=== PATIENT | male | born 1945 | race Caucasian/White ===

== ENCOUNTER → 2016-10-06 | Outpatient (CLI) | payer MEDICARE ==
[~2016-10-06] MED LIST: ALFU10TA6 PO; ALPR0.25 PO; ALPR0.5T7 PO; BACL10TA PO; BETH25TA PO; BUPR300T43 PO; BUPR300T51 PO; C250T PO; CRS350T PO; CYCL10TA9 PO; DILT120C63 PO; DULO30CA PO; DULO60CA6 PO; ETOD400T PO; FOLI0.8T PO; FURO40TA4 PO; HYDR-3820 PO; IBUP200C75 PO; IBUP200C92 PO; LACT20SO2 PO; LEVO500T2 PO; LOSA1TAB23 PO; LVF500T PO; MAGN500C15 PO; MULT-301 PO; MV,C1TAB21 PO; OMEG-12 PO; OMEP20CA12 PO; ONDA-42 SL; OXYC-272 PO; POTA20TA8 PO; PRAS25CA7 PO; TAMS0.4C2 PO; TAMS0.4C98 PO; ZINC30TA2 PO; ZOLP10TA5 PO; [UNRECOGNIZED DRUG - CODE] PO
--- NOTE | 2016-10-06 15:56 | Diagnostic Imaging Report ---
CLINICAL INDICATION: Patient has chronic neck pain. No known injury. EXAM: MRI of the cervical spine performed without IV contrast. Sequences include sagittal T2, sagittal T1, sagittal STIR, and axial T2. COMPARISON: CT cervical myelogram dated 10/06/2013. FINDINGS: There is stable straightening of the cervical spine posture. There is no acute cervical spine fracture or dislocation. Limited visualization of the posterior fossa is unremarkable. There is sphenoid sinus disease seen with consolidation. The cervical spinal cord has normal cord signal changes and caliber. Besides degenerative signal changes, there is no significant abnormal vertebral body signal. There are hypertrophic disc spurs seen throughout the cervical spine and facet arthropathy. Overall, there is no significant interval change in the dfgihptq-fu-ypkhkz multilevel cervical spine degenerative disease. C1-C2: There is a small miguel-odontoid pannus and degenerative spurs at the atlanto-odontoid interval anteriorly. There is mild ligamentum flavum buckling. There is mild central canal narrowing. C2-C3: There is minimal posterior disc bulge and mild bilateral facet arthropathy. There is mild central canal narrowing and mild right neuroforamen narrowing. C3-C4: Again seen diffuse disc bulge with cxgu-ll-hkljlohb loss of intervertebral disc height. There are disc spurs seen anteriorly, posteriorly, and extending into the foraminal regions bilaterally. There is mild bilateral facet arthropathy. There is severe right neuroforamen narrowing. There is no significant left neuroforamen narrowing. There is mild central canal narrowing. C4-C5: There is a diffuse disc bulge with moderate loss of intervertebral disc height and hypertrophic disc spurs posteriorly and into the foraminal regions bilaterally. There is moderate central canal narrowing and reapfnpa-ig-dwbdub bilateral neuroforamen narrowing. C5-C6: There is a diffuse disc bulge with xeob-rr-wgdnvrpq loss of intervertebral disc height. There is minimal ligamentum flavum buckling and mild bilateral facet arthropathy. There is severe central canal narrowing and severe bilateral neuroforamen narrowing. C6-C7: There is a diffuse disc bulge with gsigmsxb-mk-jnlang loss of intervertebral disc height, endplate irregularity, hypertrophic posterior disc spurs, and bilateral uncinate spurs. There is moderate central canal narrowing. There is dndaimzq-wm-hkxyda bilateral neuroforamen narrowing. C7-T1: There is mild bilateral facet arthropathy. Otherwise, this level is unremarkable. IMPRESSION: 1. There is xtcocjhw-vk-evrwwh multilevel cervical spine degenerative disc disease which has significantly changed in the interim. Dictated by: Dictated on workstation # [id number]
== END ==
LOC: RAD 10:08
PROVIDERS: ATTEND Orthopaedic Surgery Orthopaedic Surgery of the Spine
DX: M50.31 Other cervical disc degeneration, high cervical region (principal)
CPT/HCPCS: 72141

== ENCOUNTER 2017-04-18 17:49 | Emergency (ER) | payer MEDICARE ==
[~2017-04-18] VITALS: Ht 170.2 cm; Wt 90.7 kg
--- OUTSIDE RECORDS SUMMARY | 2017-04-18 17:59 | XMS REPORT | Continuity of Care Document ---
Author Author [facility] Organization [facility] Address Unknown Phone Unavailable Allergies Active Description Code Type Severity Reaction Onset Reported/Identified Relationship to Patient Clinical Status Yes morphine [id number] Drug Allergy Unknown N/A 06/06/2013 Yes adhesive [id number] Drug Allergy Unknown RASH 05/23/2014 Yes morphine [id number] Drug Allergy Unknown PATIENT TAKES L 10/01/2015 Medications There is no data. Problems Date Dx Coded Attending Type Code Diagnosis Diagnosed By 05/30/2013 DARIAN OVIEDO MD Ot 724.02 SPINAL STENOSIS, LUMBAR REG, W/OUT NEURO 05/30/2013 DARIAN OVIEDO MD Ot 724.4 LUMBOSACRAL NEURITIS NOS 05/30/2013 DARIAN OVIEDO MD Ot 737.30 IDIOPATHIC SCOLIOSIS 05/30/2013 DARIAN OVIEDO MD Ot 738.4 ACQ SPONDYLOLISTHESIS 05/30/2013 DARIAN OVIEDO MD Ot V03.82 PROPHYLACTIC VACC AGAINST STREPTOCOCCUS 05/30/2013 DARIAN OVIEDO MD Ot V04.81 ND FOR PROPHYLACTIC VACCIN AND INOCULATI 06/04/2013 ALANIS RAWLS, SUKHWINDER Dillon Ot 786.05 SHORTNESS OF BREATH 06/15/2013 JACINTO CEDENO MD Ot 288.60 LEUKOCYTOSIS, UNSPECIFIED 06/15/2013 JACINTO CEDENO MD Ot 292.0 DRUG WITHDRAWAL 06/15/2013 JACINTO CEDENO MD Ot 305.90 DRUG ABUSE NEC-UNSPEC 06/15/2013 JACINTO CEDENO MD Ot 401.9 HYPERTENSION NOS 06/15/2013 JACINTO CEDENO MD Ot 414.00 CORON ATHEROSCLER NOS TYPE VESSEL, NATIV 06/15/2013 JACINTO CEDENO MD Ot 597.80 URETHRITIS NOS 06/15/2013 JACINTO CEDENO MD Ot 601.9 PROSTATITIS NOS 06/15/2013 JACINTO CEDENO MD Ot 715.90 OSTEOARTHROS NOS-UNSPEC 06/15/2013 JACINTO CEDENO MD Ot 724.02 SPINAL STENOSIS, LUMBAR REG, W/OUT NEURO 06/15/2013 WILIAN RAWLS, JACINTO Pereira Ot 737.30 IDIOPATHIC SCOLIOSIS 06/15/2013 WILIAN RAWLS, JACINTO S Ot 756.12 SPONDYLOLISTHESIS 06/15/2013 WILIAN RAWLS, JACINTO S Ot 780.62 POSTPROCEDURAL FEVER 06/15/2013 WILIAN RAWLS, JACINTO Pereira Ot 788.20 RETENTION OF URINE NOS 06/15/2013 WILIAN RAWLS, JACINTO Pereira Ot V13.01 PERSONAL HISTORY OF URINARY CALCULI 06/15/2013 WILIAN RAWLS, JACINTO Pereira Ot V45.81 AORTOCORONARY BYPASS 06/15/2013 WILIAN RAWLS, JACINTO Pereira Ot V45.89 POSTSURGICAL STATES NEC 10/06/2013 PREET RAWLS, DARIAN Dillon Ot 721.1 CERV SPONDYL W MYELOPATH 10/06/2013 PREET RAWLS, DARIAN Dillon Ot 721.42 SPOND COMPR LUMB SP CORD 05/24/2014 WILIAN RAWLS, JACINTO S Ot 288.60 05/24/2014 WILIAN RAWLS, JACINTO S Ot 401.9 05/24/2014 WILIAN RAWLS, JACINTO S Ot 414.01 05/24/2014 WILIAN RAWLS, JACINTO S Ot 458.9 05/24/2014 WILIAN RAWLS, JACINTO S Ot 527.7 05/24/2014 WILIAN RAWLS, JACINTO S Ot 530.81 05/24/2014 WILIAN RAWLS, JACINTO S Ot 599.0 05/24/2014 WILIAN RAWLS, JACINTO S Ot 716.90 05/24/2014 WILIAN RAWLS, JACINTO S Ot 722.6 05/24/2014 WILIAN RAWLS, JACINTO S Ot 724.5 05/24/2014 WILIAN RAWLS, JACINTO S Ot 780.8 05/24/2014 WILIAN RAWLS, JACINTO S Ot 784.92 05/24/2014 WILIAN RAWLS, JACINTO S Ot 786.2 05/24/2014 WILINA RAWLS, JACINTO S Ot 787.01 05/24/2014 WILIAN RAWLS, JACINTO S Ot 787.91 05/24/2014 WILIAN RAWLS, JACINTO S Ot 789.07 05/24/2014 WILIAN RAWLS, JACINTO S Ot 792.1 05/24/2014 WILIAN RAWLS, JACINTO S Ot V45.81 05/24/2014 WILIAN RAWLS, JACINTO S Ot V58.64 05/24/2014 WILIAN RAWLS, JACINTO S Ot 288.60 05/24/2014 WILIAN RAWLS, JACINTO S Ot 401.9 05/24/2014 WILIAN RAWLS, JACINTO S Ot 414.01 05/24/2014 WILIAN RAWLS, JACINTO S Ot 458.9 05/24/2014 WILIAN RAWLS, JACINTO S Ot 527.7 05/24/2014 WILIAN RAWLS, JACINTO S Ot 530.81 05/24/2014 WILIAN RAWLS, JACINTO S Ot 599.0 05/24/2014 WILIAN RAWLS, JACINTO S Ot 716.90 05/24/2014 WILIAN RAWLS, JACINTO S Ot 722.6 05/24/2014 WILIAN RAWLS, JACINTO S Ot 724.5 05/24/2014 WILIAN RAWLS, JACINTO S Ot 780.8 05/24/2014 WILIAN RAWLS, JACINTO S Ot 784.92 05/24/2014 WILIAN RAWLS, JACINTO S Ot 786.2 05/24/2014 WILIAN RAWLS, JACINTO S Ot 787.01 05/24/2014 WILIAN RAWLS, JACINTO S Ot 787.91 05/24/2014 WILIAN RAWLS, JACINTO S Ot 789.07 05/24/2014 WILIAN RAWLS, JACINTO S Ot 792.1 05/24/2014 WILIAN RAWLS, JACINTO S Ot V45.81 05/24/2014 WILIAN RAWLS, JACINTO S Ot V58.64 05/25/2014 WILIAN RAWLS, JACINTO S Ot 288.60 05/25/2014 WILIAN RAWLS, JACINTO S Ot 401.9 05/25/2014 WILIAN RAWLS, JACINTO S Ot 414.01 05/25/2014 WILIAN RAWLS, JACINTO S Ot 458.9 05/25/2014 WILIAN RAWLS, JACINTO S Ot 527.7 05/25/2014 WILIAN RAWLS, JACINTO S Ot 530.81 05/25/2014 WILIAN RAWLS, JACINTO S Ot 599.0 05/25/2014 WILIAN RAWLS, JACINTO S Ot 716.90 05/25/2014 WILIAN RAWLS, JACINTO S Ot 722.6 05/25/2014 WILIAN RAWLS, JACINTO S Ot 724.5 05/25/2014 WILIAN RAWLS, JACINTO Pereira Ot 780.8 05/25/2014 WILIAN RAWLS, JACINTO Pereira Ot 784.92 05/25/2014 WILIAN RAWLS, JACINTO Pereira Ot 786.2 05/25/2014 WILIAN RAWLS, JACINTO Pereira Ot 787.01 05/25/2014 WILIAN RAWLS, JACINTO Pereira Ot 787.91 05/25/2014 WILIAN RAWLS, JACINTO Pereira Ot 789.07 05/25/2014 WILIAN RAWLS, JACINTO S Ot 792.1 05/25/2014 WILIAN RAWLS, JACINTO Pereira Ot V45.81 05/25/2014 WILIAN RAWLS, JACINTO Pereira Ot V58.64 05/25/2014 WILIAN RAWLS, JACINTO Pereira Ot 276.51 DEHYDRATION 05/25/2014 WILIAN RAWLS, JACINTO Pereira Ot 288.60 LEUKOCYTOSIS, UNSPECIFIED 05/25/2014 WILIAN RAWLS, JACINTO Pereira Ot 401.9 HYPERTENSION NOS 05/25/2014 WILIAN RAWLS, JACINTO Pereira Ot 414.01 CORONARY ATHEROSCLEROSIS OF [place] CORON 05/25/2014 WILIAN RAWLS, JACINTO Pereira Ot 458.9 HYPOTENSION NOS 05/25/2014 WILIAN RAWLS, JACINTO Pereira Ot 527.7 SALIVARY SECRETION DIS 05/25/2014 WILIAN RAWLS, JACINTO Pereira Ot 530.81 ESOPHAGEAL REFLUX 05/25/2014 WILIAN RAWLS, JACINTO Pereira Ot 558.9 NONINF GASTROENTERIT NEC 05/25/2014 WILIAN RAWLS, JACINTO Pereira Ot 584.9 ACUTE RENAL FAILURE, UNSPECIFIED 05/25/2014 WILIAN RAWLS, JACINTO Pereira Ot 599.0 05/25/2014 WILIAN RAWLS, JACINTO Pereira Ot 600.00 HYPERTROPHY (BENIGN) OF PROSTATE W/O URI 05/25/2014 WILIAN RAWLS, JACINTO Pereira Ot 715.90 OSTEOARTHROS NOS-UNSPEC 05/25/2014 WILIAN RAWLS, JACINTO Pereira Ot 722.6 DISC DEGENERATION NOS 05/25/2014 WILIAN RAWLS, JACINTO Pereira Ot 724.5 05/25/2014 WILIAN RAWLS, JACINTO Pereira Ot 780.8 GENERALIZED HYPERHIDROSIS 05/25/2014 WILIAN RAWLS, JACINTO Pereira Ot 784.92 JAW PAIN 05/25/2014 WILIAN RAWLS, JACINTO Pereira Ot 786.2 COUGH 05/25/2014 JACINTO CEDENO MD Ot V45.81 AORTOCORONARY BYPASS 05/25/2014 JACINTO CEDENO MD Ot V45.89 POSTSURGICAL STATES NEC 05/25/2014 JACINTO CEDENO MD Ot V58.64 LONG-TERM(CURRENT)USE OF NON-STEROIDAL A 07/02/2014 Ot 724.02 07/02/2014 DARIAN OVIEDO MD Ot 724.02 07/02/2014 DARIAN OVIEDO MD Ot V72.63 07/02/2014 DARIAN OVIEDO MD Ot V72.81 07/02/2014 DARIAN OVIEDO MD Ot V72.83 07/02/2014 DARIAN OVIEDO MD Ot V74.8 07/02/2014 DARIAN OVIEDO MD Ot 724.02 07/02/2014 DARIAN OVIEDO MD Ot V72.84 07/02/2014 DARIAN OVIEDO MD Ot 288.60 07/02/2014 DARIAN OVIEDO MD Ot 721.1 07/02/2014 DARIAN OVIEDO MD Ot V64.3 07/02/2014 CHUY RAWLS, ALISHA A Ot 786.50 07/02/2014 EM WARD Ot 288.63 07/02/2014 MICHELLE ELIZALDE MD Ot 338.4 CHRONIC PAIN SYNDROME 07/02/2014 MICHELLE ELIZALDE MD Ot 722.83 POSTLAMINECT SYND-LUMBAR 07/02/2014 MICHELLE ELIZALDE MD Ot 724.6 DISORDERS OF SACRUM 07/02/2014 MICHELLE ELIZALDE MD Ot V58.69 OTH MED,LT,CURRENT USE 07/27/2014 EM WARD Ot 288.63 09/09/2014 EM WARD N Ot 288.63 MONOCYTOSIS (SYMPTOMATIC) 10/10/2014 ME WARD N Ot 288.63 10/11/2014 EM WARD N Ot 288.63 10/12/2014 EM WARD Ot 288.63 10/19/2014 MICHELLE ELIZALDE MD Ot 715.95 OSTEOARTHROS NOS-PELVIS 10/19/2014 MICHELLE ELIZALDE MD Ot 722.83 POSTLAMINECT SYND-LUMBAR 10/19/2014 MICHELLE ELIZALDE MD Ot 724.6 DISORDERS OF SACRUM 10/19/2014 MICHELLE ELIZALDE MD Ot 729.1 MYALGIA AND MYOSITIS NOS 10/19/2014 MICHELLE ELIZALDE MD Ot V58.69 OTH MED,LT,CURRENT USE 10/25/2014 MICHELLE ELIZALDE MD Ot 719.45 10/31/2014 JENNIFER SHEETS MD Ot 600.00 10/31/2014 JENNIFER SHEETS MD Ot V58.69 10/31/2014 JENNIFER SHEETS MD Ot V58.83 12/10/2014 MICHELLE ELIZALDE MD Ot 338.4 12/10/2014 MICHELLE ELIZALDE MD Ot 715.95 12/10/2014 MICHELLE ELIZALDE MD Ot 722.83 12/10/2014 MICHELLE ELIZALDE MD Ot 724.6 12/10/2014 MICHELLE ELIZALDE MD Ot V58.69 01/09/2015 ED, BOBAN N Ot 285.9 ANEMIA NOS 01/09/2015 ED, BOBAN N Ot 288.63 MONOCYTOSIS (SYMPTOMATIC) 01/09/2015 ED BOBAN N Ot V58.69 OTH MED,LT,CURRENT USE 01/15/2015 ED, BOBAN N Ot 288.63 02/25/2015 ED, BOBAN N Ot D64.9 02/25/2015 ED, BOBAN N Ot D72.821 02/25/2015 ED, BOBAN N Ot Z79.899 03/01/2015 MICHELLE ELIZALDE MD Ot G89.4 CHRONIC PAIN SYNDROME 03/01/2015 MICHELLE ELIZALDE MD Ot M47.816 SPONDYLOSIS W/O MYELOPATHY OR RADICULOPA 03/01/2015 MICHELLE ELIZALDE MD Ot M53.3 SACROCOCCYGEAL DISORDERS, NOT ELSEWHERE 03/01/2015 MICHELLE ELIZALDE MD Ot M96.1 POSTLAMINECTOMY SYNDROME, NOT ELSEWHERE 03/04/2015 MICHELLE ELIZALDE MD Ot G89.4 CHRONIC PAIN SYNDROME 03/04/2015 MICHELLE ELIZALDE MD Ot M47.816 SPONDYLOSIS W/O MYELOPATHY OR RADICULOPA 03/04/2015 MICHELLE ELIZALDE MD Ot M53.3 SACROCOCCYGEAL DISORDERS, NOT ELSEWHERE 03/04/2015 MICHELLE ELIZALDE MD Ot M96.1 POSTLAMINECTOMY SYNDROME, NOT ELSEWHERE 03/29/2015 MICHELLE ELIZALDE MD Ot G89.4 CHRONIC PAIN SYNDROME 03/29/2015 MICHELLE ELIZALDE MD Ot M47.816 SPONDYLOSIS W/O MYELOPATHY OR RADICULOPA 03/29/2015 MICHELLE ELIZALDE MD Ot M53.3 SACROCOCCYGEAL DISORDERS, NOT ELSEWHERE 03/29/2015 MICHELLE ELIZALDE MD, Ot M96.1 POSTLAMINECTOMY SYNDROME, NOT ELSEWHERE 03/29/2015 MICHELLE ELIZALDE MD Ot Z79.899 OTHER JAIL (CURRENT) DRUG THERAPY 04/10/2015 ED BOBAN N Ot 285.9 ANEMIA NOS 04/10/2015 ED BOBAN N Ot 288.63 MONOCYTOSIS (SYMPTOMATIC) 04/10/2015 ED BOBAN N Ot D64.9 ANEMIA, UNSPECIFIED 04/10/2015 ED BOBAN N Ot D72.821 MONOCYTOSIS (SYMPTOMATIC) 04/10/2015 EM WARD N Ot V58.69 OTH MED,LT,CURRENT USE 04/10/2015 ED, BOBAN N Ot 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 04/19/2015 ED BOBAN N Ot D64.9 04/19/2015 ED BOBAN N Ot D72.821 04/19/2015 ED, BOBAN N Ot Z79.899 06/14/2015 MICHELLE ELIZALDE MD Ot G89.4 CHRONIC PAIN SYNDROME 06/14/2015 MICHELLE ELIZALDE MD Ot M96.1 POSTLAMINECTOMY SYNDROME, NOT ELSEWHERE 06/21/2015 MICHELLE ELIZALDE MD Ot G89.4 06/21/2015 MICHELLE ELIZALDE MD Ot M96.1 06/21/2015 MICHELLE ELIZALDE MD Ot Z01.812 06/21/2015 MICHELLE ELIZALDE MD Ot Z11.2 07/31/2015 MICHELLE ELIZALDE MD Ot M54.5 LOW BACK PAIN 09/10/2015 TUAN MAYA MD Ot M96.1 POSTLAMINECTOMY SYNDROME, NOT ELSEWHERE 09/10/2015 TUAN MAYA MD Ot Z01.812 ENCOUNTER FOR PREPROCEDURAL LABORATORY E 09/10/2015 TUAN MAYA MD Ot Z11.2 ENCOUNTER FOR SCREENING FOR OTHER BACTER 09/11/2015 TUAN MAYA MD Ot M96.1 POSTLAMINECTOMY SYNDROME, NOT ELSEWHERE 09/11/2015 TUAN MAYA MD Ot Z01.812 ENCOUNTER FOR PREPROCEDURAL LABORATORY E 09/11/2015 TUAN MAYA MD Ot Z11.2 ENCOUNTER FOR SCREENING FOR OTHER BACTER 09/19/2015 TUAN MAYA MD Ot D72.829 ELEVATED WHITE BLOOD CELL COUNT, UNSPECI 09/25/2015 Ot 724.02 SPINAL STENOSIS, LUMBAR REG, W/OUT NEURO 09/25/2015 DARIAN OVIEDO MD Ot 724.02 SPINAL STENOSIS, LUMBAR REG, W/OUT NEURO 09/25/2015 DARIAN OVIEDO MD Ot V72.63 PRE-PROCEDURAL LABORATORY EXAMINATION 09/25/2015 DARIAN OVIEDO MD Ot V72.81 [id number] CARDIOVASCULAR 09/25/2015 DARIAN OVIEDO MD Ot V72.83 EXAM PRE-OPERATIVE NEC 09/25/2015 DARIAN OVIEDO MD Ot V74.8 SCREEN-BACTERIAL DIS NEC 09/25/2015 DARIAN OVIEDO MD Ot 724.02 SPINAL STENOSIS, LUMBAR REG, W/OUT NEURO 09/25/2015 DARIAN OVIEDO MD Ot V72.84 EXAM PRE-OPERATIVE NOS 09/25/2015 DARIAN OVIEDO MD Ot 288.60 LEUKOCYTOSIS, UNSPECIFIED 09/25/2015 DARIAN OVIEDO MD Ot 721.1 CERV SPONDYL W MYELOPATH 09/25/2015 DARIAN OVIEDO MD Ot V64.3 NO PROC FOR REASONS NEC 09/25/2015 CHUY RAWLS, ALISHA A Ot 786.50 CHEST PAIN NOS 09/25/2015 MICHELLE ELIZALDE MD Ot 719.45 JOINT PAIN-PELVIS 09/25/2015 JENNIFER SHEETS MD Ot 600.00 HYPERTROPHY (BENIGN) OF PROSTATE W/O URI 09/25/2015 JENNIFER SHEETS MD Ot V58.69 OT MED,LT,CURRENT USE 09/25/2015 JENNIFER SHEETS MD Ot V58.83 ENCOUNTER FOR THERAPEUTIC DRUG MONITORIN 09/25/2015 MICHELLE ELIZALDE MD Ot 338.4 CHRONIC PAIN SYNDROME 09/25/2015 MICHELLE ELIZALDE MD Ot 715.95 OSTEOARTHROS NOS-PELVIS 09/25/2015 MICHELLE ELIZALDE MD Ot 722.83 POSTLAMINECT SYND-LUMBAR 09/25/2015 MICHELLE ELIZALDE MD Ot 724.6 DISORDERS OF SACRUM 09/25/2015 MICHELLE ELIZALDE MD, Ot V58.69 OTH MED,LT,CURRENT USE 09/25/2015 EM WARD Ot D64.9 ANEMIA, UNSPECIFIED 09/25/2015 EM WARD Ot D72.821 MONOCYTOSIS (SYMPTOMATIC) 09/25/2015 EM WARD Ot 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 09/25/2015 MICHELLE ELIZALDE MD Ot G89.4 CHRONIC PAIN SYNDROME 09/25/2015 MICHELLE ELIZALDE MD, Ot M96.1 POSTLAMINECTOMY SYNDROME, NOT ELSEWHERE 09/25/2015 MICHELLE ELIZALDE MD Ot Z01.812 ENCOUNTER FOR PREPROCEDURAL LABORATORY E 09/25/2015 MICHELLE ELIZALDE MD Ot Z11.2 ENCOUNTER FOR SCREENING FOR OTHER BACTER 09/25/2015 TUAN MAYA MD Ot D72.829 ELEVATED WHITE BLOOD CELL COUNT, UNSPECI 09/26/2015 TUAN MAYA MD, Ot M96.0 PSEUDARTHROSIS AFTER FUSION OR ARTHRODES 09/27/2015 TUAN MAYA MD, Ot D64.9 ANEMIA, UNSPECIFIED 09/27/2015 TUAN MAYA MD Ot E87.2 ACIDOSIS 09/27/2015 TUAN MAYA MD Ot F41.9 ANXIETY DISORDER, UNSPECIFIED 09/27/2015 TUAN MAYA MD Ot G47.33 OBSTRUCTIVE SLEEP APNEA (ADULT) (PEDIATR 09/27/2015 TUAN MAYA MD Ot I12.9 HYPERTENSIVE CHRONIC KIDNEY DISEASE W ST 09/27/2015 TUAN MAYA MD Ot I25.10 ATHSCL HEART DISEASE OF [place] CORONARY 09/27/2015 TUAN MAYA MD Ot J96.01 ACUTE RESPIRATORY FAILURE WITH HYPOXIA 09/27/2015 TUAN MAYA MD, Ot K21.9 GASTRO-ESOPHAGEAL REFLUX DISEASE WITHOUT 09/27/2015 TUAN MAYA MD Ot K72.00 ACUTE AND SUBACUTE HEPATIC FAILURE WITHO 09/27/2015 TUAN MAYA MD Ot M43.17 SPONDYLOLISTHESIS, LUMBOSACRAL REGION 09/27/2015 TUAN MAYA MD Ot M46.1 SACROILIITIS, NOT ELSEWHERE CLASSIFIED 09/27/2015 TUAN MAYA MD Ot M54.16 RADICULOPATHY, LUMBAR REGION 09/27/2015 TUAN MAYA MD Ot M96.0 PSEUDARTHROSIS AFTER FUSION OR ARTHRODES 09/27/2015 TUAN MAYA MD Ot N18.9 CHRONIC KIDNEY DISEASE, UNSPECIFIED 09/27/2015 TUAN MAYA MD Ot R41.0 DISORIENTATION, UNSPECIFIED 09/27/2015 TUAN MAYA MD, Ot R73.9 HYPERGLYCEMIA, UNSPECIFIED 09/27/2015 TUAN MAYA MD Ot T81.19XA OTHER POSTPROCEDURAL SHOCK, INITIAL ENCO 09/27/2015 TUAN MAYA MD Ot T84.216A BREAKDOWN (MECHANICAL) OF INT FIX OF JEET 09/27/2015 TUAN MAYA MD Ot T86.831 BONE GRAFT FAILURE 09/27/2015 TUAN MAYA MD Ot Z95.1 PRESENCE OF AORTOCORONARY BYPASS GRAFT 09/27/2015 TUAN MAYA MD Ot Z95.5 PRESENCE OF CORONARY ANGIOPLASTY IMPLANT 09/27/2015 TUAN MAYA MD Ot D64.9 ANEMIA, UNSPECIFIED 09/27/2015 TUAN MAYA MD Ot E87.2 ACIDOSIS 09/27/2015 TUAN MAYA MD Ot F41.9 ANXIETY DISORDER, UNSPECIFIED 09/27/2015 TUAN MAYA MD Ot G47.33 OBSTRUCTIVE SLEEP APNEA (ADULT) (PEDIATR 09/27/2015 TUAN MAYA MD Ot I12.9 HYPERTENSIVE CHRONIC KIDNEY DISEASE W ST 09/27/2015 TUAN MAYA MD Ot I25.10 ATHSCL HEART DISEASE OF [place] CORONARY 09/27/2015 TUAN MAYA MD Ot J96.01 ACUTE RESPIRATORY FAILURE WITH HYPOXIA 09/27/2015 TUAN MAYA MD Ot K21.9 GASTRO-ESOPHAGEAL REFLUX DISEASE WITHOUT 09/27/2015 TUAN MAYA MD Ot K72.00 ACUTE AND SUBACUTE HEPATIC FAILURE WITHO 09/27/2015 TUAN MAYA MD Ot M43.17 SPONDYLOLISTHESIS, LUMBOSACRAL REGION 09/27/2015 TUAN MAYA MD, Ot M46.1 SACROILIITIS, NOT ELSEWHERE CLASSIFIED 09/27/2015 TUAN MAYA MD Ot M54.16 RADICULOPATHY, LUMBAR REGION 09/27/2015 TUAN MAYA MD Ot M96.0 PSEUDARTHROSIS AFTER FUSION OR ARTHRODES 09/27/2015 TUAN MAYA MD Ot N18.9 CHRONIC KIDNEY DISEASE, UNSPECIFIED 09/27/2015 TUAN MAYA MD Ot R41.0 DISORIENTATION, UNSPECIFIED 09/27/2015 TUAN MAYA MD Ot R73.9 HYPERGLYCEMIA, UNSPECIFIED 09/27/2015 TUAN MAYA MD, Ot T81.19XA OTHER POSTPROCEDURAL SHOCK, INITIAL ENCO 09/27/2015 TUAN MAYA MD Ot T84.216A BREAKDOWN (MECHANICAL) OF INT FIX OF [place] 09/27/2015 TUAN MAYA MD Ot T86.831 BONE GRAFT FAILURE 09/27/2015 TUAN MAYA MD Ot Z95.1 PRESENCE OF AORTOCORONARY BYPASS GRAFT 09/27/2015 TUAN MAYA MD Ot Z95.5 PRESENCE OF CORONARY ANGIOPLASTY IMPLANT 09/27/2015 TUAN MAYA MD Ot D64.9 ANEMIA, UNSPECIFIED 09/27/2015 TUAN MAYA MD Ot E87.2 ACIDOSIS 09/27/2015 TUAN MAYA MD Ot F41.9 ANXIETY DISORDER, UNSPECIFIED 09/27/2015 TUAN MAYA MD Ot G47.33 OBSTRUCTIVE SLEEP APNEA (ADULT) (PEDIATR 09/27/2015 TUAN MAYA MD Ot I12.9 HYPERTENSIVE CHRONIC KIDNEY DISEASE W ST 09/27/2015 TUAN MAYA MD Ot I25.10 ATHSCL HEART DISEASE OF [place] CORONARY 09/27/2015 TUNA MAYA MD Ot J96.01 ACUTE RESPIRATORY FAILURE WITH HYPOXIA 09/27/2015 TUAN MAYA MD Ot K21.9 GASTRO-ESOPHAGEAL REFLUX DISEASE WITHOUT 09/27/2015 TUAN MAYA MD Ot K72.00 ACUTE AND SUBACUTE HEPATIC FAILURE WITHO 09/27/2015 TUAN MAYA MD Ot M43.17 SPONDYLOLISTHESIS, LUMBOSACRAL REGION 09/27/2015 TUAN MAYA MD Ot M46.1 SACROILIITIS, NOT ELSEWHERE CLASSIFIED 09/27/2015 TUAN MAYA MD Ot M54.16 RADICULOPATHY, LUMBAR REGION 09/27/2015 TAUN MAYA MD Ot M96.0 PSEUDARTHROSIS AFTER FUSION OR ARTHRODES 09/27/2015 TUAN MAYA MD, Ot N18.9 CHRONIC KIDNEY DISEASE, UNSPECIFIED 09/27/2015 TUAN MAYA MD Ot R41.0 DISORIENTATION, UNSPECIFIED 09/27/2015 TUAN MAYA MD Ot R73.9 HYPERGLYCEMIA, UNSPECIFIED 09/27/2015 TUAN MAYA MD Ot T81.19XA OTHER POSTPROCEDURAL SHOCK, INITIAL ENCO 09/27/2015 TUAN MAYA MD, Ot T84.216A BREAKDOWN (MECHANICAL) OF INT FIX OF [place] 09/27/2015 TUAN MAYA MD Ot T86.831 BONE GRAFT FAILURE 09/27/2015 TUAN MAYA MD Ot Z95.1 PRESENCE OF AORTOCORONARY BYPASS GRAFT 09/27/2015 TUAN MAYA MD Ot Z95.5 PRESENCE OF CORONARY ANGIOPLASTY IMPLANT 09/27/2015 TUAN MAYA MD Ot D64.9 ANEMIA, UNSPECIFIED 09/27/2015 TUAN MAYA MD Ot E87.2 ACIDOSIS 09/27/2015 TUAN MAYA MD Ot F41.9 ANXIETY DISORDER, UNSPECIFIED 09/27/2015 TUAN MAYA MD Ot G47.33 OBSTRUCTIVE SLEEP APNEA (ADULT) (PEDIATR 09/27/2015 TUAN MAYA MD Ot I12.9 HYPERTENSIVE CHRONIC KIDNEY DISEASE W ST 09/27/2015 TUAN MAYA MD, Ot I25.10 ATHSCL HEART DISEASE OF [place] CORONARY 09/27/2015 TUAN MAYA MD Ot J96.01 ACUTE RESPIRATORY FAILURE WITH HYPOXIA 09/27/2015 TUAN MAYA MD Ot K21.9 GASTRO-ESOPHAGEAL REFLUX DISEASE WITHOUT 09/27/2015 TUAN MAYA MD Ot K72.00 ACUTE AND SUBACUTE HEPATIC FAILURE WITHO 09/27/2015 TUAN MAYA MD Ot M43.17 SPONDYLOLISTHESIS, LUMBOSACRAL REGION 09/27/2015 TUAN MAYA MD, Ot M46.1 SACROILIITIS, NOT ELSEWHERE CLASSIFIED 09/27/2015 TUAN MAYA MD Ot M54.16 RADICULOPATHY, LUMBAR REGION 09/27/2015 TUAN MAYA MD, Ot M96.0 PSEUDARTHROSIS AFTER FUSION OR ARTHRODES 09/27/2015 TUAN MAYA MD Ot N18.9 CHRONIC KIDNEY DISEASE, UNSPECIFIED 09/27/2015 TUAN MAYA MD Ot R41.0 DISORIENTATION, UNSPECIFIED 09/27/2015 TUAN MAYA MD Ot R73.9 HYPERGLYCEMIA, UNSPECIFIED 09/27/2015 TUAN MAYA MD Ot T81.19XA OTHER POSTPROCEDURAL SHOCK, INITIAL ENCO 09/27/2015 TUAN MAYA MD Ot T84.216A BREAKDOWN (MECHANICAL) OF INT FIX OF [place] 09/27/2015 TUAN MAYA MD Ot T86.831 BONE GRAFT FAILURE 09/27/2015 TUAN MAYA MD Ot Z95.1 PRESENCE OF AORTOCORONARY BYPASS GRAFT 09/27/2015 TUAN MAYA MD Ot Z95.5 PRESENCE OF CORONARY ANGIOPLASTY IMPLANT 09/27/2015 TUAN MAYA MD Ot D64.9 ANEMIA, UNSPECIFIED 09/27/2015 TUAN MAYA MD Ot E87.2 ACIDOSIS 09/27/2015 TUAN MAYA MD Ot F41.9 ANXIETY DISORDER, UNSPECIFIED 09/27/2015 TUAN MAYA MD Ot G47.33 OBSTRUCTIVE SLEEP APNEA (ADULT) (PEDIATR 09/27/2015 TUAN MAYA MD Ot I12.9 HYPERTENSIVE CHRONIC KIDNEY DISEASE W ST 09/27/2015 TUAN MAYA MD Ot I25.10 ATHSCL HEART DISEASE OF [place] CORONARY 09/27/2015 TUAN MAYA MD Ot J96.01 ACUTE RESPIRATORY FAILURE WITH HYPOXIA 09/27/2015 TUAN MAYA MD Ot K21.9 GASTRO-ESOPHAGEAL REFLUX DISEASE WITHOUT 09/27/2015 TUAN MAYA MD Ot K59.00 CONSTIPATION, UNSPECIFIED 09/27/2015 TUAN MAYA MD Ot K72.00 ACUTE AND SUBACUTE HEPATIC FAILURE WITHO 09/27/2015 TUAN MAYA MD Ot M43.17 SPONDYLOLISTHESIS, LUMBOSACRAL REGION 09/27/2015 TUAN MAYA MD Ot M46.1 SACROILIITIS, NOT ELSEWHERE CLASSIFIED 09/27/2015 TUAN MAYA MD Ot M54.16 RADICULOPATHY, LUMBAR REGION 09/27/2015 TUAN MAYA MD Ot M96.0 PSEUDARTHROSIS AFTER FUSION OR ARTHRODES 09/27/2015 TUAN MAYA MD Ot N18.9 CHRONIC KIDNEY DISEASE, UNSPECIFIED 09/27/2015 TUAN MAYA MD Ot N40.1 ENLARGED PROSTATE WITH LOWER URINARY TRA 09/27/2015 TUAN MAYA MD Ot N48.89 OTHER SPECIFIED DISORDERS OF PENIS 09/27/2015 TUAN MAYA MD Ot R33.8 OTHER RETENTION OF URINE 09/27/2015 TUAN MAYA MD Ot R41.0 DISORIENTATION, UNSPECIFIED 09/27/2015 TUAN MAYA MD Ot R60.0 LOCALIZED EDEMA 09/27/2015 TUAN MAYA MD Ot R73.9 HYPERGLYCEMIA, UNSPECIFIED 09/27/2015 TUAN MAYA MD Ot T81.19XA OTHER POSTPROCEDURAL SHOCK, INITIAL ENCO 09/27/2015 TUAN MAYA MD Ot T84.216A BREAKDOWN (MECHANICAL) OF INT FIX OF [place] 09/27/2015 TUAN MAYA MD Ot T86.831 BONE GRAFT FAILURE 09/27/2015 TUAN MAYA MD Ot Z95.1 PRESENCE OF AORTOCORONARY BYPASS GRAFT 09/27/2015 TUAN MAYA MD Ot Z95.5 PRESENCE OF CORONARY ANGIOPLASTY IMPLANT 09/30/2015 AMEENA LINDO DO Ot E87.70 FLUID OVERLOAD, UNSPECIFIED 09/30/2015 AMEENA LINDO DO Ot I12.9 HYPERTENSIVE CHRONIC KIDNEY DISEASE W ST 09/30/2015 AMEEAN LINDO DO Ot I25.10 ATHSCL HEART DISEASE OF [place] CORONARY 09/30/2015 AMEENA LINDO DO Ot K59.00 CONSTIPATION, UNSPECIFIED 09/30/2015 AMEENA LINDO DO Ot N18.9 CHRONIC KIDNEY DISEASE, UNSPECIFIED 09/30/2015 AMEENA LINDO DO Ot N40.1 ENLARGED PROSTATE WITH LOWER URINARY TRA 09/30/2015 AMEENA LINDO DO Ot N48.89 OTHER SPECIFIED DISORDERS OF PENIS 09/30/2015 GUICHO DO, AMEENA Ot R33.8 OTHER RETENTION OF URINE 09/30/2015 GUICHO DO, AMEENA Ot R73.9 HYPERGLYCEMIA, UNSPECIFIED 09/30/2015 GUICHO DO, AMEENA Ot Z48.89 ENCOUNTER FOR OTHER SPECIFIED SURGICAL A 09/30/2015 GUICHO HANSON AMEENA Ot Z95.1 PRESENCE OF AORTOCORONARY BYPASS GRAFT 09/30/2015 ABEL LINDO DOI Ot Z98.1 ARTHRODESIS STATUS 10/01/2015 EM WARD Ot D64.9 ANEMIA, UNSPECIFIED 10/01/2015 EDEM TORRE Ot D72.821 MONOCYTOSIS (SYMPTOMATIC) 10/01/2015 EM WARD Ot 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 10/02/2015 JENNIFER SHEETS MD Ot I10 ESSENTIAL (PRIMARY) HYPERTENSION 10/02/2015 JENNIFER SHEETS MD, Ot N40.1 ENLARGED PROSTATE WITH LOWER URINARY TRA 10/02/2015 JENNIFER SHEETS MD Ot R33.8 OTHER RETENTION OF URINE 10/02/2015 JENNIFER SHEETS MD Ot Z79.899 OTHER JAIL (CURRENT) DRUG THERAPY 10/02/2015 TUAN MAYA MD Ot D72.829 ELEVATED WHITE BLOOD CELL COUNT, UNSPECI 10/03/2015 JENNIFER SHEETS MD Ot I10 ESSENTIAL (PRIMARY) HYPERTENSION 10/03/2015 JENNIFER SHEETS MD Ot N40.1 ENLARGED PROSTATE WITH LOWER URINARY TRA 10/03/2015 JENNIFER SHEETS MD Ot R33.8 OTHER RETENTION OF URINE 10/03/2015 JENNIFER SHEETS MD, Ot Z79.899 OTHER JAIL (CURRENT) DRUG THERAPY 10/04/2015 JENNIFER SHEETS MD Ot I10 ESSENTIAL (PRIMARY) HYPERTENSION 10/04/2015 JENNIFER SHEETS MD, Ot N40.1 ENLARGED PROSTATE WITH LOWER URINARY TRA 10/04/2015 JENNIFER SHEETS MD Ot R33.8 OTHER RETENTION OF URINE 10/04/2015 JENNIFER SHEETS MD Ot 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 06/19/2016 Ot 724.02 SPINAL STENOSIS, LUMBAR REG, W/OUT NEURO 06/19/2016 DARIAN OVIEDO MD Ot 724.02 SPINAL STENOSIS, LUMBAR REG, W/OUT NEURO 06/19/2016 DARIAN OVIEDO MD Ot V72.63 PRE-PROCEDURAL LABORATORY EXAMINATION 06/19/2016 DARIAN OVIEDO MD Ot V72.81 [id number] CARDIOVASCULAR 06/19/2016 DARIAN OVIEDO MD Ot V72.83 EXAM PRE-OPERATIVE NEC 06/19/2016 DARIAN OVIEDO MD Ot V74.8 SCREEN-BACTERIAL DIS NEC 06/19/2016 DARIAN OVIEDO MD Ot 724.02 SPINAL STENOSIS, LUMBAR REG, W/OUT NEURO 06/19/2016 DARIAN OVIEDO MD, Ot V72.84 EXAM PRE-OPERATIVE NOS 06/19/2016 DARIAN OVIEDO MD Ot 288.60 LEUKOCYTOSIS, UNSPECIFIED 06/19/2016 DARIAN OVIEDO MD Ot 721.1 CERV SPONDYL W MYELOPATH 06/19/2016 DARIAN OVIEDO MD Ot V64.3 NO PROC FOR REASONS NEC 06/19/2016 CHUY RAWLS, ALISHA Ramirez Ot 786.50 CHEST PAIN NOS 06/19/2016 MICHELLE ELIZALDE MD Ot 719.45 JOINT PAIN-PELVIS 06/19/2016 JENNIFER SHEETS MD Ot 600.00 HYPERTROPHY (BENIGN) OF PROSTATE W/O URI 06/19/2016 JENNIFER SHEETS MD Ot V58.69 OTH MED,LT,CURRENT USE 06/19/2016 JENNIFER SHEETS MD Ot V58.83 ENCOUNTER FOR THERAPEUTIC DRUG MONITORIN 06/19/2016 MICHELLE ELIZALDE MD Ot 338.4 CHRONIC PAIN SYNDROME 06/19/2016 MICHELLE ELIZALDE MD Ot 715.95 OSTEOARTHROS NOS-PELVIS 06/19/2016 MICHELLE ELIZALDE MD Ot 722.83 POSTLAMINECT SYND-LUMBAR 06/19/2016 MICHELLE ELIZALDE MD Ot 724.6 DISORDERS OF SACRUM 06/19/2016 MICHELLE ELIZALDE MD, Ot V58.69 OTH MED,LT,CURRENT USE 06/19/2016 EM WARD Ot D64.9 ANEMIA, UNSPECIFIED 06/19/2016 EM WARD Ot D72.821 MONOCYTOSIS (SYMPTOMATIC) 06/19/2016 EM WARD Ot 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 06/19/2016 MICHELLE ELIZALDE MD Ot G89.4 CHRONIC PAIN SYNDROME 06/19/2016 MICHELLE ELIZALDE MD Ot M96.1 POSTLAMINECTOMY SYNDROME, NOT ELSEWHERE 06/19/2016 MICHELLE ELIZALDE MD Ot Z01.812 ENCOUNTER FOR PREPROCEDURAL LABORATORY E 06/19/2016 MICHELLE ELIZALDE MD Ot Z11.2 ENCOUNTER FOR SCREENING FOR OTHER BACTER 06/19/2016 TUAN MAYA MD Ot D72.829 ELEVATED WHITE BLOOD CELL COUNT, UNSPECI 07/02/2016 Ot 724.02 SPINAL STENOSIS, LUMBAR REG, W/OUT NEURO 07/02/2016 DARIAN OVIEDO MD Ot 724.02 SPINAL STENOSIS, LUMBAR REG, W/OUT NEURO 07/02/2016 DARIAN OVIEDO MD Ot V72.63 PRE-PROCEDURAL LABORATORY EXAMINATION 07/02/2016 DARIAN OVIEDO MD Ot V72.81 [id number] CARDIOVASCULAR 07/02/2016 DARIAN OVIEDO MD Ot V72.83 EXAM PRE-OPERATIVE NEC 07/02/2016 DARIAN OVIEDO MD Ot V74.8 SCREEN-BACTERIAL DIS NEC 07/02/2016 DARIAN OVIEDO MD Ot 724.02 SPINAL STENOSIS, LUMBAR REG, W/OUT NEURO 07/02/2016 DARIAN OVIEDO MD Ot V72.84 EXAM PRE-OPERATIVE NOS 07/02/2016 DARIAN OVIEDO MD Ot 288.60 LEUKOCYTOSIS, UNSPECIFIED 07/02/2016 DARIAN OVIEDO MD Ot 721.1 CERV SPONDYL W MYELOPATH 07/02/2016 DARIAN OVIEDO MD Ot V64.3 NO PROC FOR REASONS NEC 07/02/2016 CHUY RAWLS, ALISHA Ramirez Ot 786.50 CHEST PAIN NOS 07/02/2016 MICHELLE ELIZALDE MD Ot 719.45 JOINT PAIN-PELVIS 07/02/2016 JENNIFER SHEETS MD Ot 600.00 HYPERTROPHY (BENIGN) OF PROSTATE W/O URI 07/02/2016 JENNIFER SHEETS MD Ot V58.69 OTH MED,LT,CURRENT USE 07/02/2016 JENNFIER SHEETS MD Ot V58.83 ENCOUNTER FOR THERAPEUTIC DRUG MONITORIN 07/02/2016 MICHELLE ELIZALDE MD Ot 338.4 CHRONIC PAIN SYNDROME 07/02/2016 MICHELLE ELIZALDE MD Ot 715.95 OSTEOARTHROS NOS-PELVIS 07/02/2016 MICHELLE ELIZALDE MD Ot 722.83 POSTLAMINECT SYND-LUMBAR 07/02/2016 MICHELLE ELIZALDE MD Ot 724.6 DISORDERS OF SACRUM 07/02/2016 MICHELLE ELIZALDE MD Ot V58.69 OTH MED,LT,CURRENT USE 07/02/2016 EM WARD Ot D64.9 ANEMIA, UNSPECIFIED 07/02/2016 EM WARD Ot D72.821 MONOCYTOSIS (SYMPTOMATIC) 07/02/2016 EM WARD Ot Z79.899 OTHER JAIL (CURRENT) DRUG THERAPY 07/02/2016 MICHELLE ELIZALDE MD Ot G89.4 CHRONIC PAIN SYNDROME 07/02/2016 MICHELLE ELIZALDE MD Ot M96.1 POSTLAMINECTOMY SYNDROME, NOT ELSEWHERE 07/02/2016 MICHELLE ELIZALDE MD Ot Z01.812 ENCOUNTER FOR PREPROCEDURAL LABORATORY E 07/02/2016 MICHELLE ELIZALDE MD, Ot Z11.2 ENCOUNTER FOR SCREENING FOR OTHER BACTER 07/02/2016 TUAN MAYA MD Ot D72.829 ELEVATED WHITE BLOOD CELL COUNT, UNSPECI 09/24/2016 Ot 724.02 SPINAL STENOSIS, LUMBAR REG, W/OUT NEURO 09/24/2016 DARIAN OVIEDO MD Ot 724.02 SPINAL STENOSIS, LUMBAR REG, W/OUT NEURO 09/24/2016 DARIAN OVIEDO MD Ot V72.63 PRE-PROCEDURAL LABORATORY EXAMINATION 09/24/2016 DARIAN OVIEDO MD Ot V72.81 [id number] CARDIOVASCULAR 09/24/2016 DARIAN OVIEDO MD Ot V72.83 EXAM PRE-OPERATIVE NEC 09/24/2016 DARIAN OVIEDO MD Ot V74.8 SCREEN-BACTERIAL DIS NEC 09/24/2016 DARIAN OVIEDO MD Ot 724.02 SPINAL STENOSIS, LUMBAR REG, W/OUT NEURO 09/24/2016 DARIAN OVIEDO MD Ot V72.84 EXAM PRE-OPERATIVE NOS 09/24/2016 DARIAN OVIEDO MD Ot 288.60 LEUKOCYTOSIS, UNSPECIFIED 09/24/2016 DARIAN OVIEDO MD Ot 721.1 CERV SPONDYL W MYELOPATH 09/24/2016 DARIAN OVIEDO MD Ot V64.3 NO PROC FOR REASONS NEC 09/24/2016 CHUY MD, ALISHA A Ot 786.50 CHEST PAIN NOS 09/24/2016 MICHELLE ELIZALDE MD Ot 719.45 JOINT PAIN-PELVIS 09/24/2016 JENNIFER SHEETS MD Ot 600.00 HYPERTROPHY (BENIGN) OF PROSTATE W/O URI 09/24/2016 JENNIFER SHEETS MD Ot V58.69 OTH MED,LT,CURRENT USE 09/24/2016 JENNIFER SHEETS MD Ot V58.83 ENCOUNTER FOR THERAPEUTIC DRUG MONITORIN 09/24/2016 MICHELLE ELIZALDE MD Ot 338.4 CHRONIC PAIN SYNDROME 09/24/2016 MICHELLE ELIZALDE MD Ot 715.95 OSTEOARTHROS NOS-PELVIS 09/24/2016 MICHELLE ELIZALDE MD Ot 722.83 POSTLAMINECT SYND-LUMBAR 09/24/2016 MICHELLE ELIZALDE MD Ot 724.6 DISORDERS OF SACRUM 09/24/2016 MICHELLE ELIZALDE MD, Ot V58.69 OTH MED,LT,CURRENT USE 09/24/2016 EM WARD Ot D64.9 ANEMIA, UNSPECIFIED 09/24/2016 EM WARD Ot D72.821 MONOCYTOSIS (SYMPTOMATIC) 09/24/2016 EM WARD Ot Z79.899 OTHER JAIL (CURRENT) DRUG THERAPY 09/24/2016 MICHELLE ELIZALDE MD Ot G89.4 CHRONIC PAIN SYNDROME 09/24/2016 MICHELLE ELIZALDE MD Ot M96.1 POSTLAMINECTOMY SYNDROME, NOT ELSEWHERE 09/24/2016 MICHELLE ELIZALDE MD Ot Z01.812 ENCOUNTER FOR PREPROCEDURAL LABORATORY E 09/24/2016 MICHELLE ELIZALDE MD Ot Z11.2 ENCOUNTER FOR SCREENING FOR OTHER BACTER 09/24/2016 TUAN MAYA MD Ot D72.829 ELEVATED WHITE BLOOD CELL COUNT, UNSPECI 10/05/2016 Ot 724.02 SPINAL STENOSIS, LUMBAR REG, W/OUT NEURO 10/05/2016 DARIAN OVIEDO MD Ot 724.02 SPINAL STENOSIS, LUMBAR REG, W/OUT NEURO 10/05/2016 DARIAN OVIEDO MD Ot V72.63 PRE-PROCEDURAL LABORATORY EXAMINATION 10/05/2016 DARIAN OVIEDO MD Ot V72.81 [id number] CARDIOVASCULAR 10/05/2016 DARIAN OVIEDO MD Ot V72.83 EXAM PRE-OPERATIVE NEC 10/05/2016 DARIAN OVIEDO MD Ot V74.8 SCREEN-BACTERIAL DIS NEC 10/05/2016 DARIAN OVIEDO MD Ot 724.02 SPINAL STENOSIS, LUMBAR REG, W/OUT NEURO 10/05/2016 DARIAN OVIEDO MD Ot V72.84 EXAM PRE-OPERATIVE NOS 10/05/2016 DARIAN OVIEDO MD Ot 288.60 LEUKOCYTOSIS, UNSPECIFIED 10/05/2016 DARIAN OVIEDO MD Ot 721.1 CERV SPONDYL W MYELOPATH 10/05/2016 DARIAN OVIEDO MD Ot V64.3 NO PROC FOR REASONS NEC 10/05/2016 CHUY RAWLS, ALISHA Ramirez Ot 786.50 CHEST PAIN NOS 10/05/2016 MICHELLE ELIZALDE MD Ot 719.45 JOINT PAIN-PELVIS 10/05/2016 JENNIFER SHEETS MD Ot 600.00 HYPERTROPHY (BENIGN) OF PROSTATE W/O URI 10/05/2016 JENNIFER SHEETS MD Ot V58.69 OTH MED,LT,CURRENT USE 10/05/2016 JENNIFER SHEETS MD Ot V58.83 ENCOUNTER FOR THERAPEUTIC DRUG MONITORIN 10/05/2016 MICHELLE ELIZALDE MD Ot 338.4 CHRONIC PAIN SYNDROME 10/05/2016 MICHELLE ELIZALDE MD Ot 715.95 OSTEOARTHROS NOS-PELVIS 10/05/2016 MICHELLE ELIZALDE MD Ot 722.83 POSTLAMINECT SYND-LUMBAR 10/05/2016 MICHELLE ELIZALDE MD Ot 724.6 DISORDERS OF SACRUM 10/05/2016 MICHELLE ELIZALDE MD Ot V58.69 OTH MED,LT,CURRENT USE 10/05/2016 EM WARD Ot D64.9 ANEMIA, UNSPECIFIED 10/05/2016 EM WARD Ot D72.821 MONOCYTOSIS (SYMPTOMATIC) 10/05/2016 EM WARD Ot Z79.899 OTHER JAIL (CURRENT) DRUG THERAPY 10/05/2016 MICHELLE ELIZALDE MD Ot G89.4 CHRONIC PAIN SYNDROME 10/05/2016 MICHELLE ELIZALDE MD Ot M96.1 POSTLAMINECTOMY SYNDROME, NOT ELSEWHERE 10/05/2016 MICHELLE ELIZALDE MD Ot Z01.812 ENCOUNTER FOR PREPROCEDURAL LABORATORY E 10/05/2016 MICHELLE ELIZALDE MD Ot Z11.2 ENCOUNTER FOR SCREENING FOR OTHER BACTER 10/05/2016 FRANCESCO RAWLS, TUAN Wilson Ot D72.829 ELEVATED WHITE BLOOD CELL COUNT, UNSPECI 10/07/2016 TUAN MAYA MD Ot M50.31 OTHER CERVICAL DISC DEGENERATION, HIGH 10/16/2016 TUAN MAYA MD Ot M50.31 OTHER CERVICAL DISC DEGENERATION, HIGH Procedures Code Description Performed By Performed On 80.51 EXCISION INTERVERT DISC 05/29/2013 81.08 LUMBAR LUMBOSACRAL FUSION OF ANTERIOR 05/29/2013 81.62 FUSION/REFUS OF 2-3 VERTEBRAE 05/29/2013 84.51 INSERTION OF INTERBODY SPINAL FUSION DEV 05/29/2013 77.79 EXCISE BONE FOR GFT NEC 06/07/2013 81.08 LUMBAR LUMBOSACRAL FUSION OF ANTERIOR 06/07/2013 81.62 FUSION/REFUS OF 2-3 VERTEBRAE 06/07/2013 84.51 INSERTION OF INTERBODY SPINAL FUSION DEV 06/07/2013 [id number] 09/23/2015 [id number] EXCISION OF RIGHT PELVIC BONE, OPEN APPR 09/23/2015 [id number] EXCISION OF LEFT PELVIC BONE, OPEN APPRO 09/23/2015 [id number] 09/23/2015 [id number] INSERTION OF INT FIX INTO R PELVIC BONE, 09/23/2015 [id number] INSERTION OF INT FIX INTO L PELVIC BONE, 09/23/2015 [id number] EXCISION OF LUMBOSACRAL DISC, OPEN APPRO 09/23/2015 [id number] FUSION LUM JT W AUTOL SUB , POST APPR P C 09/23/2015 [id number] 09/23/2015 [id number] FUSION LUMSAC JT W AUTOL SUB, POST APPR 09/23/2015 [id number] FUSION LUMSAC JT W INTBD FUS DEV, ANT AP 09/23/2015 [id number] REMOVAL OF INT FIX FROM LUM JT, OPEN LAURA 09/23/2015 [id number] REMOVAL OF INT FIX FROM LUMSAC JT, OPEN 09/23/2015 [id number] REMOVAL OF INTBD FUS DEV FROM LUMSAC JT, 09/23/2015 Results There is no data. Encounters ACCT No. Visit Date/Time Discharge Status Pt. Type Provider Facility Loc./Unit Complaint [id number] 10/06/2016 10:08:00 10/06/2016 23:59:59 CLS Outpatient TUAN MAYA MD Via [facility] RAD NECK PAIN M54.2 [id number] 10/01/2015 06:00:00 10/02/2015 15:10:00 DIS Outpatient JENNIFER SHEETS MD Via [facility] URINE RETENTION,BPH [id number] 09/27/2015 15:06:00 09/30/2015 13:00:00 DIS Inpatient AMEENA LINDO DO Via [facility] 4TH SWB NON UNION [id number] 09/23/2015 05:59:00 09/27/2015 15:06:00 DIS Inpatient TUAN MAYA MD Via [address] NON UNION [id number] 09/18/2015 13:09:00 09/18/2015 23:59:59 CLS Outpatient TUAN MAYA MD Via [facility] LAB ELEVATED WBC [id number] 09/10/2015 10:23:00 09/10/2015 15:40:00 DIS Outpatient TUAN MAYA MD [facility] PREOP NON UNION [id number] 07/09/2015 12:55:00 07/31/2015 11:18:00 DIS Outpatient MICHELLE ELIZALDE MD Via [facility] REHAB LUMBAGO [id number] 06/14/2015 09:17:00 06/14/2015 13:41:00 DIS Outpatient MICHELLE ELIZALDE MD Via [facility] CHRONIC PAIN SYNDROME; POST LAMINECTOMY SYNDROME [id number] 06/06/2015 11:58:00 06/06/2015 23:59:59 CLS Outpatient MICHELLE ELIZALDE MD [facility] PREOP CHRONIC PAIN SYNDROME; POST LAMINECTOMY SYNDROME [id number] 04/11/2015 00:22:00 04/11/2015 23:59:59 CLS Preadmit EM WARD Via [facility] ONC [id number] 01/10/2015 14:25:00 04/10/2015 00:01:00 DIS Outpatient EM WARD Via [facility] ONC [id number] 03/29/2015 15:00:00 03/29/2015 16:27:00 DIS Outpatient MICHELLE ELIZALDE MD Via [facility] CARD SPONDYLOSIS [id number] 03/04/2015 12:35:00 03/04/2015 13:32:00 DIS Outpatient MICHELLE ELIZALDE MD Via [facility] 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 [id number] 03/01/2015 07:58:00 03/01/2015 08:40:00 DIS Outpatient MICHELLE ELIZALDE MD [facility] 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 [id number] 01/03/2015 10:42:00 01/09/2015 00:01:00 DIS Outpatient EM WARD Via [facility] ONC [id number] 11/16/2014 09:13:00 11/16/2014 23:59:59 CLS Outpatient MICHELLE ELIZALDE MD Via [facility] CARD SI JOINT DYSFUNTION [id number] 10/19/2014 07:23:00 10/19/2014 08:31:00 DIS Outpatient MICHELLE ELIZALDE MD [facility] CARD SIJD,HIP OSTEOARTHRITIS [id number] 10/11/2014 13:08:00 10/11/2014 23:59:59 CLS Outpatient JENNIFER SHEETS MD [facility] 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 [id number] 10/11/2014 10:56:00 10/11/2014 23:59:59 CLS Outpatient MICHELLE ELIZALDE MD [facility] RAD BI HIP PAIN [id number] 06/11/2014 13:31:00 09/09/2014 00:01:00 DIS Outpatient EM WARD [facility] ONC [id number] 07/02/2014 13:08:00 07/02/2014 14:32:00 DIS Outpatient MICHELLE ELIZALDE MD [facility] CARD SIJD [id number] 05/23/2014 21:20:00 05/25/2014 13:15:00 DIS Inpatient JACINTO CEDENO MD [facility] 4TH GENERALIZED ABD PAIN;N/V; DIARRHEA;LEUKOSYTOSIS [id number] 10/06/2013 14:05:00 10/06/2013 23:59:59 CLS Outpatient ALISHA VERA MD [facility] RAD CP [id number] 10/06/2013 09:25:00 10/06/2013 16:30:00 DIS Outpatient DARIAN OVIEDO MD [facility] RAD LUMBAR RADICULOPATHY, CERVICAL STENOSIS [id number] 08/23/2013 07:43:00 08/23/2013 23:59:59 CLS Outpatient DARIAN OVIEDO MD [facility] RAD LUMBAR RADICULOPATHY, CERVICAL STENOSIS [id number] 06/07/2013 00:01:00 06/15/2013 11:10:00 DIS Inpatient JACINTO CEDENO MD [facility] SURGICAL DEHYDRATION; INTRACTABLE PAIN [id number] 06/04/2013 14:29:00 06/04/2013 15:30:00 DIS Emergency SUKHWINDER THAPA MD [facility] ER SOA [id number] 06/02/2013 08:06:00 06/02/2013 23:59:59 CLS Outpatient DARIAN OVIEDO MD [facility] PREOP LUMBAR STENOSIS [id number] 05/29/2013 09:20:00 05/30/2013 15:00:00 DIS Inpatient DARIAN OVIEDO MD [facility] SURGICAL CERVICAL STENOSIS [id number] 05/15/2013 10:24:00 05/15/2013 23:59:59 CLS Outpatient DARIAN OVIEDO MD [facility] PREOP CERVICAL STENOSIS [id number] 03/25/2012 13:01:00 Document Registration
[2017-04-18] MEDS ORDERED: LACTATED RINGERS 1,000 ML IV ONE ×2 (18:04→19:14)
--- NOTE | 2017-04-18 18:10 | ED Abdominal Pain ---
General Stated Complaint: LOWER BACK PAIN, ABD PAIN Source of Information: Patient History of Present Illness Time Seen By Provider: 18:00 Initial Comments PT ARRIVES VIA POV FROM HOME C/O LEFT FLANK/ABDOMINAL/ BACK PAIN SINCE 0500 THIS AM HAS HISTORY OF KIDNEY STONES WELL CHRONIC BACK PAIN--PT WALKS WITH A CANE. HAS HAD LEFT FLANK PAIN X 1 WEEK, WORSE SINCE 0500 THIS AM HAS SLIGHT NAUSEA, NO VOMITING NO FEVER HAS SENSATION OF FULL BLADDER, BUT ONLY VOIDED A SMALL AMOUNT THIS AM AND HAS NOT URINATED SINCE THEN HAS NOT TAKEN ANYTHING FOR PAIN PCP: DR. VERA Allergies and Home Medications Allergies Coded Allergies: adhesive (Unverified Allergy, Unknown, RASH, 05/23/14) morphine (Unverified Allergy, Unknown, PATIENT TAKES LORTAB AT HOME, ) Home Medications Diltiazem HCl 120 Mg Cap.er.24h, 120 MG PO DAILY, #30 Prescribed by: AMEENA LINDO on 09/30/15 1051 Duloxetine HCl 60 Mg Capsule.dr, 60 MG PO BID, (Reported) Hydrocodone/Acetaminophen 1 Each Tablet, 0 EA PO Q4H PRN for PAIN, #30 Prescribed by: AMEENA LINDO on 09/30/15 1051 Ibuprofen 200 Mg Capsule, 200 MG PO 7 times daily, (Reported) Lactulose 20 Gm/30 Ml Solution, 10 GM PO BID, #4 Prescribed by: AMEENA LINDO on 09/30/15 1051 Levofloxacin 500 Mg Tablet, 500 MG PO DAILY, #7 Prescribed by: MUSTAPHA KELLER on 10/02/15 1428 Losartan/Hydrochlorothiazide 1 Each Tablet, 1 TAB PO DAILY, (Reported) Multivitamin 1 Each Tablet, 1 EACH PO DAILY, (Reported) Nitrofurantoin Monohyd/M-Cryst 100 Mg Capsule, 100 MG PO BID, #20 Prescribed by: ALISHA SIMENTAL on 04/18/172027 Omeprazole 20 Mg Capsule.dr, 20 MG PO DAILY @ 1200, (Reported) Orphenadrine Citrate 100 Mg Tablet.er, 100 MG PO BID, #14 FOR MUSCLE SPASMS Prescribed by: ALISHA SIMENTAL on 04/18/172027 Potassium Chloride 20 Meq Tab.er.prt, 20 MEQ PO DAILY, #30 Prescribed by: AMEENA LINDO on 09/30/15 1051 Tamsulosin HCl 0.4 Mg Cap, 0.4 MG PO DAILY, #30 Prescribed by: ALISHA SIMENTAL on 04/18/172027 Zolpidem Tartrate 10 Mg Tablet, 10 MG PO DAILY, (Reported) Review of Systems Constitutional: no symptoms reported Respiratory: No Symptoms Reported Cardiovascular: No Symptoms Reported Gastrointestinal: See HPI, Abdominal Pain, Nausea, Denies Vomiting Genitourinary: See HPI, Flank Pain, Pain, Urgency Musculoskeletal: see HPI, back pain Skin: no symptoms reported Psychiatric/Neurological: No Symptoms Reported, Denies Numbness, Denies Paresthesia, Denies Tingling, Denies Weakness Endocrine: No Symptoms Reported Hematologic/Lymphatic: No Symptoms Reported Past Wafswsl-Vkxaiv-Jjzold Hx Patient Social History Recent Foreign Travel: No Contact w/Someone Who Travel: No Immunizations Up To Date Tetanus Booster (TDap): Less than 5yrs Date of Pneumonia Vaccine: May 30, 2013 Date of Influenza Vaccine: Apr 16, 2014 Surgeries History of Surgeries: Yes (BACK SURGERY X 2; CARDIAC CATHS WITH STENTS X 7, FOLLOWED BY CABG; RIGHT INGUNIAL HERNIA REPAIR?) Surgeries: Abdominal, Appendectomy, Cardiac, CABG, Coronary Stent, Orthopedic Respiratory History of Respiratory Disorde: No Cardiovascular History of Cardiac Disorders: Yes Cardiac Disorders: Coronary Artery Disease, Hypertension Reproductive System Hx Reproductive Disorders: No HIV/AIDS: No Genitourinary History of Genitourinary Disor: Yes (CHRONIC RENAL INSUFFICIENCY) Genitourinary Disorders: Prostate Problems, Bladder Infection, Kidney Stones, Renal Failure Gastrointestinal History of Gastrointestinal Di: Yes Gastrointestinal Disorders: Gastroesophageal Reflux, Chronic Constipation, Polyps Musculoskeletal History of Musculoskeletal Dis: Yes Musculoskeletal Disorders: Degenerate Disk Disease, Arthritis, Chronic Back Pain Endocrine History of Endocrine Disorders: Yes HEENT History of HEENT Disorders: No Cancer History of Cancer: No Psychosocial History of Psychiatric Problem: Yes Behavioral Health Disorders: Sleep Difficulties, Anxiety, Depression Integumentary History of Skin or Integumenta: No Blood Transfusions History of Blood Disorders: No Adverse Reaction to a Blood Tr: No Family Medical History Family Medial History: Family history: Cardiovascular disease 09 BROTHER Family history: Diabetes mellitus 03 MOTHER 09 BROTHER History of drug abuse 03 FATHER Physical Exam Vital Signs VS - Last 72 Hours, by Label 04/18/17 04/18/17 17:55 22:00 Temp 97.9 97.9 Pulse 84 82 Resp 18 18 B/P (MAP) 144/83 (103) Pulse Ox 97 97 Capillary Refill : General Appearance: WD/WN, no apparent distress Respiratory: normal breath sounds, no respiratory distress, no accessory muscle use Cardiovascular: regular rate, rhythm, no murmur Gastrointestinal: soft, no organomegaly, no pulsatile mass, tenderness (LLQ, LEFT MID ABDOMEN, LEFT FLANK) Extremities: normal inspection, no pedal edema, no calf tenderness, normal capillary refill Back: CVA tenderness (L) Neurologic/Psychiatric: system consultant II-XII nml as tested, no motor/sensory deficits, alert, normal mood/affect, oriented x 3 Skin: normal color, warm/dry, No rash Progress/Results/Core Measures Results/Orders Lab Results Laboratory Tests Test 04/18/17 18:07 04/18/17 19:50 Range/Units White Blood Count 13.7 H 4.3-11.0 10^3/uL Red Blood Count 4.96 4.35-5.85 10^6/uL Hemoglobin 14.0 13.3-17.7 G/DL Hematocrit 43 40-54 % Mean Corpuscular Volume 87 80-99 FL Mean Corpuscular Hemoglobin 28 25-34 PG Mean Corpuscular Hemoglobin Concent 33 32-36 G/DL Red Cell Distribution Width 15.2 H 10.0-14.5 % Platelet Count 248 130-400 10^3/uL Mean Platelet Volume 11.0 H 7.4-10.4 FL Neutrophils (%) (Auto) 59 42-75 % Lymphocytes (%) (Auto) 25 12-44 % Monocytes (%) (Auto) 12 0-12 % Eosinophils (%) (Auto) 4 0-10 % Basophils (%) (Auto) 1 0-10 % Neutrophils # (Auto) 8.1 H 1.8-7.8 X 10^3 Lymphocytes # (Auto) 3.4 1.0-4.0 X 10^3 Monocytes # (Auto) 1.6 H 0.0-1.0 X 10^3 Eosinophils # (Auto) 0.5 H 0.0-0.3 10^3/uL Basophils # (Auto) 0.1 0.0-0.1 10^3/uL Sodium Level 141 135-145 MMOL/L Potassium Level 3.8 3.6-5.0 MMOL/L Chloride Level 104 98-107 MMOL/L Carbon Dioxide Level 25 21-32 MMOL/L Anion Gap 12 5-14 MMOL/L Blood Urea Nitrogen 25 H 7-18 MG/DL Creatinine 1.36 H 0.60-1.30 MG/DL Estimat Glomerular Filtration Rate 52 BUN/Creatinine Ratio 18 Glucose Level 89 70-105 MG/DL Calcium Level 9.0 8.5-10.1 MG/DL Total Bilirubin 0.3 0.1-1.0 MG/DL Aspartate Amino Transf (AST/SGOT) 25 5-34 U/L Alanine Aminotransferase (ALT/SGPT) 30 0-55 U/L Alkaline Phosphatase 63 40-136 U/L Total Protein 6.8 6.4-8.2 GM/DL Albumin 3.7 3.2-4.5 GM/DL Amylase Level 44 25-125 U/L Lipase 26 8-78 U/L Urine Color YELLOW Urine Clarity CLEAR Urine pH 6 5-9 Urine Specific Clymer 1.020 1.016-1.022 Urine Protein 2+ H NEGATIVE Urine Glucose (UA) NEGATIVE NEGATIVE Urine Ketones NEGATIVE NEGATIVE Urine Nitrite NEGATIVE NEGATIVE Urine Bilirubin NEGATIVE NEGATIVE Urine Urobilinogen NORMAL NORMAL MG/DL Urine Leukocyte Esterase 1+ H NEGATIVE Urine RBC (Auto) 2+ H NEGATIVE Urine RBC 5-10 H /HPF Urine WBC 2-5 /HPF Urine Squamous Epithelial Cells 0-2 /HPF Urine Crystals NONE /LPF Urine Bacteria NONE /HPF Urine Casts NONE /LPF Urine Mucus NEGATIVE /LPF Urine Culture Indicated NO Micro Results Microbiology 04/18/17 Urine Culture - Preliminary, Resulted NO GROWTH My Orders Orders - ALISHA SIMENTAL DO Saline Lock/Iv-Start (04/18/17 18:04) Amylase (04/18/17 18:04) Cbc With Automated Diff (04/18/17 18:04) Comprehensive Metabolic Panel (04/18/17 18:04) Lipase (04/18/17 18:04) Ua Culture If Indicated (04/18/17 18:04) Saline Lock/Iv-Start (04/18/17 18:04) Lactated Ringers (Lr 1000 Ml Iv Solution (04/18/17 18:04) Bladder Scan (04/18/17 18:07) Ct Abd/Pelvis Wo(Kidney Stone) (04/18/17 18:07) Abdomen/Kub 1view (04/18/17 18:07) Ketorolac Injection (Toradol Injection) (04/18/17 18:15) Saline Lock/Iv-Start (04/18/17 19:14) Lactated Ringers (Lr 1000 Ml Iv Solution (04/18/17 19:14) Orphenadrine Injection (Norflex Injectio (04/18/17 19:15) Urine Culture (04/18/17 20:20) Ceftriaxone Injection (Rocephin Injectio (04/18/17 20:30) Alfuzosin Tablet (Uroxatral Tablet) (04/18/17 20:30) Ceftriaxone Injection (Rocephin Injectio (04/18/17 20:36) Ns (Ivpb) (Sodium Chloride 0.9% Ivpb Bag (04/18/17 20:38) Ns (Ivpb) (Sodium Chloride 0.9% Ivpb Bag (04/18/17 20:45) Medications Given in ED Vital Signs/I&O Vital Sign - Last 12Hours 04/18/17 04/18/17 17:55 22:00 Temp 97.9 97.9 Pulse 84 82 Resp 18 18 B/P (MAP) 144/83 (103) Pulse Ox 97 97 Progress Note : Progress Note ONLY 20 ML URINE IN BLADDER ON BLADDER SCAN, ON ARRIVAL. PAIN MUCH IMPROVED AT DISMISSAL PT ABLE TO VOID AFTER 2ND LITER OF FLUID Diagnostic Imaging Comments KUB--NO ACUTE PROCESS CT ABDOMEN/PELVIS--NO ACUTE PROCESS, MULTIPLE CHRONIC APPEARING FINDINGS, INCLUDING ENLARGED PROSTATE PER RADIOLOGIST REPORTS AT 1908 Reviewed: Reviewed by Me Departure Impression Impression: Primary Impression: Urinary tract infection Additional Impressions: Prostate enlargement Chronic back pain LEFT FLANK AND ABDOMINAL PAIN Constipation Mild dehydration Disposition: 01 HOME, SELF-CARE Condition: Stable Departure-Patient Inst. Referrals: ALISHA VERA MD (PCP/Family) Primary Care Physician Patient Instructions: Benign Prostatic Hyperplasia (Enlarged Prostate) (DC), Constipation, Adult (DC), Low Back Pain (DC), Urinary Tract Infection, Adult ( DC) Add. Discharge Instructions: INCREASE YOUR FLUID INTAKE--NO COFFEE, POP OR TEA TAKE YOUR MEDICATIONS PRESCRIBED TAKE MIRALAX EVERY DAY FOLLOW UP WITH YOUR DR THIS WEEK FOR FURTHER CARE Scripts Tamsulosin HCl (Flomax) 0.4 Mg Cap 0.4 MG PO DAILY, #30 CAP Prov: KAMILLE,ALISHA K DO 04/18/17 Nitrofurantoin Monohyd/M-Cryst (Macrobid 100 mg Capsule) 100 Mg Capsule 100 MG PO BID, #20 CAP Prov: ALISHA SIMENTAL DO 04/18/17 Orphenadrine Citrate (Orphenadrine Citrate) 100 Mg Tablet.er 100 MG PO BID, #14 TAB FOR MUSCLE SPASMS Prov: ALISHA SIMENTAL DO 04/18/17 ALISHA SIMENTAL DO Apr 18, 2017 18:10
[2017-04-18 18:13] LABS: BASOPHILS # (AUTO) 0.1 10^3/uL (0.0-0.1); BASOPHILS % (AUTO) 1 % (0-10); EOSINOPHILS # (AUTO) 0.5 10^3/uL (0.0-0.3); EOSINOPHILS % (AUTO) 4 % (0-10); HEMATOCRIT 43 % (40-54); LYMPHOCYTES # (AUTO) 3.4 X 10^3 (1.0-4.0); LYMPHOCYTES % (AUTO) 25 % (12-44); MEAN CORPUSCULAR HEMOGLOBIN 28 PG (25-34); MEAN CORPUSCULAR HGB CONC 33 G/DL (32-36); MEAN CORPUSCULAR VOLUME 87 FL (80-99); MONOCYTES # (AUTO) 1.6 X 10^3 (0.0-1.0); MONOCYTES % (AUTO) 12 % (0-12); NEUTROPHILS # (AUTO) 8.1 X 10^3 (1.8-7.8); NEUTROPHILS % (AUTO) 59 % (42-75); PLATELET COUNT 248 10^3/uL (130-400); RED BLOOD COUNT 4.96 10^6/uL (4.35-5.85); RED CELL DISTRIBUTION WIDTH 15.2 % (10.0-14.5); WHITE BLOOD COUNT 13.7 10^3/uL (4.3-11.0)
[2017-04-18] MEDS ORDERED: KETOROLAC 30 MG/ML VIAL IVP ONE (18:15)
[2017-04-18 18:37] LABS: ALBUMIN 3.7 GM/DL (3.2-4.5); BILIRUBIN,TOTAL 0.3 MG/DL (0.1-1.0); CREATININE SERUM 1.36 MG/DL (0.60-1.30); POTASSIUM 3.8 MMOL/L (3.6-5.0); TOTAL PROTEIN 6.8 GM/DL (6.4-8.2)
--- NOTE | 2017-04-18 18:46 | Diagnostic Imaging Report ---
PROCEDURE: CT urinary tract, rule out kidney stone. TECHNIQUE: Multiple contiguous axial images were obtained through the abdomen and pelvis without the use of intravenous contrast. INDICATION: Left-sided back pain with history of kidney stones. Comparison made to the prior study from 05/23/2014. FINDINGS: The visualized lung bases demonstrate some dependent atelectasis. There is no focal infiltrate or effusion. There are coronary calcifications. The patient is status post previous sternotomy. Noncontrast appearance of the liver demonstrates no focal abnormality. The gallbladder demonstrates a tiny gallstone but no biliary dilatation or gallbladder distention. Spleen is normal in size. The pancreas demonstrates mild atrophy but is unremarkable. There is no adrenal mass. There are multiple low-density lesions demonstrated within the kidneys which are also present on the prior examination compatible with cysts. A 2 mm stone demonstrated within the mid left kidney. There is no hydronephrosis or evidence of a stone within the ureters. The ureters appear normal in caliber. Small and large bowel are normal in caliber without evidence of obstruction. Diverticulosis is present but there is no evidence to suggest diverticulitis. There is moderate stool within the colon. There is no focal inflammation within the omentum or within the mesentery. There are bilateral fat-containing inguinal hernias and there appear to be prior surgical changes of the right groin. The urinary bladder is nondistended. The prostate is enlarged. There are no pathologically enlarged abdominal or pelvic lymph nodes. Atherosclerotic calcification present within a normal caliber aorta. Prior spinal fusion construct extending from L2 through the sacrum are demonstrated. There are iliac wing screws and there has been anterior lumbar interbody fusion of L5-S1. IMPRESSION: 1. No CT evidence of an acute inflammatory or obstructive process within the abdomen or pelvis. 2. Atherosclerosis and coronary artery disease 3. Cholelithiasis without biliary dilatation. 4. Bilateral renal cysts with nonobstructive left renal stone. There is no hydronephrosis or stone within the ureters or urinary bladder. 5. No bowel obstruction. Uncomplicated diverticulosis is present. 6. Bilateral fat-containing inguinal hernias with apparent previous right-sided hernia repair. 7. Prostatic enlargement 8. Previous spinal fusion. Dictated by: Dictated on workstation # [id number]
--- NOTE | 2017-04-18 18:53 | Diagnostic Imaging Report ---
EXAMINATION: KUB. INDICATION: Left-sided back pain. History of stones. FINDINGS: There is no plain film evidence of an abnormal calcification projecting over the expected location of the renal shadows. There is no evidence of stone within the ureters. There is extensive prior spinal fusion construct and there are surgical clips at the right inguinal region. IMPRESSION: No evidence of abdominal or pelvic calcifications to suggest urolithiasis. Dictated by: Dictated on workstation # [id number]
[2017-04-18] MEDS ORDERED: ORPHENADRINE 60 MG/2 ML (NORFLEX) AMP IV ONE (19:15)
[2017-04-18 20:00] LABS: BILIRUBIN,URINE NEGATIVE (NEGATIVE); CLARITY,URINE CLEAR; COLOR,URINE YELLOW; GLUCOSE, URINE (UA) NEGATIVE (NEGATIVE); KETONES,URINE NEGATIVE (NEGATIVE); LEUKOCYTE ESTERASE ,URINE 1+ (NEGATIVE); NITRITE,URINE NEGATIVE (NEGATIVE); PH,URINE 6 (5-9); PROTEIN,URINE 2+ (NEGATIVE); UROBILINOGEN,URINE NORMAL (NORMAL)
[2017-04-18 20:17] LABS: SQUAMOUS EPITHELIAL CELL,UR 0-2 /HPF
[2017-04-18] MEDS ORDERED: NITR-65 PO (20:28)
[2017-04-18] MEDS ORDERED: ORPH100T PO (20:28)
[2017-04-18] MEDS ORDERED: TAMS0.4C98 PO (20:28)
[2017-04-18] MEDS ORDERED: ALFUZOSIN HCL 10 MG TAB (UROXATRAL) PO SCH (20:30)
[2017-04-18] MEDS ORDERED: cefTRIAXone INJECTION 1,000 MG in NS (IVPB) 50 ML IV ONE (20:30)
[2017-04-18] MEDS ORDERED: cefTRIAXone 1 GM (ROCEPHIN) VIAL ONE (20:36)
[2017-04-18] MEDS ORDERED: NS (IVPB) 0 ML ONE (20:38)
[2017-04-18] MEDS ORDERED: NS (IVPB) 50 ML ONE (20:45)
[2017-04-18 22:00] VITALS: BP 138/80
== END 2017-04-18 22:00 | disposition home or self-care (01) ==
LOC: EDUNIT# 17:49 → ER 17:50
DX: N39.0 Urinary tract infection, site not specified (principal); N40.1 Benign prostatic hyperplasia with lower urinary tract symptoms; M54.5 Low back pain; G89.29 Other chronic pain; K59.00 Constipation, unspecified; E86.0 Dehydration; I10 Essential (primary) hypertension; K21.9 Gastro-esophageal reflux disease without esophagitis; F41.9 Anxiety disorder, unspecified; F32.9 Major depressive disorder, single episode, unspecified; Z87.440 Personal history of urinary (tract) infections; Z86.010 Personal history of colon polyps; Z82.49 Family history of ischemic heart disease and other diseases of the circulatory system; Z87.442 Personal history of urinary calculi
CPT/HCPCS: 36415; 74018; 74176; 80053; 81000; 82150; 83690; 85025; 87088; 96361; 96365; 96375

== ENCOUNTER 2017-05-17 10:00 | Outpatient (CLI) | payer MEDICARE ==
[~2017-05-17] VITALS: Ht 170.2 cm; Wt 90.7 kg
[~2017-05-17 10:00] MED LIST changes: +NITR-65 PO; +ORPH100T PO
[2017-05-17] MEDS ORDERED: ALPR0.5T7 PO (10:03)
[2017-05-17] MEDS ORDERED: TAMS0.4C2 PO (10:03)
[2017-05-17] MEDS ORDERED: LOSA1TAB23 PO (10:03)
[2017-05-17] MEDS ORDERED: OMEP20CA12 PO (10:03)
== END 2017-05-17 10:06 ==
LOC: PREOP 10:00
PROVIDERS: ATTEND Surgery
DX: Z01.818 Encounter for other preprocedural examination (principal); R19.4 Change in bowel habit; Z86.010 Personal history of colon polyps

== ENCOUNTER 2017-06-01 07:36 | Day surgery (SDC) | payer MEDICARE ==
[~2017-06-01] VITALS: Ht 170.2 cm; Wt 90.7 kg
[2017-06-01] MEDS ORDERED: PROPOFOL INJECTION 50 ML IV ONE (07:41)
[2017-06-01] MEDS ORDERED: MIDAZOLAM 2 MG/2 ML (VERSED) VIAL ONE (07:41)
--- OUTSIDE RECORDS SUMMARY | 2017-06-01 07:42 | XMS REPORT | Continuity of Care Document ---
Author Author [facility] Organization [facility] Address Unknown Phone Unavailable Allergies Active Description Code Type Severity Reaction Onset Reported/Identified Relationship to Patient Clinical Status Yes morphine [id number] Drug Allergy Unknown N/A 06/06/2013 Yes adhesive [id number] Drug Allergy Unknown RASH 05/23/2014 Yes morphine [id number] Drug Allergy Unknown PATIENT TAKES L 10/01/2015 [...] WILIAN RAWLS, JACINTO S Ot V58.64 05/24/2014 WILINA RAWLS, JACINTO S Ot 288.60 05/24/2014 WILIAN RAWLS, JACINTO S Ot 401.9 05/24/2014 WILIAN RAWLS, JACINTO S Ot 414.01 05/24/2014 WILIAN RAWLS, JACINTO S Ot 458.9 05/24/2014 WILIAN RAWLS, JACINTO S Ot 527.7 05/24/2014 WILIAN RAWLS, JACINTO S Ot 530.81 05/24/2014 WILIAN RAWLS, JACINTO S Ot 599.0 05/24/2014 WILIAN RAWLS, JACINTO S Ot 716.90 05/24/2014 WILIAN RAWLS, JACINTO S Ot 722.6 05/24/2014 WILINA RAWLS, JACINTO S Ot 724.5 05/24/2014 WILIAN [...] JACINTO S Ot 414.01 05/25/2014 WILIAN RAWLS, JACITNO S Ot 458.9 05/25/2014 WILIAN RAWLS, JACINTO [...] JACINTO Pereira Ot 414.01 CORONARY ATHEROSCLEROSIS OF [place] CORON 05/25/2014 WILIAN RAWLS, JACINTO Pereira Ot [...] WARD N Ot 288.63 MONOCYTOSIS (SYMPTOMATIC) 10/10/2014 EM WARD N Ot 288.63 10/11/2014 EM WARD [...] 03/29/2015 MICHELLE ELIZALDE MD Ot Z79.899 OTHER ALF (CURRENT) DRUG THERAPY 04/10/2015 ED BOBAN N Ot 285.9 ANEMIA NOS 04/10/2015 ED BOBAN N Ot 288.63 MONOCYTOSIS (SYMPTOMATIC) 04/10/2015 ED BOBAN N Ot D64.9 ANEMIA, UNSPECIFIED 04/10/2015 ED BOBAN N Ot D72.821 MONOCYTOSIS (SYMPTOMATIC) 04/10/2015 EM WARD N Ot V58.69 OTH MED,LT,CURRENT USE 04/10/2015 ED, BOBAN N Ot Z79.899 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 04/19/2015 ED BOBAN N [...] EXAMINATION 09/25/2015 DARIAN OVIEDO MD Ot V72.81 [id number] CARDIOVASCULAR 09/25/2015 DARIAN OVIEDO MD Ot V72.83 [...] (SYMPTOMATIC) 09/25/2015 EM WARD Ot Z79.899 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 09/25/2015 MICHELLE ELIZALDE MD [...] MD Ot I25.10 ATHSCL HEART DISEASE OF [place] CORONARY 09/27/2015 TUAN MAYA MD Ot J96.01 [...] MD Ot I25.10 ATHSCL HEART DISEASE OF [place] CORONARY 09/27/2015 TUAN MAYA MD Ot J96.01 [...] MD Ot I25.10 ATHSCL HEART DISEASE OF [place] CORONARY 09/27/2015 TUAN MAYA MD Ot J96.01 [...] MD, Ot I25.10 ATHSCL HEART DISEASE OF [place] CORONARY 09/27/2015 TUAN MAYA MD Ot J96.01 [...] OBSTRUCTIVE SLEEP APNEA (ADULT) (PEDIATR 09/27/2015 TUAN MAAY MD Ot I12.9 HYPERTENSIVE CHRONIC KIDNEY DISEASE W ST 09/27/2015 TUAN MAYA MD Ot I25.10 ATHSCL HEART DISEASE OF [place] CORONARY 09/27/2015 TUAN MAYA MD Ot J96.01 [...] PRESENCE OF AORTOCORONARY BYPASS GRAFT 09/27/2015 TUAN AMYA MD Ot Z95.5 PRESENCE OF CORONARY ANGIOPLASTY IMPLANT 09/30/2015 AMEENA LINDO DO Ot E87.70 FLUID OVERLOAD, UNSPECIFIED 09/30/2015 AMEENA LINDO DO Ot I12.9 HYPERTENSIVE CHRONIC KIDNEY DISEASE W ST 09/30/2015 AMEENA LINDO DO Ot I25.10 ATHSCL HEART DISEASE OF [place] CORONARY 09/30/2015 AMEENA LINDO DO Ot K59.00 [...] (SYMPTOMATIC) 10/01/2015 EM WARD Ot Z79.899 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 10/02/2015 JENNIFER SHEETS MD Ot I10 ESSENTIAL (PRIMARY) HYPERTENSION 10/02/2015 JENNIFER SHEETS MD, Ot N40.1 ENLARGED PROSTATE WITH LOWER URINARY TRA 10/02/2015 JENNIFER SHEETS MD Ot R33.8 OTHER RETENTION OF URINE 10/02/2015 JENNIFER SHEETS MD Ot Z79.899 OTHER ALF (CURRENT) DRUG THERAPY 10/02/2015 TUAN MAYA MD Ot D72.829 ELEVATED WHITE BLOOD CELL COUNT, UNSPECI 10/03/2015 JENNIFER SHEETS MD Ot I10 ESSENTIAL (PRIMARY) HYPERTENSION 10/03/2015 JENNIFER SHEETS MD Ot N40.1 ENLARGED PROSTATE WITH LOWER URINARY TRA 10/03/2015 JENNIFER SHEETS MD Ot R33.8 OTHER RETENTION OF URINE 10/03/2015 JENNIFER SHEETS MD, Ot Z79.899 OTHER ALF (CURRENT) DRUG THERAPY 10/04/2015 JENNIFER SHEETS MD Ot I10 ESSENTIAL (PRIMARY) HYPERTENSION 10/04/2015 JENNIFER SHEETS MD, Ot N40.1 ENLARGED PROSTATE WITH LOWER URINARY TRA 10/04/2015 JENNIFER SHEETS MD Ot R33.8 OTHER RETENTION OF URINE 10/04/2015 JENNIFER SHEETS MD Ot Z79.899 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 06/19/2016 Ot 724.02 SPINAL STENOSIS, LUMBAR REG, W/OUT NEURO 06/19/2016 DARIAN OVIEDO MD Ot 724.02 SPINAL STENOSIS, LUMBAR REG, W/OUT NEURO 06/19/2016 DARIAN OVIEDO MD Ot V72.63 PRE-PROCEDURAL LABORATORY EXAMINATION 06/19/2016 DARIAN OVIEDO MD Ot V72.81 KKRF-[id number]-JQYSGJDVL CARDIOVASCULAR 06/19/2016 DARIAN OVIEDO MD Ot V72.83 [...] (SYMPTOMATIC) 06/19/2016 EM WARD Ot Z79.899 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 06/19/2016 MICHELLE ELIZALDE MD [...] EXAMINATION 07/02/2016 DARIAN OVIEDO MD Ot V72.81 TROO-PXU-YIKVBUAUL CARDIOVASCULAR 07/02/2016 DARIAN OVIEDO MD Ot V72.83 [...] MD Ot V58.69 OTH MED,LT,CURRENT USE 07/02/2016 JENNIFER SHEETS MD Ot V58.83 ENCOUNTER FOR [...] (SYMPTOMATIC) 07/02/2016 EM WARD Ot Z79.899 OTHER ALF (CURRENT) DRUG THERAPY 07/02/2016 IMCHELLE ELIZALDE MD Ot G89.4 CHRONIC PAIN SYNDROME [...] EXAMINATION 09/24/2016 DARIAN OVIEDO MD Ot V72.81 FFUK-LAX-MSMPVSUDH CARDIOVASCULAR 09/24/2016 DARIAN OVIEDO MD Ot V72.83 [...] (SYMPTOMATIC) 09/24/2016 EM WARD Ot Z79.899 OTHER ALF (CURRENT) DRUG THERAPY 09/24/2016 MICHELLE ELIZALDE MD [...] EXAMINATION 10/05/2016 DARIAN OVIEDO MD Ot V72.81 OSBD-QUI-GETGHOCDP CARDIOVASCULAR 10/05/2016 DARIAN OVIEDO MD Ot V72.83 [...] (SYMPTOMATIC) 10/05/2016 EM WARD Ot Z79.899 OTHER ALF (CURRENT) DRUG THERAPY 10/05/2016 MICHELLE ELIZALDE MD Ot G89.4 CHRONIC PAIN SYNDROME 10/05/2016 MICHELLE ELIZALDE MD Ot M96.1 POSTLAMINECTOMY SYNDROME, NOT ELSEWHERE 10/05/2016 MICHELLE ELIZALDE MD Ot Z01.812 ENCOUNTER FOR PREPROCEDURAL LABORATORY E 10/05/2016 MICHELLE ELIZALDE MD Ot Z11.2 ENCOUNTER FOR SCREENING FOR OTHER BACTER 10/05/2016 FRANCESCO RAWLS, TUAN Wilson Ot D72.829 ELEVATED WHITE BLOOD CELL COUNT, UNSPECI 10/07/2016 FRANCESCO RAWLS, TUAN Wilson Ot M50.31 OTHER CERVICAL DISC DEGENERATION, HIGH 10/16/2016 TUAN MAYA MD Ot M50.31 OTHER CERVICAL DISC DEGENERATION, HIGH 04/18/2017 KAMILLE ALISHA HANSON Ot E86.0 DEHYDRATION 04/18/2017 KAMILLE ALISHA HANSON Ot F32.9 MAJOR DEPRESSIVE DISORDER, SINGLE EPISOD 04/18/2017 KAMILLE ALISHA HANSON Ot F41.9 ANXIETY DISORDER, UNSPECIFIED 04/18/2017 KAMILLE ZO HANSONA Deanne Ot G89.29 OTHER CHRONIC PAIN 04/18/2017 ZO SIMENTAL DOA Deanne Ot I10 ESSENTIAL (PRIMARY) HYPERTENSION 04/18/2017 ZO SIMENTAL DOA Deanne Ot K21.9 GASTRO-ESOPHAGEAL REFLUX DISEASE WITHOUT 04/18/2017 ZO SIMNETAL DOA Deanne Ot K59.00 CONSTIPATION, UNSPECIFIED 04/18/2017 KAMILLE ZO HANSONA Deanne Ot M54.5 LOW BACK PAIN 04/18/2017 KAMILLE ALISHA HANSON Ot N39.0 URINARY TRACT INFECTION, SITE NOT SPECIF 04/18/2017 ZO SIMENTAL DOA Deanne Ot N40.1 BENIGN PROSTATIC HYPERPLASIA WITH LOWER 04/18/2017 ZO SIMENTAL DOA Deanne Ot Z82.49 FAMILY HX OF ISCHEM HEART DIS AND OTH DI 04/18/2017 ZO SIMENTAL DOA Deanne Ot Z86.010 PERSONAL HISTORY OF COLONIC POLYPS 04/18/2017 ALISHA SIMENTAL DO Ot Z87.440 PERSONAL HISTORY OF URINARY (TRACT) INFE 04/18/2017 ALISHA SIMENTAL DO Ot Z87.442 PERSONAL HISTORY OF URINARY CALCULI 05/14/2017 JUDE MENENDEZ DO Ot R19.4 CHANGE IN BOWEL HABIT 05/14/2017 JUDE MENENDEZ DO Ot Z01.818 ENCOUNTER FOR OTHER PREPROCEDURAL EXAMIN 05/14/2017 JUDE MENENDEZ DO Ot Z86.010 PERSONAL HISTORY OF COLONIC POLYPS 05/17/2017 JUDE MENENDEZ DO Ot R19.4 CHANGE IN BOWEL HABIT 05/17/2017 JUDE MENENDEZ DO Ot Z01.818 ENCOUNTER FOR OTHER PREPROCEDURAL EXAMIN 05/17/2017 SHON HANSONJUDE Santana Ot Z86.010 PERSONAL HISTORY OF COLONIC POLYPS Procedures Code Description Performed By Performed On 80.51 EXCISION INTERVERT DISC 05/29/2013 81.08 LUMBAR LUMBOSACRAL FUSION OF ANTERIOR 05/29/2013 81.62 FUSION/REFUS OF 2-3 VERTEBRAE 05/29/2013 84.51 INSERTION OF INTERBODY SPINAL FUSION DEV 05/29/2013 77.79 EXCISE BONE FOR GFT NEC 06/07/2013 81.08 LUMBAR LUMBOSACRAL FUSION OF ANTERIOR 06/07/2013 81.62 FUSION/REFUS OF 2-3 VERTEBRAE 06/07/2013 84.51 INSERTION OF INTERBODY SPINAL FUSION DEV 06/07/2013 [id number] 09/23/2015 [id number] EXCISION OF RIGHT PELVIC BONE, OPEN APPR 09/23/2015 [id number] EXCISION OF LEFT PELVIC BONE, OPEN APPRO 09/23/2015 [id number] 09/23/2015 [id number] INSERTION OF INT FIX INTO R PELVIC BONE, 09/23/2015 [id number] INSERTION OF INT FIX INTO L PELVIC BONE, 09/23/2015 [id number] EXCISION OF LUMBOSACRAL DISC, OPEN APPRO 09/23/2015 [id number] FUSION LUM JT W AUTOL SUB , POST APPR P C 09/23/2015 [id number] 09/23/2015 [id number] FUSION LUMSAC JT W AUTOL SUB, POST APPR 09/23/2015 [id number] FUSION LUMSAC JT W INTBD FUS DEV, ANT AP 09/23/2015 [id number] REMOVAL OF INT FIX FROM LUM JT, OPEN LAURA 09/23/2015 [id number] REMOVAL OF INT FIX FROM LUMSAC JT, OPEN 09/23/2015 [id number] REMOVAL OF INTBD FUS DEV FROM LUMSAC JT, 09/23/2015 Results Test Result Range Complete blood count (CBC) with automated white blood cell (WBC) differential - 04/18/17 18:07 Blood leukocytes automated count (number/volume) 13.7 10*3/uL 4.3-11.0 Blood erythrocytes automated count (number/volume) 4.96 10*6/uL 4.35-5.85 Venous blood hemoglobin measurement (mass/volume) 14.0 g/dL 13.3-17.7 Blood hematocrit (volume fraction) 43 % 40-54 Automated erythrocyte mean corpuscular volume 87 [foz_us] 80-99 Automated erythrocyte mean corpuscular hemoglobin (mass per erythrocyte) 28 pg 25-34 Automated erythrocyte mean corpuscular hemoglobin concentration measurement ( mass/volume) 33 g/dL 32-36 Automated erythrocyte distribution width ratio 15.2 % 10.0-14.5 Automated blood platelet count (count/volume) 248 10*3/uL 130-400 Automated blood platelet mean volume measurement 11.0 [foz_us] 7.4-10.4 Automated blood neutrophils/100 leukocytes 59 % 42-75 Automated blood lymphocytes/100 leukocytes 25 % 12-44 Blood monocytes/100 leukocytes 12 % 0-12 Automated blood eosinophils/100 leukocytes 4 % 0-10 Automated blood basophils/100 leukocytes 1 % 0-10 Blood neutrophils automated count (number/volume) 8.1 10*3 1.8-7.8 Blood lymphocytes automated count (number/volume) 3.4 10*3 1.0-4.0 Blood monocytes automated count (number/volume) 1.6 10*3 0.0-1.0 Automated eosinophil count 0.5 10*3/uL 0.0-0.3 Automated blood basophil count (count/volume) 0.1 10*3/uL 0.0-0.1 Comprehensive metabolic panel - 04/18/17 18:07 Serum or plasma sodium measurement (moles/volume) 141 mmol/L 135-145 Serum or plasma potassium measurement (moles/volume) 3.8 mmol/L 3.6-5.0 Serum or plasma chloride measurement (moles/volume) 104 mmol/L 98-107 Carbon dioxide 25 mmol/L 21-32 Serum or plasma anion gap determination (moles/volume) 12 mmol/L 5-14 Serum or plasma urea nitrogen measurement (mass/volume) 25 mg/dL 7-18 Serum or plasma creatinine measurement (mass/volume) 1.36 mg/dL 0.60-1.30 Serum or plasma urea nitrogen/creatinine mass ratio 18 NRG Serum or plasma creatinine measurement with calculation of estimated glomerular filtration rate 52 NRG Serum or plasma glucose measurement (mass/volume) 89 mg/dL 70-105 Serum or plasma calcium measurement (mass/volume) 9.0 mg/dL 8.5-10.1 Serum or plasma total bilirubin measurement (mass/volume) 0.3 mg/dL 0.1-1.0 Serum or plasma alkaline phosphatase measurement (enzymatic activity/volume) 63 U/L 40-136 Serum or plasma aspartate aminotransferase measurement (enzymatic activity/ volume) 25 U/L 5-34 Serum or plasma alanine aminotransferase measurement (enzymatic activity/volume ) 30 U/L 0-55 Serum or plasma protein measurement (mass/volume) 6.8 g/dL 6.4-8.2 Serum or plasma albumin measurement (mass/volume) 3.7 g/dL 3.2-4.5 Serum or plasma amylase measurement (enzymatic activity/volume) - 04/18/17 18: 07 Serum or plasma amylase measurement (enzymatic activity/volume) 44 U /L 25-125 Lipase - 04/18/17 18:07 Lipase 26 U/L 8-78 Complete urinalysis with reflex to culture - 04/18/17 19:50 Urine color determination YELLOW NRG Urine clarity determination CLEAR NRG Urine pH measurement by test strip 6 5-9 Specific gravity of urine by test strip 1.020 1.016- 1.022 Urine protein assay by test strip, semi-quantitative 2+ NEGATIVE Urine glucose detection by automated test strip NEGATIVE NEGATIVE Erythrocytes detection in urine sediment by light microscopy 2+ NEGATIVE Urine ketones detection by automated test strip NEGATIVE NEGATIVE Urine nitrite detection by test strip NEGATIVE NEGATIVE Urine total bilirubin detection by test strip NEGATIVE NEGATIVE Urine urobilinogen measurement by automated test strip (mass/volume) NORMAL NORMAL Urine leukocyte esterase detection by dipstick 1+ NEGATIVE Automated urine sediment erythrocyte count by microscopy (number/high power field) [HPF] NRG Automated urine sediment leukocyte count by microscopy (number/high power field ) [HPF] NRG Bacteria detection in urine sediment by light microscopy NONE NRG Squamous epithelial cells detection in urine sediment by light microscopy 0-2 NRG Crystals detection in urine sediment by light microscopy NONE NRG Casts detection in urine sediment by light microscopy NONE NRG Mucus detection in urine sediment by light microscopy NEGATIVE NRG Complete urinalysis with reflex to culture NO NRG Bacterial urine culture - 04/18/17 19:50 Bacterial urine culture NG NRG Encounters ACCT No. Visit Date/Time Discharge Status Pt. Type Provider Facility Loc./Unit Complaint [id number] 05/18/2017 11:45:00 05/18/2017 23:59:59 CLS Preadmit JUDE MENENDEZ DO [facility] ENDO CHANGE IN BM, HX COLON POLYPS [id number] 05/17/2017 10:00:00 05/17/2017 10:06:00 DIS Outpatient JUDE MENENDEZ DO [facility] PREOP COLONOSCOPY [id number] 04/18/2017 17:50:00 04/18/2017 22:00:00 DIS Emergency ALISHA SIMENTAL DO [facility] ER LOWER BACK PAIN, ABD PAIN [id number] 10/06/2016 10:08:00 10/06/2016 23:59:59 CLS Outpatient TUAN MAYA MD [facility] RAD NECK PAIN M54.2 [id number] 10/01/2015 06:00:00 10/02/2015 15:10:00 DIS Outpatient JENNIFER SHEETS MD [facility] URINE RETENTION,BPH [id number] 09/27/2015 15:06:00 09/30/2015 13:00:00 DIS Inpatient AMEENA LINDO DO [facility] 4TH [facility] [id number] 09/23/2015 05:59:00 09/27/2015 15:06:00 DIS Inpatient TUAN MAYA MD [facility] [address] NON [place] [id number] 09/18/2015 13:09:00 09/18/2015 23:59:59 CLS Outpatient TUAN MAYA MD [facility] LAB ELEVATED WBC [id number] 09/10/2015 10:23:00 09/10/2015 15:40:00 DIS Outpatient TUAN MAYA MD [facility] PREOP NON [place]ION [id number] 07/09/2015 12:55:00 07/31/2015 11:18:00 DIS Outpatient MICHELLE ELIZALDE MD [facility] REHAB LUMBAGO [id number] 06/14/2015 09:17:00 06/14/2015 13:41:00 DIS Outpatient MICHELLE ELIZALDE MD [facility] CHRONIC PAIN SYNDROME; POST LAMINECTOMY SYNDROME [id number] 06/06/2015 11:58:00 06/06/2015 23:59:59 CLS Outpatient MICHELLE ELIZALDE MD [facility] PREOP CHRONIC PAIN SYNDROME; POST LAMINECTOMY SYNDROME [id number] 04/11/2015 00:22:00 04/11/2015 23:59:59 CLS Preadmit EM WARD [facility] ONC [id number] 01/10/2015 14:25:00 04/10/2015 00:01:00 DIS Outpatient EM WARD [facility] ONC [id number] 03/29/2015 15:00:00 03/29/2015 16:27:00 DIS Outpatient MICHELLE ELIZALDE MD [facility] CARD SPONDYLOSIS [id number] 03/04/2015 12:35:00 03/04/2015 13:32:00 DIS Outpatient MICHELLE ELIZALDE MD [facility] 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 [id number] 03/01/2015 07:58:00 03/01/2015 08:40:00 DIS Outpatient MICHELLE ELIZALDE MD [facility] 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 [id number] 01/03/2015 10:42:00 01/09/2015 00:01:00 DIS Outpatient EM WARD [facility] ONC [id number] 11/16/2014 09:13:00 11/16/2014 23:59:59 CLS Outpatient MICHELLE ELIZALDE MD [facility] CARD SI JOINT DYSFUNTION [id number] 10/19/2014 07:23:00 10/19/2014 08:31:00 DIS Outpatient MICHELLE ELIZALDE MD [facility] SIJD,HIP OSTEOARTHRITIS [id number] 10/11/2014 13:08:00 10/11/2014 23:59:59 CLS Outpatient JENNIFER SHEETS MD [facility] LAB ALF MED USE [id number] 10/11/2014 10:56:00 10/11/2014 23:59:59 CLS Outpatient MICHELLE ELIZALDE MD [facility] RAD BI HIP PAIN [id number] 06/11/2014 13:31:00 09/09/2014 00:01:00 DIS Outpatient EM WARD [facility] ONC [id number] 07/02/2014 13:08:00 07/02/2014 14:32:00 DIS Outpatient MICHELLE ELIZALDE MD [facility] CARD SIJD [id number] 05/23/2014 21:20:00 05/25/2014 13:15:00 DIS Inpatient JACINTO CEDENO MD [facility] 4TH GENERALIZED ABD PAIN;N/V; DIARRHEA;LEUKOSYTOSIS [id number] 10/06/2013 14:05:00 10/06/2013 23:59:59 CLS Outpatient ALISHA VERA MD [facility] RAD CP [id number] 10/06/2013 09:25:00 10/06/2013 16:30:00 DIS Outpatient DARIAN OVIEDO MD [facility] RAD LUMBAR RADICULOPATHY, CERVICAL STENOSIS [id number] 08/23/2013 07:43:00 08/23/2013 23:59:59 CLS Outpatient DARIAN OVIEDO MD [facility] RAD LUMBAR RADICULOPATHY, CERVICAL STENOSIS [id number] 06/07/2013 00:01:00 06/15/2013 11:10:00 DIS Inpatient JACINTO CEDENO MD [facility] SURGICAL DEHYDRATION; INTRACTABLE PAIN [id number] 06/04/2013 14:29:00 06/04/2013 15:30:00 DIS Emergency SUKHWINDER THAPA MD [facility] ER SOA [id number] 06/02/2013 08:06:00 06/02/2013 23:59:59 CLS Outpatient DARIAN OVIEDO MD [facility] PREOP LUMBAR STENOSIS [id number] 05/29/2013 09:20:00 05/30/2013 15:00:00 DIS Inpatient DARIAN OVIEDO MD [facility] SURGICAL CERVICAL STENOSIS [id number] 05/15/2013 10:24:00 05/15/2013 23:59:59 CLS Outpatient PREET RAWLS, DARIAN Dillon [facility] PREOP CERVICAL STENOSIS [id number] 03/25/2012 13:01:00 Document Registration
[2017-06-01] MEDS ORDERED: LACTATED RINGERS 1,000 ML IV STA (08:11)
[2017-06-01 08:14] VITALS: BP 194/100
--- NOTE | 2017-06-01 08:32 | Progress Note-Pre Operative ---
Pre-Operative Progress Note H&P Reviewed The H&P was reviewed, patient examined and no changes noted. Date Seen by Provider: Jun 01, 2017 Time Seen by Provider: 08:32 Date H&P Reviewed: Jun 01, 2017 Time H&P Reviewed: 08:32 Pre-Operative Diagnosis: chronic constipation, history of polyps JUDE MENENDEZ DO Jun 01, 2017 08:32
--- NOTE | 2017-06-01 09:18 | Progress Note-Post Operative ---
Post-Operative Progess Note Surgeon (s)/Rodeo Rider (s) Surgeon JUDE MENENDEZ DO Rodeo Rider: na Pre-Operative Diagnosis chronic constipation, history of polyps Post-Operative Diagnosis colon polyps diverticulosis Procedure & Operative Findings Date of Procedure 06/01/17 Procedure Performed/Findings colonoscopy c hot bx polypectomy x 2 Anesthesia Type per can intake worker Estimated Blood Loss Estimated blood loss (mL): none Specimens/Packing Specimens Removed hepatic flexure polyp and tranverse colon polyp JUDE MENENDEZ DO Jun 01, 2017 09:18
--- NOTE | 2017-06-01 09:22 | Discharge Inst-Simple/Standard ---
Discharge Inst-Standard Patient Instructions/Follow Up Plan of Care/Instructions/FU: 2 weeks Blanquita Activity as Tolerated: Yes Discharge Diet: Regular Diet (high fiber) JUDE MENENDEZ DO Jun 01, 2017 09:22
[2017-06-01 09:30] VITALS: BP 171/90
[2017-06-01 10:00] VITALS: BP 170/89
[2017-06-01 10:09] VITALS: BP 170/89
--- NOTE | 2017-06-01 13:13 | OPERATIVE REPORT ---
DATE OF SERVICE: 06/01/2017 PREOPERATIVE DIAGNOSES: 1. Chronic constipation. 2. History of colon polyps. POSTOPERATIVE DIAGNOSIS: Colon polyps, diverticulosis. PROCEDURE: Colonoscopy with hot biopsy polypectomy x2. SURGEON: Jude Juares DO ANESTHESIA: Per MEDICAID ELIGIBILITY SPECIALIST. ESTIMATED BLOOD LOSS: None. SPECIMENS REMOVED: Hepatic flexure, polyp and transverse colon polyp. INDICATIONS: The patient is a 72-year-old male with history of colon polyps. He also has chronic constipation. He understands risks and benefits of procedure and wished to proceed with procedure. Consent was on chart. DESCRIPTION OF PROCEDURE: The patient was taken to the endoscopy suite, placed in left lateral recumbent position. Timeout was performed. A digital rectal exam was performed and there were no palpable polyps, mass or ulcerations. There is some slight hemorrhoidal disease. The scope was inserted in the rectum and advanced all the way to the cecum with minimal difficulty. Prep was adequate. Scope was then slowly retracted back. There were no polyps, masses or ulcerations within the cecum and colon. At the hepatic flexure, small polyp was present, which hot biopsy polypectomy was performed. Scope was continuously retracted back to the transverse colon where it was another small polyp was present, which hot biopsy polypectomy was performed. Scope was continuously retracted back into the descending and sigmoid colon only noting diverticulosis. The rectum was also retroflexed noting no other pathology. Scope was returned to its normal position, slowly withdrawn until completely removed. The patient tolerated procedure well without any complications and was taken to recovery room in stable condition. RECOMMENDATIONS: The patient will recommend high fiber diet due to diverticulosis. The patient will need repeat colonoscopy in 3 to 5 years. The patient to follow up in the office in 2 weeks to discuss pathology. Any problems prior to recommended repeat colonoscopy he should be seen at that time to discuss at that time. Job ID: [id number] DocumentID: [id number] Dictated Date: 06/01/2017 09:18:11 Machine Brusher Date: 06/01/2017 13:12:39 Dictated By: JUDE JUARES DO
== END 2017-06-01 10:11 | disposition home or self-care (01) ==
LOC: ENDO 07:36
PROVIDERS: ATTEND Surgery
DX: D12.3 Benign neoplasm of transverse colon (principal); K63.5 Polyp of colon; K57.30 Diverticulosis of large intestine without perforation or abscess without bleeding; K59.09 Other constipation; I25.10 Atherosclerotic heart disease of native coronary artery without angina pectoris; I10 Essential (primary) hypertension; G47.33 Obstructive sleep apnea (adult) (pediatric); F41.9 Anxiety disorder, unspecified; G57.93 Unspecified mononeuropathy of bilateral lower limbs; K21.9 Gastro-esophageal reflux disease without esophagitis; Z95.1 Presence of aortocoronary bypass graft; Z95.5 Presence of coronary angioplasty implant and graft; Z79.899 Other long term (current) drug therapy

== ENCOUNTER → 2017-08-19 | Outpatient (CLI) | payer MEDICARE, OTHER ==
--- NOTE | 2017-08-19 13:01 | Diagnostic Imaging Report ---
CLINICAL INDICATION: Patient with low back pain and numbness to the feet. Patient has degenerative disc disease. EXAM: Axial CT scan of the lumbar spine performed without IV contrast. Sagittal and coronal reformatted images were created. COMPARISON: CT lumbar myelogram dated 10/06/2013. FINDINGS: There are interval postop changes to the lumbar spine with extension of the previously seen posterior stabilization hardware which now involves the bilateral iliac bones. There is partial removal of the right S1 screw with retained fracture screw present. Remainder of the bilateral pedicle screws and spanning rods appears similar. Intervertebral grafts at the L2-L3, L3-L4, L4-L5, and L5-S1 levels are again noted. There is interval placement of L5-S1 anterior lumbar interbody fusion. Facetectomies involving the bilateral L5 region are again seen. There is interval intervertebral bony bridging/fusion at the L5-S1 level. There is minimal development of intervertebral bony bridging/fusion seen at the L2-L5 levels. There is no hardware complication such as osteolysis or hardware fracture. L5 laminectomy is again seen. There is interval development of abnormal kyphosis of the L1-L2 level with interval development of roughly 2 mm of grade 1 anterolisthesis of L1 on L2. There is progression of severe disc disease with suggestion of diffuse disc bulge, severe loss of intervertebral disc height. Ligamentum flavum buckling is again seen. The degree of soft tissue neuroforamen or central canal narrowing is limited on this exam. L2-L3: Again seen disc spurs extending posteriorly and into the foraminal regions bilaterally. There is stable at least moderate left neuroforaminal narrowing and mild right neuroforaminal narrowing. Evaluation for the degree of central canal narrowing is limited on this exam. L3-L4: There are vertebral body spurs and facet arthropathy again seen. There is at least moderate to severe right neuroforaminal narrowing and mild to moderate left neuroforaminal narrowing. There is no gross bony central canal narrowing. L4-L5: There is no major bony neuroforaminal narrowing or central canal narrowing. L5-S1: Again seen stable grade 1 anterolisthesis of L5 on S1. There is decompression of the thecal sac posteriorly with no significant bony central canal narrowing. There is slight progression of facet arthropathy. There is at least moderate to severe right neuroforaminal narrowing and mild to moderate left neuroforaminal narrowing which is not significantly changed. IMPRESSION: 1: There are interval postop changes to the lumbar spine with extension of the posterior fusion hardware to now exclude the bilateral iliac regions and placement of L5-S1 anterior lumbar interbody fusion hardware. There is no interval hardware complication seen. 2: There is interval development of severe subjacent degenerative disc disease at the L1-L2 level and development of mild grade 1 anterolisthesis of L1 on L2. There is also development of abnormal lordosis at the L1-L2 level. 3: There is slight progression of lumbar spine degenerative disease. Dictated by: Dictated on workstation # [id number]
== END ==
LOC: RAD 11:33
PROVIDERS: ATTEND Physician Assistant
DX: M51.36 Other intervertebral disc degeneration, lumbar region (principal); Z98.1 Arthrodesis status
CPT/HCPCS: 72131

== ENCOUNTER → 2017-09-08 | Outpatient (CLI) | payer MEDICARE ==
--- NOTE | 2017-09-08 10:35 | Diagnostic Imaging Report ---
PROCEDURE: CT cervical spine without contrast. TECHNIQUE: Multiple contiguous axial images were obtained through the cervical spine without the use of intravenous contrast. Sagittal and coronal reformations were then performed. INDICATION: Neck pain with numbness and tingling in both arms. Correlation is made with MRI of the cervical spine from 10/06/2016. FINDINGS: There is reversal of normal cervical lordotic curvature, similar to MRI. Minimal anterolisthesis of C2 on C3 is seen. There is severe degenerative disc disease from the C3-4 through the C6-7 levels where there is near complete loss of the disc space as well as marginal osteophyte formation. There is moderate right neural foraminal narrowing at the C3-4 level due to uncovertebral joint degenerative change. There is significant bilateral neural foraminal stenosis at the C4-5 level as well as at the C5-6 and C6-7 levels due to uncovertebral joint degenerative change. Bony central canal appears to be patent. No fractures are seen. Prevertebral tissues are normal. Odontoid is intact. IMPRESSION: Severe cervical spondylosis with multilevel neural foraminal stenosis described level by level above. No acute bony abnormality is identified. Dictated by: Dictated on workstation # [id number]
== END ==
LOC: RAD 09:27
PROVIDERS: ATTEND Orthopaedic Surgery Orthopaedic Surgery of the Spine
DX: M47.812 Spondylosis without myelopathy or radiculopathy, cervical region (principal); M50.31 Other cervical disc degeneration, high cervical region; M99.71 Connective tissue and disc stenosis of intervertebral foramina of cervical region
CPT/HCPCS: 72125

== ENCOUNTER 2018-01-06 10:01 | Outpatient (CLI) | payer MEDICARE ==
[~2018-01-06] VITALS: Ht 170.2 cm; Wt 91.9 kg
[~2018-01-06 10:01] MED LIST changes: +IBUP-2185 PO; -IBUP200C75 PO
[2018-01-06] MEDS ORDERED: DILT120C63 PO (10:21)
[2018-01-06] MEDS ORDERED: IBUP-2185 PO (10:21)
[2018-01-06] MEDS ORDERED: BUPR-168 PO (10:21)
[2018-01-06 10:32] VITALS: BP 141/84
[2018-01-06 11:14] LABS: BASOPHILS # (AUTO) 0.1 10^3/uL (0.0-0.1); BASOPHILS % (AUTO) 1 % (0-10); EOSINOPHILS # (AUTO) 0.6 10^3/uL (0.0-0.3); EOSINOPHILS % (AUTO) 5 % (0-10); HEMATOCRIT 46 % (40-54); HEMOGLOBIN 15.8 G/DL (13.3-17.7); LYMPHOCYTES # (AUTO) 3.4 X 10^3 (1.0-4.0); LYMPHOCYTES % (AUTO) 27 % (12-44); MEAN CORPUSCULAR HEMOGLOBIN 29 PG (25-34); MEAN CORPUSCULAR HGB CONC 35 G/DL (32-36); MEAN CORPUSCULAR VOLUME 83 FL (80-99); MONOCYTES # (AUTO) 1.3 X 10^3 (0.0-1.0); MONOCYTES % (AUTO) 10 % (0-12); NEUTROPHILS # (AUTO) 7.5 X 10^3 (1.8-7.8); NEUTROPHILS % (AUTO) 58 % (42-75); PLATELET COUNT 286 10^3/uL (130-400); RED BLOOD COUNT 5.53 10^6/uL (4.35-5.85); RED CELL DISTRIBUTION WIDTH 14.3 % (10.0-14.5); WHITE BLOOD COUNT 12.9 10^3/uL (4.3-11.0)
[2018-01-06 11:29] LABS: CALCIUM 9.4 MG/DL (8.5-10.1); CREATININE SERUM 1.73 MG/DL (0.60-1.30); POTASSIUM 3.8 MMOL/L (3.6-5.0)
== END 2018-01-06 15:05 | disposition home or self-care (01) ==
LOC: PREOP 10:01
PROVIDERS: ATTEND Orthopaedic Surgery Orthopaedic Surgery of the Spine
DX: Z01.812 Encounter for preprocedural laboratory examination (principal); Z11.2 Encounter for screening for other bacterial diseases; M48.061 Spinal stenosis, lumbar region without neurogenic claudication; I10 Essential (primary) hypertension; Z22.322 Carrier or suspected carrier of Methicillin resistant Staphylococcus aureus
CPT/HCPCS: 36415; 80048; 85025; 86850; 86900; 86901; 87081

== ENCOUNTER 2018-01-10 07:26 | Inpatient (IN) | payer MEDICARE ==
[~2018-01-10] VITALS: Ht 170.2 cm; Wt 91.9 kg
[2018-01-10] VITALS (13 sets, daily range): BP systolic 120–178; BP diastolic 76–107
[~2018-01-10 07:26] MED LIST changes: +BUPR-168 PO
[2018-01-10] MEDS ORDERED: PROMETHAZINE 25 MG (PHENERGAN) TAB PO PRN (07:45)
[2018-01-10] MEDS ORDERED: ACETAMINOPHEN 325 MG TABLET PO PRN (07:45)
[2018-01-10] MEDS ORDERED: ceFAZolin 2 GM IV Premixed 50 ML IV ONE (07:45)
[2018-01-10] MEDS: NS IV 1000 ML 1,000 ML IV SCH ×2 (07:45→17:34)
[2018-01-10] MEDS ORDERED: CATHETER FLUSH 10 ML SYR IV PRN (08:00)
[2018-01-10] MEDS: LACTATED RINGERS 1,000 ML IV PRN ×3 (08:10→13:30)
[2018-01-10] MEDS ORDERED: FAMOTIDINE 20MG/2ML IV (PEPCID) IV ONE (08:45)
[2018-01-10] MEDS ORDERED: VANCOMYCIN 1000 MG/VIAL ONE (09:13)
[2018-01-10] MEDS ORDERED: GENTAMICIN 40 MG/ML 2 ML INJ SDV ONE (09:13)
[2018-01-10] MEDS ORDERED: NS (IVPB) 50 ML ONE (09:43)
--- OUTSIDE RECORDS SUMMARY | 2018-01-10 10:03 | XMS REPORT | Continuity of Care Document ---
Author Author [facility] Organization [facility] Address Unknown Phone Unavailable Allergies Active Description Code Type Severity Reaction Onset Reported/Identified Relationship to Patient Clinical Status Yes No Known Allergies [id number] N /A N/A Yes NO KNOWN DRUG ALLERGIES NO KNOWN DRUG ALLERG UNKNOWN Yes MORPHINE UNKNOWN UNKNOWN Yes NO KNOWN DRUG ALLERGIES UNKNOWN NO KNOWN DRUG ALLERG Yes URECHOLINE UNKNOWN UNKNOWN Yes morphine [id number] Drug Allergy Unknown N/A 06/06/2013 Yes adhesive [id number] Drug Allergy Unknown RASH 05/23/2014 Yes morphine [id number] Drug Allergy Unknown PATIENT TAKES L 10/01/2015 Medications Medication Packaging Start Date Stop Date Route Dosage Sig ALPRAZOLAM TAB 0.5 MG (XANAX) MG 07/10/2016 PRN BID DULOXETINE CAP 30 MG (CYMBALTA) MG 06/10/2016 07/10/2016 BID&0800,2000 FAMOTIDINE TAB 20 MG (PEPCID) MG 07/10/2016 BID&0800,2000 eszopiclone 2mg oral tablet (Lunesta) MG 06/10/2016 06/17/2016 PRN QHS HYDROCODONE/APAP 7.5/325 TAB 0 (WILIAN-TAB 7.5/325) TAB 06/10/2016 07/10/2016 PRN EVERY 6 Hour ACETAMINOPHEN ORAL TABLET 325mg(Tylenol) MG 06/10/2016 06/20/2016 PRN EVERY 6 Hour POLYETHYLENE GLYCOL POWDER UD PWD 0 (MIRALAX 17GM UNIT DOSE PAKS) gm 06/10/2016 07/10/2016 PRN Q3H ALUM/MAG/SIMETH 30CC LIQ 0 (MYLANTA PLUS) cc 06/11/2016 06/20/2016 PRN Q4H CALMOSEPTINE OINT TUBE OINT 0 (RISAMINE OINT TUBE) laura 06/11/2016 07/11/2016 PRN QID BUPROPION TAB 75 MG (WELLBUTRIN) MG 06/11/2016 07/10/2016 QAM&0800 LOPERAMIDE CAP 2 MG (IMMODIUM) MG 06/11/2016 07/11/2016 PRN QID MILK OF [place] NICE 0 ml 201606/17/2016 PRN BID Diltiazem 120mg,extended release cap (CARDIZEM)) MG 06/11/2016 07/10/2016 Daily&0900 LOSARTAN TAB 100 MG (COZAAR) MG 05/201607/10/2016 Daily&0900 HYDROCHLOROTHIAZIDE TAB 25 MG (HYDRODIURIL) MG 06/11/2016 07/10/2016 Daily&0900 MultiVits (Thera M Plus) (ltsqrumh-ajyj-tmaebim) oral tablet TAB 06/11/2016 07/10/2016 Daily&0900 BISACODYL SUPPOS SUP 10 MG (DULCOLAX SUPPOS) MG 06/11/2016 06/17/2016 PRN Daily DULOXETINE CAP 30 MG (CYMBALTA) MG 06/11/2016 07/11/2016 BID&0800,2000 TRAZODONE TAB 50 MG (DESYREL) MG 07/11/2016 PRN QHS MELATONIN TAB 3 MG (MELATONIN) MG 06/11/2016 07/10/2016 QHS&2100 eszopiclone 2mg oral tablet (Lunesta) MG 06/11/2016 06/17/2016 QHS&2200 BUPROPION TAB 75 MG (WELLBUTRIN) MG 06/12/2016 07/11/2016 QAM&0800 NAPROXEN TAB 220 MG (ALEVE) MG 06/201606/19/2016 PRN Q6H ALPRAZOLAM XR TAB 0.5 MG (XANAX XR) MG 06/12/2016 06/14/2016 BID&1600,2000 NAPROXEN TAB 220 MG (ALEVE) MG 06/201606/19/2016 PRN BID Problems Date Dx Coded Attending Type Code Diagnosis Diagnosed By 05/30/2013 PREET RAWLS, DARIAN Dillon Ot 724.02 SPINAL STENOSIS, LUMBAR REG, W/OUT [...] Dillon Ot 786.05 SHORTNESS OF BREATH 06/15/2013 WILIAN RAWLS, JACINTO S Ot 288.60 LEUKOCYTOSIS, UNSPECIFIED 06/15/2013 WILIAN RAWLS, JACINTO S Ot 292.0 DRUG WITHDRAWAL 06/15/2013 JACINTO CEDENO MD S Ot 305.90 DRUG ABUSE NEC-UNSPEC 06/15/2013 JACINTO CEDENO MD Ot 401.9 HYPERTENSION NOS 06/15/2013 JACINTO CEDENO MD S Ot 414.00 CORON ATHEROSCLER NOS TYPE VESSEL, NATIV 06/15/2013 JACINTO CEDENO MD S Ot 597.80 URETHRITIS NOS 06/15/2013 JCAINTO CEDENO MD S Ot 601.9 PROSTATITIS NOS 06/15/2013 JACINTO CEDENO MD S Ot 715.90 OSTEOARTHROS NOS-UNSPEC 06/15/2013 JACINTO CEDENO MD S Ot 724.02 SPINAL STENOSIS, LUMBAR REG, W/OUT NEURO 06/15/2013 JACINTO CEDENO MD S Ot 737.30 IDIOPATHIC SCOLIOSIS 06/15/2013 JACINTO CEDENO MD S Ot 756.12 SPONDYLOLISTHESIS 06/15/2013 JACINTO CEDENO MD S Ot 780.62 POSTPROCEDURAL FEVER 06/15/2013 JACINTO CEDENO MD S Ot 788.20 RETENTION OF URINE NOS 06/15/2013 JACINTO CEDENO MD S Ot V13.01 PERSONAL HISTORY OF URINARY CALCULI 06/15/2013 JACINTO CEDENO MD S Ot V45.81 AORTOCORONARY BYPASS 06/15/2013 JACINTO CEDENO MD Ot V45.89 POSTSURGICAL STATES NEC 10/06/2013 DARIAN OVIEDO MD Ot 721.1 CERV SPONDYL W MYELOPATH 10/06/2013 DARIAN OVIEDO MD Ot 721.42 SPOND COMPR LUMB SP CORD 05/24/2014 JACINTO CEDENO MD S Ot 288.60 05/24/2014 JACINTO CEDENO MD Ot 401.9 05/24/2014 WILIAN RAWLS, JACINTO S Ot 414.01 05/24/2014 WILIAN RAWLS, JACINTO S Ot 458.9 05/24/2014 WILIAN RAWLS, JACINTO S Ot 527.7 05/24/2014 WILIAN RAWLS, JACINTO S Ot 530.81 05/24/2014 WILIAN RAWLS, JACINTO S Ot 599.0 05/24/2014 WLIIAN RAWLS, JACINTO S Ot 716.90 05/24/2014 WILIAN [...] S Ot 786.2 05/24/2014 WILIAN RAWLS, JACINTO Pereira Ot 787.01 05/24/2014 WILIAN RAWLS, JACINTO Pereira Ot 787.91 05/24/2014 WILIAN RAWLS, JACINTO S Ot 789.07 05/24/2014 WILIAN RAWLS, JACINTO S Ot 792.1 05/24/2014 WILIAN RAWLS, JACINTO Pereira Ot V45.81 05/24/2014 WILIAN RAWLS, JACINTO Pereira Ot V58.64 05/25/2014 WILIAN RAWLS, JACINTO Pereira Ot 288.60 05/25/2014 WILIAN RAWLS, JACINTO S Ot 401.9 05/25/2014 WILIAN RAWLS, JACINTO Pereira Ot 414.01 05/25/2014 WILIAN RAWLS, JACINTO S Ot 458.9 05/25/2014 WILIAN RAWLS, JACINTO S Ot 527.7 05/25/2014 WILIAN RAWLS, JACINTO Pereira Ot 530.81 05/25/2014 WILIAN RAWLS, JACINTO S Ot 599.0 05/25/2014 WILIAN RAWLS, JACINTO S Ot 716.90 05/25/2014 WILIAN RAWLS, JACINTO S Ot 722.6 05/25/2014 WILIAN RAWLS, JACINTO S Ot 724.5 05/25/2014 WILIAN RAWLS, JACINTO S Ot 780.8 05/25/2014 WILIAN RAWLS, JACINTO S Ot 784.92 05/25/2014 WILIAN RAWLS, JACINTO S Ot 786.2 05/25/2014 WILIAN RAWLS, JACINTO Pereira Ot 787.01 05/25/2014 WILIAN RAWLS, JACINTO Pereira Ot 787.91 05/25/2014 WILIAN RAWLS, JACINTO Pereira Ot 789.07 05/25/2014 WILIAN RAWLS, JACINTO Pereira Ot 792.1 05/25/2014 WILIAN RAWLS, JACINTO Pereira Ot V45.81 05/25/2014 WILIAN RAWLS, JACINTO Pereira Ot V58.64 05/25/2014 WILIAN RAWLS, JACINTO Pereira Ot 276.51 DEHYDRATION 05/25/2014 WILIAN RAWLS, JACINTO Pereira Ot 288.60 LEUKOCYTOSIS, UNSPECIFIED 05/25/2014 WILIAN RAWLS, JACINTO Pereira Ot 401.9 HYPERTENSION NOS 05/25/2014 WILIAN RAWLS, JACINTO Pereira Ot 414.01 CORONARY ATHEROSCLEROSIS OF [place] CORON 05/25/2014 WILIAN RAWLS, JACINTO S Ot 458.9 HYPOTENSION NOS 05/25/2014 WILIAN RAWLS, JACINTO Pereira Ot 527.7 SALIVARY SECRETION DIS 05/25/2014 WILIAN RAWLS, JACINTO Pereira Ot 530.81 ESOPHAGEAL REFLUX 05/25/2014 WILIAN RAWLS, JACINTO Pereira Ot 558.9 NONINF GASTROENTERIT NEC 05/25/2014 JACINTO CEDENO MD Ot 584.9 ACUTE RENAL FAILURE, UNSPECIFIED 05/25/2014 WILIAN RAWLS, JACINTO Pereira Ot 599.0 05/25/2014 WILIAN RAWLS, JACINTO Pereira Ot 600.00 HYPERTROPHY (BENIGN) OF PROSTATE W/O URI 05/25/2014 JACINTO CEDENO MD Ot 715.90 OSTEOARTHROS NOS-UNSPEC 05/25/2014 JACINTO CEDENO MD Ot 722.6 DISC DEGENERATION NOS 05/25/2014 JACINTO CEDENO MD Ot 724.5 05/25/2014 JACINTO CEDENO MD Ot 780.8 GENERALIZED HYPERHIDROSIS 05/25/2014 JACINTO CEDENO MD Ot 784.92 JAW PAIN 05/25/2014 JACINTO CEDENO MD Ot 786.2 COUGH 05/25/2014 JACINTO CEDENO MD Ot V45.81 AORTOCORONARY BYPASS 05/25/2014 JACINTO CEDENO MD Ot V45.89 POSTSURGICAL STATES NEC 05/25/2014 JACINTO CEDENO MD Ot V58.64 LONG-TERM(CURRENT)USE OF NON-STEROIDAL A 07/02/2014 Ot 724.02 07/02/2014 PRETE RAWLS, DARIAN Dillon Ot 724.02 07/02/2014 PREET RAWLS, DARIAN Dillon Ot V72.63 07/02/2014 DARIAN OVIEDO MD Ot V72.81 07/02/2014 DARIAN OVIEDO MD Ot V72.83 07/02/2014 DARIAN OVIEDO MD Ot V74.8 07/02/2014 DARIAN OVIEDO MD Ot 724.02 07/02/2014 DARIAN OVIEDO MD Ot V72.84 07/02/2014 DARIAN OVIEDO MD Ot 288.60 07/02/2014 DARIAN OVIEDO MD Ot 721.1 07/02/2014 DARIAN OVIEDO MD Ot V64.3 07/02/2014 CHUY RAWLS, TASIA A Ot 786.50 07/02/2014 EDEM TORRE Ot 288.63 07/02/2014 MICHELLE ELIZALDE MD Ot 338.4 CHRONIC PAIN SYNDROME 07/02/2014 MICHELLE ELIZALDE MD Ot 722.83 POSTLAMINECT SYND-LUMBAR 07/02/2014 MICHELLE ELIZALDE MD Ot 724.6 DISORDERS OF SACRUM 07/02/2014 MICHELLE ELIZALDE MD Ot V58.69 OTH MED,LT,CURRENT USE 07/27/2014 EDEM TORRE N Ot 288.63 09/09/2014 EDEM TORRE N Ot 288.63 MONOCYTOSIS (SYMPTOMATIC) 10/10/2014 EDEM TORRE N Ot 288.63 10/11/2014 EDEM TORRE Ot 288.63 10/12/2014 EDEM TORRE Ot 288.63 10/19/2014 MICHELLE ELIZALDE MD Ot 715.95 OSTEOARTHROS NOS-PELVIS 10/19/2014 MICHELLE ELIZALDE MD Ot 722.83 POSTLAMINECT SYND-LUMBAR 10/19/2014 MCIHELLE ELIZALDE MD Ot 724.6 DISORDERS OF SACRUM 10/19/2014 MICHELLE ELIZALDE MD Ot 729.1 MYALGIA AND MYOSITIS NOS 10/19/2014 MICHELLE ELIZALDE MD, Ot V58.69 OTH MED,LT,CURRENT USE 10/25/2014 MICHELLE ELIZALDE MD Ot 719.45 10/31/2014 KORTNEY RAWLS, JENNIFER Ramirez Ot 600.00 10/31/2014 JENNIFER SHEETS MD Ot V58.69 10/31/2014 JENNIFER SHEETS MD Ot V58.83 12/10/2014 MICHELLE ELIZALDE MD Ot 338.4 12/10/2014 MICHELLE ELIZALDE MD Ot 715.95 12/10/2014 MICHELLE ELIZALDE MD Ot 722.83 12/10/2014 MICHELLE ELIZALDE MD Ot 724.6 12/10/2014 MICHELLE ELIZALDE MD Ot V58.69 01/09/2015 EM WARD Ot 285.9 ANEMIA NOS 01/09/2015 EM WARD N Ot 288.63 MONOCYTOSIS (SYMPTOMATIC) 01/09/2015 ED, BOBAN N Ot V58.69 OTH MED,LT,CURRENT USE 01/15/2015 EM WARD N Ot 288.63 02/25/2015 EDEM TORRE N Ot D64.9 02/25/2015 EM WARD N Ot D72.821 02/25/2015 EM WARD N Ot Z79.899 03/01/2015 MICHELLE ELIZALDE MD Ot G89.4 CHRONIC PAIN SYNDROME 03/01/2015 MICHELLE ELIZALDE MD Ot M47.816 SPONDYLOSIS W/O MYELOPATHY OR RADICULOPA 03/01/2015 MICHELLE ELIZALDE MD Ot M53.3 SACROCOCCYGEAL DISORDERS, NOT ELSEWHERE 03/01/2015 MICHELLE ELIZALDE MD, Ot M96.1 POSTLAMINECTOMY SYNDROME, NOT ELSEWHERE 03/04/2015 MICHELLE ELIZALDE MD Ot G89.4 CHRONIC PAIN SYNDROME 03/04/2015 MICHELLE ELIZALDE MD Ot M47.816 SPONDYLOSIS W/O MYELOPATHY OR RADICULOPA 03/04/2015 MICHELLE ELIZALDE MD, Ot M53.3 SACROCOCCYGEAL DISORDERS, NOT ELSEWHERE 03/04/2015 MICHELLE ELIZALDE MD, Ot M96.1 POSTLAMINECTOMY SYNDROME, NOT ELSEWHERE 03/29/2015 MICHELLE ELIZALDE MD Ot G89.4 CHRONIC PAIN SYNDROME 03/29/2015 MICHELLE ELIZALDE MD Ot M47.816 SPONDYLOSIS W/O MYELOPATHY OR RADICULOPA 03/29/2015 MICHELLE ELIZALDE MD Ot M53.3 SACROCOCCYGEAL DISORDERS, NOT ELSEWHERE 03/29/2015 MICHELLE ELIZALDE MD Ot M96.1 POSTLAMINECTOMY SYNDROME, NOT ELSEWHERE 03/29/2015 MICHELLE ELIZALDE MD Ot Z79.899 OTHER JAIL (CURRENT) DRUG THERAPY 04/10/2015 EM WARD N Ot 285.9 ANEMIA NOS 04/10/2015 EDEM TORRE N Ot 288.63 MONOCYTOSIS (SYMPTOMATIC) 04/10/2015 EDEM TORRE N Ot D64.9 ANEMIA, UNSPECIFIED 04/10/2015 EM WARD N Ot D72.821 MONOCYTOSIS (SYMPTOMATIC) 04/10/2015 EM WARD N Ot V58.69 OTH MED,LT,CURRENT USE 04/10/2015 EM WARD Ot Z79.899 OTHER JAIL (CURRENT) DRUG THERAPY 04/19/2015 EM WARD Ot D64.9 04/19/2015 EM WARD Ot D72.821 04/19/2015 EM WARD Ot Z79.899 06/14/2015 MICHELLE ELIZALDE MD Ot [...] EXAMINATION 09/25/2015 DARIAN OVIEDO MD Ot V72.81 [id number] CARDIOVASCULAR 09/25/2015 DARIAN OVIEDO MD Ot V72.83 [...] PROC FOR REASONS NEC 09/25/2015 CHUY RAWLS, TASIA Ramirez Ot 786.50 CHEST PAIN NOS 09/25/2015 MICHELLE ELIZALDE MD Ot 719.45 JOINT PAIN-PELVIS 09/25/2015 JENNIFER SHEETS MD Ot 600.00 HYPERTROPHY (BENIGN) OF PROSTATE W/O URI 09/25/2015 JENNIFER SHEETS MD Ot V58.69 OTH MED,LT,CURRENT USE 09/25/2015 JENNIFER SHEETS MD Ot [...] (SYMPTOMATIC) 09/25/2015 EM WARD Ot Z79.899 OTHER NONPROFIT FINANCIAL CONTROLLER (CURRENT) DRUG THERAPY 09/25/2015 MICHELLE ELIZALDE MD Ot G89.4 CHRONIC PAIN SYNDROME 09/25/2015 MICHELLE ELIZALDE MD Ot M96.1 POSTLAMINECTOMY SYNDROME, NOT ELSEWHERE 09/25/2015 MICHELLE ELIZALDE MD Ot Z01.812 ENCOUNTER FOR PREPROCEDURAL LABORATORY E 09/25/2015 MICHELLE ELIZALDE MD Ot Z11.2 ENCOUNTER FOR SCREENING FOR OTHER BACTER 09/25/2015 TUAN MAYA MD Ot D72.829 ELEVATED WHITE BLOOD CELL COUNT, UNSPECI 09/26/2015 TUAN MAYA MD Ot M96.0 PSEUDARTHROSIS AFTER [...] MD, Ot I25.10 ATHSCL HEART DISEASE OF [place] CORONARY 09/27/2015 TUAN MAYA MD Ot J96.01 [...] OF AORTOCORONARY BYPASS GRAFT 09/27/2015 TUAN MAYA MD, Ot Z95.5 PRESENCE OF CORONARY ANGIOPLASTY IMPLANT 09/27/2015 TUAN MAYA MD, Ot D64.9 ANEMIA, UNSPECIFIED 09/27/2015 TUAN MAYA MD Ot E87.2 ACIDOSIS 09/27/2015 TUAN MAYA MD, Ot F41.9 ANXIETY DISORDER, UNSPECIFIED 09/27/2015 TUAN MAYA MD, Ot G47.33 OBSTRUCTIVE SLEEP APNEA (ADULT) (PEDIATR 09/27/2015 TUAN MAYA MD, Ot I12.9 HYPERTENSIVE CHRONIC KIDNEY DISEASE W ST 09/27/2015 TUAN MAYA MD, Ot I25.10 ATHSCL HEART DISEASE OF [place] CORONARY 09/27/2015 TUAN MAYA MD, Ot J96.01 ACUTE RESPIRATORY FAILURE WITH HYPOXIA 09/27/2015 TUAN MAYA MD, Ot K21.9 GASTRO-ESOPHAGEAL REFLUX DISEASE WITHOUT 09/27/2015 TUAN MAYA MD Ot K72.00 ACUTE AND SUBACUTE HEPATIC FAILURE WITHO 09/27/2015 TUAN MAYA MD Ot M43.17 SPONDYLOLISTHESIS, LUMBOSACRAL REGION 09/27/2015 TUAN MAYA MD, Ot M46.1 SACROILIITIS, NOT ELSEWHERE CLASSIFIED 09/27/2015 TUAN MAYA MD, Ot M54.16 RADICULOPATHY, LUMBAR REGION 09/27/2015 TUAN [...] MD Ot I25.10 ATHSCL HEART DISEASE OF [place] CORONARY 09/27/2015 TUAN MAYA MD Ot J96.01 [...] OF AORTOCORONARY BYPASS GRAFT 09/27/2015 TUAN MAYA MD, Ot Z95.5 PRESENCE OF CORONARY ANGIOPLASTY IMPLANT 09/27/2015 TUAN MAYA MD Ot D64.9 ANEMIA, UNSPECIFIED 09/27/2015 TUAN MAYA MD Ot E87.2 ACIDOSIS 09/27/2015 TUAN MAYA MD, Ot F41.9 ANXIETY DISORDER, UNSPECIFIED 09/27/2015 TUAN MAYA MD Ot G47.33 OBSTRUCTIVE SLEEP APNEA (ADULT) (PEDIATR 09/27/2015 TUAN MAYA MD, Ot I12.9 HYPERTENSIVE CHRONIC KIDNEY DISEASE W ST 09/27/2015 TUAN MAYA MD, Ot I25.10 ATHSCL HEART DISEASE OF [place] CORONARY 09/27/2015 TUAN MAYA MD, Ot J96.01 ACUTE RESPIRATORY FAILURE WITH HYPOXIA 09/27/2015 TUAN MAYA MD, Ot K21.9 GASTRO-ESOPHAGEAL REFLUX DISEASE WITHOUT 09/27/2015 TUAN MAYA MD Ot K72.00 ACUTE AND SUBACUTE HEPATIC FAILURE WITHO 09/27/2015 TUAN MAYA MD Ot M43.17 SPONDYLOLISTHESIS, LUMBOSACRAL REGION 09/27/2015 TUAN MAYA MD, Ot M46.1 SACROILIITIS, NOT ELSEWHERE CLASSIFIED 09/27/2015 TUAN MAYA MD, Ot M54.16 RADICULOPATHY, LUMBAR REGION 09/27/2015 TUAN [...] MD Ot E87.2 ACIDOSIS 09/27/2015 TUAN MAYA MD, Ot F41.9 ANXIETY DISORDER, UNSPECIFIED 09/27/2015 TUAN MAYA MD Ot G47.33 OBSTRUCTIVE SLEEP APNEA (ADULT) (PEDIATR 09/27/2015 TUAN MAYA MD Ot I12.9 HYPERTENSIVE CHRONIC KIDNEY DISEASE W ST 09/27/2015 TUAN MAYA MD, Ot I25.10 ATHSCL HEART DISEASE OF [place] CORONARY 09/27/2015 TUAN MAYA MD Ot J96.01 [...] N48.89 OTHER SPECIFIED DISORDERS OF PENIS 09/27/2015 TAUN MAYA MD Ot R33.8 OTHER RETENTION OF URINE 09/27/2015 TUAN MAYA MD Ot R41.0 DISORIENTATION, UNSPECIFIED 09/27/2015 TUAN MAYA MD Ot R60.0 LOCALIZED EDEMA 09/27/2015 TUAN MAYA MD Ot R73.9 HYPERGLYCEMIA, UNSPECIFIED 09/27/2015 TUAN MAYA MD Ot T81.19XA OTHER POSTPROCEDURAL SHOCK, INITIAL ENCO 09/27/2015 TUAN MAYA MD Ot T84.216A BREAKDOWN (MECHANICAL) OF INT FIX OF [place] 09/27/2015 TUAN MAYA MD, Ot T86.831 BONE GRAFT FAILURE 09/27/2015 TUAN MAYA MD Ot Z95.1 PRESENCE OF AORTOCORONARY BYPASS GRAFT 09/27/2015 TUAN MAYA MD Ot Z95.5 PRESENCE OF CORONARY ANGIOPLASTY IMPLANT 09/30/2015 ABEL LINDO DOI Ot E87.70 FLUID OVERLOAD, UNSPECIFIED 09/30/2015 ABEL LINDO DOI Ot I12.9 HYPERTENSIVE CHRONIC KIDNEY DISEASE W ST 09/30/2015 AMEENA LINDO DO Ot I25.10 ATHSCL HEART DISEASE OF [place] CORONARY 09/30/2015 AMEENA LINDO DO Ot K59.00 CONSTIPATION, UNSPECIFIED 09/30/2015 ABEL LINDO DOI Ot N18.9 CHRONIC KIDNEY DISEASE, UNSPECIFIED 09/30/2015 GUICHO HANSON AMEENA Ot N40.1 ENLARGED PROSTATE WITH LOWER URINARY TRA 09/30/2015 ABEL LINDO DOI Ot N48.89 OTHER SPECIFIED DISORDERS OF PENIS 09/30/2015 GUICHO HANSON AMEENA Ot R33.8 OTHER RETENTION OF URINE 09/30/2015 AMEENA LINDO DO Ot R73.9 HYPERGLYCEMIA, UNSPECIFIED 09/30/2015 ABEL LINDO DOI Ot Z48.89 ENCOUNTER FOR OTHER SPECIFIED SURGICAL A 09/30/2015 AMEENA LINDO DO Ot Z95.1 PRESENCE OF AORTOCORONARY BYPASS GRAFT 09/30/2015 AMEENA LINDO DO Ot Z98.1 ARTHRODESIS STATUS 10/01/2015 EM WARD Ot D64.9 ANEMIA, UNSPECIFIED 10/01/2015 EM WARD Ot D72.821 MONOCYTOSIS (SYMPTOMATIC) 10/01/2015 EM WARD Ot Z79.899 OTHER NONPROFIT FINANCIAL CONTROLLER (CURRENT) DRUG THERAPY 10/02/2015 JENNIFER SHEETS MD Ot I10 ESSENTIAL (PRIMARY) HYPERTENSION 10/02/2015 JENNIFER SHEETS MD Ot N40.1 ENLARGED PROSTATE WITH LOWER URINARY TRA 10/02/2015 JENNIFER SHEETS MD Ot R33.8 OTHER RETENTION OF URINE 10/02/2015 JENNIFER SHEETS MD Ot Z79.899 OTHER JAIL (CURRENT) DRUG THERAPY 10/02/2015 FRANCESCO RAWLS, TUAN Wilson Ot D72.829 ELEVATED WHITE BLOOD CELL COUNT, UNSPECI 10/03/2015 JENNIFER SHEETS MD Ot I10 ESSENTIAL (PRIMARY) HYPERTENSION 10/03/2015 JENNIFER SHEETS MD Ot N40.1 ENLARGED PROSTATE WITH LOWER URINARY TRA 10/03/2015 JENNIFER SHEETS MD Ot R33.8 OTHER RETENTION OF URINE 10/03/2015 JENNIFER SHEETS MD Ot Z79.899 OTHER NONPROFIT FINANCIAL CONTROLLER (CURRENT) DRUG THERAPY 10/04/2015 JENNIFER SHEETS MD Ot I10 ESSENTIAL (PRIMARY) HYPERTENSION 10/04/2015 JENNIFER SHEETS MD Ot N40.1 ENLARGED PROSTATE WITH LOWER URINARY TRA 10/04/2015 JENNIFER SHEETS MD Ot R33.8 OTHER RETENTION OF URINE 10/04/2015 JENNIFER SHEETS MD Ot Z79.899 OTHER NONPROFIT FINANCIAL CONTROLLER (CURRENT) DRUG THERAPY 06/10/2016 Tasia Vera W 272.4 OTHER AND UNSPECIFIED HYPERLIPIDEMIA 06/10/2016 Tasia Vera A 296.34 06/10/2016 Tasia Vera W 300.00 06/10/2016 Tasia Vera W 401.0 MALIGNANT ESSENTIAL HYPERTENSION 06/10/2016 Zo Veraa W 414.01 06/10/2016 Tasia Vera W 600.20 BENIGN LOCALIZED HYPERPLASIA OF PROSTATE WITHOUT URINARY OBSTRUCTION AND OTHER LOWER URINARY TRACT SYMPTOMS (LUTS) 06/10/2016 Tasia Vera W 715.30 OSTEOARTHROSIS, LOCALIZED, NOT SPECIFIED WHETHER PRIMARY OR SECONDARY, INVOLVING UNSPECIFIED SITE 06/10/2016 Zo Veraa W 780.52 06/10/2016 Tasia Vera W E78.5 HYPERLIPIDEMIA, UNSPECIFIED 06/10/2016 Tasia Vera A F33.3 MAJOR DEPRESSV DISORDER, RECURRENT, SEVERE W PSYCH SYMPTOMS 06/10/2016 Tasia Vera F41.9 ANXIETY DISORDER, UNSPECIFIED 06/10/2016 Tasia Vera G47.00 INSOMNIA, UNSPECIFIED 06/10/2016 Tasia Vera I10 ESSENTIAL (PRIMARY) HYPERTENSION 06/10/2016 Tasia Vera I25.10 ATHSCL HEART DISEASE OF [place] CORONARY ARTERY W/O ANG PCTRS 06/10/2016 Tasia Vera M19.90 UNSPECIFIED OSTEOARTHRITIS, UNSPECIFIED SITE 06/10/2016 Tasia Vera N40.0 BENIGN PROSTATIC HYPERPLASIA WITHOUT LOWER URINRY TRACT SYMP 06/19/2016 Ot 724.02 SPINAL STENOSIS, LUMBAR REG, W/OUT NEURO 06/19/2016 DARIAN OVIEDO MD Ot 724.02 SPINAL STENOSIS, LUMBAR REG, W/OUT NEURO 06/19/2016 PREET RAWLS, DARIAN Dillon Ot V72.63 PRE-PROCEDURAL LABORATORY EXAMINATION 06/19/2016 DARIAN OVIEDO MD Ot V72.81 [id number] CARDIOVASCULAR 06/19/2016 DARIAN OVIEDO MD Ot V72.83 EXAM PRE-OPERATIVE NEC 06/19/2016 DARIAN OVIEDO MD Ot V74.8 SCREEN-BACTERIAL DIS NEC 06/19/2016 DARIAN OVIEDO MD Ot 724.02 SPINAL STENOSIS, LUMBAR REG, W/OUT NEURO 06/19/2016 DARIAN OVIEDO MD Ot V72.84 EXAM PRE-OPERATIVE NOS 06/19/2016 DARIAN OVIEDO MD Ot 288.60 LEUKOCYTOSIS, UNSPECIFIED 06/19/2016 DARIAN OVIEDO MD Ot 721.1 CERV SPONDYL W MYELOPATH 06/19/2016 DARIAN OVIEDO MD Ot V64.3 NO PROC FOR REASONS NEC 06/19/2016 TASIA VERA MD Ot 786.50 CHEST PAIN NOS 06/19/2016 MICHELLE ELIZALDE MD Ot 719.45 JOINT PAIN-PELVIS 06/19/2016 JENNIFER SHEETS MD Ot 600.00 HYPERTROPHY (BENIGN) OF PROSTATE W/O URI 06/19/2016 JENNIFER SHEETS MD Ot V58.69 OT MED,LT,CURRENT USE 06/19/2016 JENNIFER SHEETS MD Ot V58.83 ENCOUNTER FOR THERAPEUTIC DRUG MONITORIN 06/19/2016 MICHELLE ELIZALDE MD Ot 338.4 CHRONIC PAIN SYNDROME 06/19/2016 MICHELLE ELIZALDE MD Ot 715.95 OSTEOARTHROS NOS-PELVIS 06/19/2016 MICHELLE ELIZALDE MD Ot 722.83 POSTLAMINECT SYND-LUMBAR 06/19/2016 MICHELLE ELIZALDE MD Ot 724.6 DISORDERS OF SACRUM 06/19/2016 MICHELLE ELIZALDE MD Ot V58.69 OTH MED,LT,CURRENT USE 06/19/2016 ED EM Monreal Ot D64.9 ANEMIA, UNSPECIFIED 06/19/2016 ED EM Monreal Ot D72.821 MONOCYTOSIS (SYMPTOMATIC) 06/19/2016 EM WARD Ot Z79.899 OTHER NONPROFIT FINANCIAL CONTROLLER (CURRENT) DRUG THERAPY 06/19/2016 MICHELLE ELIZALDE MD Ot G89.4 CHRONIC PAIN SYNDROME 06/19/2016 MICHELLE ELIZALDE MD, Ot M96.1 POSTLAMINECTOMY SYNDROME, NOT ELSEWHERE 06/19/2016 MICHELLE ELIZALDE MD, Ot Z01.812 ENCOUNTER FOR PREPROCEDURAL LABORATORY E 06/19/2016 MICHELLE ELIZALDE MD, Ot Z11.2 ENCOUNTER FOR SCREENING FOR OTHER BACTER 06/19/2016 TUAN MAYA MD Ot D72.829 ELEVATED WHITE BLOOD CELL COUNT, UNSPECI 07/02/2016 Ot 724.02 SPINAL STENOSIS, LUMBAR REG, W/OUT NEURO 07/02/2016 DARIAN OVIEDO MD Ot 724.02 SPINAL STENOSIS, LUMBAR REG, W/OUT NEURO 07/02/2016 DARIAN OVIEDO MD Ot V72.63 PRE-PROCEDURAL LABORATORY EXAMINATION 07/02/2016 DARIAN OVIEDO MD Ot V72.81 PENS-[id number] CARDIOVASCULAR 07/02/2016 DARIAN OVIEDO MD Ot V72.83 [...] PROC FOR REASONS NEC 07/02/2016 CHUY RAWLS, TASIA Ramirez Ot 786.50 CHEST PAIN NOS 07/02/2016 [...] 724.6 DISORDERS OF SACRUM 07/02/2016 MICHELLE ELIZALDE MD, Ot V58.69 OTH MED,LT,CURRENT USE 07/02/2016 EM WARD Ot D64.9 ANEMIA, UNSPECIFIED 07/02/2016 EM WARD Ot D72.821 MONOCYTOSIS (SYMPTOMATIC) 07/02/2016 EM WARD Ot Z79.899 OTHER JAIL (CURRENT) DRUG THERAPY 07/02/2016 MICHELLE ELIZALDE MD Ot G89.4 CHRONIC PAIN SYNDROME 07/02/2016 MICHELLE ELIZALDE MD Ot M96.1 POSTLAMINECTOMY SYNDROME, NOT ELSEWHERE 07/02/2016 MICHELLE ELIZALDE MD Ot Z01.812 ENCOUNTER FOR PREPROCEDURAL LABORATORY E 07/02/2016 MICHELLE ELIZALDE MD Ot Z11.2 ENCOUNTER FOR SCREENING FOR OTHER BACTER 07/02/2016 TUAN MAYA MD Ot D72.829 ELEVATED WHITE BLOOD CELL COUNT, UNSPECI 09/24/2016 Ot 724.02 SPINAL STENOSIS, LUMBAR REG, W/OUT NEURO 09/24/2016 DARIAN OVIEDO MD Ot 724.02 SPINAL STENOSIS, LUMBAR REG, W/OUT NEURO 09/24/2016 DARIAN OVIEDO MD Ot V72.63 PRE-PROCEDURAL LABORATORY EXAMINATION 09/24/2016 DARIAN OVIEDO MD Ot V72.81 [id number] CARDIOVASCULAR 09/24/2016 DARIAN OVIEDO MD Ot V72.83 [...] NO PROC FOR REASONS NEC 09/24/2016 CHUY RAWLS, TASIA Ramirez Ot 786.50 CHEST PAIN NOS 09/24/2016 MICHELLE [...] EXAMINATION 10/05/2016 DARIAN OVIEDO MD Ot V72.81 [id number] CARDIOVASCULAR 10/05/2016 DARIAN OVIEDO MD Ot V72.83 [...] PROC FOR REASONS NEC 10/05/2016 CHUY RAWLS, TASIA A Ot 786.50 CHEST PAIN NOS 10/05/2016 MICHELLE [...] Ot D72.821 MONOCYTOSIS (SYMPTOMATIC) 10/05/2016 EM WARD Jocelin Ot Z79.899 OTHER JAIL (CURRENT) DRUG THERAPY 10/05/2016 MICHELLE ELIZALDE MD Ot G89.4 CHRONIC PAIN SYNDROME 10/05/2016 MICHELLE ELIZALDE MD Ot M96.1 POSTLAMINECTOMY SYNDROME, NOT ELSEWHERE 10/05/2016 MICHELLE ELIZALDE MD, Ot Z01.812 ENCOUNTER FOR PREPROCEDURAL LABORATORY E 10/05/2016 MICHELLE ELIZALDE MD, Ot Z11.2 ENCOUNTER FOR SCREENING FOR OTHER BACTER 10/05/2016 TUAN MAYA MD Ot D72.829 ELEVATED WHITE BLOOD CELL COUNT, UNSPECI 10/07/2016 TUAN MAYA MD Ot M50.31 OTHER CERVICAL DISC DEGENERATION, HIGH 10/16/2016 TUAN MAYA MD Ot M50.31 OTHER CERVICAL DISC DEGENERATION, HIGH 03/19/2017 Chuy, Tasia W 782.3 EDEMA 03/19/2017 Chuy, Tasia W R60.0 LOCALIZED EDEMA 03/19/2017 Chuy, Tasia W 782.3 EDEMA 03/19/2017 Chuy, Tasia W R60.0 LOCALIZED EDEMA 03/24/2017 Chuy, Tasia W 782.3 EDEMA 03/24/2017 Chuy, Tasia W R60.0 LOCALIZED EDEMA 03/24/2017 Chuy, Tasia W 782.3 EDEMA 03/24/2017 Chuy, Tasia W R60.0 LOCALIZED EDEMA 04/18/2017 KAMILLE DO, TASIA K Ot E86.0 DEHYDRATION 04/18/2017 KAMILLE DOZOA K Ot F32.9 MAJOR DEPRESSIVE DISORDER, SINGLE EPISOD 04/18/2017 KAMILLE DO TASIA K Ot F41.9 ANXIETY DISORDER, UNSPECIFIED 04/18/2017 KAMILLE DO, TASIA K Ot G89.29 OTHER CHRONIC PAIN 04/18/2017 KAMILLE DO TASIA K Ot I10 ESSENTIAL (PRIMARY) HYPERTENSION 04/18/2017 KAMILLE DO TASIA K Ot K21.9 GASTRO-ESOPHAGEAL REFLUX DISEASE WITHOUT 04/18/2017 KAMILLE DO TASIA K Ot K59.00 CONSTIPATION, UNSPECIFIED 04/18/2017 KAMILLE DO TASIA K Ot M54.5 LOW BACK PAIN 04/18/2017 KAMILLE ZO HANSONA K Ot N39.0 URINARY TRACT INFECTION, SITE NOT SPECIF 04/18/2017 TASIA SIMENTAL DO Ot N40.1 BENIGN PROSTATIC HYPERPLASIA WITH LOWER 04/18/2017 KAMILLE TASIA Deanne Ot Z82.49 FAMILY HX OF ISCHEM HEART DIS AND OTH DI 04/18/2017 TASIA SIMENTAL DO Ot Z86.010 PERSONAL HISTORY OF COLONIC POLYPS 04/18/2017 KAMILLENasima HANSON TASIA Deanne Ot Z87.440 PERSONAL HISTORY OF URINARY (TRACT) INFE 04/18/2017 TASIA SIMENTAL DO Ot Z87.442 PERSONAL HISTORY OF URINARY CALCULI 05/14/2017 JUDE MENENDEZ DO Ot R19.4 CHANGE IN BOWEL HABIT 05/14/2017 JUDE MENENDEZ DO Ot Z01.818 ENCOUNTER FOR OTHER PREPROCEDURAL EXAMIN 05/14/2017 JUDE MENENDEZ DO Ot Z86.010 PERSONAL HISTORY OF COLONIC POLYPS 05/17/2017 JUDE MENENDEZ DO Ot R19.4 CHANGE IN BOWEL HABIT 05/17/2017 JUDE MENENDEZ DO Ot Z01.818 ENCOUNTER FOR OTHER PREPROCEDURAL EXAMIN 05/17/2017 JUDE MENENDEZ DO Ot Z86.010 PERSONAL HISTORY OF COLONIC POLYPS 06/01/2017 FRANCESCO RAWLS, TUAN Wilson Ot M50.31 OTHER CERVICAL DISC DEGENERATION, HIGH 06/01/2017 JUDE MENENDEZ DO Ot D12.3 BENIGN NEOPLASM OF TRANSVERSE COLON 06/01/2017 JUDE MENENDEZ DO Ot F41.9 ANXIETY DISORDER, UNSPECIFIED 06/01/2017 JUDE MENENDEZ DO Ot G47.33 OBSTRUCTIVE SLEEP APNEA (ADULT) (PEDIATR 06/01/2017 JUDE MENENDEZ DO Ot G57.93 UNSPECIFIED MONONEUROPATHY OF BILATERAL 06/01/2017 JUDE MENENDEZ DO Ot I10 ESSENTIAL (PRIMARY) HYPERTENSION 06/01/2017 JUDE MENENDEZ DO Ot I25.10 ATHSCL HEART DISEASE OF [place] CORONARY 06/01/2017 JUDE MENENDEZ DO Ot K21.9 GASTRO-ESOPHAGEAL REFLUX DISEASE WITHOUT 06/01/2017 JUDE MENENDEZ DO Ot 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 06/01/2017 JUDE MENENDEZ DO Ot K59.09 OTHER CONSTIPATION 06/01/2017 JUDE MENENDEZ DO Ot K63.5 POLYP OF COLON 06/01/2017 JUDE MENENDEZ DO Ot Z79.899 OTHER NONPROFIT FINANCIAL CONTROLLER (CURRENT) DRUG THERAPY 06/01/2017 JUDE MENENDEZ DO Ot Z95.1 PRESENCE OF AORTOCORONARY BYPASS GRAFT 06/01/2017 JUDE MENENDEZ DO Ot Z95.5 PRESENCE OF CORONARY ANGIOPLASTY IMPLANT 06/03/2017 JUDE MENENDEZ DO Ot D12.3 BENIGN NEOPLASM OF TRANSVERSE COLON 06/03/2017 JUDE MENENDEZ DO Ot F41.9 ANXIETY DISORDER, UNSPECIFIED 06/03/2017 JUDE MENENDEZ DO Ot G47.33 OBSTRUCTIVE SLEEP APNEA (ADULT) (PEDIATR 06/03/2017 JUDE MENENDEZ DO Ot G57.93 UNSPECIFIED MONONEUROPATHY OF BILATERAL 06/03/2017 JUDE MENENDEZ DO Ot I10 ESSENTIAL (PRIMARY) HYPERTENSION 06/03/2017 JUDE MENENDEZ DO Ot I25.10 ATHSCL HEART DISEASE OF [place] CORONARY 06/03/2017 JUDE MENENDEZ DO Ot K21.9 GASTRO-ESOPHAGEAL REFLUX DISEASE WITHOUT 06/03/2017 JUDE MENENDEZ DO Ot 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 06/03/2017 JUDE MENENDEZ DO Ot K59.09 OTHER CONSTIPATION 06/03/2017 JUDE MENENDEZ DO Ot K63.5 POLYP OF COLON 06/03/2017 JUDE MENENDEZ DO Ot Z79.899 OTHER JAIL (CURRENT) DRUG THERAPY 06/03/2017 JUDE MENENDEZ DO Ot Z95.1 PRESENCE OF AORTOCORONARY BYPASS GRAFT 06/03/2017 JUDE MENENDEZ DO Ot Z95.5 PRESENCE OF CORONARY ANGIOPLASTY IMPLANT 06/23/2017 KORTNEY RAWLS, JENNIFER Ramirez Ot 600.00 HYPERTROPHY (BENIGN) OF PROSTATE W/O URI 06/23/2017 JENNIFER SHEETS MD Ot V58.69 OT MED,LT,CURRENT USE 06/23/2017 JENNIFER SHEETS MD Ot V58.83 ENCOUNTER FOR THERAPEUTIC DRUG MONITORIN 06/23/2017 FIDE RAWLS, MICHELLE Wilson Ot 338.4 CHRONIC PAIN SYNDROME 06/23/2017 MICHELLE ELIZALDE MD Ot 715.95 OSTEOARTHROS NOS-PELVIS 06/23/2017 MICHELLE ELIZALDE MD Ot 722.83 POSTLAMINECT SYND-LUMBAR 06/23/2017 MICHELLE ELIZALDE MD Ot 724.6 DISORDERS OF SACRUM 06/23/2017 MICHELLE ELIZALDE MD Ot V58.69 OTH MED,LT,CURRENT USE 06/23/2017 MICHELLE ELIZALDE MD Ot 338.4 CHRONIC PAIN SYNDROME 06/23/2017 MICHELLE ELIZALDE MD Ot 715.95 OSTEOARTHROS NOS-PELVIS 06/23/2017 MICHELLE ELIZALDE MD Ot 722.83 POSTLAMINECT SYND-LUMBAR 06/23/2017 MICHELLE ELIZALDE MD Ot 724.6 DISORDERS OF SACRUM 06/23/2017 MICHELLE ELIZALDE MD Ot V58.69 OTH MED,LT,CURRENT USE 06/23/2017 KORTNEY RAWLS, JENNIFER Ramirez Ot 600.00 HYPERTROPHY (BENIGN) OF PROSTATE W/O URI 06/23/2017 JENNIFER SHEETS MD Ot V58.69 OTH MED,LT,CURRENT USE 06/23/2017 JENNIFER SHEETS MD Ot V58.83 ENCOUNTER FOR THERAPEUTIC DRUG MONITORIN 06/23/2017 JENNIFER SHEETS MD Ot 600.00 HYPERTROPHY (BENIGN) OF PROSTATE W/O URI 06/23/2017 JENNIFER SHEETS MD Ot V58.69 OTH MED,LT,CURRENT USE 06/23/2017 JENNIFER SHEETS MD Ot V58.83 ENCOUNTER FOR THERAPEUTIC DRUG MONITORIN 06/23/2017 MICHELLE ELIZALDE MD Ot 338.4 CHRONIC PAIN SYNDROME 06/23/2017 MICHELLE ELIZALDE MD Ot 715.95 OSTEOARTHROS NOS-PELVIS 06/23/2017 MICHELLE ELIZALDE MD Ot 722.83 POSTLAMINECT SYND-LUMBAR 06/23/2017 MICHELLE ELIZALDE MD Ot 724.6 DISORDERS OF SACRUM 06/23/2017 MICHELLE ELIZALDE MD Ot V58.69 OTH MED,LT,CURRENT USE 06/23/2017 TUAN MAYA MD Ot M50.31 OTHER CERVICAL DISC DEGENERATION, HIGH 08/20/2017 HERMILO SANDOVAL Ot M51.36 OTHER INTERVERTEBRAL DISC DEGENERATION, 08/20/2017 HERMILO SANDOVAL Ot Z98.1 ARTHRODESIS STATUS 08/30/2017 HERMILO SANDOVAL Ot M51.36 OTHER INTERVERTEBRAL DISC DEGENERATION, 08/30/2017 HERMILO SANDOVAL Ot Z98.1 ARTHRODESIS STATUS 09/09/2017 TUAN MAYA MD Ot M47.812 SPONDYLOSIS W/O MYELOPATHY OR RADICULOPA 09/09/2017 TUAN MAYA MD Ot M50.31 OTHER CERVICAL DISC DEGENERATION, HIGH 09/09/2017 TUAN MAYA MD Ot 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 09/09/2017 TUAN MAYA MD Ot M47.812 SPONDYLOSIS W/O MYELOPATHY OR RADICULOPA 09/09/2017 TUAN MAYA MD Ot M50.31 OTHER CERVICAL DISC DEGENERATION, HIGH 09/09/2017 TUAN MAYA MD Ot 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 09/20/2017 TUAN MAYA MD Ot M47.812 SPONDYLOSIS W/O MYELOPATHY OR RADICULOPA 09/20/2017 TUAN MAYA MD Ot M50.31 OTHER CERVICAL DISC DEGENERATION, HIGH 09/20/2017 TUAN MAYA MD Ot 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 11/05/2017 Tasia Vera 564.00 CONSTIPATION, UNSPECIFIED 11/05/2017 Tasia Vera A 600.20 BENIGN LOCALIZED HYPERPLASIA OF PROSTATE WITHOUT URINARY OBSTRUCTION AND OTHER LOWER URINARY TRACT SYMPTOMS (LUTS) 11/05/2017 Tasia Vera K59.00 CONSTIPATION, UNSPECIFIED 11/05/2017 Tasia Vera N13.8 OTHER OBSTRUCTIVE AND REFLUX UROPATHY 11/05/2017 Tasia Vera W 429.2 11/05/2017 Tasia Vera W 564.00 CONSTIPATION, UNSPECIFIED 11/05/2017 Zo Veraa W 585.9 11/05/2017 Tasia Vera A 600.20 BENIGN LOCALIZED HYPERPLASIA OF PROSTATE WITHOUT URINARY OBSTRUCTION AND OTHER LOWER URINARY TRACT SYMPTOMS (LUTS) 11/05/2017 Tasia Vera 607.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 11/05/2017 Chuy, Tasia W 724.5 BACKACHE, UNSPECIFIED 11/05/2017 Chuy, Tasia W 789.00 ABDOMINAL PAIN, UNSPECIFIED SITE 11/05/2017 Chuy, Tasia W I25.10 ATHEROSCLEROTIC HEART DISEASE OF [place] CORONARY ARTERY WITHOUT ANGINA PECTORIS 11/05/2017 Chuy, Tasia W K59.00 CONSTIPATION, UNSPECIFIED 11/05/2017 Chuy, Tasia A N13.8 OTHER OBSTRUCTIVE AND REFLUX UROPATHY 11/05/2017 Chuy, Tasia W N18.9 CHRONIC KIDNEY DISEASE, UNSPECIFIED 11/05/2017 Chuy, Tasia W N52.9 MALE ERECTILE DYSFUNCTION, UNSPECIFIED 11/05/2017 Chuy, Tasia W R10.9 UNSPECIFIED ABDOMINAL PAIN 11/05/2017 [facility], Tasia W R52 PAIN, UNSPECIFIED 11/05/2017 [facility], Tasia W 429.2 11/05/2017 [facility], Tasia W 564.00 CONSTIPATION, UNSPECIFIED 11/05/2017 [facility], Tasia W 585.9 11/05/2017 Chuy, Tasia A 600.20 BENIGN LOCALIZED HYPERPLASIA OF PROSTATE WITHOUT URINARY OBSTRUCTION AND OTHER LOWER URINARY TRACT SYMPTOMS (LUTS) 11/05/2017 Chuy, Tasia W 607.84 11/05/2017 Chuy, Tasia W 724.5 BACKACHE, UNSPECIFIED 11/05/2017 [facility], Tasia W 789.00 11/05/2017 Chuy, Tasia W I25.10 ATHEROSCLEROTIC HEART DISEASE OF [place] CORONARY ARTERY WITHOUT ANGINA PECTORIS 11/05/2017 Chuy, Tasia W K59.00 CONSTIPATION, UNSPECIFIED 11/05/2017 Chuy, Tasia A N13.8 OTHER OBSTRUCTIVE AND REFLUX UROPATHY 11/05/2017 Chuy, Tasia W N18.9 CHRONIC KIDNEY DISEASE, UNSPECIFIED 11/05/2017 Chuy, Tasia W N52.9 MALE ERECTILE DYSFUNCTION, UNSPECIFIED 11/05/2017 Chuy, Tasia W R10.9 UNSPECIFIED ABDOMINAL PAIN 11/05/2017 Chuy, Tasia W R52 PAIN, UNSPECIFIED Procedures Code Description Performed By Performed On 80.51 EXCISION INTERVERT DISC 05/29/2013 81.08 LUMBAR LUMBOSACRAL FUSION OF ANTERIOR 05/29/2013 81.62 FUSION/REFUS OF 2-3 VERTEBRAE 05/29/2013 84.51 INSERTION OF INTERBODY SPINAL FUSION DEV 05/29/2013 77.79 EXCISE BONE FOR GFT NEC 06/07/2013 81.08 LUMBAR LUMBOSACRAL FUSION OF ANTERIOR 06/07/2013 81.62 FUSION/REFUS OF 2-3 VERTEBRAE 06/07/2013 84.51 INSERTION OF INTERBODY SPINAL FUSION DEV 06/07/2013 [id number] 09/23/2015 [id number] EXCISION OF RIGHT PELVIC BONE, OPEN APPR 09/23/2015 [id number] EXCISION OF LEFT PELVIC BONE, OPEN APPRO 09/23/2015 [id number] 09/23/2015 [id number] INSERTION OF INT FIX INTO R PELVIC BONE, 09/23/2015 [id number] INSERTION OF INT FIX INTO L PELVIC BONE, 09/23/2015 [id number] EXCISION OF LUMBOSACRAL DISC, OPEN APPRO 09/23/2015 [id number] FUSION LUM JT W AUTOL SUB , POST APPR P C 09/23/2015 [id number] 09/23/2015 [id number] FUSION LUMSAC JT W AUTOL SUB, POST APPR 09/23/2015 [id number] FUSION LUMSAC JT W INTBD FUS DEV, ANT AP 09/23/2015 [id number] REMOVAL OF INT FIX FROM LUM JT, OPEN LAURA 09/23/2015 [id number] REMOVAL OF INT FIX FROM LUMSAC JT, OPEN 09/23/2015 [id number] REMOVAL OF INTBD FUS DEV FROM LUMSAC JT, 09/23/2015 Results Test Result Range Thyroid Stimulating Hormone - 03/26/16 16:00 TSH 1.23 mIU/mL 0.32-5.00 Vitamin D, 25 OH - 03/26/16 16:00 Vitamin D, 25 OH 31.30 ng/mL 25.00-100.00 Thyroid Stimulating Hormone - 06/10/16 20:14 TSH 1.32 mIU/mL 0.32-5.00 MRSA Screen - 06/10/16 20:14 FINAL CULTURE RESULTS MRSA Negative Nasal Culture MEDIA PLATED Setup at 23:50 on 06/10/2016 TIBC - 06/10/16 20:20 Iron 62 ug/dL 70-200 Iron Saturation 19.45 % 15.00-55.00 TIBC 319 ug/dL 273-456 UIBC 255 ug/dL 200-370 Urinalysis - 06/10/16 20:29 Icotest N/A Negative Urine Volume Urine Volume Sufficient (10mL) Urine Yeast No Yeast present Urine-Appearance Clear Clear Urine-Bacteria Negative Urine-Bilirubin Negative Negative Urine-Blood Trace-intact Negative Urine-Color Yellow Colorless-Lt. Yellow Urine-Epithelial Cells 0-5/HPF Urine-Glucose Negative Negative Urine-Ketones Negative Negative Urine-Leukocytes Negative Negative Urine-Nitrite Negative Negative Urine-Other Urine Saved if Culture Needed (48hrs from time of collection) Urine-pH 6.0 5-8.5 Urine-Protein Negative Negative Urine-RBC Negative Urine-Specific [place] 1.015 1.000-1.030 Urine-WBC Nothing Seen on Microscopic Urobilinogen 0.2 E.U./dL 0.2-1.0 Lipid Panel - 06/11/16 07:40 C/HDL 9.2 3.7-6.7 Cholesterol 275 mg/dL 100-240 HDL 30 mg/dL 30-85 LDL-Calculated 0 Unable to calculate due to elevated triglycerides mg/dL 0-100 Trig 416 mg/dL 35-160 VLDL 83 mg/dL 0-42 BMP - 06/12/16 06:49 Anion Gap 16 6-14 BUN 25 mg/dL 5-25 Calcium 9.2 mg/dL 8.3-10.4 Chloride 102 mmol/L 95-114 CO2 26 mEq/L 22-33 Creat 1.61 mg/dL 0.50-1.50 eGFR 42 mL/min/1.73m2 >59 Glucose 99 mg/dL 70-110 Osmo 293 280-295 Potassium 3.9 mmol/L 3.5-5.3 Sodium 140 mmol/L 134-148 Comprehensive Metabolic Panel - 03/19/17 11:39 Albumin 4.0 g/dL 3.6-5.1 ALP 75 U/L 35-130 ALT 37 U/L 6-45 Anion Gap 15 6-14 AST 35 U/L 2-40 BUN 18 mg/dL 5-25 Calcium 9.0 mg/dL 8.3-10.4 Chloride 103 mmol/L 95-114 CO2 24 mEq/L 22-33 Creat 1.45 mg/dL 0.50-1.50 eGFR 48 mL/min/1.73m2 >59 Globulin 3.4 g/dL 2.3-3.5 Glucose 129 mg/dL 70-110 Osmo 288 280-295 Potassium 4.3 mmol/L 3.5-5.3 Sodium 138 mmol/L 134-148 TBil 0.6 mg/dL 0.2-1.2 TP 7.4 g/dL 6.0-8.3 Urine Culture - 03/19/17 11:39 PRELIM CULTURE RESULTS No Growth 24 hours FINAL CULTURE RESULTS No Growth 48 hours MEDIA PLATED Setup at 13:28 on 03/19/2017 CULTURE SOURCE void BMP - 03/31/17 16:50 Anion Gap 15 6-14 BUN 22 mg/dL 5-25 Calcium 9.5 mg/dL 8.3-10.4 Chloride 103 mmol/L 95-114 CO2 25 mEq/L 22-33 Creat 1.56 mg/dL 0.50-1.50 eGFR 44 mL/min/1.73m2 >59 Glucose 89 mg/dL 70-110 Osmo 290 280-295 Potassium 4.4 mmol/L 3.5-5.3 Sodium 139 mmol/L 134-148 Complete blood count (CBC) with automated white [...] 04/18/17 19:50 Bacterial urine culture NG NRG Urinalysis - 11/05/17 17:08 Icotest N/A Negative Urine Volume Urine Volume Sufficient (10mL) Urine Yeast No Yeast present Urine-Appearance Clear Clear Urine-Bacteria Negative Urine-Bilirubin Negative Negative Urine-Blood Negative Negative Urine-Color Yellow Colorless-Lt. Yellow Urine-Glucose Negative Negative Urine-Ketones Negative Negative Urine-Leukocytes Negative Negative Urine-Nitrite Negative Negative Urine-Other Urine Saved if Culture Needed (48hrs from time of collection) Urine-pH 5.5 5-8.5 Urine-Protein Trace Negative Urine-RBC Negative Urine-Specific [place] >=1.030 1.000-1.030 Urine-WBC Nothing Seen on Microscopic Urobilinogen 0.2 E.U./dL 0.2-1.0 Complete blood count (CBC) with automated white blood cell (WBC) differential - 01/06/18 10:50 Blood leukocytes automated count (number/volume) 12.9 10*3/uL 4.3-11.0 Blood erythrocytes automated count (number/volume) 5.53 10*6/uL 4.35-5.85 Venous blood hemoglobin measurement (mass/volume) 15.8 g/dL 13.3-17.7 Blood hematocrit (volume fraction) 46 % 40-54 Automated erythrocyte mean corpuscular volume 83 [foz_us] 80-99 Automated erythrocyte mean corpuscular hemoglobin (mass per erythrocyte) 29 pg 25-34 Automated erythrocyte mean corpuscular hemoglobin concentration measurement ( mass/volume) 35 g/dL 32-36 Automated erythrocyte distribution width ratio 14.3 % 10.0-14.5 Automated blood platelet count (count/volume) 286 10*3/uL 130-400 Automated blood platelet mean volume measurement 11.0 [foz_us] 7.4-10.4 Automated blood neutrophils/100 leukocytes 58 % 42-75 Automated blood lymphocytes/100 leukocytes 27 % 12-44 Blood monocytes/100 leukocytes 10 % 0-12 Automated blood eosinophils/100 leukocytes 5 % 0-10 Automated blood basophils/100 leukocytes 1 % 0-10 Blood neutrophils automated count (number/volume) 7.5 10*3 1.8-7.8 Blood lymphocytes automated count (number/volume) 3.4 10*3 1.0-4.0 Blood monocytes automated count (number/volume) 1.3 10*3 0.0-1.0 Automated eosinophil count 0.6 10*3/uL 0.0-0.3 Automated blood basophil count (count/volume) 0.1 10*3/uL 0.0-0.1 Whole blood basic metabolic panel - 01/06/18 10:50 Serum or plasma sodium measurement (moles/volume) 138 mmol/L 135-145 Serum or plasma potassium measurement (moles/volume) 3.8 mmol/L 3.6-5.0 Serum or plasma chloride measurement (moles/volume) 102 mmol/L 98-107 Carbon dioxide 25 mmol/L 21-32 Serum or plasma anion gap determination (moles/volume) 11 mmol/L 5-14 Serum or plasma urea nitrogen measurement (mass/volume) 27 mg/dL 7-18 Serum or plasma creatinine measurement (mass/volume) 1.73 mg/dL 0.60-1.30 Serum or plasma urea nitrogen/creatinine mass ratio 16 NRG Serum or plasma creatinine measurement with calculation of estimated glomerular filtration rate 39 NRG Serum or plasma glucose measurement (mass/volume) 126 mg/dL 70-105 Serum or plasma calcium measurement (mass/volume) 9.4 mg/dL 8.5-10.1 Blood type T Indirect antibody screen panel - 01/06/18 10:50 ABO+Rh group AP NRG Blood group antibody screen NEGATIVE NRG Methicillin resistant Staphylococcus aureus (MRSA) screening culture - 10:50 Methicillin resistant Staphylococcus aureus (MRSA) screening culture NEG NRG Encounters ACCT No. Visit Date/Time Discharge Status Pt. Type Provider Facility Loc./Unit Complaint [id number] 09/08/2017 09:27:00 09/08/2017 23:59:59 CLS Outpatient TUAN MAYA MD [facility] RAD CERVICALGIA,DDD [id number] 08/19/2017 11:33:00 08/19/2017 23:59:59 CLS Outpatient HERMILO SANDOVAL [facility] RAD BACK PAIN [id number] 06/01/2017 07:36:00 06/01/2017 10:11:00 DIS Outpatient JUDE MENENDEZ DO [facility] ENDO CHANGE IN BM, HX COLON POLYPS [id number] 05/17/2017 10:00:00 05/17/2017 10:06:00 DIS Outpatient JUDE MENENDEZ DO [facility] PREOP COLONOSCOPY [id number] 04/18/2017 17:50:00 04/18/2017 22:00:00 DIS Emergency KAMILLE TASIA Deanne [facility] ER LOWER BACK PAIN, ABD PAIN [id number] 10/06/2016 10:08:00 10/06/2016 23:59:59 CLS Outpatient TUAN MAYA MD [facility] RAD NECK PAIN M54.2 [id number] 10/01/2015 06:00:00 10/02/2015 15:10:00 DIS Outpatient JENNIFER SHEETS MD [facility] SDC URINE RETENTION,BPH [id number] 09/27/2015 15:06:00 09/30/2015 13:00:00 DIS Inpatient AMEENA LINDO DO [facility] 4TH SWB NON UNION [id number] 09/23/2015 05:59:00 09/27/2015 15:06:00 DIS Inpatient TUAN MAYA MD [facility] 4TH NON UNION [id number] 09/18/2015 13:09:00 09/18/2015 23:59:59 CLS Outpatient TUAN MAYA MD [facility] LAB ELEVATED WBC [id number] 09/10/2015 10:23:00 09/10/2015 15:40:00 DIS Outpatient TUAN MAYA MD [facility] PREOP NON UNION [id number] 07/09/2015 12:55:00 07/31/2015 11:18:00 DIS Outpatient MICHELLE ELIZALDE MD [facility] REHAB LUMBAGO [id number] 06/14/2015 09:17:00 06/14/2015 13:41:00 DIS Outpatient MICHELLE ELIZALDE MD [facility] SDC CHRONIC PAIN SYNDROME; POST LAMINECTOMY SYNDROME [id number] 06/06/2015 11:58:00 06/06/2015 23:59:59 CLS Outpatient MICHELLE ELIZALDE MD [facility] PREOP CHRONIC PAIN SYNDROME; POST LAMINECTOMY SYNDROME [id number] 04/11/2015 00:22:00 04/11/2015 23:59:59 CLS Preadmit EM WARD [facility] ONC [id number] 01/10/2015 14:25:00 04/10/2015 00:01:00 DIS Outpatient EM WARD [facility] ONC [id number] 03/29/2015 15:00:00 03/29/2015 16:27:00 DIS Outpatient MICHELLE ELIZALDE MD [facility] CARD SPONDYLOSIS [id number] 03/04/2015 12:35:00 03/04/2015 13:32:00 DIS Outpatient MICHELLE ELIZALDE MD [facility] 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 [id number] 03/01/2015 07:58:00 03/01/2015 08:40:00 DIS Outpatient MICHELLE ELIZALDE MD [facility] 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 [id number] 01/03/2015 10:42:00 01/09/2015 00:01:00 DIS Outpatient EM WARD N [facility] ONC [id number] 11/16/2014 09:13:00 11/16/2014 23:59:59 CLS Outpatient MICHELLE ELIZALDE MD [facility] CARD SI JOINT DYSFUNTION [id number] 10/19/2014 07:23:00 10/19/2014 08:31:00 DIS Outpatient MICHELLE ELIZALDE MD [facility] CARD SIJD,HIP OSTEOARTHRITIS [id number] 10/11/2014 13:08:00 10/11/2014 23:59:59 CLS Outpatient JENNIFER SHEETS MD [facility] LAB JAIL MED USE [id number] 10/11/2014 10:56:00 10/11/2014 23:59:59 CLS Outpatient MICHELLE ELIZALDE MD [facility] RAD BI HIP PAIN [id number] 06/11/2014 13:31:00 09/09/2014 00:01:00 DIS Outpatient EM WARD [facility] ONC [id number] 07/02/2014 13:08:00 07/02/2014 14:32:00 DIS Outpatient MICHELLE ELIZALDE MD [facility] CARD SIJD [id number] 05/23/2014 21:20:00 05/25/2014 13:15:00 DIS Inpatient WILIAN RAWLS, JACINTO Pereira [facility] 4TH GENERALIZED ABD PAIN;N/V; DIARRHEA;LEUKOSYTOSIS [id number] 10/06/2013 14:05:00 10/06/2013 23:59:59 CLS Outpatient TASIA VERA MD [facility] RAD CP [id number] 10/06/2013 09:25:00 10/06/2013 16:30:00 DIS Outpatient DARIAN OVIEDO MD [facility] RAD LUMBAR RADICULOPATHY, CERVICAL STENOSIS [id number] 08/23/2013 07:43:00 08/23/2013 23:59:59 CLS Outpatient DARIAN OVIEDO MD [facility] RAD LUMBAR RADICULOPATHY, CERVICAL STENOSIS [id number] 06/07/2013 00:01:00 06/15/2013 11:10:00 DIS Inpatient JACINTO CEDENO MD [facility] SURGICAL DEHYDRATION; INTRACTABLE PAIN [id number] 06/04/2013 14:29:00 06/04/2013 15:30:00 DIS Emergency SUKHWINDER THAPA MD [facility] ER SOA [id number] 06/02/2013 08:06:00 06/02/2013 23:59:59 CLS Outpatient DARIAN OVIEDO MD [facility] PREOP LUMBAR STENOSIS [id number] 05/29/2013 09:20:00 05/30/2013 15:00:00 DIS Inpatient DARIAN OVIEDO MD [facility] SURGICAL CERVICAL STENOSIS [id number] 05/15/2013 10:24:00 05/15/2013 23:59:59 CLS Outpatient DARIAN OVIEDO MD [facility] PREOP CERVICAL STENOSIS [id number] 01/10/2018 10:00:00 PEN Preadmit TUAN MAYA MD [facility] SDC STENOSIS [id number] 01/06/2018 11:14:00 Document Registration [id number] 03/25/2012 13:01:00 Document Registration [id number] 11/05/2017 17:08:00 11/05/2017 23:59:00 DIS Outpatient Tasia Vera [id number] 03/31/2017 16:49:00 03/31/2017 23:59:00 DIS Outpatient Tasia Vera [id number] 03/24/2017 13:15:00 03/24/2017 23:59:00 DIS Outpatient Tasia Vera [id number] 03/19/2017 11:36:00 03/19/2017 23:59:00 DIS Outpatient Tasia Vera [id number] 06/10/2016 19:00:00 06/12/2016 11:00:00 DIS Inpatient Tasia Vera [id number] 03/26/2016 15:57:00 03/26/2016 23:59:00 DIS Outpatient Tasia Vera [id number] 06/10/2016 20:20:28 Document Registration [id number] 12/16/2017 08:04:53 Document Registration [id number] 01/10/2015 14:38:01 ACT Document Registration
--- NOTE | 2018-01-10 10:07 | Consultation-Hospitalist ---
HPI History of Present Illness: HPI/Chief Complaint CC: Medical management during hospital stay for Lumbar Spine stenosis HPI: Patient was seen in pre-op. Pt known to me from prior hospital stays. Delirium occurs post op due to narcs and I did discuss with anesthesia. Urinary retention has been a post op issue in the past too. Dr Shah sees him regularly along with Dr Cat. Checked meds and labs. Source: patient, family, RN/MD Exam Limitations: no limitations Date Seen 01/10/18 Attending Physician Jared Rodriguez MD PCP Tasia Ferrer MD Referring Physician Date of Admission Jan 10, 2018 at 07:26 Home Medications & Allergies Home Medications Reviewed patient Home Medication Reconciliation performed by pharmacy medication reconciliations all source intelligence technician and/or nursing. Patients Allergies have been reviewed. Allergies Allergies Coded Allergies adhesive (Unverified Allergy, Mild, RASH, 01/06/18) morphine (Unverified Allergy, Mild, CONFUSION, 01/06/18) gabapentin (Verified Allergy, Unknown, 01/06/18) Past Dpzomxm-Omlkha-Devqiz Hx Past Med/Social Hx: Reviewed Nursing Past Med/Soc Hx, Reviewed and Corrections made Patient Social History Marrital Status: Employed/Student: employed Alcohol Use: Denies Use Recreational Drug Use: No Smoking Status: Never a Smoker Physical Abuse Screen: No Sexual Abuse: No Recent Foreign Travel: No Contact w/other who traveled: No Recent Hopitalizations: No Recent Infectious Disease Expo: No Immunizations Up To Date Tetanus Booster (TDap): Less than 5yrs Date of Pneumonia Vaccine: May 30, 2013 Date of Influenza Vaccine: Apr 16, 2014 Seasonal Allergies Seasonal Allergies: Yes Past Medical History Surgeries: Abdominal, Appendectomy, Cardiac, CABG, Coronary Stent, Orthopedic Cardiac: Coronary Artery Disease, Hypertension Reproductive: No HIV/AIDS: No Genitourinary: Prostate Problems, Kidney Stones, Renal Failure Gastrointestinal: Gastroesophageal Reflux, Chronic Constipation, Polyps Musculoskeletal: Degenerate Disk Disease, Arthritis, Chronic Back Pain Loss of Vision: Bilateral Hearing Impairment: Hard of Hearing Psychosocial: Sleep Difficulties, Anxiety, Depression History of Blood Disorders: No Adverse Reaction to Blood Parsons: No (HAS HAD BLOOD WITH NO REACTION) Family History Family history: Cardiovascular disease 09 BROTHER Family history: Diabetes mellitus 03 MOTHER 09 BROTHER History of drug abuse 03 FATHER Hypertension Review of Systems Constitutional: see HPI EENTM: no symptoms reported Respiratory: no symptoms reported Cardiovascular: no symptoms reported Gastrointestinal: no symptoms reported Genitourinary: no symptoms reported Musculoskeletal: back pain Skin: no symptoms reported Psychiatric/Neurological: No Symptoms Reported All Other Systems Reviewed Negative Unless Noted: Yes Physical Exam Physical Exam Vital Signs Capillary Refill : Height, Weight, BMI Height: 5'7.00" Weight: 202lbs. 8.0oz. 91.331972ph; 31.7 BMI Method:Stated General Appearance: No Apparent Distress, WD/WN, Chronically ill, Obese Eyes: Bilateral Eye Normal Inspection, Bilateral Eye PERRL HEENT: PERRL/EOMI, TMs Normal, Normal ENT Inspection, Pharynx Normal Neck: Full Range of Motion, Normal Inspection, Non Tender, Supple, Carotid Bruit Respiratory: Chest Non Tender, Lungs Clear, Normal Breath Sounds, No Accessory Muscle Use, No Respiratory Distress Cardiovascular: Regular Rate, Rhythm, No Edema, No Gallop, No JVD, No Murmur, Normal Peripheral Pulses Gastrointestinal: Normal Bowel Sounds, No Organomegaly, No Pulsatile Mass, Non Tender, Soft Back: Normal Inspection, No CVA Tenderness, No Vertebral Tenderness, Decreased Range of Motion Extremity: Normal Capillary Refill, Normal Inspection, Normal Range of Motion, Non Tender, No Calf Tenderness, No Pedal Edema Neurologic/Psychiatric: Alert, Oriented x3, No Motor/Sensory Deficits, Normal Mood/Affect Skin: Normal Color, Warm/Dry Lymphatic: No Adenopathy Results Results/Procedures Labs Patient resulted labs reviewed. Assessment/Plan Assessment and Plan Assess & Plan/Chief Complaint Assessment: Lumbar stenosis Delirium in the past post op Urinary retention post op CAD BPH HTN Depression Plan: Home meds Minimize narcs Post op urinary retention likely will occur and will monitor closely Diagnosis/Problems Diagnosis/Problems (1) intractable back pain Status: Acute (2) CAD (coronary artery disease) Status: Chronic Qualifiers: Coronary Disease-Associated Artery/Lesion type: [place] artery [place] vs. transplanted heart: [place] heart Associated angina: without angina Qualified Codes: I25.10 - Atherosclerotic heart disease of [place] coronary artery without angina pectoris (3) Hypertension Status: Chronic Qualifiers: Hypertension type: essential hypertension Qualified Codes: I10 - Essential (primary) hypertension (4) Depression Status: Chronic Qualifiers: Depression Type: unspecified Qualified Codes: F32.9 - Major depressive disorder, single episode, unspecified (5) Delirium Status: Resolved (6) STENOSIS Status: Chronic AMEENA LINDO DO Jan 10, 2018 10:07
[2018-01-10] MEDS ORDERED: SUCCINYLCHOLINE INJ 100 MG/5 ML SYR ONE (10:25)
[2018-01-10] MEDS ORDERED: DEXMEDETOMIDINE 200 MCG/2 ML (PRECEDEX) VIAL IV ONE ×2 (10:25→12:00)
[2018-01-10] MEDS ORDERED: ETOMIDATE IV SOLN 20 MG/10 ML VIAL ONE (10:25)
[2018-01-10] MEDS ORDERED: proPOfol 200 MG/20 ML (DIPRIVAN) VIAL IV ONE (11:39)
[2018-01-10] MEDS ORDERED: ceFAZolin INJECTION 2,000 MG in NS (IVPB) 50 ML IV SCH (11:45)
[2018-01-10] MEDS ORDERED: GLYCOPYRROLATE 0.2 MG/ML (ROBINUL) 2 ML VIAL ONE (11:57)
[2018-01-10] MEDS ORDERED: PHENYLEPHRINE 100 MCG/ML 10 ML (ANESTHESIA) SYR ONE (11:58)
[2018-01-10] MEDS ORDERED: SEVOFLURANE (ULTANE) 15 ML INHAL SOLN ONE (12:27)
--- NOTE | 2018-01-10 12:30 | Progress Note-Post Operative ---
Post-Operative Progess Note Surgeon (s)/Citrix Engineer (s) Surgeon TUAN MAYA MD Citrix Engineer: Devaughn Cheema, ISIAH Pre-Operative Diagnosis Lumbar Stenosis/DDD Post-Operative Diagnosis Same Procedure & Operative Findings Date of Procedure 01/10/18 Procedure Performed/Findings L1-2 XLIF/PSF, with T11-L2 PSF/instrumentation L1-2 Laminectomy Anesthesia Type GETA Estimated Blood Loss Estimated blood loss (mL): 300 Specimens/Packing Specimens Removed None TUAN MAYA MD Jan 10, 2018 12:30 pm
[2018-01-10] MEDS ORDERED: ONDANSETRON 4 MG/2 ML (SDV) Z0FRAN ONE (12:34)
--- NOTE | 2018-01-10 12:45 | Diagnostic Imaging Report ---
INDICATION: Fluoroscopy during lumbar spine surgery. TIME OF EXAMINATION: 10:47 AM. FINDINGS: Fluoroscopy was provided during lumbar spine surgery. 35 seconds of fluoroscopy was utilized. Images demonstrate spinal fixation rods and pedicle screws throughout the lower thoracic and lumbar spine. IMPRESSION: Fluoroscopy during lumbar spine surgery. Dictated by: Dictated on workstation # [id number]
[2018-01-10] MEDS: BACITRACIN OINTMENT 28 GM TUBE TOP SCH (13:02)
[2018-01-10] MEDS ORDERED: fentaNYL INJECTION 100 MCG/2 ML AMP ONE (13:40)
[2018-01-10] MEDS: fentaNYL INJECTION 100 MCG/2 ML AMP IVP ONE ×2 (13:45→13:55)
[2018-01-10] MEDS ORDERED: MEPERIDINE (DEMEROL) INJ 50 MG/ML ONE (14:33)
[2018-01-10] MEDS ORDERED: fentaNYL INJECTION 100 MCG/2 ML AMP IVP ONE (14:45)
[2018-01-10] MEDS ORDERED: MEPERIDINE (DEMEROL) INJ 50 MG/ML IVP ONE (14:45)
[2018-01-10] MEDS: HYDROcodone/APAP 5 MG/325 MG (LORTAB) TAB PO PRN ×2 (15:41→20:14)
--- NOTE | 2018-01-10 16:12 | OPERATIVE REPORT ---
DATE OF SERVICE: 01/10/2018 PREOPERATIVE DIAGNOSES: Lumbar adjacent segment degeneration, lumbar radiculopathy, lumbar stenosis, neural canal degenerative disk and osseous structures, mechanical complication of internal orthopedic hardware. POSTOPERATIVE DIAGNOSES: 1. L1-L2 anterolateral transpsoas interbody fusion via XLIF approach. 2. L1-L2 interbody cage instrumentation. 3. L1-L2 posterior spinal fusion. 4. T12-L1 posterior spinal fusion. 5. T11-T12 posterior spinal fusion. 6. T11-L2 posterior segmental pedicle screw instrumentation. 7. L1-L2 laminectomy, medial facetectomy and foraminotomy. 8. Autograft for spine surgery, local. 9. Allograft for spine surgery, morselized. DATE AND TIME OF SURGERY: Please see anesthesia record. IMPLANTS USED: NuVasive XLIF titanium interbody cage, K2M [place] bone graft, K2M Sharon pedicle screws and jad-to-jad connectors. SURGEON: Tuan Rodriguez MD FINGERPRINTER: ZAHRA Cantu. ROLE OF SYNTHETIC STAPLE EXTRUDER: Aid in retraction of the procedure, aid in implantation of instrumentation and wound closure. ANESTHESIA: General endotracheal. ESTIMATED BLOOD LOSS: 300 mL. INTRAVENOUS FLUIDS: Please see anesthesia record. ANTIBIOTICS: Ancef. COMPLICATIONS: None. SPECIMENS: None. INDICATIONS FOR PROCEDURE: The patient is a 72-year-old male, breakdown above a previous fusion, high grade stenosis, failed conservative therapy and desires operative treatment. DESCRIPTION OF PROCEDURE: The patient was taken to the preoperative holding area and brought back to the operative suite. After adequate induction of general anesthetic and preoperative antibiotics, he was placed in lateral decubitus position, right side up, standard transpsoas approach to the 1-2 disk space was carried out. Disk was prepped. Trial spacer was utilized and a 12 tall, 55 long NuVasive titanium XLIF cage filled Allograft bone was impacted in position with great fit achieved. At this point, the retractor removed, hemostasis assured. Wound was closed in layers. The patient turned prone on Perico table. Careful padding to all extremities, sterilely prepped and draped posterior lumbar spine and incision was carried proximally up to the T12 level initially and was felt due to purchase of screws that it was beneficial to carry it up further to the T11 level for some additional fixation. At this point, a L1-L2 level laminectomy was performed. Medial facetectomy and foraminotomy performed. Adequate decompression assured. Jad-to-jad connectors were then placed just below the L2 level and then bilateral L1, bilateral T12 and bilateral T11 screws were placed, checked on imaging and noted to be satisfactory. Rods were contoured and fit. Final tightening of the construct performed and then posterior and posterolateral decortication was performed and autograft and allograft bone was packed from T11 to L2 for the fusion portion of procedure. Deep drain was placed. Wound was closed in layers. The patient transferred to recovery room in stable condition and tolerated procedure well. Job ID: [id number] DocumentID: [id number] Dictated Date: 01/10/2018 12:28:52 Marble Machine Tender Date: 01/10/2018 16:11:24 Dictated By: TUAN RODRIGUEZ MD [facility]
[2018-01-10] MEDS: fentaNYL INJECTION 100 MCG/2 ML AMP IVP PRN ×5 (16:47→23:02)
[2018-01-10] MEDS: ceFAZolin 2 GM/50 ML PRE-MIXED IVPB IV SCH (17:34)
[2018-01-10] MEDS: ONDANSETRON 4 MG/2 ML (SDV) Z0FRAN IV PRN (18:26)
[2018-01-10] MEDS ORDERED: ANTACID SUSP 30 ML UDC (MYLANTA) ONE (20:08)
[2018-01-10] MEDS: SENNA W/DOCUSATE (SENOKOT S) TABLET PO SCH (20:13)
[2018-01-10] MEDS: POLYETHYLENE GLYCOL 17 GM (MIRALAX) PACK PO SCH (20:14)
[2018-01-10] MEDS ORDERED: ANTACID SUSP 30 ML UDC (MYLANTA) PO NR (20:15)
[2018-01-10] MEDS ORDERED: ALPRAZolam 0.5 MG (XANAX) TAB ONE (20:53)
[2018-01-11] VITALS (14 sets, daily range): BP systolic 111–164; BP diastolic 63–97
[2018-01-11] MEDS: HYDROcodone/APAP 5 MG/325 MG (LORTAB) TAB PO PRN ×5 (00:16→22:51)
[2018-01-11] MEDS: fentaNYL INJECTION 100 MCG/2 ML AMP IVP PRN ×3 (00:17→18:13)
[2018-01-11] MEDS: ceFAZolin 2 GM/50 ML PRE-MIXED IVPB IV SCH ×2 (03:45→08:32)
[2018-01-11 03:49] LABS: BASOPHILS # (AUTO) 0.1 10^3/uL (0.0-0.1); BASOPHILS % (AUTO) 0 % (0-10); EOSINOPHILS # (AUTO) 0.2 10^3/uL (0.0-0.3); EOSINOPHILS % (AUTO) 1 % (0-10); HEMATOCRIT 40 % (40-54); HEMOGLOBIN 14.1 G/DL (13.3-17.7); LYMPHOCYTES # (AUTO) 1.5 X 10^3 (1.0-4.0); LYMPHOCYTES % (AUTO) 7 % (12-44); MEAN CORPUSCULAR HEMOGLOBIN 30 PG (25-34); MEAN CORPUSCULAR HGB CONC 35 G/DL (32-36); MEAN CORPUSCULAR VOLUME 85 FL (80-99); MEAN PLATELET VOLUME 11.2 FL (7.4-10.4); MONOCYTES % (AUTO) 10 % (0-12); NEUTROPHILS # (AUTO) 16.2 X 10^3 (1.8-7.8); NEUTROPHILS % (AUTO) 81 % (42-75); PLATELET COUNT 221 10^3/uL (130-400); RED BLOOD COUNT 4.78 10^6/uL (4.35-5.85); RED CELL DISTRIBUTION WIDTH 13.9 % (10.0-14.5); WHITE BLOOD COUNT 19.9 10^3/uL (4.3-11.0)
[2018-01-11 04:01] LABS: CALCIUM 8.8 MG/DL (8.5-10.1); CREATININE SERUM 1.43 MG/DL (0.60-1.30); MAGNESIUM 1.6 MG/DL (1.8-2.4); PHOSPHORUS 3.2 MG/DL (2.3-4.7); POTASSIUM 4.2 MMOL/L (3.6-5.0)
[2018-01-11 04:14] LABS: EOSINOPHILS % (MANUAL) 1 %; LYMPHOCYTES % (MANUAL) 9 %; MONOCYTES % (MANUAL) 9 %; NEUTROPHILS % (MANUAL) 81 %
[2018-01-11] MEDS ORDERED: KCL 20 MEQ TAB (K-DUR) PO SCH (06:00)
[2018-01-11] MEDS ORDERED: POTASSIUM CL 10MEQ/50ML IVPB 50 ML IV SCH (06:00)
[2018-01-11] MEDS ORDERED: MAGNESIUM 1 GM/100 ML IVPB 100 ML IV SCH (06:00)
--- NOTE | 2018-01-11 06:11 | Progress Note (SOAP) ---
Subjective Date Seen by a Provider: Jan 11, 2018 Time Seen by a Provider: 06:08 Subjective/Events-last exam Pain moderately bad, but doesn't want anything due to confusion last time Bloating Legs ok Objective Exam Vital Signs Date Time Temp Pulse Resp B/P (MAP) Pulse Ox O2 Delivery O2 Flow Rate FiO2 01/11/18 04:00 Nasal Cannula 3.00 01/11/18 02:00 112 16 147/89 (108) 96 Nasal Cannula 3.00 01/11/18 01:35 Nasal Cannula 3.00 01/11/18 01:00 114 01/11/18 01:00 114 23 164/91 (115) 97 Nasal Cannula 3.00 01/11/18 00:00 109 22 151/97 (115) 94 Nasal Cannula 3.00 01/10/18 23:49 Nasal Cannula 3.00 01/10/18 23:00 110 24 163/94 (117) 95 Nasal Cannula 3.00 01/10/18 22:00 108 20 155/79 (104) 95 Nasal Cannula 3.00 01/10/18 21:45 110 21 163/85 (111) 93 Nasal Cannula 3.00 01/10/18 21:40 105 16 167/84 (111) 89 Nasal Cannula 4.00 01/10/18 21:00 101 25 167/84 (111) 91 Nasal Cannula 2.00 01/10/18 20:00 97 19 178/97 (124) 95 Nasal Cannula 2.00 01/10/18 20:00 Nasal Cannula 2.00 01/10/18 19:00 92 01/10/18 19:00 92 16 143/107 (119) 98 Nasal Cannula 2.00 01/10/18 18:41 97 Nasal Cannula 2.00 01/10/18 18:40 89 Room Air 01/10/18 18:28 95 Room Air 01/10/18 18:00 98 OxyMask 3.00 01/10/18 17:00 89 15 141/83 (102) 96 OxyMask 6.00 01/10/18 16:29 95 OxyMask 6.00 01/10/18 16:00 97.1 79 16 140/89 (106) 96 OxyMask 6.00 01/10/18 15:53 97.9 OxyMask 6.00 01/10/18 15:45 84 12 153/97 (115) 98 OxyMask 10.00 01/10/18 15:30 87 12 134/86 (102) 97 OxyMask 10.00 01/10/18 15:15 85 13 120/87 (98) 97 OxyMask 10.00 01/10/18 15:00 86 14 126/76 (93) 94 OxyMask 10.00 01/10/18 15:00 OxyMask 10.00 01/10/18 14:52 98.0 OxyMask 10.00 01/10/18 14:35 83 I & O 01/11/18 07:00 Intake Total 1790 ml Output Total 945 ml Balance 845 ml Capillary Refill : General Appearance: No Apparent Distress Neck: Supple Respiratory: No Accessory Muscle Use, No Respiratory Distress Cardiovascular: Normal Peripheral Pulses, Tachycardia Gastrointestinal: normal bowel sounds, soft, distended Extremity: Normal Capillary Refill, No Calf Tenderness Neurologic/Psychiatric: Alert, Oriented x3, No Motor/Sensory Deficits Results Lab Laboratory Tests 01/11/18 03:30: White Blood Count 19.9H, Red Blood Count 4.78, Hemoglobin 14.1, Hematocrit 40, Mean Corpuscular Volume 85, Mean Corpuscular Hemoglobin 30, Mean Corpuscular Hemoglobin Concent 35, Red Cell Distribution Width 13.9, Platelet Count 221, Mean Platelet Volume 11.2H, Neutrophils (%) (Auto) 81H, Lymphocytes (%) (Auto) 7L, Monocytes (%) (Auto) 10, Eosinophils (%) (Auto) 1, Basophils (%) (Auto) 0, Neutrophils # (Auto) 16.2H, Lymphocytes # (Auto) 1.5, Monocytes # (Auto) 2.0H, Eosinophils # (Auto) 0.2, Basophils # (Auto) 0.1, Neutrophils % (Manual) 81, Lymphocytes % (Manual) 9, Monocytes % (Manual) 9, Eosinophils % (Manual) 1 01/11/18 03:35: Sodium Level 135, Potassium Level 4.2, Chloride Level 102, Carbon Dioxide Level 22, Anion Gap 11, Blood Urea Nitrogen 19H, Creatinine 1.43H, Estimat Glomerular Filtration Rate 48, BUN/Creatinine Ratio 13, Glucose Level 141H, Calcium Level 8.8, Phosphorus Level 3.2, Magnesium Level 1.6L Assessment/Plan Assessment/Plan Assess & Plan/Chief Complaint Lumbar Adjacent Segment Degeneration Lumbar Stenosis, Neural canal due to osseous/cartilaginous stenosis S/P L1/2 XLIF/T11-L2 PSF L1-2 Lami Hypomagnesemia Plan: Replace electrolytes mobilize with pt pain control TUAN MAYA MD Jan 11, 2018 6:11 am
[2018-01-11] MEDS: MAGNESIUM 1 GM/100 ML IVPB 100 ML IV SCH ×2 (06:51→08:32)
[2018-01-11] MEDS ORDERED: PANTOPRAZOLE 40 MG (PROTONIX) VIAL IV SCH (07:00)
--- NOTE | 2018-01-11 07:33 | Diagnostic Imaging Report ---
EXAM: CHEST 1 VIEW, AP/PA ONLY INDICATION: Postop back surgery. COMPARISON: Chest radiograph 09/27/2015. FINDINGS: Low lung volumes. Normal heart size and pulmonary vascularity. Sternotomy. No focal pulmonary opacity, pleural effusion or pneumothorax. No acute osseous findings. Partially visualized postoperative changes in the lumbar spine. IMPRESSION: No acute cardiopulmonary findings. Dictated by: Dictated on workstation # [id number]
[2018-01-11] MEDS: MULTIVIT W/MINERALS TAB (THERAGRAN M) PO SCH (08:04)
[2018-01-11] MEDS: BACITRACIN OINTMENT 28 GM TUBE TOP SCH ×2 (08:23→20:37)
[2018-01-11] MEDS: NS IV 1000 ML 1,000 ML IV SCH ×3 (08:23→19:33)
[2018-01-11] MEDS: ALPRAZolam 0.5 MG (XANAX) TAB PO PRN ×2 (08:32→20:37)
--- NOTE | 2018-01-11 09:14 | Physical Therapy Evaluation ---
PT Evaluation-General Medical Diagnosis Admission Date Jan 10, 2018 at 07:26 Medical Diagnosis: stenosis Onset Date: Jan 10, 2018 Therapy Diagnosis Therapy Diagnosis: generalized weakness/debility Height/Weight Height (Feet): 5 Height (Inches): 7.00 Weight (Pounds): 202 Weight (Ounces): 8.0 Precautions Precautions/Isolations: Fall Prevention, Standard Precautions Weight Bear Status Right Lower Extremity: Right Full Weight Bearing Left Lower Extremity: Left Weight Bearing/Tolerated Referral Physician: Jennifer Reason for Referral: Evaluation/Treatment Medical History Pertinent Medical History: Arthritis, CABG, GERD, HTN, OA Current History twisted back climbing on tractor resulting in injury. 3rd spinal surgery Reviewed History: Yes Social History Home: Single Level Current Living Status: Spouse Prior/Core FIM Prior Level of Function Functional [place] Measure 0=Not Assessed/NA 4=Minimal Assistance 1=Total Assistance 5=Supervision or Setup 2=Maximal Assistance 6=Modified [place] 3=Moderate Assistance 7=Complete [place] Bed Mobility: 7 Transfers (B,C,W/C) (FIM): 7 Gait: 7 Locomotion: 7 PT Evaluation-Current Subjective Patient agrees to PT. Pain Numeric Pain Scale: 8 Location: Lower Location Body Site: Back Pain Description: Acute Objective Patient Orientation: Normal For Age Problem Solving: Good Attachments: Oxygen, Drains, Muñoz Catheter, IV ROM/Strength ROM Lower Extremities bilateral LE WFL Strength Lower Extremities 4/5 grossly bilaterally Integumentary/Posture Integumentary refer to nursing notes Bowel Incontinence: No Bladder Incontinence: Muñoz Cath Posture WFL Neuromuscular (Tone, Coordination, Reflexes) grossly intact Sensory Vision: Functional Hearing: Functional Sensation Right Lower Extremit: Intact Sensation Left Lower Extremity: Intact Transfers Functional [place] Measure 0=Not Assessed/NA 4=Minimal Assistance 1=Total Assistance 5=Supervision or Setup 2=Maximal Assistance 6=Modified [place] 3=Moderate Assistance 7=Complete [place] Transfers (B, C, W/C) (FIM): 4 Scootin Rollin Supine to/from Sit: 4 Sit to/from Stand: 4 CGA for safety Gait Mode of Locomotion: Walk Anticipated Mode of Locomotion: Walk Gait (FIM): 1 Distance (FIM): 1=up to 49 ft Distance: 10' Gait Level of Assist: 4 Gait Persons Needed: 1 Gait Assistive Device: FWW Comments/Gait Description steady, functional Balance Sitting Static: Normal Sitting Dynamic: Normal Standing Static: Normal Standing Dynamic: Normal Assessment/Needs 72 y.o. male, will benefit from skilled PT to address functional strength and mobility to improve current LOF to safely return to home with spouse at maximum LOF. Rehab Potential: Good PT Harnessmaker Apprentice Goals Harnessmaker Apprentice Goals PT Harnessmaker Apprentice Goals Time Frame: Jan 22, 2018 Transfers (B,C,W/C) (FIM): 6 Gait (FIM): 6 Gait distance (FIM): 3=150 ft Distance: 300' Gait Level of Assist: 6 Gait Assistive Device: FWW PT Plan Treatment/Plan Treatment Plan: Continue Plan of Care Treatment Plan: Bed Mobility, Education, Functional Activity Jayla, Functional Strength, Gait, Safety, Therapeutic Exercise, Transfers Treatment Duration: Jan 22, 2018 Frequency: 11 times per week Estimated Hrs Per Day: .5 hour per day Patient and/or Family Agrees t: Yes Discharge Recommendations Therapy D/C Recommendations: Home w/ Family Support Time/GCodes Time In: 810 Time Out: 828 Total Billed Treatment Time: 18 Total Billed Treatment 1 visit [facility] 18 min G Codes Necessary: RISHI Vides PT Jan 11, 2018 09:14
--- NOTE | 2018-01-11 09:25 | Anesthesia-General Post-Op ---
General Patient Condition Mental Status/LOC: Same as Preop Cardiovascular: Satisfactory Nausea/Vomiting: Absent Respiratory: Satisfactory Pain: Controlled Complications: Absent Post Op Complications Complications None Follow Up Care/Instructions Patient Instructions None needed. Anesthesia/Patient Condition Patient Condition Patient is doing well, no complaints, stable vital signs, no apparent adverse anesthesia problems. No complications reported per nursing. EDWARD PORTILLO CRNA Jan 11, 2018 09:25
[2018-01-11] MEDS ORDERED: PHENAZOPYRIDINE 100 MG (PYRIDIUM) TABLET PO NR (09:35)
[2018-01-11] MEDS ORDERED: BETHANECHOL 25 MG (URECHOLINE) TAB PO NR (09:35)
--- NOTE | 2018-01-11 10:01 | Progress Note-Hospitalist ---
AMEENA LINDO 01/11/18 1001: Subjective HPI/CC On Admission CC: Medical management during hospital stay for Lumbar Spine stenosis HPI: Patient was seen in pre-op. Pt known to me from prior hospital stays. Delirium occurs post op due to narcs and I did discuss with anesthesia. Urinary retention has been a post op issue in the past too. Dr Shah sees him regularly along with Dr Cat. Checked meds and labs. Subjective/Events-last exam Patient was in ICU when assessed but placed orders for transfer Flatus noted but feels bloated and I encouraged ambulation Pain is tolerable No confusion Urinary meds started due to urinary retention in the past Checked meds and labs Review of Systems General: Fatigue Gastrointestinal: Abdominal Pain Musculoskeletal: back pain Objective Exam Vital Signs Vital Signs Date Time Temp Pulse Resp B/P (MAP) Pulse Ox O2 Delivery O2 Flow Rate FiO2 01/11/18 16:35 98.1 98 22 123/75 (91) 97 Nasal Cannula 3.00 Capillary Refill : General Appearance: No Apparent Distress, WD/WN, Chronically ill Respiratory: Chest Non Tender, Lungs Clear, Normal Breath Sounds, No Accessory Muscle Use, No Respiratory Distress Cardiovascular: Regular Rate, Rhythm, No Edema, No Gallop, No JVD, No Murmur, Normal Peripheral Pulses Gastrointestinal: Abnormal Bowel Sounds (decreased ), Distended, Tenderness (R sided ) Neurologic/Psychiatric: Alert, Oriented x3, No Motor/Sensory Deficits, Normal Mood/Affect Results/Procedures Lab Laboratory Tests 01/11/18 03:30 01/11/18 03:35 Patient resulted labs reviewed. Assessment/Plan Assessment and Plan Assess & Plan/Chief Complaint Assessment: Lumbar stenosis Delirium in the past post op Urinary retention post op CAD BPH HTN Depression Plan: Home meds Minimize narcs Post op urinary retention likely will occur and will monitor closely Transfer to floor Urinary meds due to retention in post op status in the past Diagnosis/Problems Diagnosis/Problems (1) intractable back pain Status: Acute (2) CAD (coronary artery disease) Status: Chronic Qualifiers: Coronary Disease-Associated Artery/Lesion type: [place] artery [place] vs. transplanted heart: [place] heart Associated angina: without angina Qualified Codes: I25.10 - Atherosclerotic heart disease of [place] coronary artery without angina pectoris (3) Hypertension Status: Chronic Qualifiers: Hypertension type: essential hypertension Qualified Codes: I10 - Essential (primary) hypertension (4) Depression Status: Chronic Qualifiers: Depression Type: unspecified Qualified Codes: F32.9 - Major depressive disorder, single episode, unspecified (5) Delirium Status: Resolved (6) STENOSIS Status: Chronic (7) Ileus Status: Acute (8) History of urinary retention Status: Chronic (9) Santizo catheter in place Status: Acute SARA HORAN MEDICAL STUDENT 01/11/18 1123: Subjective HPI/CC On Admission Date Seen by Provider: Jan 11, 2018 Time Seen by Provider: 10:30 Subjective/Events-last exam Patient reports feeling well. present states that is sleep and recovery so far has been uneventful. He does feel that he's having some bloating and right sided abd pain. Attributes some pain to santizo catheter currently in place. Review of Systems Pulmonary: No Dyspnea Cardiovascular: No: Chest Pain Gastrointestinal: No: Nausea, Abdominal Pain, Diarrhea, Constipation Genitourinary: No Dysuria; Retention Objective Exam General Appearance: No Apparent Distress, WD/WN HEENT: Normal ENT Inspection Neck: Full Range of Motion, Normal Inspection, Non Tender, Supple Respiratory: Chest Non Tender, Lungs Clear, Normal Breath Sounds, No Accessory Muscle Use, No Respiratory Distress Cardiovascular: Regular Rate, Rhythm, No Edema, No Gallop, No JVD, No Murmur, Normal Peripheral Pulses, Tachycardia Gastrointestinal: No Organomegaly, No Pulsatile Mass, Abnormal Bowel Sounds ( decreased ), Distended; No Mass, No Splenomegaly; Tenderness (R sided ) Extremity: Normal Capillary Refill, Normal Inspection, Non Tender, No Calf Tenderness Neurologic/Psychiatric: Alert, Oriented x3 Skin: Normal Color, Warm/Dry Results/Procedures Imaging: Reviewed Imaging Report Radiology Date of Exam:01/11/18 CHEST 1 VIEW, AP/PA ONLY EXAM: CHEST 1 VIEW, AP/PA ONLY INDICATION: Postop back surgery. COMPARISON: Chest radiograph 09/27/2015. FINDINGS: Low lung volumes. Normal heart size and pulmonary vascularity. Sternotomy. No focal pulmonary opacity, pleural effusion or pneumothorax. No acute osseous findings. Partially visualized postoperative changes in the lumbar spine. IMPRESSION: No acute cardiopulmonary findings. Assessment/Plan Assessment and Plan Assess & Plan/Chief Complaint Lumbar stenosis Delirium in the past post op: Currently doing well with pain control and PRN Xanax Urinary retention post op: Cather removed. Will start urecholine, pyridium and flomax. Abd pain/bloating post op: Plan to have him ambulating today as tolerated. Will follow. CAD BPH HTN Depression AMEENA LINDO DO Jan 11, 2018 10:01 SARA HORAN MEDICAL STUDENT Jan 11, 2018 11:23
[2018-01-11] MEDS ORDERED: PANTOPRAZOLE 40 MG (PROTONIX) TAB PO NR (10:15)
[2018-01-11] MEDS: BETHANECHOL 25 MG (URECHOLINE) TAB PO SCH ×2 (10:41→17:18)
--- NOTE | 2018-01-11 10:54 | Occupational Therapy Eval ---
OT Evaluation-General/PLF Medical Diagnosis Admission Date Jan 10, 2018 at 07:26 Medical Diagnosis: stenosis Onset Date: Jan 10, 2018 Therapy Diagnosis Therapy Diagnosis: decreased self care skills Height/Weight Height (Feet): 5 Height (Inches): 7.00 Weight (Pounds): 202 Weight (Ounces): 8.0 Precautions Precautions/Isolations: Fall Prevention, Standard Precautions Safety Interventions: Reorient-PRN Comments lumbar brace Referral Physician: Jennifer Medical History Pertinent Medical History: Arthritis, CABG, CAD, GERD, HTN, OA Additional Medical History prostate problems, kidney stones, DDD, chronic back pain, [place], sleep difficulties, anxiety, depression Social History Home: Single Level Current Living Status: Spouse Entry Into Home: Stairs With Railing Steps Into Home: 3 ADL-Prior Level of Function ADL PLOF Comments Pt reports being independent with basic self care skills and mobility. DME/Equipment: Grab Bars, Reachers, Shower, Sock Aid DME/Equipment Comments Pt states he will be getting a shower seat Drive Self: Yes OT Current Status Subjective Pt in bed, agrees to therapy. Pt states he is having 10/10 back pain and has had pain medication. Mental Status/Objective Patient Orientation: Person, Place, Situation Attachments: Drains, Muñoz Catheter, IV, Oxygen Current Upper Extremity ROM Grossly WFL Upper Extremity Coordination Intact Upper Extremity Sensation Intact per pt report. Pt states he has tingling in feet ADL-Treatment ADL-Current Pt states he has been able drink from cup without assistance. Pt states he sat up in chair this morning and is now very fatigued and having back pain. Declined OOB activity at this time. Education provided regarding role of OT and plan of care. Reviewed precautions and ADL completion. Pt states he used adaptive equipment for LE dressing following prior back surgery and is familiar with them. Will assess ADLs in future sessions as pt able to tolerate and participate. Pt in bed with needs met after session. Functional [place] Measure 0=Not Assessed/NA 4=Minimal Assistance 1=Total Assistance 5=Supervision or Setup 2=Maximal Assistance 6=Modified [place] 3=Moderate Assistance 7=Complete IndependenceIRFPAI Quality Coding Scale 6 Independent with activity with or without an assistive device 5 Patient requires set up or clean up by helper. Patient completes activity by themselves 4 Supervision or touching assist (CGA). [place] provide cues , steadying assist 3 The helper provides less than half the effort to complete the activity 2 The helper provides more than half the effort to complete the activity 1 Dependent. The helper does all the effort to complete an activity 7 Patient refused to complete or attempt activity 9 The patient did not perform the activity before the current illness or injury 88 Not attempted due to Medical conditions or safety concerns Education OT Patient Education: Rehab process Teaching Recipient: Patient Teaching Methods: Discussion Response to Teaching: Verbalize Understanding OT Short Term Goals Short Term Goals 1=Demonstrate adherence to instructed precautions during ADL tasks. 2=Patient will verbalize/demonstrate understanding of assistive devices/ modifications for ADL. 3=Patient will improve strength/tolerance for activity to enable patient to perform ADL's. OT Half-Way Goals Half-Way Goals Time Frame: Jan 25, 2018 Eating (FIM): 6 Grooming(FIM): 6 Bathing(FIM): 5 Upper Body Dressing(FIM): 6 Lower Body Dressing(FIM): 5 Toileting(FIM): 6 Toilet/Commode Transfer(FIM): 6 Additional Goals: 1-Demonstrate ADL Tasks, 2-Verbalize Understanding, 3- ImproveStrength/Jayla 1=Demonstrate adherence to instructed precautions during ADL tasks. 2=Patient will verbalize/demonstrate understanding of assistive devices/ modifications for ADL. 3=Patient will improve strength/tolerance for activity to enable patient to perform ADL's. OT Education/Plan Problem List/Assessment Assessment: Decreased Activ Tolerance, Decreased UE Strength, Dependent Transfers, Impaired Self-Care Skills Pt s/p lumbar surgery. Pt to benefit from skilled OT intervention for ADL training, transfers, strengthening, adaptive equipment training, and home safety education to increase level of independence and allow safe return home. Discharge Recommendations Plan/Recommendations: Continue POC Treatment Plan/Plan of Care Treatment,Training & Education: Yes Patient would benefit from OT for education, treatment and training to promote independence in ADL's, mobility, safety and/or upper extremity function for ADL' s. Plan of Care: ADL Retraining, Functional Mobility, UE Funct Exercise/Act Treatment Duration: Jan 25, 2018 Frequency: 5 times per week Estimated Hrs Per Day: .25 hour per day Rehab Potential: Good Time/GCodes Start Time: 10:03 Stop Time: 10:15 Total Time Billed (hr/min): 12 Billed Treatment Time 1, EVM(12minutes) JENNIE BOYCE OT Jan 11, 2018 10:54
--- NOTE | 2018-01-11 11:09 | Physical Therapy Daily Note ---
PT Daily Note-Current Subjective Patient agrees to PT. Pain Numeric Pain Scale: 9 Location: Lower Location Body Site: Back Pain Description: Acute Mental Status Patient Orientation: Normal For Age Attachments: Oxygen, IV Transfers Functional [place] Measure 0=Not Assessed/NA 4=Minimal Assistance 1=Total Assistance 5=Supervision or Setup 2=Maximal Assistance 6=Modified [place] 3=Moderate Assistance 7=Complete IndependenceIRFPAI Quality Coding Scale 6 Independent with activity with or without an assistive device 5 Patient requires set up or clean up by helper. Patient completes activity by themselves 4 Supervision or touching assist (CGA). [place] provide cues , steadying assist 3 The helper provides less than half the effort to complete the activity 2 The helper provides more than half the effort to complete the activity 1 Dependent. The helper does all the effort to complete an activity 7 Patient refused to complete or attempt activity 9 The patient did not perform the activity before the current illness or injury 88 Not attempted due to Medical conditions or safety concerns Transfers (B, C, W/C) (FIM): 5 Scootin Rollin Supine to/from Sit: 5 Sit to/from Stand: 5 Weight Bearing Right Lower Extremity: Right Full Weight Bearing Left Lower Extremity: Left Weight Bearing/Tolerated Gait Training Gait (FIM): 5 Distance (FIM): 3=150 ft Distance: 200' Gait Level of Assist: 5 Gait Assistive Device: FWW slow, antalgic Assessment Patient improving with treatment plan. Increase as tolerated. PT [facility]cf Goals Broom Machine Operator Goals PT Broom Machine Operator Goals Time Frame: Jan 22, 2018 Transfers (B,C,W/C) (FIM): 6 Gait (FIM): 6 Gait distance (FIM): 3=150 ft Distance: 300' Gait Level of Assist: 6 Gait Assistive Device: FWW PT Plan Treatment/Plan Treatment Plan: Continue Plan of Care Treatment Plan: Bed Mobility, Education, Functional Activity Jayla, Functional Strength, Gait, Safety, Therapeutic Exercise, Transfers Treatment Duration: Jan 22, 2018 Frequency: 11 times per week Estimated Hrs Per Day: .5 hour per day Patient and/or Family Agrees t: Yes Time/GCodes Time In: 1035 Time Out: 1051 Total Billed Treatment Time: 16 Total Billed Treatment 1 visit GT 16 min RISHI BAR PT Jan 11, 2018 11:09
[2018-01-11] MEDS ORDERED: ALPRAZolam 0.5 MG (XANAX) TAB PO SCH (13:00)
[2018-01-11] MEDS: ONDANSETRON 4 MG/2 ML (SDV) Z0FRAN IV PRN (13:47)
[2018-01-11] MEDS: PHENAZOPYRIDINE 100 MG (PYRIDIUM) TABLET PO SCH ×2 (14:12→17:17)
--- NOTE | 2018-01-11 15:17 | Diagnostic Imaging Report ---
INDICATION: Lumbar spine fusion. TIME OF EXAM: 01:58 p.m. AP and lateral views of the lumbar spine demonstrates extensive spinal instrumentation. Stabilization rods and pedicle screws extend from approximately T11 through S1. There are bilateral iliac extensions as well. Anterior lumbar interbody fusion is seen at L5-S1. The hardware appears to be intact without fracture or loosening. Lumbar spine alignment appears to be normal. IMPRESSION: Postop changes to the thoracolumbar spine, as described. Dictated by: Dictated on workstation # [id number]
[2018-01-11] MEDS: TAMSULOSIN 0.4 MG (FLOMAX) CAP PO SCH (17:17)
[2018-01-11] MEDS ORDERED: FLU QUADRIvalent (5+ YOA) 2018-2019 (AFLURIA) 0.5 ML IM ONE (17:45)
[2018-01-11] MEDS: DULoxetine 30 MG (CYMBALTA) CAP PO SCH (20:36)
[2018-01-11] MEDS: POLYETHYLENE GLYCOL 17 GM (MIRALAX) PACK PO SCH (20:36)
[2018-01-11] MEDS: buPROPion 75 MG (WELLBUTRIN) TAB PO SCH (20:37)
[2018-01-11] MEDS: SENNA W/DOCUSATE (SENOKOT S) TABLET PO SCH (20:37)
[2018-01-12] VITALS: BP 116/59
[2018-01-12] MEDS: HYDROcodone/APAP 5 MG/325 MG (LORTAB) TAB PO PRN ×3 (02:53→21:23)
[2018-01-12 04:00] VITALS: BP 139/63
--- NOTE | 2018-01-12 05:08 | Progress Note (SOAP) ---
Subjective Date Seen by a Provider: Jan 12, 2018 Time Seen by a Provider: 05:04 Subjective/Events-last exam POD #2, s/p L1-2 lateral interbody fusion and laminectomy, with extension of PSF T11-L2 VSS, aftebril Complains of abdominal and back pain Denies lower extremity pain Review of Systems General: No Chills, No Night Sweats Pulmonary: No Cough Cardiovascular: No: Chest Pain Gastrointestinal: Abdominal Pain; No: Vomiting, Diarrhea Musculoskeletal: back pain; No: leg pain Neurological: No: Weakness, Confusion Objective Exam Vital Signs Date Time Temp Pulse Resp B/P (MAP) Pulse Ox O2 Delivery O2 Flow Rate FiO2 01/12/18 00:00 98.6 103 18 116/59 (78) 92 01/11/18 20:00 Nasal Cannula 2.00 01/11/18 19:36 97.4 104 20 118/63 (81) 96 01/11/18 16:35 98.1 98 22 123/75 (91) 97 Nasal Cannula 3.00 01/11/18 12:45 96.9 105 24 138/75 (96) 95 Nasal Cannula 2.00 01/11/18 12:22 97.6 01/11/18 10:00 104 26 134/90 (105) 93 Nasal Cannula 3.00 01/11/18 09:00 101 26 134/80 (98) 95 Nasal Cannula 3.00 01/11/18 08:00 110 27 154/81 (105) 95 Nasal Cannula 3.00 01/11/18 08:00 Nasal Cannula 2.00 01/11/18 07:40 98 Nasal Cannula 3.00 01/11/18 07:26 98.1 Nasal Cannula 3.00 01/11/18 07:00 109 16 153/87 (109) 98 Nasal Cannula 3.00 01/11/18 07:00 110 01/11/18 06:00 111 21 146/96 (113) 95 Nasal Cannula 3.00 I & O 01/12/18 07:00 Intake Total 330 ml Output Total 410 ml Balance -80 ml Capillary Refill : General Appearance: No Apparent Distress, WD/WN Neck: Full Range of Motion, Normal Inspection Respiratory: No Respiratory Distress Cardiovascular: Normal Peripheral Pulses Gastrointestinal: distended; No rebound; other (Mild right sided abdominal tenderness. 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
[2018-01-12] MEDS ORDERED: MILK OF MAGNESIA 400 MG/5 ML 30 ML UDC PO ONE (05:15)
[2018-01-12] MEDS: PANTOPRAZOLE 40 MG (PROTONIX) TAB PO SCH (05:33)
[2018-01-12] MEDS: MULTIVIT W/MINERALS TAB (THERAGRAN M) PO SCH (05:33)
[2018-01-12] MEDS: ALPRAZolam 0.5 MG (XANAX) TAB PO PRN ×2 (05:34→21:23)
[2018-01-12 05:49] LABS: BASOPHILS % (AUTO) 0 % (0-10); EOSINOPHILS # (AUTO) 0.5 10^3/uL (0.0-0.3); EOSINOPHILS % (AUTO) 3 % (0-10); HEMATOCRIT 37 % (40-54); HEMOGLOBIN 12.6 G/DL (13.3-17.7); LYMPHOCYTES # (AUTO) 2.3 X 10^3 (1.0-4.0); LYMPHOCYTES % (AUTO) 15 % (12-44); MEAN CORPUSCULAR HEMOGLOBIN 29 PG (25-34); MEAN CORPUSCULAR HGB CONC 34 G/DL (32-36); MEAN CORPUSCULAR VOLUME 86 FL (80-99); MEAN PLATELET VOLUME 10.9 FL (7.4-10.4); MONOCYTES # (AUTO) 2.3 X 10^3 (0.0-1.0); MONOCYTES % (AUTO) 15 % (0-12); NEUTROPHILS # (AUTO) 10.3 X 10^3 (1.8-7.8); NEUTROPHILS % (AUTO) 67 % (42-75); PLATELET COUNT 192 10^3/uL (130-400); RED BLOOD COUNT 4.35 10^6/uL (4.35-5.85); RED CELL DISTRIBUTION WIDTH 14.3 % (10.0-14.5); WHITE BLOOD COUNT 15.5 10^3/uL (4.3-11.0)
[2018-01-12 06:18] LABS: CALCIUM 8.7 MG/DL (8.5-10.1); CREATININE SERUM 1.39 MG/DL (0.60-1.30); MAGNESIUM 2.1 MG/DL (1.8-2.4); PHOSPHORUS 2.4 MG/DL (2.3-4.7); POTASSIUM 4.5 MMOL/L (3.6-5.0)
[2018-01-12 08:28] VITALS: BP 148/70
[2018-01-12] MEDS ORDERED: MILK OF MAGNESIA 400 MG/5 ML 30 ML UDC ONE (08:41)
[2018-01-12] MEDS: buPROPion 75 MG (WELLBUTRIN) TAB PO SCH ×2 (08:46→21:23)
[2018-01-12] MEDS: NS IV 1000 ML 1,000 ML IV SCH ×2 (08:46→23:41)
[2018-01-12] MEDS: DILTIAZEM 120 MG (CARDIZEM CD) CAP PO SCH (08:46)
[2018-01-12] MEDS: PHENAZOPYRIDINE 100 MG (PYRIDIUM) TABLET PO SCH ×3 (08:47→18:24)
[2018-01-12] MEDS: HYDROCHLOROTHIAZIDE 25 MG (HCTZ) TAB PO SCH (08:47)
[2018-01-12] MEDS: LOSARTAN 50 MG (COZAAR) TAB PO SCH (08:47)
[2018-01-12] MEDS: DULoxetine 30 MG (CYMBALTA) CAP PO SCH ×2 (08:47→21:23)
[2018-01-12] MEDS: BACITRACIN OINTMENT 28 GM TUBE TOP SCH ×2 (08:48→21:24)
[2018-01-12] MEDS ORDERED: PANTOPRAZOLE 20 MG TABLET (PROTONIX) PO SCH (09:00)
--- NOTE | 2018-01-12 09:30 | Progress Note-Hospitalist ---
AMEENA LINDO 01/12/18 0930: Subjective HPI/CC On Admission Date Seen by Provider: Jan 12, 2018 Subjective/Events-last exam Patient has difficulty managing pain in general and gets very anxious Needs increase in Xanax dose per RN No BM yet Checked meds and labs Using IS Motivation is lacking so will try to reassure the patient Review of Systems Gastrointestinal: Constipation Musculoskeletal: back pain (post op) Objective Exam Vital Signs Vital Signs Date Time Temp Pulse Resp B/P (MAP) Pulse Ox O2 Delivery O2 Flow Rate FiO2 01/12/18 16:33 98.0 106 20 126/69 (88) 91 Room Air 01/12/18 12:42 3.00 Capillary Refill : General Appearance: No Apparent Distress, WD/WN, Chronically ill Neck: Full Range of Motion, Normal Inspection, Non Tender, Supple, Carotid Bruit Respiratory: Chest Non Tender, Lungs Clear, Normal Breath Sounds, No Accessory Muscle Use, No Respiratory Distress Gastrointestinal: Abnormal Bowel Sounds (decreased), Distended, Tenderness (R>L ) Neurologic/Psychiatric: Alert, Oriented x3, Normal Mood/Affect, Depressed Affect Skin: Normal Color, Warm/Dry Results/Procedures Lab Laboratory Tests 01/12/18 05:43 Patient resulted labs reviewed. Imaging: Reviewed Imaging Report Assessment/Plan Assessment and Plan Assess & Plan/Chief Complaint Assessment: Lumbar stenosis Delirium in the past post op Urinary retention post op CAD BPH HTN Depression Plan: Home meds Minimize narcs Post op urinary retention likely will occur and will monitor closely Transfer to floor Urinary meds due to retention in post op status in the past Increase Xanax dose BM regimen IRF soon Pain control Improve motivation Diagnosis/Problems Diagnosis/Problems (1) intractable back pain Status: Acute (2) CAD (coronary artery disease) Status: Chronic Qualifiers: Coronary Disease-Associated Artery/Lesion type: [place] artery [place] vs. transplanted heart: [place] heart Associated angina: without angina Qualified Codes: I25.10 - Atherosclerotic heart disease of [place] coronary artery without angina pectoris (3) Hypertension Status: Chronic Qualifiers: Hypertension type: essential hypertension Qualified Codes: I10 - Essential (primary) hypertension (4) Depression Status: Chronic Qualifiers: Depression Type: unspecified Qualified Codes: F32.9 - Major depressive disorder, single episode, unspecified (5) Delirium Status: Resolved (6) STENOSIS Status: Chronic (7) Ileus Status: Acute (8) History of urinary retention Status: Chronic (9) Muñoz catheter in place Status: Acute (10) Anxiety SARA HORAN MEDICAL STUDENT 01/12/18 1121: Subjective HPI/CC On Admission Time Seen by Provider: 07:00 Subjective/Events-last exam Patient transferred to [facility]. Continues to experience post-op back pain. Feels that pain is restricting him from walking. Has yet to move his bowels. Is passing gas. Receiving Senna and Miralax currently. Abdomen remains diffusely tender. Remains tachycardic in the 100s, mild HTN. WBC improving. Creatinine improving @ 1.39. Review of Systems Pulmonary: No Dyspnea Cardiovascular: No: Chest Pain Gastrointestinal: Constipation; No: Nausea, Vomiting Musculoskeletal: back pain (post op) Objective Exam General Appearance: No Apparent Distress, WD/WN HEENT: PERRL/EOMI, TMs Normal, Normal ENT Inspection, Pharynx Normal Neck: Full Range of Motion, Normal Inspection, Non Tender, Supple Respiratory: Chest Non Tender, Lungs Clear, Normal Breath Sounds, No Accessory Muscle Use, No Respiratory Distress Cardiovascular: Regular Rate, Rhythm, No Edema, No Gallop, No JVD, No Murmur, Normal Peripheral Pulses Gastrointestinal: Abnormal Bowel Sounds (decreased), Distended, Tenderness (R>L ) Extremity: Normal Capillary Refill, Normal Inspection Neurologic/Psychiatric: Alert, Oriented x3, Normal Mood/Affect Skin: Normal Color, Warm/Dry Assessment/Plan Assessment and Plan Assess & Plan/Chief Complaint Lumbar stenosis: Continue plan to minimize narcotic use. Has had PT/OT eval Delirium in the past post op: Per nurse suggestion dose of PRN Lorazepam increased to 1mg Urinary retention post op: Urecholine, pyridium and flomax. Continue current management. Constipation/Abd bloating post op: Continues today, Yet to have BM. Magnesium and enema ordered. Instructed patient to ambulate as tolerated. CAD BPH HTN Depression Diagnosis/Problems Diagnosis/Problems (1) STENOSIS Status: Chronic (2) Hypertension Status: Chronic Qualifiers: Hypertension type: essential hypertension Qualified Codes: I10 - Essential (primary) hypertension (3) History of urinary retention Status: Chronic (4) Ileus Status: Acute (5) intractable back pain Status: Acute (6) Generalized abdominal pain Status: Acute AMEENA LINDO DO Jan 12, 2018 09:30 SARA HORAN MEDICAL STUDENT Jan 12, 2018 11:21
--- NOTE | 2018-01-12 10:19 | Physical Therapy Daily Note ---
PT Daily Note-Current Subjective pt in bed pre tx, agrees to PT, reports pain 10/10 and feels very bloated Appearance pt in chair post tx w/ phone, call light, tray, all needs met, OT ready to begin Mental Status Patient Orientation: Person, Place, Time Attachments: IV back brace Transfers Functional [place] Measure 0=Not Assessed/NA 4=Minimal Assistance 1=Total Assistance 5=Supervision or Setup 2=Maximal Assistance 6=Modified [place] 3=Moderate Assistance 7=Complete IndependenceIRFPAI Quality Coding Scale 6 Independent with activity with or without an assistive device 5 Patient requires set up or clean up by helper. Patient completes activity by themselves 4 Supervision or touching assist (CGA). [place] provide cues , steadying assist 3 The helper provides less than half the effort to complete the activity 2 The helper provides more than half the effort to complete the activity 1 Dependent. The helper does all the effort to complete an activity 7 Patient refused to complete or attempt activity 9 The patient did not perform the activity before the current illness or injury 88 Not attempted due to Medical conditions or safety concerns Transfers (B, C, W/C) (FIM): 3 Supine to/from Sit: 3 Sit to/from Stand: 4 supine->sit modA sitting up and getting legs out of bed, sit->stand Stormy Weight Bearing Right Lower Extremity: Right Full Weight Bearing Left Lower Extremity: Left Weight Bearing/Tolerated Gait Training Gait (FIM): 1 Distance: 15' Gait Level of Assist: 4 Gait Persons Needed: 2 Gait Assistive Device: FWW pt ambulates 15' in room w/ Stormy for balance and turning walker, gait is very slow w/ long pauses between steps and steps only inches in length, pt states he feels very weak and painful, which was not the case yesterday Treatments gait training Assessment Current Status: Poor Progress pt has very low activity tolerance and appears to be in a lot of pain, requiring modA for bed mobility and minAx2 for ambulation PT Short Term Goals Short Term Goals Time Frame: Jan 12, 2018 PT Shelter Goals Shelter Goals PT Shelter Goals Time Frame: Jan 22, 2018 Transfers (B,C,W/C) (FIM): 6 Gait (FIM): 6 Gait distance (FIM): 3=150 ft Distance: 300' Gait Level of Assist: 6 Gait Assistive Device: FWW PT Plan Problem List Problem List: Activity Tolerance, Functional Strength, Safety, Balance, Gait, Transfer, Bed Mobility Treatment/Plan Treatment Plan: Continue Plan of Care Treatment Plan: Bed Mobility, Education, Functional Activity Jayla, Functional Strength, Gait, Safety, Therapeutic Exercise, Transfers Treatment Duration: Jan 22, 2018 Frequency: 11 times per week Estimated Hrs Per Day: .5 hour per day Patient and/or Family Agrees t: Yes Safety Risks/Education Patient Education: Gait Training, Transfer Techniques, Correct Positioning, Reviewed Don/Doff Brace, Safety Issues Teaching Recipient: Patient Teaching Methods: Demonstration, Discussion Response to Teaching: Reinforcement Needed Time/GCodes Time In: 0953 Time Out: 1010 Total Billed Treatment Time: 17 Total Billed Treatment 1 visit GT 17' ELLI HAZEL PT Jan 12, 2018 10:19
[2018-01-12] MEDS ORDERED: LORazepam 1 MG (ATIVAN) TAB PO PRN (10:45)
--- NOTE | 2018-01-12 10:53 | Occupational Ther Daily Note ---
OT Current Status-Daily Note Subjective Pt up sitting in chair after PT. Pt states that he "hurts so bad." Pt agrees to therapy. Family member states that pt's routine is sleeping during the day and awake at night. Mental Status/Objective Patient Orientation: Person, Place, Time, Situation Functional [place] Measure 0=Not Assessed/NA 4=Minimal Assistance 1=Total Assistance 5=Supervision or Setup 2=Maximal Assistance 6=Modified [place] 3=Moderate Assistance 7=Complete [place] Attachments: IV, Oxygen ADL-Treatment Pt not on O2 when OT entered room. O2 at 2 L during sponge bath. Bathing (FIM): 2 (Max A. Pt unable to assist in any movement, stating that he was to weak to move. HEAT ENGINEERING TEACHER/s completed sponge bath. ) Upper Body (FIM): 2 (Max A, pt unable to lift arms to don /doff gown. HEAT ENGINEERING TEACHER/s assist. ) Lower Body Dressing (FIM): 1 (Dependent with donning/doffing socks.) Transfers (B, C, W/C) (FIM): 2 (CGA for SPT pt uses FWW for stability in sit to stand. Pt slowly able to side step over to bed taking small steps. Max A for sitting EOB to supine and scooting up in bed.) After therapy, pt lying in bed with call light/phone within reach. All needs met in room. Family present in room. OT Short Term Goals Short Term Goals 1=Demonstrate adherence to instructed precautions during ADL tasks. 2=Patient will verbalize/demonstrate understanding of assistive devices/ modifications for ADL. 3=Patient will improve strength/tolerance for activity to enable patient to perform ADL's. OT Mcfp Goals Mcfp Goals Time Frame: Jan 25, 2018 Eating (FIM): 6 Grooming(FIM): 6 Bathing(FIM): 5 Upper Body Dressing(FIM): 6 Lower Body Dressing(FIM): 5 Toileting(FIM): 6 Toilet/Commode Transfer(FIM): 6 Additional Goals: 1-Demonstrate ADL Tasks, 2-Verbalize Understanding, 3- ImproveStrength/Jayla 1=Demonstrate adherence to instructed precautions during ADL tasks. 2=Patient will verbalize/demonstrate understanding of assistive devices/ modifications for ADL. 3=Patient will improve strength/tolerance for activity to enable patient to perform ADL's. OT Education/Plan Problem List/Assessment Pt s/p lumbar surgery. Pt to benefit from skilled OT intervention for ADL training, transfers, strengthening, adaptive equipment training, and home safety education to increase level of independence and allow safe return home. Discharge Recommendations Plan/Recommendations: Continue POC Treatment Plan/Plan of Care Patient would benefit from OT for education, treatment and training to promote independence in ADL's, mobility, safety and/or upper extremity function for ADL' s. Plan of Care: ADL Retraining, Functional Mobility, UE Funct Exercise/Act Treatment Duration: Jan 25, 2018 Frequency: 5 times per week Estimated Hrs Per Day: .25 hour per day Rehab Potential: Good Time/GCodes Start Time: 10:10 Stop Time: 10:40 Total Time Billed (hr/min): 30 Billed Treatment Time 1 visit- ADL 2 (30 min) ARGELIA SANCHES Jan 12, 2018 10:53
[2018-01-12 12:42] VITALS: BP 159/74
--- NOTE | 2018-01-12 13:41 | Physical Therapy Daily Note ---
PT Daily Note-Current Subjective Pt. very lethargic, eyes closed most of the time. Stats he is miserable and refuses to get up at EOB or attempt gait. Agrees to try to exercise in bed but during exercise c/o he had such discomfort and could barely tolerate exercises Pain Numeric Pain Scale: 6 Location: Medial Location Body Site: Abdomen Pain Description: Pressure Mental Status Patient Orientation: [place] Attachments: Oxygen Transfers Functional [place] Measure 0=Not Assessed/NA 4=Minimal Assistance 1=Total Assistance 5=Supervision or Setup 2=Maximal Assistance 6=Modified [place] 3=Moderate Assistance 7=Complete IndependenceIRFPAI Quality Coding Scale 6 Independent with activity with or without an assistive device 5 Patient requires set up or clean up by helper. Patient completes activity by themselves 4 Supervision or touching assist (CGA). [place] provide cues , steadying assist 3 The helper provides less than half the effort to complete the activity 2 The helper provides more than half the effort to complete the activity 1 Dependent. The helper does all the effort to complete an activity 7 Patient refused to complete or attempt activity 9 The patient did not perform the activity before the current illness or injury 88 Not attempted due to Medical conditions or safety concerns Weight Bearing Right Lower Extremity: Right Full Weight Bearing Left Lower Extremity: Left Weight Bearing/Tolerated Exercises Supine Ex: Ankle pumps, Quad Set, Glut sets, Heel Slides (assist), Short Arc Quads, Straight leg raise (assist), Hip abd/add (assist) Supine Reps: 12 Assessment Current Status: Fair Progress very uncomfortable, distended abdomen, pressure in abdomen PT Short Term Goals Short Term Goals Time Frame: Jan 12, 2018 PT Fdc Goals Rn [place] Goals PT Rn [place] Goals Time Frame: Jan 22, 2018 Transfers (B,C,W/C) (FIM): 6 Gait (FIM): 6 Gait distance (FIM): 3=150 ft Distance: 300' Gait Level of Assist: 6 Gait Assistive Device: FWW PT Plan Treatment/Plan Treatment Plan: Continue Plan of Care Treatment Plan: Bed Mobility, Education, Functional Activity Jayla, Functional Strength, Gait, Safety, Therapeutic Exercise, Transfers Treatment Duration: Jan 22, 2018 Frequency: 11 times per week Estimated Hrs Per Day: .5 hour per day Patient and/or Family Agrees t: Yes Safety Risks/Education Teaching Recipient: Patient discussed the risks of no activity Time/GCodes Time In: 1310 Time Out: 1330 Total Billed Treatment Time: 20 Total Billed Treatment 1,EX20m G Codes Necessary: No LI HUGHES PERFECT BINDER SETTER Jan 12, 2018 13:41
[2018-01-12 16:33] VITALS: BP 126/69
[2018-01-12] MEDS: TAMSULOSIN 0.4 MG (FLOMAX) CAP PO SCH (18:24)
[2018-01-12 20:36] VITALS: BP 153/83
[2018-01-12] MEDS: SENNA W/DOCUSATE (SENOKOT S) TABLET PO SCH (21:23)
[2018-01-12] MEDS: fentaNYL INJECTION 100 MCG/2 ML AMP IVP PRN (21:23)
[2018-01-12] MEDS: POLYETHYLENE GLYCOL 17 GM (MIRALAX) PACK PO SCH (21:24)
[2018-01-13 00:05] VITALS: BP 116/57
[2018-01-13] MEDS: HYDROcodone/APAP 5 MG/325 MG (LORTAB) TAB PO PRN ×2 (02:42→08:54)
[2018-01-13] MEDS: fentaNYL INJECTION 100 MCG/2 ML AMP IVP PRN ×3 (02:48→08:55)
[2018-01-13 04:34] VITALS: BP 125/58
[2018-01-13] MEDS: PANTOPRAZOLE 40 MG (PROTONIX) TAB PO SCH (06:07)
[2018-01-13] MEDS: MULTIVIT W/MINERALS TAB (THERAGRAN M) PO SCH (06:07)
--- NOTE | 2018-01-13 06:28 | Progress Note (SOAP) ---
Subjective Time Seen by a Provider: 06:26 Subjective/Events-last exam Pt states that his back is doing good, but he is uncomfortable because he hasn' t had a bowel movement, yet. Objective Exam Vital Signs Date Time Temp Pulse Resp B/P (MAP) Pulse Ox O2 Delivery O2 Flow Rate FiO2 01/13/18 04:34 97.8 93 20 125/58 (80) 91 Room Air 01/13/18 00:05 98.3 85 20 116/57 (76) 93 Room Air 01/12/18 20:36 98.5 96 20 153/83 (106) 96 Room Air 01/12/18 20:00 Nasal Cannula 2.00 01/12/18 16:33 98.0 106 20 126/69 (88) 91 Room Air 01/12/18 12:42 97.3 96 16 159/74 (102) 96 Nasal Cannula 3.00 01/12/18 09:41 Nasal Cannula 2.00 01/12/18 08:28 97.8 100 18 148/70 (96) 96 Nasal Cannula 3.00 01/12/18 08:00 Nasal Cannula 2.00 I & O 01/13/18 06:59 Intake Total 2500 ml Output Total 50 ml Balance 2450 ml Capillary Refill : General Appearance: No Apparent Distress, WD/WN Gastrointestinal: distended, tenderness Extremity: Normal Inspection, Non Tender Neurologic/Psychiatric: No Motor/Sensory Deficits Assessment/Plan Assessment/Plan Assess & Plan/Chief Complaint Lumbar stenosis with radiculopathy S/P L1-2 Anterolateral interbody fusion, L1-2 laminectomy, T11-L2 PSF Constipation - work on bowel movements Work on placement today if he decides he wants to go to rehab. HERMILO MELARA Jan 13, 2018 06:28
[2018-01-13 07:09] LABS: BASOPHILS % (AUTO) 0 % (0-10); EOSINOPHILS # (AUTO) 0.6 10^3/uL (0.0-0.3); EOSINOPHILS % (AUTO) 4 % (0-10); HEMATOCRIT 34 % (40-54); HEMOGLOBIN 11.7 G/DL (13.3-17.7); LYMPHOCYTES % (AUTO) 21 % (12-44); MEAN CORPUSCULAR HEMOGLOBIN 30 PG (25-34); MEAN CORPUSCULAR HGB CONC 35 G/DL (32-36); MEAN CORPUSCULAR VOLUME 86 FL (80-99); MEAN PLATELET VOLUME 11.7 FL (7.4-10.4); MONOCYTES # (AUTO) 2.5 X 10^3 (0.0-1.0); MONOCYTES % (AUTO) 17 % (0-12); NEUTROPHILS # (AUTO) 8.4 X 10^3 (1.8-7.8); NEUTROPHILS % (AUTO) 58 % (42-75); PLATELET COUNT 189 10^3/uL (130-400); RED BLOOD COUNT 3.92 10^6/uL (4.35-5.85); WHITE BLOOD COUNT 14.6 10^3/uL (4.3-11.0)
[2018-01-13 07:23] VITALS: BP 114/56
[2018-01-13 07:35] LABS: CALCIUM 8.7 MG/DL (8.5-10.1); CREATININE SERUM 1.24 MG/DL (0.60-1.30); MAGNESIUM 2.2 MG/DL (1.8-2.4); POTASSIUM 4.4 MMOL/L (3.6-5.0)
[2018-01-13] MEDS: DILTIAZEM 120 MG (CARDIZEM CD) CAP PO SCH (08:42)
[2018-01-13] MEDS: LOSARTAN 50 MG (COZAAR) TAB PO SCH (08:42)
[2018-01-13] MEDS: PHENAZOPYRIDINE 100 MG (PYRIDIUM) TABLET PO SCH (08:43)
[2018-01-13] MEDS: HYDROCHLOROTHIAZIDE 25 MG (HCTZ) TAB PO SCH (08:43)
[2018-01-13] MEDS: buPROPion 75 MG (WELLBUTRIN) TAB PO SCH (08:43)
[2018-01-13] MEDS: DULoxetine 30 MG (CYMBALTA) CAP PO SCH (08:54)
--- NOTE | 2018-01-13 10:56 | Progress Note-Hospitalist ---
AMEENA LINDO DO 01/13/18 1056: Subjective HPI/CC On Admission Date Seen by Provider: Jan 13, 2018 Time Seen by Provider: 10:00 Subjective/Events-last exam Will need to decrease Xanax dose and frequency that was increased yesterday due to out of control anxiety which was interfering with progress. Swing bed pursuing Review of Systems General: Fatigue Musculoskeletal: back pain Objective Exam Vital Signs Vital Signs Date Time Temp Pulse Resp B/P (MAP) Pulse Ox O2 Delivery O2 Flow Rate FiO2 01/13/18 07:23 98.3 83 20 114/56 (75) 91 Room Air 01/12/18 20:00 2.00 Capillary Refill : General Appearance: No Apparent Distress, WD/WN, Chronically ill, Obese Respiratory: Chest Non Tender, Lungs Clear, Normal Breath Sounds, No Accessory Muscle Use, No Respiratory Distress Cardiovascular: Regular Rate, Rhythm, No Edema, No Gallop, No JVD, No Murmur, Normal Peripheral Pulses Gastrointestinal: Non Tender, Soft Neurologic/Psychiatric: Alert, Other (sedated) Results/Procedures Lab Laboratory Tests 01/13/18 06:30 Patient resulted labs reviewed. Imaging: Reviewed Imaging Report Assessment/Plan Assessment and Plan Assess & Plan/Chief Complaint Assessment: Lumbar stenosis Delirium in the past post op Urinary retention post op CAD BPH HTN Depression Plan: Home meds Minimize narcs Post op urinary retention likely will occur and will monitor closely Transfer to floor Urinary meds due to retention in post op status in the past Decrease Xanax dose BM regimen to continue Swing Bed? Pain control Improve motivation Diagnosis/Problems Diagnosis/Problems (1) intractable back pain Status: Acute (2) CAD (coronary artery disease) Status: Chronic Qualifiers: Coronary Disease-Associated Artery/Lesion type: [place] artery [place] vs. transplanted heart: [place] heart Associated angina: without angina Qualified Codes: I25.10 - Atherosclerotic heart disease of [place] coronary artery without angina pectoris (3) Hypertension Status: Chronic Qualifiers: Hypertension type: essential hypertension Qualified Codes: I10 - Essential (primary) hypertension (4) Depression Status: Chronic Qualifiers: Depression Type: unspecified Qualified Codes: F32.9 - Major depressive disorder, single episode, unspecified (5) Delirium Status: Resolved (6) STENOSIS Status: Chronic (7) Ileus Status: Resolved (8) History of urinary retention Status: Chronic (9) Muñoz catheter in place Status: Resolved (10) Anxiety (11) Sedated due to medication Status: Acute SARA HORAN MEDICAL STUDENT 01/13/18 1144: Subjective Subjective/Events-last exam Pt upright in chair this morning. Feeling improved. Small BM with enema. Appears sedated. Objective Exam General Appearance: No Apparent Distress, WD/WN Respiratory: Chest Non Tender, Lungs Clear, Normal Breath Sounds, No Accessory Muscle Use, No Respiratory Distress Cardiovascular: Regular Rate, Rhythm, No Edema, No Gallop, No JVD, No Murmur, Normal Peripheral Pulses Gastrointestinal: Non Tender, Abnormal Bowel Sounds (decreased), Distended Neurologic/Psychiatric: Alert Results/Procedures Meds Orders Bacitracin Ointment (Bacitracin Ointment (01/10/18 21:00) Polyethylene Glycol Powder Pkt (Miralax (01/10/18 21:00) Senna S Tablet (Senokot S Tablet) (01/10/18 21:00) Alprazolam Tablet (Xanax Tablet) (01/10/18 21:15) Rt Request For Service (01/11/18 01:38) Chest 1 View, Ap/Pa Only (01/11/18 03:00) Initiate Icu Iv E-Lyte Replace (01/11/18 02:52) Dys1 Pureed (01/11/18 Breakfast) Tamsulosin Capsule (Flomax Capsule) (01/11/18 18:00) Phenazopyridine Tablet (Pyridium Tablet) (01/11/18 13:00) Bupropion Tablet (Wellbutrin Tablet) (01/11/18 21:00) Diltiazem Cd 24 Hr Capsule (Cardizem Cd (01/12/18 09:00) Duloxetine Capsule (Cymbalta Capsule) (01/11/18 21:00) Losartan Tablet (Cozaar Tablet) (01/12/18 09:00) Pantoprazole Tablet (Protonix Tablet) (01/12/18 07:00) Irf Req Eval/Acute Rehab (01/11/18 10:04) Hydrochlorothiazide Cap/Tablet (Hctz Cap (01/12/18 09:00) Physician Orders (01/11/18 11:36) Soap Suds Enema Until Clear (01/12/18 09:29) Lorazepam Tablet (Ativan Tablet) (01/12/18 10:45) Assessment/Plan Assessment and Plan Assess & Plan/Chief Complaint Lumbar stenosis: Up with assistance and walker as tolerated. [employer] not covering rehab transfer. Consider transfer to swing bed tomorrow. Delirium in the past post op: Discontinue Xanax due to oversedation Constipation: Continue BM regimen. CAD BPH HTN Depression Diagnosis/Problems Diagnosis/Problems (1) STENOSIS Status: Chronic (2) Hypertension Status: Chronic Qualifiers: Hypertension type: essential hypertension Qualified Codes: I10 - Essential (primary) hypertension (3) CAD (coronary artery disease) Status: Chronic Qualifiers: Coronary Disease-Associated Artery/Lesion type: [place] artery [place] vs. transplanted heart: [place] heart Associated angina: without angina Qualified Codes: I25.10 - Atherosclerotic heart disease of [place] coronary artery without angina pectoris (4) Delirium Status: Resolved (5) History of urinary retention Status: Chronic (6) intractable back pain Status: Acute (7) Ileus Status: Resolved (8) Anxiety AMEENA LINDO DO Jan 13, 2018 10:56 SARA [employer]ORAN MEDICAL STUDENT Jan 13, 2018 11:44
--- NOTE | 2018-01-13 11:10 | Physical Therapy Daily Note ---
PT Daily Note-Current Subjective Patient is more alert on this date and agrees to PT. Pain Numeric Pain Scale: 7 Location: Lower Location Body Site: Back Pain Description: Acute Mental Status Patient Orientation: Normal For Age Attachments: IV Transfers Functional Troup Measure 0=Not Assessed/NA 4=Minimal Assistance 1=Total Assistance 5=Supervision or Setup 2=Maximal Assistance 6=Modified Troup 3=Moderate Assistance 7=Complete IndependenceIRFPAI Quality Coding Scale 6 Independent with activity with or without an assistive device 5 Patient requires set up or clean up by helper. Patient completes activity by themselves 4 Supervision or touching assist (CGA). [place] provide cues , steadying assist 3 The helper provides less than half the effort to complete the activity 2 The helper provides more than half the effort to complete the activity 1 Dependent. The helper does all the effort to complete an activity 7 Patient refused to complete or attempt activity 9 The patient did not perform the activity before the current illness or injury 88 Not attempted due to Medical conditions or safety concerns Transfers (B, C, W/C) (FIM): 4 Scootin Rollin Supine to/from Sit: 4 Sit to/from Stand: 5 Bed to/from Chair: 5 Weight Bearing Right Lower Extremity: Right Full Weight Bearing Left Lower Extremity: Left Weight Bearing/Tolerated Gait Training Gait (FIM): 5 Distance (FIM): 3=150 ft Distance: 250' Gait Level of Assist: 5 Gait Assistive Device: FWW slow, shuffle gait sequence with 3 standing recovery periods Assessment Patient tolerated treatment well and is up in recliner with needs met. Patient requires time to complete all functional tasks. PT Short Term Goals Short Term Goals Time Frame: Jan 12, 2018 PT Rn Lvn Goals Rn Lvn Goals PT Rn Lvn Goals Time Frame: Jan 22, 2018 Transfers (B,C,W/C) (FIM): 6 Gait (FIM): 6 Gait distance (FIM): 3=150 ft Distance: 300' Gait Level of Assist: 6 Gait Assistive Device: FWW PT Plan Treatment/Plan Treatment Plan: Continue Plan of Care Treatment Plan: Bed Mobility, Education, Functional Activity Jayla, Functional Strength, Gait, Safety, Therapeutic Exercise, Transfers Treatment Duration: Jan 22, 2018 Frequency: 11 times per week Estimated Hrs Per Day: .5 hour per day Patient and/or Family Agrees t: Yes Time/GCodes Time In: 1021 Time Out: 1044 Total Billed Treatment Time: 23 Total Billed Treatment 1 visit GT x 2 23 min RISHI BAR PT Jan 13, 2018 11:10
[2018-01-13 12:08] VITALS: BP 114/59
--- NOTE | 2018-01-13 12:39 | Discharge Summary-Hospitalist ---
Diagnosis/Chief Complaint Date of Admission Jan 10, 2018 at 07:26 Date of Discharge Jan 13, 2018 at 12:32 Discharge Date: Jan 13, 2018 Discharge Diagnosis (1) intractable back pain Status: Acute (2) CAD (coronary artery disease) Status: Chronic (3) Hypertension Status: Chronic (4) Depression Status: Chronic (5) Delirium Status: Resolved (6) STENOSIS Status: Chronic (7) Ileus Status: Resolved (8) History of urinary retention Status: Chronic (9) Muñoz catheter in place Status: Resolved (10) Anxiety (11) Sedated due to medication Status: Acute Discharge Summary Discharge Physical Exam Allergies: Coded Allergies: adhesive (Unverified Allergy, Mild, RASH, 01/06/18) morphine (Unverified Allergy, Mild, CONFUSION, 01/06/18) bethanechol (Verified Allergy, Unknown, DROOLING, SEIZURE TYPE EPISODE, HYPOTENSION, "BLACK OUTS", 01/11/18) gabapentin (Verified Allergy, Unknown, 01/06/18) Vitals & I&Os Vital Signs Date Time Temp Pulse Resp B/P (MAP) Pulse Ox O2 Delivery O2 Flow Rate FiO2 01/13/18 12:08 96.4 87 16 114/59 (77) 90 Room Air 01/12/18 20:00 2.00 General Appearance: No Apparent Distress, WD/WN, Chronically ill, Obese Respiratory: Chest Non Tender, Lungs Clear, Normal Breath Sounds, No Accessory Muscle Use, No Respiratory Distress Cardiovascular: Regular Rate, Rhythm, No Edema, No Gallop, No JVD, No Murmur, Normal Peripheral Pulses Neurologic/Psychiatric: Alert, Oriented x3, No Motor/Sensory Deficits, Normal Mood/Affect Hospital Course Hospital course: patient had a standard post op course following an uncomplicated lumbar spine surgery. Patient had multiple issues post operatively in the past including delirium and urinary retention so narcotics were minimized and urinary meds were started preemptively which resulted in good results. Pt was sedated from Xanax and needed further therapy and strengthening before DC so he was placed in SB to recover before going home. Labs (last 24 hrs) Laboratory Tests 01/13/18 06:30: White Blood Count 14.6H, Red Blood Count 3.92L, Hemoglobin 11.7L, Hematocrit 34L , Mean Corpuscular Volume 86, Mean Corpuscular Hemoglobin 30, Mean Corpuscular Hemoglobin Concent 35, Red Cell Distribution Width 14.0, Platelet Count 189, Mean Platelet Volume 11.7H, Neutrophils (%) (Auto) 58, Lymphocytes (%) (Auto) 21 , Monocytes (%) (Auto) 17H, Eosinophils (%) (Auto) 4, Basophils (%) (Auto) 0, Neutrophils # (Auto) 8.4H, Lymphocytes # (Auto) 3.0, Monocytes # (Auto) 2.5H, Eosinophils # (Auto) 0.6H, Basophils # (Auto) 0.0, Sodium Level 132L, Potassium Level 4.4, Chloride Level 101, Carbon Dioxide Level 21, Anion Gap 10, Blood Urea Nitrogen 21H, Creatinine 1.24, Estimat Glomerular Filtration Rate 57, BUN/ Creatinine Ratio 17, Glucose Level 115H, Calcium Level 8.7, Phosphorus Level 2.0L, Magnesium Level 2.2 Patient resulted labs reviewed. Pending Labs Imaging: Reviewed Imaging Report Discussion & Recommendations Discharge Planning: <30 minutes discharge planning Discharge Home Medications: Active Scripts Active Reported Ibuprofen 200 Mg Capsule 200 Mg PO TID Bupropion HCl 75 Mg Tablet 75 Mg PO BID Diltiazem 24Hr Cd (Diltiazem HCl) 120 Mg Cap.er.24h 120 Mg PO DAILY Alprazolam 0.5 Mg Tablet 0.5 Mg PO TID Omeprazole 20 Mg Capsule.dr 20 Mg PO BID Losartan-Hctz 100-25 mg Tab (Losartan/Hydrochlorothiazide) 1 Each Tablet 1 Each PO DAILY Cymbalta (Duloxetine HCl) 60 Mg Capsule.dr 60 Mg PO BID Instructions to patient/family Please see electronic discharge instructions given to patient. Problem Qualifiers (1) CAD (coronary artery disease): Coronary Disease-Associated Artery/Lesion type: [place] artery [place] vs. transplanted heart: [place] heart Associated angina: without angina Qualified Codes: I25.10 - Atherosclerotic heart disease of [place] coronary artery without angina pectoris (2) Hypertension: Hypertension type: essential hypertension Qualified Codes: I10 - Essential ( primary) hypertension (3) Depression: Depression Type: unspecified Qualified Codes: F32.9 - Major depressive disorder, single episode, unspecified AMEENA LINDO DO Jan 13, 2018 12:39
== END 2018-01-13 12:32 | disposition swing bed (61) | DRG 454 ==
LOC: 4TH 07:26 → SURG 07:27 → EDSTATUS 10:00 → ICU 14:35 → 4TH 01-11 11:15
PROVIDERS: ADMIT Orthopaedic Surgery Orthopaedic Surgery of the Spine; ATTEND Orthopaedic Surgery Orthopaedic Surgery of the Spine
PROC: 0SG0071 Fusion of Lumbar Vertebral Joint with Autologous Tissue Substitute, Posterior Approach, Posterior Column, Open Approach (ICD-10-PCS; 2018-01-10)
PROC: 0RGA071 Fusion of Thoracolumbar Vertebral Joint with Autologous Tissue Substitute, Posterior Approach, Posterior Column, Open Approach (ICD-10-PCS; 2018-01-10)
PROC: 0RG6071 Fusion of Thoracic Vertebral Joint with Autologous Tissue Substitute, Posterior Approach, Posterior Column, Open Approach (ICD-10-PCS; 2018-01-10)
PROC: 0SG00A0 Fusion of Lumbar Vertebral Joint with Interbody Fusion Device, Anterior Approach, Anterior Column, Open Approach (ICD-10-PCS; principal; 2018-01-10 09:50)
DX: M48.061 Spinal stenosis, lumbar region without neurogenic claudication (principal); M51.16 Intervertebral disc disorders with radiculopathy, lumbar region; T84.216A Breakdown (mechanical) of internal fixation device of vertebrae, initial encounter; I25.10 Atherosclerotic heart disease of native coronary artery without angina pectoris; I10 Essential (primary) hypertension; K56.7 Ileus, unspecified; K59.00 Constipation, unspecified; E83.42 Hypomagnesemia; M19.91 Primary osteoarthritis, unspecified site; G47.9 Sleep disorder, unspecified; F41.9 Anxiety disorder, unspecified; F32.9 Major depressive disorder, single episode, unspecified; K21.9 Gastro-esophageal reflux disease without esophagitis; E78.5 Hyperlipidemia, unspecified; N40.0 Benign prostatic hyperplasia without lower urinary tract symptoms; E66.9 Obesity, unspecified; K59.09 Other constipation; J30.2 Other seasonal allergic rhinitis; Z95.1 Presence of aortocoronary bypass graft; Z95.5 Presence of coronary angioplasty implant and graft; Z68.31 Body mass index [BMI] 31.0-31.9, adult; Z87.442 Personal history of urinary calculi; Z86.010 Personal history of colon polyps
CPT/HCPCS: 36415; 71045; 72100; 80048; 83735; 84100; 85007; 85025; 85027; 86850; 86900; 86901; 94664

== ENCOUNTER 2018-01-13 12:26 | Inpatient (IN) | payer MEDICARE ==
[~2018-01-13] VITALS: Ht 170.2 cm; Wt 91.9 kg
[2018-01-13] MEDS ORDERED: PROMETHAZINE 25 MG (PHENERGAN) TAB PO PRN (12:45)
[2018-01-13] MEDS ORDERED: ALPRAZolam 0.5 MG (XANAX) TAB PO PRN (12:45)
[2018-01-13] MEDS ORDERED: ONDANSETRON 4 MG/2 ML (SDV) Z0FRAN IV PRN (12:45)
[2018-01-13] MEDS ORDERED: fentaNYL INJECTION 100 MCG/2 ML AMP IVP PRN (12:45)
[2018-01-13] MEDS ORDERED: LORazepam 1 MG (ATIVAN) TAB PO PRN (12:45)
[2018-01-13] MEDS ORDERED: ACETAMINOPHEN 325 MG TABLET PO PRN (12:45)
--- OUTSIDE RECORDS SUMMARY | 2018-01-13 13:04 | XMS REPORT | Continuity of Care Document ---
Author Author [facility] Organization [facility] Address Unknown Phone Unavailable Allergies Active Description Code Type Severity Reaction Onset Reported/Identified Relationship to Patient Clinical Status Yes No Known Allergies [id number] N /A N/A Yes NO KNOWN DRUG ALLERGIES NO KNOWN DRUG ALLERG UNKNOWN Yes MORPHINE UNKNOWN UNKNOWN Yes NO KNOWN DRUG ALLERGIES UNKNOWN NO KNOWN DRUG ALLERG Yes URECHOLINE UNKNOWN UNKNOWN Yes morphine [id number] Drug Allergy Unknown N/A 06/06/2013 Yes adhesive [id number] Drug Allergy Unknown RASH 05/23/2014 Yes morphine [id number] Drug Allergy Unknown PATIENT TAKES L 10/01/2015 [...] 06/11/2016 07/10/2016 Daily&0900 MultiVits (Thera M Plus) (tohgdetq-mjsa-jwspjin) oral tablet TAB 06/11/2016 07/10/2016 Daily&0900 BISACODYL [...] MD S Ot 597.80 URETHRITIS NOS 06/15/2013 JACINTO CEDENO MD S Ot 601.9 PROSTATITIS NOS [...] RAWLS, JACINTO S Ot 401.9 05/25/2014 WILIAN RWALS, JACINTO Pereira Ot 414.01 05/25/2014 WILIAN RAWLS, [...] JACINTO Pereira Ot 414.01 CORONARY ATHEROSCLEROSIS OF [place] CORON 05/25/2014 WILIAN RAWLS, JACINTO S Ot [...] OF NON-STEROIDAL A 07/02/2014 Ot 724.02 07/02/2014 PREET RAWLS, DARIAN Dillon Ot 724.02 07/02/2014 PREET [...] 03/29/2015 MICHELLE ELIZALDE MD Ot Z79.899 OTHER MCC (CURRENT) DRUG THERAPY 04/10/2015 EM WARD N Ot 285.9 ANEMIA NOS 04/10/2015 EDEM TORRE N Ot 288.63 MONOCYTOSIS (SYMPTOMATIC) 04/10/2015 EDEM TORRE N Ot D64.9 ANEMIA, UNSPECIFIED 04/10/2015 EM WARD N Ot D72.821 MONOCYTOSIS (SYMPTOMATIC) 04/10/2015 EM WARD N Ot V58.69 OTH MED,LT,CURRENT USE 04/10/2015 EM WARD Ot Z79.899 OTHER MCC (CURRENT) DRUG THERAPY 04/19/2015 EM WARD Ot [...] EXAMINATION 09/25/2015 DARIAN OVIEDO MD Ot V72.81 [id number] CARDIOVASCULAR 09/25/2015 DARIAN OVIEDO MD Ot V72.83 [...] Ot 724.6 DISORDERS OF SACRUM 09/25/2015 MICHELLE ELIZLADE MD, Ot V58.69 OTH MED,LT,CURRENT USE 09/25/2015 EM WARD Ot D64.9 ANEMIA, UNSPECIFIED 09/25/2015 EM WARD Ot D72.821 MONOCYTOSIS (SYMPTOMATIC) 09/25/2015 EM WARD Ot Z79.899 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 THERAPY 09/25/2015 MICHELLE ELIZALDE MD [...] MD, Ot I25.10 ATHSCL HEART DISEASE OF [place] CORONARY 09/27/2015 TUAN MAYA MD Ot J96.01 [...] MD, Ot I25.10 ATHSCL HEART DISEASE OF [place] CORONARY 09/27/2015 TUAN MAYA MD, Ot J96.01 [...] MD Ot I25.10 ATHSCL HEART DISEASE OF [place] CORONARY 09/27/2015 TUAN MAYA MD Ot J96.01 [...] MD Ot T86.831 BONE GRAFT FAILURE 09/27/2015 TUNA MAYA MD Ot Z95.1 PRESENCE OF AORTOCORONARY [...] MD, Ot I25.10 ATHSCL HEART DISEASE OF [place] CORONARY 09/27/2015 TUAN MYAA MD, Ot J96.01 ACUTE RESPIRATORY FAILURE WITH [...] MD, Ot I25.10 ATHSCL HEART DISEASE OF [place] CORONARY 09/27/2015 TUAN MAYA MD Ot J96.01 [...] DO Ot I25.10 ATHSCL HEART DISEASE OF [place] CORONARY 09/30/2015 AMEENA LINDO DO Ot K59.00 [...] (SYMPTOMATIC) 10/01/2015 EM WARD Ot Z79.899 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 THERAPY 10/02/2015 JENNIFER SHEETS MD Ot I10 ESSENTIAL (PRIMARY) HYPERTENSION 10/02/2015 JENNIFER SHEETS MD Ot N40.1 ENLARGED PROSTATE WITH LOWER URINARY TRA 10/02/2015 JENNIFER SHEETS MD Ot R33.8 OTHER RETENTION OF URINE 10/02/2015 JENNIFER SHEETS MD Ot Z79.899 OTHER MCC (CURRENT) DRUG THERAPY 10/02/2015 FRANCESCO RAWLS, TUAN Wilson Ot D72.829 ELEVATED WHITE BLOOD CELL COUNT, UNSPECI 10/03/2015 JENNIFER SHEETS MD Ot I10 ESSENTIAL (PRIMARY) HYPERTENSION 10/03/2015 JENNIFER SHEETS MD Ot N40.1 ENLARGED PROSTATE WITH LOWER URINARY TRA 10/03/2015 JENNIFER SHEETS MD Ot R33.8 OTHER RETENTION OF URINE 10/03/2015 JENNIFER SHEETS MD Ot Z79.899 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 THERAPY 10/04/2015 JENNIFER SHEETS MD Ot I10 ESSENTIAL (PRIMARY) HYPERTENSION 10/04/2015 JENNIFER SHEETS MD Ot N40.1 ENLARGED PROSTATE WITH LOWER URINARY TRA 10/04/2015 JENNIFER SHEETS MD Ot R33.8 OTHER RETENTION OF URINE 10/04/2015 JENNIFER SHEETS MD Ot Z79.899 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 THERAPY 06/10/2016 Tasia Vera W 272.4 OTHER AND UNSPECIFIED HYPERLIPIDEMIA 06/10/2016 Tsaia Vera A 296.34 06/10/2016 Tasia Vera W [...] Tasia Vera I25.10 ATHSCL HEART DISEASE OF [place] CORONARY ARTERY W/O ANG PCTRS 06/10/2016 Tasia Vera M19.90 UNSPECIFIED OSTEOARTHRITIS, UNSPECIFIED SITE 06/10/2016 Tasia Vera N40.0 BENIGN PROSTATIC HYPERPLASIA WITHOUT LOWER URINRY TRACT SYMP 06/19/2016 Ot 724.02 SPINAL STENOSIS, LUMBAR REG, W/OUT NEURO 06/19/2016 DARIAN OVIEDO MD Ot 724.02 SPINAL STENOSIS, LUMBAR REG, W/OUT NEURO 06/19/2016 PREET RAWLS, DARIAN Dillon Ot V72.63 PRE-PROCEDURAL LABORATORY EXAMINATION 06/19/2016 DARIAN OVIEDO MD Ot V72.81 DCWM-[id number] CARDIOVASCULAR 06/19/2016 DARIAN OVIEDO MD Ot V72.83 [...] (SYMPTOMATIC) 06/19/2016 EM WARD Ot Z79.899 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 THERAPY 06/19/2016 MICHELLE ELIZALDE MD [...] EXAMINATION 07/02/2016 DARIAN OVIEDO MD Ot V72.81 HOGW-RYY-KSIFBGESD CARDIOVASCULAR 07/02/2016 DARIAN OVIEDO MD Ot V72.83 [...] Ot 786.50 CHEST PAIN NOS 07/02/2016 MICHELLE ELIZADLE MD Ot 719.45 JOINT PAIN-PELVIS 07/02/2016 JENNIFER [...] (SYMPTOMATIC) 07/02/2016 EM WARD Ot Z79.899 OTHER MCC (CURRENT) DRUG THERAPY 07/02/2016 MICHELLE ELIZALDE MD [...] EXAMINATION 09/24/2016 DARIAN OVIEDO MD Ot V72.81 JVDS-ZOU-THPFANNBS CARDIOVASCULAR 09/24/2016 DARIAN OVIEDO MD Ot V72.83 EXAM PRE-OPERATIVE NEC 09/24/2016 DARIAN OVIEDO MD Ot V74.8 SCREEN-BACTERIAL DIS NEC 09/24/2016 DARIAN OVIEDO MD Ot 724.02 SPINAL STENOSIS, LUMBAR REG, W/OUT NEURO 09/24/2016 DARIAN OVIEDO MD Ot V72.84 EXAM PRE-OPERATIVE NOS 09/24/2016 DARIAN OVIEOD MD Ot 288.60 LEUKOCYTOSIS, UNSPECIFIED 09/24/2016 DARIAN [...] (SYMPTOMATIC) 09/24/2016 EM WARD Ot Z79.899 OTHER MCC (CURRENT) DRUG THERAPY 09/24/2016 MICHELLE ELIZALDE MD [...] EXAMINATION 10/05/2016 DARIAN OVIEDO MD Ot V72.81 [id number]-MVK-NOLMZALAW CARDIOVASCULAR 10/05/2016 DARIAN OVIEDO MD Ot V72.83 [...] HYPERTROPHY (BENIGN) OF PROSTATE W/O URI 10/05/2016 JENNIEFR SHEETS MD Ot V58.69 OTH MED,LT,CURRENT USE [...] 10/05/2016 EM WARD Jocelin Ot Z79.899 OTHER MCC (CURRENT) DRUG THERAPY 10/05/2016 MICHELLE ELIZALDE MD [...] DO Ot I25.10 ATHSCL HEART DISEASE OF [place] CORONARY 06/01/2017 JUDE MENENDEZ DO Ot K21.9 GASTRO-ESOPHAGEAL REFLUX DISEASE WITHOUT 06/01/2017 JUDE MENENDEZ DO Ot 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 06/01/2017 JUDE MENENDEZ DO Ot K59.09 OTHER CONSTIPATION 06/01/2017 JUDE MENENDEZ DO Ot K63.5 POLYP OF COLON 06/01/2017 JUDE MENENDEZ DO Ot Z79.899 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 THERAPY 06/01/2017 JUDE MENENDEZ DO [...] DO Ot I25.10 ATHSCL HEART DISEASE OF [place] CORONARY 06/03/2017 JUDE MENENDEZ DO Ot K21.9 GASTRO-ESOPHAGEAL REFLUX DISEASE WITHOUT 06/03/2017 JUDE MENENDEZ DO Ot 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 06/03/2017 JUDE MENENDEZ DO Ot K59.09 OTHER CONSTIPATION 06/03/2017 JUDE MENENDEZ DO Ot K63.5 POLYP OF COLON 06/03/2017 JUDE MENENDEZ DO Ot Z79.899 OTHER MCC (CURRENT) DRUG THERAPY 06/03/2017 JUDE MENENDEZ DO [...] Tasia W I25.10 ATHEROSCLEROTIC HEART DISEASE OF [place] CORONARY ARTERY WITHOUT ANGINA PECTORIS 11/05/2017 Chuy, Tasia W K59.00 CONSTIPATION, UNSPECIFIED 11/05/2017 Chuy, Tasia A N13.8 OTHER OBSTRUCTIVE AND REFLUX UROPATHY 11/05/2017 Chuy, Tasia W N18.9 CHRONIC KIDNEY DISEASE, UNSPECIFIED 11/05/2017 Chuy, Tasia W N52.9 MALE ERECTILE DYSFUNCTION, UNSPECIFIED 11/05/2017 Chuy, Tasia W R10.9 UNSPECIFIED ABDOMINAL PAIN 11/05/2017 [facility], Tasia W R52 PAIN, UNSPECIFIED 11/05/2017 [facility], Tasia W 429.2 11/05/2017 [facility], Tasia W 564.00 CONSTIPATION, UNSPECIFIED 11/05/2017 [facility], Tasia W 585.9 11/05/2017 Chuy, Tasia A 600.20 BENIGN LOCALIZED HYPERPLASIA OF PROSTATE WITHOUT URINARY OBSTRUCTION AND OTHER LOWER URINARY TRACT SYMPTOMS (LUTS) 11/05/2017 Chuy, Tasia W 607.84 11/05/2017 Chuy, Tasia W 724.5 BACKACHE, UNSPECIFIED 11/05/2017 [facility], Tasia W 789.00 11/05/2017 Chuy, Tasia W I25.10 ATHEROSCLEROTIC HEART DISEASE OF [place] CORONARY ARTERY WITHOUT ANGINA PECTORIS 11/05/2017 Chuy, [...] INSERTION OF INTERBODY SPINAL FUSION DEV 06/07/2013 [id number] 09/23/2015 [id number] EXCISION OF RIGHT PELVIC BONE, OPEN APPR 09/23/2015 [id number] EXCISION OF LEFT PELVIC BONE, OPEN APPRO 09/23/2015 [id number] 09/23/2015 [id number] INSERTION OF INT FIX INTO R PELVIC BONE, 09/23/2015 [id number] INSERTION OF INT FIX INTO L PELVIC BONE, 09/23/2015 [id number] EXCISION OF LUMBOSACRAL DISC, OPEN APPRO 09/23/2015 [id number] FUSION LUM JT W AUTOL SUB , POST APPR P C 09/23/2015 [id number] 09/23/2015 [id number] FUSION LUMSAC JT W AUTOL SUB, POST APPR 09/23/2015 [id number] FUSION LUMSAC JT W INTBD FUS DEV, ANT AP 09/23/2015 [id number] REMOVAL OF INT FIX FROM LUM JT, OPEN LAURA 09/23/2015 [id number] REMOVAL OF INT FIX FROM LUMSAC JT, OPEN 09/23/2015 [id number] REMOVAL OF INTBD FUS DEV FROM LUMSAC [...] 5-8.5 Urine-Protein Negative Negative Urine-RBC Negative Urine-Specific [place] 1.015 1.000-1.030 Urine-WBC Nothing Seen on Microscopic [...] 5-8.5 Urine-Protein Trace Negative Urine-RBC Negative Urine-Specific [place] >=1.030 1.000-1.030 Urine-WBC Nothing Seen on Microscopic [...] Staphylococcus aureus (MRSA) screening culture NEG NRG Blood type T Indirect antibody screen panel - 01/10/18 08:15 ABO+Rh group AP NRG Transfusion band number [id number] NRG Blood group antibody screen NEGATIVE NRG Complete blood count (CBC) with automated white blood cell (WBC) differential - 01/11/18 03:30 Blood leukocytes automated count (number/volume) 19.9 10*3/uL 4.3-11.0 Blood erythrocytes automated count (number/volume) 4.78 10*6/uL 4.35-5.85 Venous blood hemoglobin measurement (mass/volume) 14.1 g/dL 13.3-17.7 Blood hematocrit (volume fraction) 40 % 40-54 Automated erythrocyte mean corpuscular volume 85 [foz_us] 80-99 Automated erythrocyte mean corpuscular hemoglobin (mass per erythrocyte) 30 pg 25-34 Automated erythrocyte mean corpuscular hemoglobin concentration measurement ( mass/volume) 35 g/dL 32-36 Automated erythrocyte distribution width ratio 13.9 % 10.0-14.5 Automated blood platelet count (count/volume) 221 10*3/uL 130-400 Automated blood platelet mean volume measurement 11.2 [foz_us] 7.4-10.4 Automated blood neutrophils/100 leukocytes 81 % 42-75 Automated blood lymphocytes/100 leukocytes 7 % 12-44 Blood monocytes/100 leukocytes 10 % 0-12 Automated blood eosinophils/100 leukocytes 1 % 0-10 Automated blood basophils/100 leukocytes 0 % 0-10 Blood neutrophils automated count (number/volume) 16.2 10*3 1.8-7.8 Blood lymphocytes automated count (number/volume) 1.5 10*3 1.0-4.0 Blood monocytes automated count (number/volume) 2.0 10*3 0.0-1.0 Automated eosinophil count 0.2 10*3/uL 0.0-0.3 Automated blood basophil count (count/volume) 0.1 10*3/uL 0.0-0.1 Blood manual differential performed detection - 01/11/18 03:30 Blood monocytes/100 leukocytes 9 % NR Manual blood segmented neutrophils/100 leukocytes 81 % NR Manual blood lymphocytes/100 leukocytes 9 % NRG Manual eosinophils/100 leukocytes in nose 1 % NR Whole blood basic metabolic panel - 01/11/18 03:35 Serum or plasma sodium measurement (moles/volume) 135 mmol/L 135-145 Serum or plasma potassium measurement (moles/volume) 4.2 mmol/L 3.6-5.0 Serum or plasma chloride measurement (moles/volume) 102 mmol/L 98-107 Carbon dioxide 22 mmol/L 21-32 Serum or plasma anion gap determination (moles/volume) 11 mmol/L 5-14 Serum or plasma urea nitrogen measurement (mass/volume) 19 mg/dL 7-18 Serum or plasma creatinine measurement (mass/volume) 1.43 mg/dL 0.60-1.30 Serum or plasma urea nitrogen/creatinine mass ratio 13 NRG Serum or plasma creatinine measurement with calculation of estimated glomerular filtration rate 48 NRG Serum or plasma glucose measurement (mass/volume) 141 mg/dL 70-105 Serum or plasma calcium measurement (mass/volume) 8.8 mg/dL 8.5-10.1 Serum or plasma phosphate measurement (mass/volume) - 01/11/18 03:35 Serum or plasma phosphate measurement (mass/volume) 3.2 mg/dL 2.3-4.7 Magnesium - 01/11/18 03:35 Magnesium 1.6 mg/dL 1.8-2.4 Complete blood count (CBC) with automated white blood cell (WBC) differential - 01/12/18 05:43 Blood leukocytes automated count (number/volume) 15.5 10*3/uL 4.3-11.0 Blood erythrocytes automated count (number/volume) 4.35 10*6/uL 4.35-5.85 Venous blood hemoglobin measurement (mass/volume) 12.6 g/dL 13.3-17.7 Blood hematocrit (volume fraction) 37 % 40-54 Automated erythrocyte mean corpuscular volume 86 [foz_us] 80-99 Automated erythrocyte mean corpuscular hemoglobin (mass per erythrocyte) 29 pg 25-34 Automated erythrocyte mean corpuscular hemoglobin concentration measurement ( mass/volume) 34 g/dL 32-36 Automated erythrocyte distribution width ratio 14.3 % 10.0-14.5 Automated blood platelet count (count/volume) 192 10*3/uL 130-400 Automated blood platelet mean volume measurement 10.9 [foz_us] 7.4-10.4 Automated blood neutrophils/100 leukocytes 67 % 42-75 Automated blood lymphocytes/100 leukocytes 15 % 12-44 Blood monocytes/100 leukocytes 15 % 0-12 Automated blood eosinophils/100 leukocytes 3 % 0-10 Automated blood basophils/100 leukocytes 0 % 0-10 Blood neutrophils automated count (number/volume) 10.3 10*3 1.8-7.8 Blood lymphocytes automated count (number/volume) 2.3 10*3 1.0-4.0 Blood monocytes automated count (number/volume) 2.3 10*3 0.0-1.0 Automated eosinophil count 0.5 10*3/uL 0.0-0.3 Automated blood basophil count (count/volume) 0.0 10*3/uL 0.0-0.1 Whole blood basic metabolic panel - 01/12/18 05:43 Serum or plasma sodium measurement (moles/volume) 133 mmol/L 135-145 Serum or plasma potassium measurement (moles/volume) 4.5 mmol/L 3.6-5.0 Serum or plasma chloride measurement (moles/volume) 102 mmol/L 98-107 Carbon dioxide 20 mmol/L 21-32 Serum or plasma anion gap determination (moles/volume) 11 mmol/L 5-14 Serum or plasma urea nitrogen measurement (mass/volume) 20 mg/dL 7-18 Serum or plasma creatinine measurement (mass/volume) 1.39 mg/dL 0.60-1.30 Serum or plasma urea nitrogen/creatinine mass ratio 14 NRG Serum or plasma creatinine measurement with calculation of estimated glomerular filtration rate 50 NRG Serum or plasma glucose measurement (mass/volume) 121 mg/dL 70-105 Serum or plasma calcium measurement (mass/volume) 8.7 mg/dL 8.5-10.1 Serum or plasma phosphate measurement (mass/volume) - 01/12/18 05:43 Serum or plasma phosphate measurement (mass/volume) 2.4 mg/dL 2.3-4.7 Magnesium - 01/12/18 05:43 Magnesium 2.1 mg/dL 1.8-2.4 Complete blood count (CBC) with automated white blood cell (WBC) differential - 01/13/18 06:30 Blood leukocytes automated count (number/volume) 14.6 10*3/uL 4.3-11.0 Blood erythrocytes automated count (number/volume) 3.92 10*6/uL 4.35-5.85 Venous blood hemoglobin measurement (mass/volume) 11.7 g/dL 13.3-17.7 Blood hematocrit (volume fraction) 34 % 40-54 Automated erythrocyte mean corpuscular volume 86 [foz_us] 80-99 Automated erythrocyte mean corpuscular hemoglobin (mass per erythrocyte) 30 pg 25-34 Automated erythrocyte mean corpuscular hemoglobin concentration measurement ( mass/volume) 35 g/dL 32-36 Automated erythrocyte distribution width ratio 14.0 % 10.0-14.5 Automated blood platelet count (count/volume) 189 10*3/uL 130-400 Automated blood platelet mean volume measurement 11.7 [foz_us] 7.4-10.4 Automated blood neutrophils/100 leukocytes 58 % 42-75 Automated blood lymphocytes/100 leukocytes 21 % 12-44 Blood monocytes/100 leukocytes 17 % 0-12 Automated blood eosinophils/100 leukocytes 4 % 0-10 Automated blood basophils/100 leukocytes 0 % 0-10 Blood neutrophils automated count (number/volume) 8.4 10*3 1.8-7.8 Blood lymphocytes automated count (number/volume) 3.0 10*3 1.0-4.0 Blood monocytes automated count (number/volume) 2.5 10*3 0.0-1.0 Automated eosinophil count 0.6 10*3/uL 0.0-0.3 Automated blood basophil count (count/volume) 0.0 10*3/uL 0.0-0.1 Whole blood basic metabolic panel - 01/13/18 06:30 Serum or plasma sodium measurement (moles/volume) 132 mmol/L 135-145 Serum or plasma potassium measurement (moles/volume) 4.4 mmol/L 3.6-5.0 Serum or plasma chloride measurement (moles/volume) 101 mmol/L 98-107 Carbon dioxide 21 mmol/L 21-32 Serum or plasma anion gap determination (moles/volume) 10 mmol/L 5-14 Serum or plasma urea nitrogen measurement (mass/volume) 21 mg/dL 7-18 Serum or plasma creatinine measurement (mass/volume) 1.24 mg/dL 0.60-1.30 Serum or plasma urea nitrogen/creatinine mass ratio 17 NRG Serum or plasma creatinine measurement with calculation of estimated glomerular filtration rate 57 NRG Serum or plasma glucose measurement (mass/volume) 115 mg/dL 70-105 Serum or plasma calcium measurement (mass/volume) 8.7 mg/dL 8.5-10.1 Serum or plasma phosphate measurement (mass/volume) - 01/13/18 06:30 Serum or plasma phosphate measurement (mass/volume) 2.0 mg/dL 2.3-4.7 Magnesium - 01/13/18 06:30 Magnesium 2.2 mg/dL 1.8-2.4 Encounters ACCT No. Visit Date/Time Discharge Status Pt. Type Provider Facility Loc./Unit Complaint [id number] 09/08/2017 09:27:00 09/08/2017 23:59:59 CLS Outpatient TUAN MAYA MD [facility] RAD CERVICALGIA,DDD [id number] 08/19/2017 11:33:00 08/19/2017 23:59:59 CLS Outpatient HERMILO SANDOVAL [facility] RAD BACK PAIN [id number] 06/01/2017 07:36:00 06/01/2017 10:11:00 DIS Outpatient JUDE MENENDEZ DO [facility] ENDO CHANGE IN BM, HX COLON POLYPS [id number] 05/17/2017 10:00:00 05/17/2017 10:06:00 DIS Outpatient JUDE MENENDEZ DO [facility] PREOP COLONOSCOPY [id number] 04/18/2017 17:50:00 04/18/2017 22:00:00 DIS Emergency TASIA SIMENTAL DO [facility] ER LOWER BACK PAIN, ABD PAIN [id number] 10/06/2016 10:08:00 10/06/2016 23:59:59 CLS Outpatient TUAN MAYA MD [facility] RAD NECK PAIN M54.2 [id number] 10/01/2015 06:00:00 10/02/2015 15:10:00 DIS Outpatient JENNIFER SHEETS MD [facility] SDC URINE RETENTION,BPH [id number] 09/27/2015 15:06:00 09/30/2015 13:00:00 DIS Inpatient AMEENA LINDO DO [facility] 4TH SWB NON UNION [id number] 09/23/2015 05:59:00 09/27/2015 15:06:00 DIS Inpatient TUAN MAYA MD [facility] 4TH NON UNION [id number] 09/18/2015 13:09:00 09/18/2015 23:59:59 CLS Outpatient TUAN MAYA MD [facility] LAB ELEVATED WBC [id number] 09/10/2015 10:23:00 09/10/2015 15:40:00 DIS Outpatient TUAN MAYA MD [facility] PREOP NON UNION [id number] 07/09/2015 12:55:00 07/31/2015 11:18:00 DIS Outpatient MICHELLE ELIZALDE MD [facility] REHAB LUMBAGO [id number] 06/14/2015 09:17:00 06/14/2015 13:41:00 DIS Outpatient MICHELLE ELIZALDE MD [facility] [address] CHRONIC PAIN SYNDROME; POST LAMINECTOMY SYNDROME [id number] 06/06/2015 11:58:00 06/06/2015 23:59:59 CLS Outpatient MICHELLE ELIZALDE MD [facility] PRE CHRONIC PAIN SYNDROME; POST LAMINECTOMY SYNDROME [id number] 04/11/2015 00:22:00 04/11/2015 23:59:59 CLS Preadmit EM WARD [facility] ONC [id number] 01/10/2015 14:25:00 04/10/2015 00:01:00 DIS Outpatient EM WARD [facility] ONC [id number] 03/29/2015 15:00:00 03/29/2015 16:27:00 DIS Outpatient MICHELLE ELIZALDE MD [facility] CARD SPONDYLOSIS [id number] 03/04/2015 12:35:00 03/04/2015 13:32:00 DIS Outpatient MICHELLE ELIZALDE MD [facility] 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 [id number] 03/01/2015 07:58:00 03/01/2015 08:40:00 DIS Outpatient MICHELLE ELIZALDE MD [facility] 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 [id number] 01/03/2015 10:42:00 01/09/2015 00:01:00 DIS Outpatient EM WARD [facility] ONC [id number] 11/16/2014 09:13:00 11/16/2014 23:59:59 CLS Outpatient MICHELLE ELIZALDE MD [facility] CARD SI JOINT DYSFUNTION [id number] 10/19/2014 07:23:00 10/19/2014 08:31:00 DIS Outpatient MICHELLE ELIZALDE MD [facility] CARD SIJD,HIP OSTEOARTHRITIS [id number] 10/11/2014 13:08:00 10/11/2014 23:59:59 CLS Outpatient JENNIFER SHEETS MD [facility] LAB ATMOSPHERIC PHYSICS PROFESSOR MED USE [id number] 10/11/2014 10:56:00 10/11/2014 23:59:59 CLS Outpatient MICHELLE ELIZALDE MD [facility] RAD BI HIP PAIN [id number] 06/11/2014 13:31:00 09/09/2014 00:01:00 DIS Outpatient EM WARD [facility] ONC [id number] 07/02/2014 13:08:00 07/02/2014 14:32:00 DIS Outpatient MICHELLE ELIZALDE MD [facility] CARD SIJD [id number] 05/23/2014 21:20:00 05/25/2014 13:15:00 DIS Inpatient WILIAN RAWLS, JACINTO Pereira [facility] 4TH GENERALIZED ABD PAIN;N/V; DIARRHEA;LEUKOSYTOSIS [id number] 10/06/2013 14:05:00 10/06/2013 23:59:59 CLS Outpatient TASIA VERA MD [facility] RAD CP [id number] 10/06/2013 09:25:00 10/06/2013 16:30:00 DIS Outpatient DARIAN OVIEDO MD [facility] RAD LUMBAR RADICULOPATHY, CERVICAL STENOSIS [id number] 08/23/2013 07:43:00 08/23/2013 23:59:59 CLS Outpatient DARIAN OVIEDO MD [facility] RAD LUMBAR RADICULOPATHY, CERVICAL STENOSIS [id number] 06/07/2013 00:01:00 06/15/2013 11:10:00 DIS Inpatient JACINTO CEDENO MD [facility] SURGICAL DEHYDRATION; INTRACTABLE PAIN [id number] 06/04/2013 14:29:00 06/04/2013 15:30:00 DIS Emergency SUKHWINDER THAPA MD [facility] ER SOA [id number] 06/02/2013 08:06:00 06/02/2013 23:59:59 CLS Outpatient DARIAN OVIEDO MD [facility] PREOP LUMBAR STENOSIS [id number] 05/29/2013 09:20:00 05/30/2013 15:00:00 DIS Inpatient DARIAN OVIEDO MD [facility] SURGICAL CERVICAL STENOSIS [id number] 05/15/2013 10:24:00 05/15/2013 23:59:59 CLS Outpatient DARIAN OVIEDO MD [facility] PREOP CERVICAL STENOSIS [id number] 01/10/2018 10:00:00 PEN PreadTUAN Ramirez MD [facility] SDC STENOSIS [id number] 01/06/2018 11:14:00 Document Registration [id number] 03/25/2012 13:01:00 Document Registration [id number] 11/05/2017 17:08:00 11/05/2017 23:59:00 DIS Outpatient Tasia Vera [id number] 03/31/2017 16:49:00 03/31/2017 23:59:00 DIS Outpatient Tasia Vera [id number] 03/24/2017 13:15:00 03/24/2017 23:59:00 DIS Outpatient Tasia Vera [id number] 03/19/2017 11:36:00 03/19/2017 23:59:00 DIS Outpatient Tasia Vera [id number] 06/10/2016 19:00:00 06/12/2016 11:00:00 DIS Inpatient Tasia Vera [id number] 03/26/2016 15:57:00 03/26/2016 23:59:00 DIS Outpatient Tasia Vera [id number] 06/10/2016 20:20:28 Document Registration [id number] 12/16/2017 08:04:53 Document Registration [id number] 01/10/2015 14:38:01 ACT Document Registration
--- NOTE | 2018-01-13 13:39 | Physical Therapy Evaluation ---
PT Evaluation-General Medical Diagnosis Admission Date Jan 13, 2018 at 12:51 Medical Diagnosis: stenosis Onset Date: Jan 10, 2018 Therapy Diagnosis Therapy Diagnosis: generalized weakness/debility Height/Weight Height (Feet): 5 Height (Inches): 7.00 Weight (Pounds): 202 Weight (Ounces): 8.0 Weight Bear Status Right Lower Extremity: Right Full Weight Bearing Left Lower Extremity: Left Weight Bearing/Tolerated Referral Physician: [facility] Reason for Referral: Evaluation/Treatment Medical History Pertinent Medical History: Arthritis, CABG, CAD, GERD, HTN, OA Additional Medical History s/p fusion lumbar spine Current History SWB status Reviewed History: Yes Social History Home: Single Level Current Living Status: Spouse Prior/Core FIM Prior Level of Function Functional [place] Measure 0=Not Assessed/NA 4=Minimal Assistance 1=Total Assistance 5=Supervision or Setup 2=Maximal Assistance 6=Modified [place] 3=Moderate Assistance 7=Complete [place] Bed Mobility: 7 Transfers (B,C,W/C) (FIM): 7 Gait: 7 Locomotion: 7 PT Evaluation-Current Subjective Patient agrees to PT. Pain Numeric Pain Scale: 8 Location: Lower Location Body Site: Back Pain Description: Acute Objective Patient Orientation: Normal For Age Problem Solving: Fair Attachments: IV ROM/Strength ROM Lower Extremities bilateral Le WFL Strenght Lower Extremities 3-/5 grossly Integumentary/Posture Integumentary refer to nursing notes Bowel Incontinence: No Bladder Incontinence: No Posture WFL Neuromuscular (Tone, Coordination, Reflexes) grossly intact Sensory Vision: Functional Hearing: Functional Sensation Right Lower Extremit: Impaired Sensation Left Lower Extremity: Impaired Transfers Functional [place] Measure 0=Not Assessed/NA 4=Minimal Assistance 1=Total Assistance 5=Supervision or Setup 2=Maximal Assistance 6=Modified [place] 3=Moderate Assistance 7=Complete [place] Transfers (B, C, W/C) (FIM): 4 Scootin Rollin Supine to/from Sit: 4 Sit to/from Stand: 5 Sit to Lying (QC): 4 Lying to Sitting/Side of Bed(Q: 4 Sit to Stand (QC): 5 Chair/Tqz-zv-Gurlb Xfer(QC): 5 Gait Mode of Locomotion: Walk Anticipated Mode of Locomotion: Walk Gait (FIM): 5 Distance (FIM): 3=150 ft Distance: 250' Walk 50 ft with 2 Turns(QC): 5 Walk 150 ft (QC): 5 Gait Level of Assist: 5 Gait Assistive Device: FWW Comments/Gait Description slow, shuffle gait sequence Balance Sitting Static: Normal Sitting Dynamic: Normal Standing Static: Fair Standing Dynamic: Fair Treatment Patient ambulated FWW 250', SBA with slow shuffle gait sequence. Skilled verbal instruction for bed mobility exercises with barrel roll and press to sit. Patient fatigues with minimal activity. Assessment/Needs 72 y.o. male, will benefit from skilled PT to address functional strength and mobility to improve current LOF and to safely return to home with spouse at maximum LOF. Rehab Potential: Fair PT Mold Swabber Goals Mold Swabber Goals PT Mold Swabber Goals Time Frame: Jan 22, 2018 Transfers (B,C,W/C) (FIM): 6 Sit to Lying (QC): 6 Lying-Sitting on Side/Bed(QC): 6 Sit to Stand (QC): 6 Rollin Chair/Bvn-np-Xzmwv Xfer(QC): 6 Does the Patient Walk: Yes Gait (FIM): 6 Gait distance (FIM): 3=150 ft Distance: >250' Walk 50ft with 2 Turns (QC): 6 Walk 150 ft (QC): 6 Gait Assistive Device: FWW Stairs (FIM): 2 # of Steps: 4 Stairs Level Of Assist: 5 PT Plan Problem List Problem List: Activity Tolerance, Functional Strength, Bed Mobility Treatment/Plan Treatment Plan: Continue Plan of Care Treatment Plan: Bed Mobility, Education, Functional Activity Jayla, Functional Strength, Gait, Safety, Therapeutic Exercise, Transfers Treatment Duration: Jan 22, 2018 Frequency: 11 times per week Estimated Hrs Per Day: .5 hour per day Patient and/or Family Agrees t: Yes Safety Risks/Education Patient Education: Safety Issues Teaching Recipient: Patient Teaching Methods: Discussion Response to Teaching: Verbalize Understanding Time/GCodes Time In: 1240 Time Out: 1305 Total Billed Treatment Time: 25 Total Billed Treatment 1 visit EVModC 10 min FA 15 min RISHI BAR PT Jan 13, 2018 13:39
[2018-01-13] MEDS: PHENAZOPYRIDINE 100 MG (PYRIDIUM) TABLET PO SCH ×2 (14:26→17:35)
--- NOTE | 2018-01-13 14:37 | Occupational Therapy Eval ---
OT Evaluation-General/PLF Medical Diagnosis Admission Date Jan 13, 2018 at 12:51 Medical Diagnosis: stenosis Onset Date: Jan 10, 2018 Therapy Diagnosis Therapy Diagnosis: decr self care, weakness, decr funct mob, decr act itz Height/Weight Height (Feet): 5 Height (Inches): 7.00 Weight (Pounds): 202 Weight (Ounces): 8.0 Precautions Precautions/Isolations: Standard Precautions Weight Bear Status Limited bending, lifting Referral Physician: [facility] Referral Reason: Evaluation/Treatment Medical History Pertinent Medical History: Arthritis, CABG, CAD, GERD, HTN, OA Additional Medical History Prostate problems, kidney stones, DDD, chronic back pain, COUNCIL, sleep difficulties, anxiety, depression Current History L1-2 XLIF/PSF, T11-L2 PSF with instrumentation, L1-2 laminectomy on 01-10-18 Reviewed History: Yes Social History Home: Single Level (mobile home) Current Living Status: Spouse Entry Into Home: Stairs With Railing Steps Into Home: 3 ADL-Prior Level of Function ADL PLOF Comments Pt reported that he was previously able to manage his basic self care needs. He would help with mowing or yard work but then be in much pain the next day. 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 DME/Equipment: Reachers, Shower, Shower Hose Pulpwood Cutter, Sock Aid is getting a shower chair Drive Self: Yes OT Current Status Subjective Pt seen in room, up in bed, agreeable to OT. Rated pain 8/10 in back but did not describe it. Appearance Alert, cooperative, a little groggy Current Glasses/Contacts: Yes Hearing Aids: No Dentures/Partials: No Hand Dominance: Right Upper Extremity ROM Grossly WFL bilat Upper Extremity Strength Grossly 4+/5 bilat Pt reported old R shoulder rotator cuff surgery ADL-Treatment ADL-Current Pt and reported that he is able to feed himself with setup (pt encouraged to eat up in recliner). Help to put slipper socks on. He was able to log roll to sit EOB with min assist. Min assist ot don back brace and adjust it. Sit to stand with CGA, bed elevated. Walked to bathroom and stood at sink with CGA, FWW to brush teeth, comb hair, wash hands (a little shaky). On/off tall toilet with CGA, using walker and grab bar. Able to wipe but had some trouble with clothing management. Walked to recliner with CGA, FWW and able to sit with CGA. He took back brace off, left up in recliner, legs elevated, all needs met. Functional [place] Measure 0=Not Assessed/NA 4=Minimal Assistance 1=Total Assistance 5=Supervision or Setup 2=Maximal Assistance 6=Modified [place] 3=Moderate Assistance 7=Complete IndependenceIRFPAI Quality Coding Scale 6 Independent with activity with or without an assistive device 5 Patient requires set up or clean up by helper. Patient completes activity by themselves 4 Supervision or touching assist (CGA). [place] provide cues , steadying assist 3 The helper provides less than half the effort to complete the activity 2 The helper provides more than half the effort to complete the activity 1 Dependent. The helper does all the effort to complete an activity 7 Patient refused to complete or attempt activity 9 The patient did not perform the activity before the current illness or injury 88 Not attempted due to Medical conditions or safety concerns Eating (FIM): 5 Eating (QC): 5 Grooming (FIM): 4 (CGA, FWW at sink (shaky)) Oral Hygiene (QC): 4 (CGA) Toileting (FIM): 3 (Help with clothing management but able to wipe (50%)) Toileting Hygiene (QC): 3 Toilet/Commode Transfer (FIM): 4 (CGA getting on/off tall toilet, using grab abr and FWW) Education OT Patient Education: Modified ADL techniques, Purpose of tx/functional activities, Rehab process, Safety issues, Transfer techniques Teaching Recipient: Patient Teaching Methods: Demonstration, Discussion Response to Teaching: Verbalize Understanding, Return Demonstration, Reinforcement Needed OT Hvac Field Service Technician Goals Assisted Goals Time Frame: Jan 22, 2018 Eating (FIM): 7 Eating (QC): 6 Groomin Oral Hygiene (QC): 6 Bathing(FIM): 5 Upper Body Dressing(FIM): 5 Lower Body Dressing(FIM): 5 Toileting(FIM): 6 Toileting Hygiene (QC): 6 Toilet/Commode Transfer(FIM): 6 Toilet/Commode Transfer (QC): 6 Shower Transfer(FIM): 5 Additional Goals: 1-Demonstrate ADL Tasks, 2-Verbalize Understanding, 3- ImproveStrength/Jayla 1=Demonstrate adherence to instructed precautions during ADL tasks. 2=Patient will verbalize/demonstrate understanding of assistive devices/ modifications for ADL. 3=Patient will improve strength/tolerance for activity to enable patient to perform ADL's. OT Education/Plan Problem List/Assessment Assessment: Decreased Activ Tolerance, Decreased UE Strength, Dependent Transfers, Impaired Bed Mobility, Impaired Self-Care Skills Pt would benefit from skilled OT to increase his independence in basic self care Discharge Recommendations Plan/Recommendations: Continue POC Treatment Plan/Plan of Care Treatment,Training & Education: Yes Patient would benefit from OT for education, treatment and training to promote independence in ADL's, mobility, safety and/or upper extremity function for ADL' s. Plan of Care: ADL Retraining, Functional Mobility, UE Funct Exercise/Act, UE Neuromus Re-Ed/Coord, OTHER (energy conservation education) Treatment Duration: Jan 22, 2018 Frequency: 5 times per week Estimated Hrs Per Day: .5 hour per day Agreement: Yes Rehab Potential: Fair Time/GCodes Start Time: 13:45 Stop Time: 14:25 Total Time Billed (hr/min): 40 Billed Treatment Time visit, 15 minutes evaluation, 25 minutes ADL BEULAH WAITE OT Jan 13, 2018 14:37
[2018-01-13] MEDS: buPROPion 75 MG (WELLBUTRIN) TAB PO SCH (17:35)
[2018-01-13] MEDS: TAMSULOSIN 0.4 MG (FLOMAX) CAP PO SCH (17:35)
[2018-01-13] MEDS: HYDROcodone/APAP 5 MG/325 MG (LORTAB) TAB PO PRN ×2 (17:36→20:50)
[2018-01-13] MEDS: POLYETHYLENE GLYCOL 17 GM (MIRALAX) PACK PO SCH (20:50)
[2018-01-13] MEDS: DULoxetine 30 MG (CYMBALTA) CAP PO SCH (20:50)
[2018-01-13] MEDS: SENNA W/DOCUSATE (SENOKOT S) TABLET PO SCH (20:51)
[2018-01-13 23:11] VITALS: BP 125/56
[2018-01-14] MEDS: PANTOPRAZOLE 40 MG (PROTONIX) TAB PO SCH (06:07)
[2018-01-14] MEDS: HYDROcodone/APAP 5 MG/325 MG (LORTAB) TAB PO PRN ×4 (06:07→20:00)
[2018-01-14] MEDS: buPROPion 75 MG (WELLBUTRIN) TAB PO SCH ×2 (06:07→17:46)
[2018-01-14] MEDS: MULTIVIT W/MINERALS TAB (THERAGRAN M) PO SCH (06:08)
--- NOTE | 2018-01-14 07:32 | Progress Note (SOAP) ---
Subjective Date Seen by a Provider: Jan 14, 2018 Time Seen by a Provider: 07:30 Subjective/Events-last exam Pain is better, had BM, overall feeling better Objective Exam Vital Signs Date Time Temp Pulse Resp B/P (MAP) Pulse Ox O2 Delivery O2 Flow Rate FiO2 01/13/18 23:11 98.6 94 18 125/56 (79) 98 Room Air 01/13/18 21:00 Room Air I & O 01/14/18 07:00 Intake Total 1060 ml Output Total 180 ml Balance 880 ml Capillary Refill : General Appearance: No Apparent Distress, Other (Up in chair) Respiratory: No Accessory Muscle Use, No Respiratory Distress Cardiovascular: Regular Rate, Rhythm Gastrointestinal: soft Extremity: Normal Capillary Refill, No Calf Tenderness Neurologic/Psychiatric: Alert, Oriented x3, No Motor/Sensory Deficits Assessment/Plan Assessment/Plan Assess & Plan/Chief Complaint S/P L1-2 Lateral and T11-L2 PSF Cont current care TUAN MAYA MD Jan 14, 2018 7:31 am
[2018-01-14 08:00] VITALS: BP 131/62
[2018-01-14] MEDS: DULoxetine 30 MG (CYMBALTA) CAP PO SCH ×2 (08:24→22:09)
[2018-01-14] MEDS: PHENAZOPYRIDINE 100 MG (PYRIDIUM) TABLET PO SCH ×3 (08:24→17:47)
[2018-01-14] MEDS: LOSARTAN 50 MG (COZAAR) TAB PO SCH (08:25)
[2018-01-14] MEDS: DILTIAZEM 120 MG (CARDIZEM CD) CAP PO SCH (08:25)
[2018-01-14] MEDS: BACITRACIN OINTMENT 28 GM TUBE TOP SCH ×3 (09:30→22:42)
--- NOTE | 2018-01-14 10:43 | Progress Note-Hospitalist ---
Subjective HPI/CC On Admission Date Seen by Provider: Jan 14, 2018 Time Seen by Provider: 10:00 Subjective/Events-last exam Patient doing much better No urinary retention BM+ Pain is controlled better and better Checked meds and labs Review of Systems Musculoskeletal: back pain Objective Exam Vital Signs Vital Signs Date Time Temp Pulse Resp B/P (MAP) Pulse Ox O2 Delivery O2 Flow Rate FiO2 01/14/18 09:00 Room Air 01/14/18 08:00 97.3 80 18 131/62 (85) 95 01/14/18 07:39 2.00 Capillary Refill : General Appearance: No Apparent Distress, WD/WN, Chronically ill, Obese Respiratory: Chest Non Tender, Lungs Clear, Normal Breath Sounds, No Accessory Muscle Use, No Respiratory Distress Cardiovascular: Regular Rate, Rhythm, No Edema, No Gallop, No JVD, No Murmur, Normal Peripheral Pulses Neurologic/Psychiatric: Alert, Oriented x3, No Motor/Sensory Deficits, Normal Mood/Affect Skin: Normal Color, Warm/Dry Results/Procedures Lab Patient resulted labs reviewed. Assessment/Plan Assessment and Plan Assess & Plan/Chief Complaint Assessment: s/p spinal surgery POD # 4 Slow recovery s/p ileus s/p oversedation Depression Anxiety Plan: PT/OT BM regimen Diagnosis/Problems Diagnosis/Problems (1) intractable back pain Status: Acute (2) Hypertension Status: Chronic (3) Depression Status: Chronic (4) CAD (coronary artery disease) Status: Chronic AMEENA LINDO DO Jan 14, 2018 10:43
[2018-01-14] MEDS: HYDROCHLOROTHIAZIDE 25 MG (HCTZ) TAB PO SCH (10:56)
--- NOTE | 2018-01-14 11:16 | Physical Therapy Daily Note ---
PT Daily Note-Current Subjective Patient agrees to PT. He and his spouse report he is up with her in room and hallway. Pain Numeric Pain Scale: 5-Moderate Pain Location: Lower Location Body Site: Back Pain Description: Acute Mental Status Patient Orientation: Normal For Age Transfers Functional [place] Measure 0=Not Assessed/NA 4=Minimal Assistance 1=Total Assistance 5=Supervision or Setup 2=Maximal Assistance 6=Modified [place] 3=Moderate Assistance 7=Complete IndependenceIRFPAI Quality Coding Scale 6 Independent with activity with or without an assistive device 5 Patient requires set up or clean up by helper. Patient completes activity by themselves 4 Supervision or touching assist (CGA). [place] provide cues , steadying assist 3 The helper provides less than half the effort to complete the activity 2 The helper provides more than half the effort to complete the activity 1 Dependent. The helper does all the effort to complete an activity 7 Patient refused to complete or attempt activity 9 The patient did not perform the activity before the current illness or injury 88 Not attempted due to Medical conditions or safety concerns Transfers (B, C, W/C) (FIM): 6 Scootin Roll Left to Right (QC): 6 Supine to/from Sit: 6 Sit to/from Stand: 6 Sit to Lying (QC): 6 Sit to Stand (QC): 6 Chair/Qvy-hz-Ipurc Xfer(QC): 6 Bed to/from Chair: 6 Weight Bearing Right Lower Extremity: Right Full Weight Bearing Left Lower Extremity: Left Weight Bearing/Tolerated Gait Training Does the Patient Walk?: Yes Gait (FIM): 6 Distance (FIM): 3=150 ft Distance: 250' Walk 50 ft with 2 Turns(QC): 6 Walk 150 ft (QC): 6 Gait Level of Assist: 6 Gait Assistive Device: FWW slow, shuffle gait sequence Assessment Patient is up with spouse PRN and is safe to do so per this PT. Patient progressing with treatment plan. PT Laboratory Associate Goals Laboratory Associate Goals PT Residential Goals Time Frame: Jan 22, 2018 Transfers (B,C,W/C) (FIM): 6 Sit to Lying (QC): 6 Lying-Sitting on Side/Bed(QC): 6 Sit to Stand (QC): 6 Rollin Chair/Tvd-tw-Cojpt Xfer(QC): 6 Does the Patient Walk: Yes Gait (FIM): 6 Gait distance (FIM): 3=150 ft Distance: >250' Walk 50ft with 2 Turns (QC): 6 Walk 150 ft (QC): 6 Gait Assistive Device: FWW Stairs (FIM): 2 # of Steps: 4 Stairs Level Of Assist: 5 PT Plan Treatment/Plan Treatment Plan: Continue Plan of Care Treatment Plan: Bed Mobility, Education, Functional Activity Jayla, Functional Strength, Gait, Safety, Therapeutic Exercise, Transfers Treatment Duration: Jan 22, 2018 Frequency: 11 times per week Estimated Hrs Per Day: .5 hour per day Patient and/or Family Agrees t: Yes Time/GCodes Time In: 955 Time Out: 1010 Total Billed Treatment Time: 15 Total Billed Treatment 1 visit FA 15 min RISHI BAR PT Jan 14, 2018 11:16
--- NOTE | 2018-01-14 13:31 | Physical Therapy Daily Note ---
PT Daily Note-Current Subjective Patient agrees to PT. Pain Numeric Pain Scale: 7 Location: Medial, Lower Location Body Site: Back Pain Description: Acute Mental Status Patient Orientation: Normal For Age Transfers Functional [place] Measure 0=Not Assessed/NA 4=Minimal Assistance 1=Total Assistance 5=Supervision or Setup 2=Maximal Assistance 6=Modified [place] 3=Moderate Assistance 7=Complete IndependenceIRFPAI Quality Coding Scale 6 Independent with activity with or without an assistive device 5 Patient requires set up or clean up by helper. Patient completes activity by themselves 4 Supervision or touching assist (CGA). [place] provide cues , steadying assist 3 The helper provides less than half the effort to complete the activity 2 The helper provides more than half the effort to complete the activity 1 Dependent. The helper does all the effort to complete an activity 7 Patient refused to complete or attempt activity 9 The patient did not perform the activity before the current illness or injury 88 Not attempted due to Medical conditions or safety concerns Transfers (B, C, W/C) (FIM): 6 Scootin Sit to/from Stand: 6 Sit to Stand (QC): 6 Weight Bearing Right Lower Extremity: Right Full Weight Bearing Left Lower Extremity: Left Weight Bearing/Tolerated Gait Training Does the Patient Walk?: Yes Gait (FIM): 6 Distance (FIM): 3=150 ft Distance: 275' Walk 50 ft with 2 Turns(QC): 6 Walk 150 ft (QC): 6 Gait Level of Assist: 6 Gait Assistive Device: FWW slow, shuffle gait sequence. Assessment PT instructed patient and spouse to ambulate PRN in hallway. Patient progressing with treatment plan. PT Care Home Goals Care Home Goals PT Care Home Goals Time Frame: Jan 22, 2018 Transfers (B,C,W/C) (FIM): 6 Sit to Lying (QC): 6 Lying-Sitting on Side/Bed(QC): 6 Sit to Stand (QC): 6 Rollin Chair/Smu-ou-Vxdde Xfer(QC): 6 Does the Patient Walk: Yes Gait (FIM): 6 Gait distance (FIM): 3=150 ft Distance: >250' Walk 50ft with 2 Turns (QC): 6 Walk 150 ft (QC): 6 Gait Assistive Device: FWW Stairs (FIM): 2 # of Steps: 4 Stairs Level Of Assist: 5 PT Plan Treatment/Plan Treatment Plan: Continue Plan of Care Treatment Plan: Bed Mobility, Education, Functional Activity Jayla, Functional Strength, Gait, Safety, Therapeutic Exercise, Transfers Treatment Duration: Jan 22, 2018 Frequency: 11 times per week Estimated Hrs Per Day: .5 hour per day Patient and/or Family Agrees t: Yes Time/GCodes Time In: 1300 Time Out: 1315 Total Billed Treatment Time: 15 Total Billed Treatment 1 visit FA 15 min RISHI BAR PT Jan 14, 2018 13:31
--- NOTE | 2018-01-14 14:59 | Occupational Ther Daily Note ---
OT Current Status-Daily Note Subjective Pt seen in room, up in recliner, agreeable to OT. No pain mentioned Appearance Alert, cooperative Mental Status/Objective Functional [place] Measure 0=Not Assessed/NA 4=Minimal Assistance 1=Total Assistance 5=Supervision or Setup 2=Maximal Assistance 6=Modified [place] 3=Moderate Assistance 7=Complete [place] ADL-Treatment Pt education on how to put on back brace, with partial return demonstration. Pt walked mod I, FWW to bathroom, where he was able to gt on/off toilet without help (grab bar, FWW) but unable to manage hygiene after BM. Pt educ modified technique for wiping but still needed help. Pt walked back to recliner, able to take back brace off. Pt left up in recliner, all needs met. Functional [place] Measure 0=Not Assessed/NA 4=Minimal Assistance 1=Total Assistance 5=Supervision or Setup 2=Maximal Assistance 6=Modified [place] 3=Moderate Assistance 7=Complete IndependenceIRFPAI Quality Coding Scale 6 Independent with activity with or without an assistive device 5 Patient requires set up or clean up by helper. Patient completes activity by themselves 4 Supervision or touching assist (CGA). [place] provide cues , steadying assist 3 The helper provides less than half the effort to complete the activity 2 The helper provides more than half the effort to complete the activity 1 Dependent. The helper does all the effort to complete an activity 7 Patient refused to complete or attempt activity 9 The patient did not perform the activity before the current illness or injury 88 Not attempted due to Medical conditions or safety concerns Toileting (FIM): 3 (Able to manage clothing but not hygiene) Toileting Hygiene (QC): 3 (Able to manage clothing but not hygiene) Toilet/Commode Transfer (FIM): 6 (On/off tall toilet, grab bar, FWW) Toilet Transfer (QC): 6 Education OT Patient Education: Modified ADL techniques, Progress toward Goal/Update tx plan, Purpose of tx/functional activities Teaching Recipient: Patient Teaching Methods: Discussion Response to Teaching: Verbalize Understanding, Return Demonstration, Reinforcement Needed OT Short Term Goals Short Term Goals 1=Demonstrate adherence to instructed precautions during ADL tasks. 2=Patient will verbalize/demonstrate understanding of assistive devices/ modifications for ADL. 3=Patient will improve strength/tolerance for activity to enable patient to perform ADL's. OT Prison Goals Prison Goals Time Frame: Jan 22, 2018 Eating (FIM): 7 Eating (QC): 6 Groomin Oral Hygiene (QC): 6 Bathing(FIM): 5 Upper Body Dressing(FIM): 5 Lower Body Dressing(FIM): 5 Toileting(FIM): 6 Toileting Hygiene (QC): 6 Toilet/Commode Transfer(FIM): 6 Toilet/Commode Transfer (QC): 6 Shower Transfer(FIM): 5 Additional Goals: 1-Demonstrate ADL Tasks, 2-Verbalize Understanding, 3- ImproveStrength/Jayla 1=Demonstrate adherence to instructed precautions during ADL tasks. 2=Patient will verbalize/demonstrate understanding of assistive devices/ modifications for ADL. 3=Patient will improve strength/tolerance for activity to enable patient to perform ADL's. OT Education/Plan Problem List/Assessment Pt would benefit from skilled OT to increase his independence in basic self care Discharge Recommendations Plan/Recommendations: Continue POC Treatment Plan/Plan of Care Patient would benefit from OT for education, treatment and training to promote independence in ADL's, mobility, safety and/or upper extremity function for ADL' s. Plan of Care: ADL Retraining, Functional Mobility, UE Funct Exercise/Act, UE Neuromus Re-Ed/Coord, OTHER (energy conservation education) Treatment Duration: Jan 22, 2018 Frequency: 5 times per week Estimated Hrs Per Day: .5 hour per day Agreement: Yes Rehab Potential: Fair Time/GCodes Start Time: 13:55 Stop Time: 14:12 Total Time Billed (hr/min): 17 Billed Treatment Time visit, 17 minutes ADL BEULAH WAITE OT Jan 14, 2018 14:59
[2018-01-14 16:00] VITALS: BP 118/66
[2018-01-14] MEDS: TAMSULOSIN 0.4 MG (FLOMAX) CAP PO SCH (17:46)
[2018-01-14] MEDS: SENNA W/DOCUSATE (SENOKOT S) TABLET PO SCH (22:09)
[2018-01-14] MEDS: POLYETHYLENE GLYCOL 17 GM (MIRALAX) PACK PO SCH (22:10)
[2018-01-15] VITALS: BP 123/65
[2018-01-15] MEDS: HYDROcodone/APAP 5 MG/325 MG (LORTAB) TAB PO PRN ×5 (00:39→22:22)
[2018-01-15] MEDS: buPROPion 75 MG (WELLBUTRIN) TAB PO SCH ×2 (06:48→17:39)
[2018-01-15] MEDS: MULTIVIT W/MINERALS TAB (THERAGRAN M) PO SCH (06:48)
[2018-01-15] MEDS: PANTOPRAZOLE 40 MG (PROTONIX) TAB PO SCH (06:48)
[2018-01-15] MEDS: DULoxetine 30 MG (CYMBALTA) CAP PO SCH ×2 (08:28→20:55)
[2018-01-15] MEDS: DILTIAZEM 120 MG (CARDIZEM CD) CAP PO SCH (08:28)
[2018-01-15] MEDS: PHENAZOPYRIDINE 100 MG (PYRIDIUM) TABLET PO SCH ×3 (08:28→17:39)
[2018-01-15] MEDS: LOSARTAN 50 MG (COZAAR) TAB PO SCH (08:28)
[2018-01-15] MEDS: HYDROCHLOROTHIAZIDE 25 MG (HCTZ) TAB PO SCH (08:28)
--- NOTE | 2018-01-15 09:41 | Physical Therapy Daily Note ---
PT Daily Note-Current Subjective States that he is doing okay. Pain Numeric Pain Scale: 5-Moderate Pain Location Body Site: Back Transfers Functional [place] Measure 0=Not Assessed/NA 4=Minimal Assistance 1=Total Assistance 5=Supervision or Setup 2=Maximal Assistance 6=Modified [place] 3=Moderate Assistance 7=Complete IndependenceIRFPAI Quality Coding Scale 6 Independent with activity with or without an assistive device 5 Patient requires set up or clean up by helper. Patient completes activity by themselves 4 Supervision or touching assist (CGA). [place] provide cues , steadying assist 3 The helper provides less than half the effort to complete the activity 2 The helper provides more than half the effort to complete the activity 1 Dependent. The helper does all the effort to complete an activity 7 Patient refused to complete or attempt activity 9 The patient did not perform the activity before the current illness or injury 88 Not attempted due to Medical conditions or safety concerns Transfers (B, C, W/C) (FIM): 4 Supine to/from Sit: 4 Weight Bearing Right Lower Extremity: Right Full Weight Bearing Left Lower Extremity: Left Weight Bearing/Tolerated Gait Training Gait (FIM): 5 Distance (FIM): 3=150 ft Distance: 300' Gait Level of Assist: 5 Gait Persons Needed: 1 Gait Assistive Device: FWW Assessment Current Status: Excellent Progress Patient did well with gait. PT Nursing Home Goals Leather Stitcher Goals PT Leather Stitcher Goals Time Frame: Jan 22, 2018 Transfers (B,C,W/C) (FIM): 6 Gait (FIM): 6 Gait distance (FIM): 3=150 ft Distance: >250' Gait Assistive Device: FWW Stairs (FIM): 2 # of Steps: 4 Stairs Level Of Assist: 5 PT Plan Treatment/Plan Treatment Plan: Continue Plan of Care Treatment Plan: Bed Mobility, Education, Functional Activity Jayla, Functional Strength, Gait, Safety, Therapeutic Exercise, Transfers Treatment Duration: Jan 22, 2018 Frequency: 11 times per week Estimated Hrs Per Day: .5 hour per day Patient and/or Family Agrees t: Yes Time/GCodes Time In: 920 Time Out: 935 Total Billed Treatment Time: 15 Total Billed Treatment 1, GT x 15 G Codes Necessary: BARTOLO Carlos PT Jan 15, 2018 09:41
[2018-01-15] MEDS: BACITRACIN OINTMENT 28 GM TUBE TOP SCH ×2 (10:22→20:57)
[2018-01-15] MEDS: TAMSULOSIN 0.4 MG (FLOMAX) CAP PO SCH (17:39)
[2018-01-15 18:55] VITALS: BP 132/58
[2018-01-15] MEDS: POLYETHYLENE GLYCOL 17 GM (MIRALAX) PACK PO SCH (20:55)
[2018-01-15] MEDS: SENNA W/DOCUSATE (SENOKOT S) TABLET PO SCH (20:55)
[2018-01-16] MEDS: HYDROcodone/APAP 5 MG/325 MG (LORTAB) TAB PO PRN (04:33)
[2018-01-16] MEDS: buPROPion 75 MG (WELLBUTRIN) TAB PO SCH (06:11)
[2018-01-16] MEDS: MULTIVIT W/MINERALS TAB (THERAGRAN M) PO SCH (06:11)
[2018-01-16] MEDS: PANTOPRAZOLE 40 MG (PROTONIX) TAB PO SCH (06:11)
[2018-01-16 06:16] VITALS: BP 122/69
[2018-01-16] MEDS: DULoxetine 30 MG (CYMBALTA) CAP PO SCH (11:15)
[2018-01-16] MEDS: BACITRACIN OINTMENT 28 GM TUBE TOP SCH (11:16)
[2018-01-16] MEDS: PHENAZOPYRIDINE 100 MG (PYRIDIUM) TABLET PO SCH (11:16)
[2018-01-16] MEDS: DILTIAZEM 120 MG (CARDIZEM CD) CAP PO SCH (11:16)
[2018-01-16] MEDS: HYDROCHLOROTHIAZIDE 25 MG (HCTZ) TAB PO SCH (11:16)
[2018-01-16] MEDS: LOSARTAN 50 MG (COZAAR) TAB PO SCH (11:16)
--- NOTE | 2018-01-16 12:56 | Progress Note-Hospitalist ---
Progress Note Progress Notes/Assess & Plan Date Seen 01/16/18 Time Seen by Provider: 12:54 Assessment & Plan The patient is a 72-year-old white male known to me from a postoperative misadventure several years ago. He is now recovering from a lumbar spine procedure. He reports that he is eager to go home today. Physical exam: His is present he is alert and oriented. Lungs are clear to auscultation. CV is regular without murmur. Abdomen is soft. Extremities show no pedal edema. Impression postop lumbar spine procedure. He is making slow but steady improvement. Plan: Discharge to home with brace. See discharge sequence for medications and routines. TRENA JIM MD Jan 16, 2018 12:56
--- NOTE | 2018-01-16 13:01 | Discharge Summary-Hospitalist ---
Diagnosis/Chief Complaint Date of Admission Jan 13, 2018 at 12:51 Date of Discharge Jan 16, 2018 at 12:15 Discharge Date: Jan 16, 2018 Discharge Diagnosis (1) intractable back pain Status: Resolved (2) Hypertension Status: Chronic (3) Depression Status: Chronic (4) CAD (coronary artery disease) Status: Chronic Discharge Summary Discharge Physical Exam Allergies: Coded Allergies: adhesive (Unverified Allergy, Mild, RASH, 01/06/18) morphine (Unverified Allergy, Mild, CONFUSION, 01/06/18) bethanechol (Verified Allergy, Unknown, DROOLING, SEIZURE TYPE EPISODE, HYPOTENSION, "BLACK OUTS", 01/11/18) gabapentin (Verified Allergy, Unknown, 01/06/18) Vitals & I&Os Vital Signs Date Time Temp Pulse Resp B/P (MAP) Pulse Ox O2 Delivery O2 Flow Rate FiO2 01/16/18 09:00 Room Air 01/16/18 06:16 99.2 86 18 122/69 (86) 96 01/14/18 07:39 2.00 General Appearance: No Apparent Distress, WD/WN, Chronically ill Respiratory: Chest Non Tender, Lungs Clear, Normal Breath Sounds, No Accessory Muscle Use, No Respiratory Distress Cardiovascular: Regular Rate, Rhythm, No Edema, No Gallop, No JVD, No Murmur, Normal Peripheral Pulses Gastrointestinal: Normal Bowel Sounds, No Organomegaly, No Pulsatile Mass, Non Tender, Soft Neurologic/Psychiatric: Alert, Oriented x3, No Motor/Sensory Deficits, Normal Mood/Affect Hospital Course Hospital course: patient had an uneventful hospital course on swing bed. Pain was controlled with minimal amount of pain meds and decreased Xanax due to oversedation. BM regimen was successful. PT/OT worked with patient and patient was deemed stable for DC on Wednesday with no need of new Rxes. Labs (last 24 hrs) Patient resulted labs reviewed. Discussion & Recommendations Discharge Planning: <30 minutes discharge planning Discharge Home Medications: Active Scripts Active Reported Ibuprofen 200 Mg Capsule 200 Mg PO TID Bupropion HCl 75 Mg Tablet 75 Mg PO BID Diltiazem 24Hr Cd (Diltiazem HCl) 120 Mg Cap.er.24h 120 Mg PO DAILY Alprazolam 0.5 Mg Tablet 0.5 Mg PO TID Omeprazole 20 Mg Capsule.dr 20 Mg PO BID Losartan-Hctz 100-25 mg Tab (Losartan/Hydrochlorothiazide) 1 Each Tablet 1 Each PO DAILY Cymbalta (Duloxetine HCl) 60 Mg Capsule.dr 60 Mg PO BID Instructions to patient/family Please see electronic discharge instructions given to patient. AMEENA LINDO DO Jan 16, 2018 13:01
--- NOTE | 2018-01-17 08:03 | Therapy Team Discharge Summary ---
Therapy Discharge Summary Discharge Recommendations Date of Discharge Jan 16, 2018 at 12:15 Physical Therapy Patient s/o lumbar fusion/lami secondary to injury. Patient has attained all functional mobility goals and was dismissed to home with spouse prior to stair training. Patient has had 3 back surgeries this year and has good knowledge of recovery and protocol. Per report, patient was under control and spouse is competent with back brace donning. PT to dismiss patient at this time. Occupational Therapy Decreased Activ Tolerance, Decreased UE Strength, Dependent Transfers, Impaired Bed Mobility, Impaired Self-Care Skills PT Half-Way Goals Half-Way Goals PT Animal Care Provider Goals Time Frame: Jan 22, 2018 Transfers (B,C,W/C) (FIM): 6 (met 01/15/18) Sit to Lying (QC): 6 (met 01/15/18) Lying-Sitting on Side/Bed(QC): 6 (met 01/15/18) Sit to Stand (QC): 6 (met 01/15/18) Rollin (met 01/15/18) Chair/Vwt-fd-Eofdx Xfer(QC): 6 (met 01/15/18) Does the Patient Walk: Yes Gait (FIM): 6 (met 01/15/18) Gait distance (FIM): 3=150 ft Distance: >250' Walk 50ft with 2 Turns (QC): 6 (met 01/15/18) Walk 150 ft (QC): 6 (met 01/15/18) Gait Assistive Device: FWW Stairs (FIM): 2 # of Steps: 4 Stairs Level Of Assist: 5 OT Animal Care Provider Goals Animal Care Provider Goals Time Frame: Jan 22, 2018 Eating (FIM): 7 Eating (QC): 6 Groomin Oral Hygiene (QC): 6 Bathing(FIM): 5 Upper Body Dressing(FIM): 5 Lower Body Dressing(FIM): 5 Toileting(FIM): 6 Toileting Hygiene (QC): 6 Toilet/Commode Transfer(FIM): 6 Toilet/Commode Transfer (QC): 6 Shower Transfer(FIM): 5 Additional Goals: 1-Demonstrate ADL Tasks, 2-Verbalize Understanding, 3- ImproveStrength/Jayla 1=Demonstrate adherence to instructed precautions during ADL tasks. 2=Patient will verbalize/demonstrate understanding of assistive devices/ modifications for ADL. 3=Patient will improve strength/tolerance for activity to enable patient to perform ADL's. RISHI BAR PT Jan 17, 2018 08:03
--- NOTE | 2018-01-17 14:18 | Therapy Team Discharge Summary ---
Therapy Discharge Summary Discharge Recommendations Date of Discharge Jan 16, 2018 at 12:15 Therapy D/C Recommendations: Home w/ Family Support Occupational Therapy Pt was seen for skilled OT to increase his independence in basic self care after back surgery. On admission he was able to feed himself with setup, groom CGA at sink with FWW, toilet with mod assist (help with clothing) and transfer on/off toilet with min assist. The next day he needed help with wiping but was able to manage clothing (mod assist) and was able to get on/off toilet with mod I, using grab bar. He worked on being able to don/doff back brace. He was discharged over the weekend. Nursing documentation shows that he was getting assistance with toileting and eating independently. See tx plan for goals met. Home with family support Decreased Activ Tolerance, Decreased UE Strength, Dependent Transfers, Impaired Bed Mobility, Impaired Self-Care Skills PT Usp Goals Usp Goals PT Usp Goals Time Frame: Jan 22, 2018 Transfers (B,C,W/C) (FIM): 6 (met 01/15/18) Sit to Lying (QC): 6 (met 01/15/18) Lying-Sitting on Side/Bed(QC): 6 (met 01/15/18) Sit to Stand (QC): 6 (met 01/15/18) Rollin (met 01/15/18) Chair/Llt-rv-Avhuq Xfer(QC): 6 (met 01/15/18) Does the Patient Walk: Yes Gait (FIM): 6 (met 01/15/18) Gait distance (FIM): 3=150 ft Distance: >250' Walk 50ft with 2 Turns (QC): 6 (met 01/15/18) Walk 150 ft (QC): 6 (met 01/15/18) Gait Assistive Device: FWW Stairs (FIM): 2 # of Steps: 4 Stairs Level Of Assist: 5 OT Special Effects Makeup Artist Goals Special Effects Makeup Artist Goals Time Frame: Jan 22, 2018 Eating (FIM): 7 (met) Eating (QC): 6 (met) Groomin Oral Hygiene (QC): 6 Bathing(FIM): 5 Upper Body Dressing(FIM): 5 Lower Body Dressing(FIM): 5 Toileting(FIM): 6 Toileting Hygiene (QC): 6 Toilet/Commode Transfer(FIM): 6 (met) Toilet/Commode Transfer (QC): 6 (met) Shower Transfer(FIM): 5 Additional Goals: 1-Demonstrate ADL Tasks, 2-Verbalize Understanding, 3- ImproveStrength/Jayla 1=Demonstrate adherence to instructed precautions during ADL tasks. 2=Patient will verbalize/demonstrate understanding of assistive devices/ modifications for ADL. 3=Patient will improve strength/tolerance for activity to enable patient to perform ADL's. BEULAH WAITE OT Jan 17, 2018 14:18
== END 2018-01-16 12:15 | disposition home or self-care (01) | DRG 561 ==
LOC: 4TH 12:51
PROVIDERS: ADMIT Internal Medicine; ATTEND Internal Medicine
DX: Z47.89 Encounter for other orthopedic aftercare (principal); Z98.1 Arthrodesis status; M54.9 Dorsalgia, unspecified; I25.10 Atherosclerotic heart disease of native coronary artery without angina pectoris; I10 Essential (primary) hypertension; F32.9 Major depressive disorder, single episode, unspecified; F41.9 Anxiety disorder, unspecified; E66.9 Obesity, unspecified; Z68.31 Body mass index [BMI] 31.0-31.9, adult
CPT/HCPCS: 94664

== ENCOUNTER 2018-03-19 13:11 | Emergency (ER) | payer MEDICARE ==
[~2018-03-19] VITALS: Ht 180.3 cm; Wt 86.2 kg
[2018-03-19] MEDS ORDERED: ASPIRIN 81 MG CHEW (CHILDREN'S ASA) PO ONE (13:15)
--- OUTSIDE RECORDS SUMMARY | 2018-03-19 13:20 | XMS REPORT | Continuity of Care Document ---
Author Author [facility] Organization [facility] Address Unknown Phone Unavailable Allergies Active Description Code Type Severity Reaction Onset Reported/Identified Relationship to Patient Clinical Status Yes No Known Allergies [id number] N /A N/A Yes NO KNOWN DRUG ALLERGIES NO KNOWN DRUG ALLERG UNKNOWN Yes MORPHINE UNKNOWN UNKNOWN Yes NO KNOWN DRUG ALLERGIES UNKNOWN NO KNOWN DRUG ALLERG Yes URECHOLINE UNKNOWN UNKNOWN Yes morphine [id number] Drug Allergy Unknown N/A 06/06/2013 Yes adhesive [id number] Drug Allergy Unknown RASH 05/23/2014 Yes morphine [id number] Drug Allergy Unknown PATIENT TAKES L 10/01/2015 Yes adhesive [id number] Drug Allergy Mild RASH 01/06/2018 Yes morphine [id number] Drug Allergy Mild CONFUSION 01/06/2018 Yes gabapentin [id number] Drug Allergy Unknown N/A 01/06/2018 Yes bethanechol [id number] Drug Allergy Unknown DROOLING, SEIZU 01/11/2018 Medications Medication Packaging Start Date Stop Date [...] 06/11/2016 07/11/2016 PRN QID MILK OF [place]UL[place] LIQ 0 ml 201606/17/2016 PRN BID Diltiazem 120mg,extended release cap (CARDIZEM)) MG 06/11/2016 07/10/2016 Daily&0900 LOSARTAN TAB 100 MG (COZAAR) MG 05/201607/10/2016 Daily&0900 HYDROCHLOROTHIAZIDE TAB 25 MG (HYDRODIURIL) MG 06/11/2016 07/10/2016 Daily&0900 MultiVits (Thera M Plus) (lljllgrr-wrkz-udhknbe) oral tablet TAB 06/11/2016 07/10/2016 Daily&0900 BISACODYL [...] SHORTNESS OF BREATH 06/15/2013 WILIAN RAWLS, JACINTO Pereira Ot 288.60 LEUKOCYTOSIS, UNSPECIFIED 06/15/2013 WILIAN RAWLS, JACINTO Pereira Ot 292.0 DRUG WITHDRAWAL 06/15/2013 WILIAN RAWLS, JACINTO Pereira Ot 305.90 DRUG ABUSE NEC-UNSPEC 06/15/2013 WILIAN RAWLS, JACINTO Pereira Ot 401.9 HYPERTENSION NOS 06/15/2013 WILIAN RAWLS, JACINTO Pereira Ot 414.00 CORON ATHEROSCLER NOS TYPE VESSEL, NATIV 06/15/2013 WILIAN RAWLS, JACINTO Pereira Ot 597.80 URETHRITIS NOS 06/15/2013 WILIAN RAWLS, JACINTO Pereira Ot 601.9 PROSTATITIS NOS 06/15/2013 JACINTO CEDENO MD Ot 715.90 OSTEOARTHROS NOS-UNSPEC 06/15/2013 JACINTO CEDENO MD Ot 724.02 SPINAL STENOSIS, LUMBAR REG, W/OUT NEURO 06/15/2013 JACINTO CEDENO MD Ot 737.30 IDIOPATHIC SCOLIOSIS 06/15/2013 JACINTO CEDENO MD Ot 756.12 SPONDYLOLISTHESIS 06/15/2013 JACINTO CEDENO MD Ot 780.62 POSTPROCEDURAL FEVER 06/15/2013 JACINTO CEDENO MD Ot 788.20 RETENTION OF URINE NOS 06/15/2013 JACINTO CEDENO MD Ot V13.01 PERSONAL HISTORY OF URINARY CALCULI 06/15/2013 JACINTO CEDENO MD Ot V45.81 AORTOCORONARY BYPASS 06/15/2013 JACINTO CEDENO MD Ot V45.89 POSTSURGICAL STATES NEC 10/06/2013 PREET RAWLS, DARIAN Dillon Ot 721.1 CERV SPONDYL W MYELOPATH 10/06/2013 PREET RAWLS, DARIAN Dillon Ot 721.42 SPOND COMPR LUMB SP CORD 05/24/2014 WILIAN RAWLS, JACINTO Pereira Ot 288.60 05/24/2014 WILIAN RAWLS, JACINTO S Ot 401.9 05/24/2014 WILIAN RAWLS, JACINTO Pereira Ot 414.01 05/24/2014 WILIAN RAWLS, JACINTO S [...] S Ot 786.2 05/25/2014 WILIAN RAWLS, JACINTO S Ot 787.01 05/25/2014 WILIAN RAWLS, JACINTO S Ot 787.91 05/25/2014 WILIAN RAWLS, JACINTO S Ot 789.07 05/25/2014 WILIAN RAWLS, JACINTO S Ot 792.1 05/25/2014 WILIAN RAWLS, JACINTO S Ot V45.81 05/25/2014 WILIAN RAWLS, JACINTO S Ot V58.64 05/25/2014 WILIAN RAWLS, JACINTO S Ot 276.51 DEHYDRATION 05/25/2014 WILIAN RAWLS, JACINTO S Ot 288.60 LEUKOCYTOSIS, UNSPECIFIED 05/25/2014 WILIAN RAWLS, JACINTO S Ot 401.9 HYPERTENSION NOS 05/25/2014 WILIAN RAWLS, JACINTO S Ot 414.01 CORONARY ATHEROSCLEROSIS OF [place] CORON 05/25/2014 WILIAN RAWLS, JACINTO S Ot 458.9 HYPOTENSION NOS 05/25/2014 WILIAN RAWLS, JACINTO S Ot 527.7 SALIVARY SECRETION DIS 05/25/2014 WILIAN RAWLS, JACINTO S Ot 530.81 ESOPHAGEAL REFLUX 05/25/2014 WILIAN RAWLS, JACINTO S Ot 558.9 NONINF GASTROENTERIT NEC 05/25/2014 WILIAN RAWLS, JACINTO Pereira Ot 584.9 ACUTE RENAL FAILURE, UNSPECIFIED 05/25/2014 WILIAN RAWLS, JACINTO S Ot 599.0 05/25/2014 WILIAN RAWLS, JACINTO S Ot 600.00 HYPERTROPHY (BENIGN) OF PROSTATE W/O URI 05/25/2014 WILIAN RAWLS, JACINTO S Ot 715.90 OSTEOARTHROS NOS-UNSPEC 05/25/2014 WILIAN RAWLS, JACINTO S Ot 722.6 DISC DEGENERATION NOS 05/25/2014 WILIAN RAWLS, JACINTO S Ot 724.5 05/25/2014 WILIAN RAWLS, JACINTO S Ot 780.8 GENERALIZED HYPERHIDROSIS 05/25/2014 WILIAN RAWLS, JACINTO S Ot 784.92 JAW PAIN 05/25/2014 WILIAN RAWLS, JACINTO S Ot 786.2 COUGH 05/25/2014 JACINTO CEDENO MD Ot V45.81 AORTOCORONARY BYPASS 05/25/2014 WILIAN RAWLS, JACINTO S Ot V45.89 POSTSURGICAL STATES NEC 05/25/2014 WILIAN RAWLS, JACINTO S Ot V58.64 LONG-TERM(CURRENT)USE OF NON-STEROIDAL A 07/02/2014 Ot 724.02 07/02/2014 PREET RAWLS, DARIAN Dillon Ot 724.02 07/02/2014 DARIAN OVIEDO MD Ot [...] CHUY RAWLS, TASIA A Ot 786.50 07/02/2014 EDSHARDA TORREAN N Ot 288.63 07/02/2014 MICHELLE ELIZALDE MD Ot 338.4 CHRONIC PAIN SYNDROME 07/02/2014 MICHELLE ELIZALDE MD Ot 722.83 POSTLAMINECT SYND-LUMBAR 07/02/2014 MICHELLE ELIZALDE MD Ot 724.6 DISORDERS OF [place]CR[place] 07/02/2014 MICHELLE ELIZALDE MD, Ot V58.69 OTH MED,LT,CURRENT USE 07/27/2014 EDEM TORRE N Ot 288.63 09/09/2014 EDEM N Ot 288.63 MONOCYTOSIS (SYMPTOMATIC) 10/10/2014 EDEM TORRE N Ot 288.63 10/11/2014 EDSHARDAAN N Ot 288.63 10/12/2014 EDSHARDAAN N Ot 288.63 10/19/2014 MICHELLE ELIZALDE MD Ot [...] ELIZALDE MD Ot 724.6 12/10/2014 MICHELLE ELIZALDE MD, Ot V58.69 01/09/2015 EM WARD Jocelin Ot 285.9 ANEMIA NOS 01/09/2015 EM WARD N Ot 288.63 MONOCYTOSIS (SYMPTOMATIC) 01/09/2015 EM WARD Jocelin Ot V58.69 OTH MED,LT,CURRENT USE 01/15/2015 EM WARD N Ot 288.63 02/25/2015 EM WARD N Ot D64.9 02/25/2015 EM WARD N Ot D72.821 02/25/2015 EM WARD Jocelin Ot Z79.899 03/01/2015 MICHELLE ELIZALDE MD Ot G89.4 CHRONIC PAIN SYNDROME 03/01/2015 MICHELLE ELIZALDE MD, Ot M47.816 SPONDYLOSIS W/O MYELOPATHY OR RADICULOPA 03/01/2015 MICHELLE ELIZALDE MD, Ot M53.3 SACROCOCCYGEAL DISORDERS, NOT ELSEWHERE 03/01/2015 MICHELLE ELIZALDE MD, Ot M96.1 POSTLAMINECTOMY SYNDROME, NOT ELSEWHERE 03/04/2015 MICHELLE ELIZALDE MD Ot G89.4 CHRONIC PAIN SYNDROME 03/04/2015 MICHELLE ELIZALDE MD, Ot M47.816 SPONDYLOSIS W/O MYELOPATHY OR RADICULOPA 03/04/2015 MICHELLE ELIZALDE MD, Ot M53.3 SACROCOCCYGEAL DISORDERS, NOT ELSEWHERE 03/04/2015 MICHELLE ELIZALDE MD, Ot M96.1 POSTLAMINECTOMY SYNDROME, NOT ELSEWHERE 03/29/2015 MICHELLE ELIZALDE MD, Ot G89.4 CHRONIC PAIN SYNDROME 03/29/2015 MICHELLE ELIZALDE MD, Ot M47.816 SPONDYLOSIS W/O MYELOPATHY OR RADICULOPA 03/29/2015 MICHELLE ELIZALDE MD, Ot M53.3 SACROCOCCYGEAL DISORDERS, NOT ELSEWHERE 03/29/2015 MICHELLE ELIZALDE MD, Ot M96.1 POSTLAMINECTOMY SYNDROME, NOT ELSEWHERE 03/29/2015 MICHELLE ELIZALDE MD Ot 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69 OTH MED,LT,CURRENT USE 09/25/2015 EM WARD Ot D64.9 ANEMIA, UNSPECIFIED 09/25/2015 EM WARD Ot D72.821 MONOCYTOSIS (SYMPTOMATIC) 09/25/2015 EM WARD Ot Z79.899 OTHER SENIOR CARE (CURRENT) DRUG THERAPY 09/25/2015 MICHELLE LEIZALDE MD Ot G89.4 CHRONIC PAIN SYNDROME 09/25/2015 MICHELLE ELIZALDE MD Ot M96.1 POSTLAMINECTOMY SYNDROME, NOT ELSEWHERE 09/25/2015 MICHELLE ELIZALDE MD Ot Z01.812 ENCOUNTER FOR PREPROCEDURAL LABORATORY E 09/25/2015 MICHELLE ELIZALDE MD Ot Z11.2 ENCOUNTER FOR SCREENING FOR OTHER BACTER 09/25/2015 TUAN MAYA MD Ot D72.829 ELEVATED WHITE BLOOD CELL COUNT, UNSPECI 09/26/2015 TUAN MAYA MD, Ot M96.0 PSEUDARTHROSIS AFTER FUSION OR ARTHRODES 09/27/2015 TUNA MAYA MD Ot D64.9 ANEMIA, UNSPECIFIED 09/27/2015 TUAN MAYA MD Ot E87.2 ACIDOSIS 09/27/2015 TUAN MAYA MD Ot F41.9 ANXIETY DISORDER, UNSPECIFIED 09/27/2015 TUAN MAYA MD Ot G47.33 OBSTRUCTIVE SLEEP APNEA (ADULT) (PEDIATR 09/27/2015 TUAN MAYA MD Ot I12.9 HYPERTENSIVE CHRONIC KIDNEY DISEASE W ST 09/27/2015 TUAN MAYA MD Ot I25.10 ATHSCL HEART DISEASE OF [place] CORONARY 09/27/2015 TUAN MAYA MD Ot J96.01 [...] MD, Ot I25.10 ATHSCL HEART DISEASE OF [place] CORONARY 09/27/2015 TUAN MAYA MD Ot J96.01 [...] PRESENCE OF CORONARY ANGIOPLASTY IMPLANT 09/27/2015 TUAN MYAA MD, Ot D64.9 ANEMIA, UNSPECIFIED 09/27/2015 TUAN MAYA MD Ot E87.2 ACIDOSIS 09/27/2015 TUAN MAYA MD Ot F41.9 ANXIETY DISORDER, UNSPECIFIED 09/27/2015 TUAN MAYA MD Ot G47.33 OBSTRUCTIVE SLEEP APNEA (ADULT) (PEDIATR 09/27/2015 TUAN MAYA MD, Ot I12.9 HYPERTENSIVE CHRONIC KIDNEY DISEASE W ST 09/27/2015 TUAN MAYA MD, Ot I25.10 ATHSCL HEART DISEASE OF [place] CORONARY 09/27/2015 TUAN MAYA MD Ot J96.01 [...] Ot D64.9 ANEMIA, UNSPECIFIED 09/27/2015 TUAN MAYA MD, Ot E87.2 ACIDOSIS 09/27/2015 TUAN MAYA MD, Ot F41.9 ANXIETY DISORDER, UNSPECIFIED 09/27/2015 TUAN MAYA MD, Ot G47.33 OBSTRUCTIVE SLEEP APNEA (ADULT) (PEDIATR 09/27/2015 TUAN MAYA MD, Ot I12.9 HYPERTENSIVE CHRONIC KIDNEY DISEASE W ST 09/27/2015 TUAN MAYA MD, Ot I25.10 ATHSCL HEART DISEASE OF [place] CORONARY 09/27/2015 TUAN MAYA MD Ot J96.01 [...] T86.831 BONE GRAFT FAILURE 09/27/2015 TUAN MAYA MD, Ot Z95.1 PRESENCE OF AORTOCORONARY BYPASS GRAFT [...] MD Ot I25.10 ATHSCL HEART DISEASE OF [place] CORONARY 09/27/2015 TUAN MAYA MD Ot J96.01 ACUTE RESPIRATORY FAILURE WITH HYPOXIA 09/27/2015 TUAN MAYA MD Ot K21.9 GASTRO-ESOPHAGEAL REFLUX DISEASE WITHOUT 09/27/2015 TUAN MAYA MD, Ot K59.00 CONSTIPATION, UNSPECIFIED 09/27/2015 TUAN MAYA [...] DISORIENTATION, UNSPECIFIED 09/27/2015 TUAN MAYA MD, Ot R60.0 LOCALIZED EDEMA 09/27/2015 TUAN MAYA MD, Ot R73.9 HYPERGLYCEMIA, [...] HYPERTENSIVE CHRONIC KIDNEY DISEASE W ST 09/30/2015 ABEL LINDO DOI Ot I25.10 ATHSCL HEART DISEASE OF [place] CORONARY 09/30/2015 AMEENA LINDO DO Ot K59.00 CONSTIPATION, UNSPECIFIED 09/30/2015 GUICHO HANSON AMEENA Ot N18.9 CHRONIC KIDNEY DISEASE, UNSPECIFIED 09/30/2015 GUICHO HANSON AMEENA Ot N40.1 ENLARGED PROSTATE WITH LOWER URINARY TRA 09/30/2015 GUICHO HANSON AMEENA Ot N48.89 OTHER SPECIFIED DISORDERS OF PENIS 09/30/2015 AMEENA LINDO DO Ot R33.8 OTHER RETENTION OF URINE 09/30/2015 AMEENA LINDO DO Ot R73.9 HYPERGLYCEMIA, UNSPECIFIED 09/30/2015 ABEL LINDO DOI Ot Z48.89 ENCOUNTER FOR OTHER SPECIFIED SURGICAL A 09/30/2015 AMEENA LINDO DO Ot Z95.1 PRESENCE OF AORTOCORONARY BYPASS GRAFT 09/30/2015 AMEENA LINDO DO Ot Z98.1 ARTHRODESIS STATUS 10/01/2015 EM WADR Ot D64.9 ANEMIA, UNSPECIFIED 10/01/2015 EM WARD Ot D72.821 MONOCYTOSIS (SYMPTOMATIC) 10/01/2015 EM WARD Ot 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 10/02/2015 JENNIFER SHEETS MD Ot I10 ESSENTIAL (PRIMARY) HYPERTENSION 10/02/2015 JENNIFER SHEETS MD Ot N40.1 ENLARGED PROSTATE WITH LOWER URINARY TRA 10/02/2015 JENNIFER SHEETS MD Ot R33.8 OTHER RETENTION OF URINE 10/02/2015 JENNIFER SHEETS MD Ot Z79.899 OTHER SENIOR CARE (CURRENT) DRUG THERAPY 10/02/2015 FRANCESCO RAWLS, TUAN Wilson Ot D72.829 ELEVATED WHITE BLOOD CELL COUNT, UNSPECI 10/03/2015 JENNIFER SHEETS MD Ot I10 ESSENTIAL (PRIMARY) HYPERTENSION 10/03/2015 JENNIFER SHEETS MD Ot N40.1 ENLARGED PROSTATE WITH LOWER URINARY TRA 10/03/2015 JENNIFER SHEETS MD Ot R33.8 OTHER RETENTION OF URINE 10/03/2015 JENNIFER SHEETS MD Ot 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 10/04/2015 JENNIFER SHEETS MD Ot I10 ESSENTIAL (PRIMARY) HYPERTENSION 10/04/2015 JENNIFER SHEETS MD Ot N40.1 ENLARGED PROSTATE WITH LOWER URINARY TRA 10/04/2015 JENNIFER SHEETS MD Ot R33.8 OTHER RETENTION OF URINE 10/04/2015 JENNIFER SHETES MD Ot 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 06/10/2016 Tasia Vera W 272.4 OTHER AND UNSPECIFIED HYPERLIPIDEMIA 06/10/2016 Tasia Vera A 296.34 06/10/2016 Tasia Vera W 300.00 06/10/2016 Tasia Vera W 401.0 MALIGNANT ESSENTIAL HYPERTENSION 06/10/2016 Tri Veraa W 414.01 06/10/2016 Tasia Vera W 600.20 BENIGN LOCALIZED HYPERPLASIA OF PROSTATE WITHOUT URINARY OBSTRUCTION AND OTHER LOWER URINARY TRACT SYMPTOMS (LUTS) 06/10/2016 Tasia Vera W 715.30 OSTEOARTHROSIS, LOCALIZED, NOT SPECIFIED WHETHER PRIMARY OR SECONDARY, INVOLVING UNSPECIFIED SITE 06/10/2016 Tasia Vera W 780.52 06/10/2016 Tasia Vera E78.5 HYPERLIPIDEMIA, UNSPECIFIED 06/10/2016 Tasia Vera F33.3 MAJOR DEPRESSV DISORDER, RECURRENT, SEVERE W PSYCH SYMPTOMS 06/10/2016 Tasia Vera F41.9 ANXIETY DISORDER, UNSPECIFIED 06/10/2016 Tasia Vera G47.00 INSOMNIA, UNSPECIFIED 06/10/2016 Tasia Vera I10 ESSENTIAL (PRIMARY) HYPERTENSION 06/10/2016 Tasia Vera I25.10 ATHSCL HEART DISEASE OF [place] CORONARY ARTERY W/O ANG PCTRS 06/10/2016 Tasia Vera M19.90 UNSPECIFIED OSTEOARTHRITIS, UNSPECIFIED SITE 06/10/2016 Tasia Vera N40.0 BENIGN PROSTATIC HYPERPLASIA WITHOUT LOWER URINRY TRACT SYMP 06/19/2016 Ot 724.02 SPINAL STENOSIS, LUMBAR REG, W/OUT NEURO 06/19/2016 DARIAN OVIEDO MD Ot 724.02 SPINAL STENOSIS, LUMBAR REG, W/OUT NEURO 06/19/2016 DARIAN OVIEDO MD Ot V72.63 PRE-PROCEDURAL LABORATORY EXAMINATION 06/19/2016 DARIAN OVIEDO MD Ot V72.81 [id number] CARDIOVASCULAR 06/19/2016 DARIAN OVIEDO MD Ot V72.83 [...] MD Ot 786.50 CHEST PAIN NOS 06/19/2016 FIDE RAWLS, MICHELLE Wilson Ot 719.45 JOINT PAIN-PELVIS 06/19/2016 JENNIFER SHEETS [...] (SYMPTOMATIC) 06/19/2016 EM WARD Ot Z79.899 OTHER SENIOR CARE (CURRENT) DRUG THERAPY 06/19/2016 MICHELLE ELIZALDE MD [...] EXAMINATION 07/02/2016 DARIAN OVIEDO MD Ot V72.81 [id number] CARDIOVASCULAR 07/02/2016 DARIAN OVIEDO MD Ot V72.83 [...] FOR REASONS NEC 07/02/2016 CHUY RAWLS, TASIA A Ot 786.50 CHEST PAIN NOS 07/02/2016 MICHELLE [...] (SYMPTOMATIC) 07/02/2016 EM WARD Ot Z79.899 OTHER SENIOR CARE (CURRENT) DRUG THERAPY 07/02/2016 MICHELLE ELIZALDE MD [...] EXAMINATION 09/24/2016 DARIAN OVIEDO MD Ot V72.81 [id number] CARDIOVASCULAR 09/24/2016 DARIAN OVIEDO MD Ot V72.83 EXAM PRE-OPERATIVE NEC 09/24/2016 DARIAN OVIEDO MD Ot V74.8 SCREEN-BACTERIAL DIS NEC 09/24/2016 DARIAN OVIEDO MD Ot 724.02 SPINAL STENOSIS, LUMBAR REG, W/OUT NEURO 09/24/2016 DARIAN OVIEDO MD Ot V72.84 EXAM PRE-OPERATIVE NOS 09/24/2016 DARIAN OVIEDO MD Ot 288.60 LEUKOCYTOSIS, UNSPECIFIED 09/24/2016 DAIRAN OVIEDO MD Ot 721.1 CERV SPONDYL W [...] 724.6 DISORDERS OF SACRUM 09/24/2016 MICHELLE ELIZALDE MD Ot V58.69 OTH MED,LT,CURRENT USE 09/24/2016 EM WARD Ot D64.9 ANEMIA, UNSPECIFIED 09/24/2016 EM WARD Ot D72.821 MONOCYTOSIS (SYMPTOMATIC) 09/24/2016 EM WARD Ot Z79.899 OTHER SENIOR CARE (CURRENT) DRUG THERAPY 09/24/2016 MICHELLE ELIZALDE MD Ot G89.4 CHRONIC PAIN SYNDROME 09/24/2016 MICHELLE ELIZALDE MD Ot M96.1 POSTLAMINECTOMY SYNDROME, NOT ELSEWHERE 09/24/2016 MICHELLE ELIZALDE MD Ot Z01.812 ENCOUNTER FOR PREPROCEDURAL LABORATORY E 09/24/2016 MICHELLE ELIZALDE MD Ot Z11.2 ENCOUNTER FOR SCREENING FOR OTHER BACTER 09/24/2016 FRANCESCO RAWLS, TUAN Wilson Ot D72.829 ELEVATED WHITE BLOOD CELL COUNT, UNSPECI 10/05/2016 Ot 724.02 SPINAL STENOSIS, LUMBAR REG, W/OUT NEURO 10/05/2016 DARIAN OVIEDO MD Ot 724.02 SPINAL STENOSIS, LUMBAR REG, W/OUT NEURO 10/05/2016 DARIAN OVIEDO MD Ot V72.63 PRE-PROCEDURAL LABORATORY EXAMINATION 10/05/2016 DARIAN OVIEDO MD Ot V72.81 [id number] CARDIOVASCULAR 10/05/2016 DARIAN OVIEDO MD Ot V72.83 [...] V64.3 NO PROC FOR REASONS NEC 10/05/2016 TASIA VERA MD Ot 786.50 CHEST PAIN NOS 10/05/2016 MICHELLE ELIZALDE MD Ot 719.45 JOINT PAIN-PELVIS 10/05/2016 JENNIFER SHEETS MD Ot 600.00 HYPERTROPHY (BENIGN) OF PROSTATE W/O URI 10/05/2016 JENNIFER SHEETS MD Ot V58.69 OTH MED,LT,CURRENT USE 10/05/2016 JENINFER SHEETS MD Ot V58.83 ENCOUNTER FOR THERAPEUTIC [...] (SYMPTOMATIC) 10/05/2016 EM WARD Ot Z79.899 OTHER SENIOR CARE (CURRENT) DRUG THERAPY 10/05/2016 MICHELLE ELIZALDE MD [...] Chuy, Tasia W R60.0 LOCALIZED EDEMA 04/18/2017 TASIA SIMENTAL DO Ot E86.0 DEHYDRATION 04/18/2017 TASIA SIMENTAL DO Ot F32.9 MAJOR DEPRESSIVE DISORDER, SINGLE EPISOD 04/18/2017 TASIA SIMENTAL DO Ot F41.9 ANXIETY DISORDER, UNSPECIFIED 04/18/2017 TASIA SIMENTAL DO Ot G89.29 OTHER CHRONIC PAIN 04/18/2017 TASIA SIMENTAL DO Ot I10 ESSENTIAL (PRIMARY) HYPERTENSION 04/18/2017 TASIA SIMENTAL DO Ot K21.9 GASTRO-ESOPHAGEAL REFLUX DISEASE WITHOUT 04/18/2017 KAMILLENasima HANSON TASIA K Ot K59.00 CONSTIPATION, UNSPECIFIED 04/18/2017 KAMILLETASIA Del Real DO Ot M54.5 LOW BACK PAIN 04/18/2017 KAMILLETASIA Del Real DO Ot N39.0 URINARY TRACT INFECTION, SITE NOT SPECIF 04/18/2017 KAMILLETASIA Del Real DO Ot N40.1 BENIGN PROSTATIC HYPERPLASIA WITH LOWER 04/18/2017 TASIA SIMENTAL DO Ot Z82.49 FAMILY HX OF ISCHEM HEART DIS AND OTH DI 04/18/2017 TASIA SIMENTAL DO Ot Z86.010 PERSONAL HISTORY OF COLONIC POLYPS 04/18/2017 TASIA SIMENTAL DO Ot Z87.440 PERSONAL HISTORY OF [...] DO Ot I25.10 ATHSCL HEART DISEASE OF [place] CORONARY 06/01/2017 JUDE MENENDEZ DO Ot K21.9 GASTRO-ESOPHAGEAL REFLUX DISEASE WITHOUT 06/01/2017 JUDE MENENDEZ DO Ot 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 06/01/2017 JUDE MENENDEZ DO Ot K59.09 OTHER CONSTIPATION 06/01/2017 JUDE MENENDEZ DO Ot K63.5 POLYP OF COLON 06/01/2017 JUDE MENENDEZ DO Ot Z79.899 OTHER SENIOR CARE (CURRENT) DRUG THERAPY 06/01/2017 JUDE MENENDEZ DO [...] DO Ot I25.10 ATHSCL HEART DISEASE OF [place] CORONARY 06/03/2017 JUDE MENENDEZ DO Ot K21.9 GASTRO-ESOPHAGEAL REFLUX DISEASE WITHOUT 06/03/2017 JUDE MENENDEZ DO Ot 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 06/03/2017 JUDE MENENDEZ DO Ot K59.09 OTHER CONSTIPATION 06/03/2017 JUDE MENENDEZ DO Ot K63.5 POLYP OF COLON 06/03/2017 JUDE MENENDEZ DO Ot 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 06/03/2017 JUDE MENENDEZ DO [...] MED,LT,CURRENT USE 06/23/2017 JENNIFER SHEETS MD Ot 600.00 HYPERTROPHY [...] MD Ot 724.6 DISORDERS OF SACR[place] 06/23/2017 FIDE RAWLS, MICHELLE Wilson Ot V58.69 [facility] MED,LT,CURRENT USE 06/23/2017 TUAN MAYA MD, Ot M50.31 OTHER CERVICAL DISC DEGENERATION, HIGH 08/20/2017 VOELTON TSEY Han Ot M51.36 OTHER INTERVERTEBRAL DISC DEGENERATION, 08/20/2017 VORASHAWN SWEENEY HERMILO Han Ot Z98.1 ARTHRODESIS STATUS 08/30/2017 VOHERMILO TSE Ot M51.36 OTHER INTERVERTEBRAL DISC DEGENERATION, 08/30/2017 VOGT HERMILO SWEENEY Ot Z98.1 ARTHRODESIS STATUS 09/09/2017 TUAN MAYA MD, Ot M47.812 SPONDYLOSIS W/O MYELOPATHY OR RADICULOPA [...] STENOSIS OF INTVRT FO 11/05/2017 Tasia Vera W 564.00 CONSTIPATION, UNSPECIFIED 11/05/2017 Tasia Vera 600.20 BENIGN LOCALIZED HYPERPLASIA OF PROSTATE WITHOUT URINARY OBSTRUCTION AND OTHER LOWER URINARY TRACT SYMPTOMS (LUTS) 11/05/2017 Tasia Vera K59.00 CONSTIPATION, UNSPECIFIED 11/05/2017 Tasia Vera N13.8 OTHER OBSTRUCTIVE AND REFLUX UROPATHY 11/05/2017 Tasia Vera W 429.2 11/05/2017 Chuy, Tasia W 564.00 CONSTIPATION, UNSPECIFIED 11/05/2017 Chuy, Tasia W 585.9 11/05/2017 Chuy, Tasia A 600.20 BENIGN LOCALIZED HYPERPLASIA OF PROSTATE WITHOUT URINARY OBSTRUCTION AND OTHER LOWER URINARY TRACT SYMPTOMS (LUTS) 11/05/2017 Chuy, Tasia W 607.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 11/05/2017 Chuy, Tasia W 724.5 BACKACHE, UNSPECIFIED 11/05/2017 Chuy, Tasia W 789.00 ABDOMINAL PAIN, UNSPECIFIED SITE 11/05/2017 Chuy, Tasia W I25.10 ATHEROSCLEROTIC HEART DISEASE OF [place] CORONARY ARTERY WITHOUT ANGINA PECTORIS 11/05/2017 Chuy, Tasia W K59.00 CONSTIPATION, UNSPECIFIED 11/05/2017 Chuy, Tasia A N13.8 OTHER OBSTRUCTIVE AND REFLUX UROPATHY 11/05/2017 [facility], Tasia W N18.9 CHRONIC KIDNEY DISEASE, UNSPECIFIED 11/05/2017 Chuy, Tasia W N52.9 MALE ERECTILE DYSFUNCTION, UNSPECIFIED 11/05/2017 Chuy, Tasia W R10.9 UNSPECIFIED ABDOMINAL PAIN 11/05/2017 [facility], Tasia W R52 PAIN, UNSPECIFIED 11/05/2017 [facility], Tasia W 429.2 11/05/2017 [facility], Tasia W 564.00 CONSTIPATION, UNSPECIFIED 11/05/2017 [facility], Tasia W 585.9 11/05/2017 Chuy, Tasia A 600.20 BENIGN LOCALIZED HYPERPLASIA OF PROSTATE WITHOUT URINARY OBSTRUCTION AND OTHER LOWER URINARY TRACT SYMPTOMS (LUTS) 11/05/2017 Chuy, Tasia W 607.84 11/05/2017 Chuy, Tasia W 724.5 BACKACHE, UNSPECIFIED 11/05/2017 [facility], Tasia W 789.00 11/05/2017 Chuy, Tasia W I25.10 ATHEROSCLEROTIC HEART DISEASE OF [place] CORONARY ARTERY WITHOUT ANGINA PECTORIS 11/05/2017 Chuy, Tasia W K59.00 CONSTIPATION, UNSPECIFIED 11/05/2017 Chuy, Tasia A N13.8 OTHER OBSTRUCTIVE AND REFLUX UROPATHY 11/05/2017 Chuy, Tasia W N18.9 CHRONIC KIDNEY DISEASE, UNSPECIFIED 11/05/2017 Chuy, Tasia W N52.9 MALE ERECTILE DYSFUNCTION, UNSPECIFIED 11/05/2017 Tasia Vera W R10.9 UNSPECIFIED ABDOMINAL PAIN 11/05/2017 Tasia Vera W R52 PAIN, UNSPECIFIED 01/06/2018 EM WARD Ot D64.9 ANEMIA, UNSPECIFIED 01/06/2018 ED EM N Ot D72.821 MONOCYTOSIS (SYMPTOMATIC) 01/06/2018 EM WARD N Ot Z79.899 OTHER SENIOR CARE (CURRENT) DRUG THERAPY 01/06/2018 EM WARD Ot D64.9 ANEMIA, UNSPECIFIED 01/06/2018 EDEM N Ot D72.821 MONOCYTOSIS (SYMPTOMATIC) 01/06/2018 EM WARD Ot 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 01/06/2018 TUAN MAYA MD Ot I10 ESSENTIAL (PRIMARY) HYPERTENSION 01/06/2018 TUAN MAYA MD, Ot M48.061 SPINAL STENOSIS, LUMBAR REGION WITHOUT N 01/06/2018 TUAN MAYA MD Ot Z01.812 ENCOUNTER FOR PREPROCEDURAL LABORATORY E 01/06/2018 TUAN MAYA MD Ot Z11.2 ENCOUNTER FOR SCREENING FOR OTHER BACTER 01/06/2018 TUAN MAYA MD Ot Z22.322 CARRIER OR SUSPECTED CARRIER OF METHICIL 01/10/2018 TUAN MAYA MD, Ot I10 ESSENTIAL (PRIMARY) HYPERTENSION 01/10/2018 TUAN MAYA MD, Ot M48.061 SPINAL STENOSIS, LUMBAR REGION WITHOUT N 01/10/2018 TUAN MAYA MD Ot Z01.812 ENCOUNTER FOR PREPROCEDURAL LABORATORY E 01/10/2018 TUAN MAYA MD Ot Z11.2 ENCOUNTER FOR SCREENING FOR OTHER BACTER 01/10/2018 TUAN MAYA MD Ot Z22.322 CARRIER OR SUSPECTED CARRIER OF METHICIL 01/11/2018 EM WARD Ot D64.9 ANEMIA, UNSPECIFIED 01/11/2018 EM WARD Ot D72.821 MONOCYTOSIS (SYMPTOMATIC) 01/11/2018 EM WARD Ot Z79.899 OTHER SENIOR CARE (CURRENT) DRUG THERAPY 01/13/2018 TUAN MAYA MD Ot E66.9 OBESITY, UNSPECIFIED 01/13/2018 TUAN MAYA MD Ot E78.5 HYPERLIPIDEMIA, UNSPECIFIED 01/13/2018 TUAN MAYA MD Ot E83.42 HYPOMAGNESEMIA 01/13/2018 TUAN MAYA MD Ot F32.9 MAJOR DEPRESSIVE DISORDER, SINGLE EPISOD 01/13/2018 TUAN MAYA MD, Ot F41.9 ANXIETY DISORDER, UNSPECIFIED 01/13/2018 TUAN MAYA MD Ot G47.9 SLEEP DISORDER, UNSPECIFIED 01/13/2018 TUAN MAYA MD Ot I10 ESSENTIAL (PRIMARY) HYPERTENSION 01/13/2018 TUAN MAYA MD, Ot I25.10 ATHSCL HEART DISEASE OF [place] CORONARY 01/13/2018 TUAN MAAY MD, Ot J30.2 OTHER SEASONAL ALLERGIC RHINITIS 01/13/2018 TUAN MAYA MD Ot K21.9 GASTRO-ESOPHAGEAL REFLUX DISEASE WITHOUT 01/13/2018 TUAN MAYA MD Ot K56.7 ILEUS, UNSPECIFIED 01/13/2018 TUAN MAYA MD, Ot K59.00 CONSTIPATION, UNSPECIFIED 01/13/2018 TUAN MAYA MD, Ot K59.09 OTHER CONSTIPATION 01/13/2018 TUAN MAYA MD Ot M19.91 PRIMARY OSTEOARTHRITIS, UNSPECIFIED SITE 01/13/2018 TUAN MAYA MD Ot M48.061 SPINAL STENOSIS, LUMBAR REGION WITHOUT N 01/13/2018 TUAN MAYA MD Ot M51.16 INTERVERTEBRAL DISC DISORDERS W RADICULO 01/13/2018 TUAN MAYA MD Ot N40.0 BENIGN PROSTATIC HYPERPLASIA WITHOUT LOW 01/13/2018 TUAN MAYA MD Ot T84.216A BREAKDOWN (MECHANICAL) OF INT FIX OF [place] 01/13/2018 TUAN MAYA MD Ot Z68.31 BODY MASS INDEX (BMI) 31.0-31.9, ADULT 01/13/2018 TUAN MAYA MD Ot Z86.010 PERSONAL HISTORY OF COLONIC POLYPS 01/13/2018 TUAN MAYA MD, Ot Z87.442 PERSONAL HISTORY OF URINARY CALCULI 01/13/2018 TUAN MAYA MD Ot Z95.1 PRESENCE OF AORTOCORONARY BYPASS GRAFT 01/13/2018 TUAN MAYA MD Ot Z95.5 PRESENCE OF CORONARY ANGIOPLASTY IMPLANT 01/16/2018 LINDOAMEENA KOHLER DO Ot E66.9 OBESITY, UNSPECIFIED 01/16/2018 AMEENA LINDO DO Ot F32.9 MAJOR DEPRESSIVE DISORDER, SINGLE EPISOD 01/16/2018 LINDOAMEENA KOHLER DO Ot F41.9 ANXIETY DISORDER, UNSPECIFIED 01/16/2018 AMEENA LINDO DO Ot I10 ESSENTIAL (PRIMARY) HYPERTENSION 01/16/2018 AMEENA LINDO DO Ot I25.10 ATHSCL HEART DISEASE OF [place] CORONARY 01/16/2018 AMEENA LINDO DO Ot M54.9 DORSALGIA, UNSPECIFIED 01/16/2018 LINDOAMEENA KOHLER DO Ot Z47.89 ENCOUNTER FOR OTHER ORTHOPEDIC AFTERCARE 01/16/2018 AMEENA LINDO DO Ot Z68.31 BODY MASS INDEX (BMI) 31.0-31.9, ADULT 01/16/2018 AMEENA LINDO DO Ot Z98.1 ARTHRODESIS STATUS Procedures Code Description Performed By Performed On 80.51 EXCISION INTERVERT DISC 05/29/2013 81.08 LUMBAR LUMBOSACRAL FUSION OF ANTERIOR 05/29/2013 81.62 FUSION/REFUS OF 2-3 VERTEBRAE 05/29/2013 84.51 INSERTION OF INTERBODY SPINAL FUSION DEV 05/29/2013 77.79 EXCISE BONE FOR GFT NEC 06/07/2013 81.08 LUMBAR LUMBOSACRAL FUSION OF ANTERIOR 06/07/2013 81.62 FUSION/REFUS OF 2-3 VERTEBRAE 06/07/2013 84.51 INSERTION OF INTERBODY SPINAL FUSION DEV 06/07/2013 [id number] 09/23/2015 [id number] EXCISION OF RIGHT PELVIC BONE, OPEN APPR 09/23/2015 [id number] EXCISION OF LEFT PELVIC BONE, OPEN APPRO 09/23/2015 [id number] 09/23/2015 [id number] INSERTION OF INT FIX INTO R PELVIC BONE, 09/23/2015 [id number] INSERTION OF INT FIX INTO L PELVIC BONE, 09/23/2015 [id number] EXCISION OF LUMBOSACRAL DISC, OPEN APPRO 09/23/2015 [id number] FUSION LUM JT W AUTOL SUB , POST APPR P C 09/23/2015 [id number] 09/23/2015 [id number] FUSION LUMSAC JT W AUTOL SUB, POST APPR 09/23/2015 [id number] FUSION LUMSAC JT W INTBD FUS DEV, ANT AP 09/23/2015 [id number] REMOVAL OF INT FIX FROM LUM JT, OPEN LAURA 09/23/2015 [id number] REMOVAL OF INT FIX FROM LUMSAC JT, OPEN 09/23/2015 [id number] REMOVAL OF INTBD FUS DEV FROM LUMSAC JT, 09/23/2015 [id number] FUSION THOR JT W AUTOL SUB , POST APPR P 01/10/2018 [id number] FUSION T-LUM JT W AUTOL SUB, POST APPR P 01/10/2018 [id number] FUSION LUM JT W AUTOL SUB , POST APPR P C 01/10/2018 [id number] FUSION LUM JT W INTBD FUS DEV, ANT APPR 01/10/2018 Results Test Result Range Thyroid Stimulating Hormone [...] 5-8.5 Urine-Protein Negative Negative Urine-RBC Negative Urine-Specific [place] 1.015 1.000-1.030 Urine-WBC Nothing Seen on Microscopic [...] at 13:28 on 03/19/2017 CULTURE SOURCE void [facility] - 03/31/17 16:50 Anion Gap 15 6-14 [...] 5-8.5 Urine-Protein Trace Negative Urine-RBC Negative Urine-Specific [place] >=1.030 1.000-1.030 Urine-WBC Nothing Seen on Microscopic [...] ABO+Rh group AP NRG Transfusion band number [id number] NRG Blood group antibody screen NEGATIVE NRG [...] NR Manual blood lymphocytes/100 leukocytes 9 % NR Manual eosinophils/100 leukocytes in nose 1 % [...] Status Pt. Type Provider Facility Loc./Unit Complaint [id number] 01/13/2018 12:51:00 01/16/2018 12:15:00 DIS Inpatient AMEENA LINDO DO Via [facility] 4TH SWB,STENOSIS [id number] 01/10/2018 07:26:00 01/13/2018 12:32:00 DIS Inpatient TUAN MAYA MD [facility] 4TH STENOSIS [id number] 01/06/2018 10:01:00 01/06/2018 15:05:00 DIS Outpatient TUAN MAYA MD [facility] PREOP STENOSIS [id number] 09/08/2017 09:27:00 09/08/2017 23:59:59 CLS Outpatient TUAN MAYA MD [facility] RAD CERVICALGIA,DDD [id number] 08/19/2017 11:33:00 08/19/2017 23:59:59 CLS Outpatient HERMILO SANDOVAL [facility] RAD BACK PAIN [id number] 06/01/2017 07:36:00 06/01/2017 10:11:00 DIS Outpatient JUDE MENENDEZ DO [facility] ENDO CHANGE IN BM, HX COLON POLYPS [id number] 05/17/2017 10:00:00 05/17/2017 10:06:00 DIS Outpatient JUDE MENENDEZ DO [facility] PREOP COLONOSCOPY [id number] 04/18/2017 17:50:00 04/18/2017 22:00:00 DIS Emergency TASIA SIMENTAL DO [facility] ER LOWER BACK PAIN, ABD PAIN [id number] 10/06/2016 10:08:00 10/06/2016 23:59:59 CLS Outpatient TUAN MAYA MD [facility] RAD NECK PAIN M54.2 [id number] 10/01/2015 06:00:00 10/02/2015 15:10:00 DIS Outpatient JENNIFER SHEETS MD [facility] SDC URINE RETENTION,BPH [id number] 09/27/2015 15:06:00 09/30/2015 13:00:00 DIS Inpatient AMEENA LINDO DO [facility] 4TH SWB NON UNION [id number] 09/23/2015 05:59:00 09/27/2015 15:06:00 DIS Inpatient TUAN MAYA MD [facility] 4TH NON UNION [id number] 09/18/2015 13:09:00 09/18/2015 23:59:59 CLS Outpatient TUAN MAYA MD [facility] LAB ELEVATED WBC [id number] 09/10/2015 10:23:00 09/10/2015 15:40:00 DIS Outpatient TUAN MAYA MD [facility] PREOP NON UNION [id number] 07/09/2015 12:55:00 07/31/2015 11:18:00 DIS Outpatient MICHELLE ELIZALDE MD [facility] REHAB LUMBAGO [id number] 06/14/2015 09:17:00 06/14/2015 13:41:00 DIS Outpatient [facility]; POST LAMINECTOMY SYNDROME [id number] 06/06/2015 11:58:00 06/06/2015 23:59:59 CLS Outpatient MICHELLE ELIZALDE MD [facility] PREOP CHRONIC PAIN SYNDROME; POST LAMINECTOMY SYNDROME [id number] 04/11/2015 00:22:00 04/11/2015 23:59:59 CLS Preadmit EM WARD [facility] ONC [id number] 01/10/2015 14:25:00 04/10/2015 00:01:00 DIS Outpatient EM WARD [facility] ONC [id number] 03/29/2015 15:00:00 03/29/2015 16:27:00 DIS Outpatient MICHELLE ELIZALDE MD [facility] CARD SPONDYLOSIS [id number] 03/04/2015 12:35:00 03/04/2015 13:32:00 DIS Outpatient MICHELLE ELIZALDE MD Via [facility] 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 [id number] 03/01/2015 07:58:00 03/01/2015 08:40:00 DIS Outpatient MICHELLE ELIZALDE MD [facility] 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 [id number] 01/03/2015 10:42:00 01/09/2015 00:01:00 DIS Outpatient EM WARD [facility] ONC [id number] 11/16/2014 09:13:00 11/16/2014 23:59:59 CLS Outpatient MICHELLE ELIZALDE MD [facility] CARD SI JOINT DYSFUNTION [id number] 10/19/2014 07:23:00 10/19/2014 08:31:00 DIS Outpatient MICHELLE ELIZALDE MD [facility] CARD SIJD,HIP OSTEOARTHRITIS [id number] 10/11/2014 13:08:00 10/11/2014 23:59:59 CLS Outpatient JENNIFER SHEETS MD [facility] 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 [id number] 10/11/2014 10:56:00 10/11/2014 23:59:59 CLS Outpatient MICHELLE ELIZALDE MD [facility] RAD BI HIP PAIN [id number] 06/11/2014 13:31:00 09/09/2014 00:01:00 DIS Outpatient EM WARD [facility] ONC [id number] 07/02/2014 13:08:00 07/02/2014 14:32:00 DIS Outpatient MICHELLE ELIZALDE MD [facility] CARD SIJD [id number] 05/23/2014 21:20:00 05/25/2014 13:15:00 DIS Inpatient WILIAN RAWLS, JACINTO Pereira [facility] 4TH GENERALIZED ABD PAIN;N/V; DIARRHEA;LEUKOSYTOSIS [id number] 10/06/2013 14:05:00 10/06/2013 23:59:59 CLS Outpatient CHUY RAWLS, TASIA Ramirez [facility] RAD CP [id number] 10/06/2013 09:25:00 10/06/2013 16:30:00 DIS Outpatient PREET RAWLS, DARIAN Dillon [facility] RAD LUMBAR RADICULOPATHY, CERVICAL STENOSIS [id number] 08/23/2013 07:43:00 08/23/2013 23:59:59 CLS Outpatient DARIAN OVIEDO MD [facility] RAD LUMBAR RADICULOPATHY, CERVICAL STENOSIS [id number] 06/07/2013 00:01:00 06/15/2013 11:10:00 DIS Inpatient JACINTO CEDENO MD [facility] SURGICAL DEHYDRATION; INTRACTABLE PAIN [id number] 06/04/2013 14:29:00 06/04/2013 15:30:00 DIS Emergency SUKHWINDER THAPA MD [facility] ER SOA [id number] 06/02/2013 08:06:00 06/02/2013 23:59:59 CLS Outpatient DARIAN OVIEDO MD [facility] PREOP LUMBAR STENOSIS [id number] 05/29/2013 09:20:00 05/30/2013 15:00:00 DIS Inpatient DARIAN OVIEDO MD [facility] SURGICAL CERVICAL STENOSIS [id number] 05/15/2013 10:24:00 05/15/2013 23:59:59 CLS Outpatient DARIAN OVIEDO MD [facility] PREOP CERVICAL STENOSIS [id number] 03/25/2012 13:01:00 Document Registration [id number] 11/05/2017 17:08:00 11/05/2017 23:59:00 DIS Outpatient Tasia Vera [id number] 03/31/2017 16:49:00 03/31/2017 23:59:00 DIS Outpatient Tasia Vera [id number] 03/24/2017 13:15:00 03/24/2017 23:59:00 DIS Outpatient Tasia Vera [id number] 03/19/2017 11:36:00 03/19/2017 23:59:00 DIS Outpatient Tasia Vera [id number] 06/10/2016 19:00:00 06/12/2016 11:00:00 DIS Inpatient Tasia Vera [id number] 03/26/2016 15:57:00 03/26/2016 23:59:00 DIS Outpatient Tasia Vera [id number] 06/10/2016 20:20:28 Document Registration [id number] 12/16/2017 08:04:53 Document Registration [id number] 01/10/2015 14:38:01 ACT Document Registration
[2018-03-19 13:25] LABS: BASOPHILS # (AUTO) 0.1 10^3/uL (0.0-0.1); BASOPHILS % (AUTO) 0 % (0-10); EOSINOPHILS # (AUTO) 0.3 10^3/uL (0.0-0.3); EOSINOPHILS % (AUTO) 2 % (0-10); HEMATOCRIT 41 % (40-54); HEMOGLOBIN 13.4 G/DL (13.3-17.7); LYMPHOCYTES # (AUTO) 4.9 X 10^3 (1.0-4.0); LYMPHOCYTES % (AUTO) 31 % (12-44); MEAN CORPUSCULAR HEMOGLOBIN 27 PG (25-34); MEAN CORPUSCULAR HGB CONC 33 G/DL (32-36); MEAN CORPUSCULAR VOLUME 83 FL (80-99); MEAN PLATELET VOLUME 10.4 FL (7.4-10.4); MONOCYTES # (AUTO) 2.1 X 10^3 (0.0-1.0); MONOCYTES % (AUTO) 13 % (0-12); NEUTROPHILS # (AUTO) 8.5 X 10^3 (1.8-7.8); NEUTROPHILS % (AUTO) 54 % (42-75); PLATELET COUNT 379 10^3/uL (130-400); RED BLOOD COUNT 4.93 10^6/uL (4.35-5.85); RED CELL DISTRIBUTION WIDTH 14.3 % (10.0-14.5); WHITE BLOOD COUNT 15.8 10^3/uL (4.3-11.0)
--- NOTE | 2018-03-19 13:38 | ED Chest Pain ---
General Chief Complaint: Chest Pain Stated Complaint: CP/L ARM PAIN Source: patient Exam Limitations: no limitations History of Present Illness Date Seen by Provider: Mar 19, 2018 Time Seen by Provider: 13:37 Initial Comments To ER per private vehicle with reports of left-sided chest pain. This pain is described as burning and sharp. This began 2 days ago as an intermittent pain. Last night this pain became constant and is still present at this time. He did have some nausea and shortness of breath last night. History of CABG by Dr. muse in [place] 8 years ago. He had a lumbar spinal surgery here in January and states that they did a stress test before the surgery and was told everything looked fine. He also states that he's been having some troubles with seasonal depression with the weather change and since having his back surgery and the subsequent activity limitations. 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 NTG SL BARREL LATHE OPERATOR INSIDE: No Associated Symptoms: nausea/vomiting, shortness of breath Allergies and Home Medications Allergies Coded Allergies: adhesive (Unverified Allergy, Mild, RASH, 01/06/18) morphine (Unverified Allergy, Mild, CONFUSION, 01/06/18) bethanechol (Verified Allergy, Unknown, DROOLING, SEIZURE TYPE EPISODE, HYPOTENSION, "BLACK OUTS", 01/11/18) gabapentin (Verified Allergy, Unknown, 01/06/18) Home Medications Alprazolam 0.5 Mg Tablet, 0.5 MG PO TID, (Reported) Bupropion HCl 75 Mg Tablet, 75 MG PO BID, (Reported) Diltiazem HCl 120 Mg Cap.er.24h, 120 MG PO DAILY, (Reported) Duloxetine HCl 60 Mg Capsule.dr, 60 MG PO BID, (Reported) Ibuprofen 200 Mg Capsule, 200 MG PO TID, (Reported) Losartan/Hydrochlorothiazide 1 Each Tablet, 1 EACH PO DAILY, (Reported) Omeprazole 20 Mg Capsule.dr, 20 MG PO BID, (Reported) Patient Home Medication List Home Medication List Reviewed: Yes Review of Systems Review of Systems Constitutional: see HPI EENTM: No Symptoms Reported Respiratory: No Symptoms Reported Cardiovascular: See HPI, Chest Pain Gastrointestinal: See HPI, Abdominal Pain Genitourinary: No Symptoms Reported Musculoskeletal: no symptoms reported Skin: no symptoms reported Psychiatric/Neurological: No Symptoms Reported Endocrine: No Symptoms Reported Hematologic/Lymphatic: No Symptoms Reported Past Nltuvwb-Oaglze-Qhaczd Hx Patient Social History Recent Foreign Travel: No Contact w/Someone Who Travel: No Recent Hopitalizations: No Immunizations Up To Date Tetanus Booster (TDap): Less than 5yrs Date of Pneumonia Vaccine: May 30, 2013 Date of Influenza Vaccine: Apr 16, 2014 Seasonal Allergies Seasonal Allergies: Yes Past Medical History Surgeries: Yes (HERNIA, KNUCKLE JOINT REPLACEMENT, BACK X2,) Abdominal, Appendectomy, Cardiac, CABG, Coronary Stent, Orthopedic Respiratory: No Cardiac: Yes (quad bypass 2008) Coronary Artery Disease, Hypertension Neurological: No Reproductive Disorders: No HIV/AIDS: No Genitourinary: Yes (CHRONIC RENAL INSUFFICIENCY) Prostate Problems, Kidney Stones, Renal Failure Gastrointestinal: Yes Gastroesophageal Reflux, Chronic Constipation, Polyps Musculoskeletal: Yes (NON-UNION OF HARDWARE, STENOSIS) Degenerate Disk Disease, Arthritis, Chronic Back Pain Endocrine: No HEENT: Yes (GLASSES) Loss of Vision: Bilateral Hearing Impairment: Hard of Hearing Cancer: No Psychosocial: Yes Sleep Difficulties, Anxiety, Depression Integumentary: No (HX SHINGLES) Blood Disorders: No Adverse Reaction/Blood Tranf: No (HAS HAD BLOOD WITH NO REACTION) Family Medical History Family history: Cardiovascular disease 09 BROTHER Family history: Diabetes mellitus 03 MOTHER 09 BROTHER History of drug abuse 03 FATHER Hypertension Physical Exam Vital Signs Vital Signs - First Documented 03/19/18 13:11 Temp 97.9 Pulse 95 Resp 20 B/P (MAP) 196/118 (144) Pulse Ox 98 O2 Delivery Room Air Capillary Refill : Height, Weight, BMI Height: 5'7.00" Weight: 202lbs. 8.0oz. 91.107979cg; 31.7 BMI Method:Stated General Appearance: No Apparent Distress, WD/WN HEENT: PERRL/EOMI, TMs Normal Neck: Full Range of Motion, Normal Inspection Respiratory: No Accessory Muscle Use, No Respiratory Distress Cardiovascular: Regular Rate, Rhythm, Normal Peripheral Pulses Gastrointestinal: Normal Bowel Sounds, Non Tender, Soft Extremity: Normal Capillary Refill, Normal Inspection Neurologic/Psychiatric: Alert, Oriented x3 Skin: Normal Color, Warm/Dry Progress/Results/Core Measures Results/Orders Lab Results Laboratory Tests Test 03/19/18 13:15 03/19/18 16:10 Range/Units White Blood Count 15.8 H 4.3-11.0 10^3/uL Red Blood Count 4.93 4.35-5.85 10^6/uL Hemoglobin 13.4 13.3-17.7 G/DL Hematocrit 41 40-54 % Mean Corpuscular Volume 83 80-99 FL Mean Corpuscular Hemoglobin 27 25-34 PG Mean Corpuscular Hemoglobin Concent 33 32-36 G/DL Red Cell Distribution Width 14.3 10.0-14.5 % Platelet Count 379 130-400 10^3/uL Mean Platelet Volume 10.4 7.4-10.4 FL Neutrophils (%) (Auto) 54 42-75 % Lymphocytes (%) (Auto) 31 12-44 % Monocytes (%) (Auto) 13 H 0-12 % Eosinophils (%) (Auto) 2 0-10 % Basophils (%) (Auto) 0 0-10 % Neutrophils # (Auto) 8.5 H 1.8-7.8 X 10^3 Lymphocytes # (Auto) 4.9 H 1.0-4.0 X 10^3 Monocytes # (Auto) 2.1 H 0.0-1.0 X 10^3 Eosinophils # (Auto) 0.3 0.0-0.3 10^3/uL Basophils # (Auto) 0.1 0.0-0.1 10^3/uL Neutrophils % (Manual) 55 % Lymphocytes % (Manual) 34 % Monocytes % (Manual) 9 % Eosinophils % (Manual) 1 % Basophils % (Manual) 0 % Band Neutrophils 1 % Blood Morphology Comment NORMAL Prothrombin Time 13.0 12.2-14.7 SEC INR Comment 1.0 0.8-1.4 Activated Partial Thromboplast Time 29 24-35 SEC Sodium Level 140 135-145 MMOL/L Potassium Level 3.7 3.6-5.0 MMOL/L Chloride Level 101 98-107 MMOL/L Carbon Dioxide Level 25 21-32 MMOL/L Anion Gap 14 5-14 MMOL/L Blood Urea Nitrogen 14 7-18 MG/DL Creatinine 1.53 H 0.60-1.30 MG/DL Estimat Glomerular Filtration Rate 45 BUN/Creatinine Ratio 9 Glucose Level 77 70-105 MG/DL Calcium Level 9.8 8.5-10.1 MG/DL Corrected Calcium 9.6 8.5-10.1 MG/DL Magnesium Level 1.8 1.8-2.4 MG/DL Total Bilirubin 0.5 0.1-1.0 MG/DL Aspartate Amino Transf (AST/SGOT) 18 5-34 U/L Alanine Aminotransferase (ALT/SGPT) 13 0-55 U/L Alkaline Phosphatase 91 40-136 U/L Myoglobin 132.1 H 10.0-92.0 NG/ML Troponin I < 0.30 < 0.30 <0.30 NG/ML B-Type Natriuretic Peptide 76.8 <100.0 PG/ML Total Protein 8.2 6.4-8.2 GM/DL Albumin 4.3 3.2-4.5 GM/DL Lipase 23 8-78 U/L My Orders Orders - LONNIE CRAWFORD APRN Cbc With Automated Diff (03/19/18 13:14) Magnesium (03/19/18 13:14) Chest 1 View, Ap/Pa Only (03/19/18 13:14) Ekg Tracing (03/19/18 13:14) Cardiac Profile 1 (03/19/18 13:14) Comprehensive Metabolic Panel (03/19/18 13:14) Myoglobin Serum (03/19/18 13:14) Protime With Inr (03/19/18 13:14) Partial Thromboplastin Time (03/19/18 13:14) O2 (03/19/18 13:14) Monitor-Rhythm Ecg Trace Only (03/19/18 13:14) Lipid Panel (03/20/18 06:00) Aspirin Chewable Tablet (Baby Aspirin Ch (03/19/18 13:15) Saline Lock/Iv-Start (03/19/18 13:14) Lipase (03/19/18 13:14) BNP (03/19/18 13:14) Nitroglycerin 0.4 Mg Btl 25's (Nitrostat (03/19/18 13:45) Manual Differential (03/19/18 13:15) Oxycodone/Acet 10/325mg Tablet (Percocet (03/19/18 14:45) Troponin I (03/19/18 16:16) Ekg Tracing (03/19/18 16:16) Medications Given in ED Current Medications Medications Dose Ordered Sig/Miryam Route Start Time Stop Time Status Last Admin Dose Admin Aspirin 324 mg ONCE ONCE PO 03/19/18 13:15 03/19/18 13:16 DC 03/19/18 13:24 324 MG Nitroglycerin 1 TAB Q 5 MIN X 3 NEEDED PRN SL 03/19/18 13:45 03/19/18 13:55 0.4 MG Oxycodone/ Acetaminophen 1 tab ONCE ONCE PO 03/19/18 14:45 03/19/18 14:46 DC 03/19/18 14:48 1 TAB Vital Signs/I&O 03/19/18 03/19/18 03/19/18 13:11 13:11 16:51 Temp 97.9 97.9 Pulse 95 95 Resp 20 20 B/P (MAP) 196/118 (144) 196/118 (144) Pulse Ox 98 98 98 O2 Delivery Room Air Room Air Departure Communication (Admissions) 5942- His pain is essentially the same after the nitro sublingual. His blood pressure has reduced nicely to 130s/70s. Discussed with him the possible etiology including cervical radiculopathy which has been supported on outpatient cervical spine MRI. He was taking oxycodone 7.5mg tabs until 3-4 days ago but quit because he doesnt want to get addicted. He states they did help with his pain tho. He would also like to discuss changing his cymbalta and wellbutrin with primary care. Discussed that cymbalta can help with chronic pain so wellbutrin may be the one to change and replace with something else but willl ultimately defer this decision to Dr Vera. We will keep here and repeat troponin/ekg at the 3 hour govind, (1600). He and agree with this plan. 165- he is feeling better at this time. He does report some increase in frequency of hot flashes over the past few days at this time. I discussed with him admission and he states "I understand that would be the safest option where we could be 100% sure that it's not my heart, but I only live 20 minutes away and it would be on me if something bad happens". He does not wish to proceed with admission. He assures me he'll return for any worsening or concerning symptoms. Impression Primary Impression: Chest pain Qualified Codes: R07.9 - Chest pain, unspecified Additional Impressions: CAD (coronary artery disease) Qualified Codes: I25.10 - Atherosclerotic heart disease of [place] coronary artery without angina pectoris Cervical radiculopathy Disposition: 01 HOME, SELF-CARE Condition: Stable Departure-Patient Inst. Decision time for Depature: 16:53 Referrals: ALISHA VERA MD (PCP/Family) Primary Care Physician Patient Instructions: Chest Pain (DC) Add. Discharge Instructions: I suspect this pain that you're having is related to the bulging disks in her neck and upper back. However, you do have a history of coronary artery disease and with that in mind U should return promptly to the emergency room for any recurrent or worsening chest pain shortness of breath sweating or other concerns. If you need an extra dose of your diltiazem 120 mg tablet tonight he may take that for high blood pressure with top number over 150. All discharge instructions reviewed with patient and/or family. Voiced understanding. Copy Copies To 1: ALISHA VERA MD, PETER J APRN Mar 19, 2018 13:38
[2018-03-19] MEDS ORDERED: NITROGLYCERIN 0.4 MG SL TABS BTL 25'S SL PRN (13:45)
[2018-03-19 13:47] LABS: ALANINE AMINOTRANSFERASE 13 U/L (0-55); ALBUMIN 4.3 GM/DL (3.2-4.5); ALKALINE PHOSPHATASE 91 U/L (40-136); BILIRUBIN,TOTAL 0.5 MG/DL (0.1-1.0); BUN/CREATININE RATIO 9; CALCIUM 9.8 MG/DL (8.5-10.1); CARBON DIOXIDE 25 MMOL/L (21-32); CHLORIDE 101 MMOL/L (98-107); CREATININE SERUM 1.53 MG/DL (0.60-1.30); GFR ESTIMATED 45; GLUCOSE 77 MG/DL (70-105); LIPASE 23 U/L (8-78); MAGNESIUM 1.8 MG/DL (1.8-2.4); POTASSIUM 3.7 MMOL/L (3.6-5.0); SODIUM 140 MMOL/L (135-145); TOTAL PROTEIN 8.2 GM/DL (6.4-8.2)
--- NOTE | 2018-03-19 13:49 | Diagnostic Imaging Report ---
PATIENT HISTORY: Chest pain. TECHNIQUE: Single frontal view of the chest COMPARISON: 01/11/2018 FINDINGS: Lung volumes are low. No focal consolidation is seen. There is no pleural effusion or pneumothorax. The cardiac silhouette is normal in size. Sternotomy wires and post CABG changes are seen. IMPRESSION: Low lung volumes with no acute pulmonary abnormality seen. Dictated by: Dictated on workstation # [id number]
[2018-03-19 13:54] LABS: MYOGLOBIN SERUM 132.1 NG/ML (10.0-92.0)
[2018-03-19 14:18] LABS: BAND NEUTROPHILS 1 %; BASOPHILS % (MANUAL) 0 %; EOSINOPHILS % (MANUAL) 1 %; LYMPHOCYTES % (MANUAL) 34 %; MONOCYTES % (MANUAL) 9 %; NEUTROPHILS % (MANUAL) 55 %; RBC MORPH NORMAL
[2018-03-19] MEDS ORDERED: oxyCODONE/APAP 10/325MG (PERCOCET 10) TABLET PO ONE (14:45)
[2018-03-19 16:51] VITALS: BP 196/118
== END 2018-03-19 17:03 | disposition home or self-care (01) ==
LOC: EDUNIT# 13:11 → ER 13:13
DX: R07.89 Other chest pain (principal); I25.10 Atherosclerotic heart disease of native coronary artery without angina pectoris; M54.12 Radiculopathy, cervical region; F32.9 Major depressive disorder, single episode, unspecified; I12.9 Hypertensive chronic kidney disease with stage 1 through stage 4 chronic kidney disease, or unspecified chronic kidney disease; N18.9 Chronic kidney disease, unspecified; K21.9 Gastro-esophageal reflux disease without esophagitis; F41.9 Anxiety disorder, unspecified; Z82.49 Family history of ischemic heart disease and other diseases of the circulatory system; Z87.19 Personal history of other diseases of the digestive system; Z86.010 Personal history of colon polyps; Z87.442 Personal history of urinary calculi; Z91.048 Other nonmedicinal substance allergy status; Z88.5 Allergy status to narcotic agent; Z88.8 Allergy status to other drugs, medicaments and biological substances; Z95.1 Presence of aortocoronary bypass graft; Z90.49 Acquired absence of other specified parts of digestive tract; Z95.5 Presence of coronary angioplasty implant and graft
CPT/HCPCS: 36415; 71045; 80053; 83690; 83735; 83874; 83880; 84484; 85007; 85025; 85027; 85610; 85730; 93005; 93041

== ENCOUNTER → 2018-07-20 | Outpatient (CLI) | payer MEDICARE ==
[~2018-07-20] MED LIST changes: -DILT120C63 PO; +DILT120C94 PO
--- NOTE | 2018-07-20 10:48 | Diagnostic Imaging Report ---
PROCEDURE: US Venous Lower Ext Agustin. TECHNIQUE: Multiple real-time grayscale images were obtained over the lower extremities in various projections, bilaterally. Additional duplex Doppler and color Doppler images were also obtained. INDICATION: Pain and swelling. FINDINGS: The common femoral, femoral, popliteal veins and tibial veins demonstrate normal response to compression, augmentation and Valsalva. There are no abnormal lower extremity fluid collections or masses. IMPRESSION: No evidence of deep venous thrombosis in either lower extremity. Dictated by: Dictated on workstation # [id number]
== END ==
LOC: RAD 09:29
PROVIDERS: ATTEND Family Medicine
DX: R60.0 Localized edema (principal)
CPT/HCPCS: 93970

== ENCOUNTER → 2020-04-23 | Outpatient (CLI) | payer MEDICARE ==
[~2020-04-23] MED LIST changes: +ACHYD1T PO; +DILT120C88 PO; -DILT120C94 PO; -HYDR-3820 PO; +OMEP20CA18 PO; -TAMS0.4C98 PO; +TMSL.4C PO
--- NOTE | 2020-04-23 15:02 | Diagnostic Imaging Report ---
PROCEDURE: US Renal Bilateral. TECHNIQUE: Multiple real-time grayscale images were obtained over the kidneys in various projections bilaterally. INDICATION: Chronic renal disease. FINDINGS: RIGHT KIDNEY: 12.1 x 5.9 x 5.9 cm. There is presence of multiple hypoechoic cystic masses within the right kidney. Largest at the mid inferior pole measures 3.4 x 3.6 x 3.2 cm. There is some diffuse thinning of the renal parenchyma. No hydronephrosis. LEFT KIDNEY: 11.8 x 5.5 x 6.0 cm. Multiple hypoechoic masses, compatible with cysts, are present. A larger one measuring up to 3.4 x 3.0 x 2.9 cm at the mid aspect. Additional larger one inferiorly at 3.1 x 4.4 x 2.6 cm. There is some diffuse thinning of the renal parenchyma. No hydronephrosis. URINARY BLADDER: The partially distended bladder has an unremarkable appearance. Bilateral ureteral jets are present. IMPRESSION: 1. Bilateral renal cysts. 2. Diffuse thinning of the renal parenchyma along with increased echogenicity, suggestive of chronic medical renal disease. No hydronephrosis. Dictated by: Dictated on workstation # [id number]
== END ==
LOC: RAD 11:55
PROVIDERS: ATTEND Internal Medicine Nephrology
DX: N40.0 Benign prostatic hyperplasia without lower urinary tract symptoms (principal); I12.9 Hypertensive chronic kidney disease with stage 1 through stage 4 chronic kidney disease, or unspecified chronic kidney disease; N18.30 Chronic kidney disease, stage 3 unspecified; N28.1 Cyst of kidney, acquired; N28.89 Other specified disorders of kidney and ureter
CPT/HCPCS: 76770

== ENCOUNTER → 2020-04-25 | Outpatient (CLI) | payer OTHER, MEDICARE | LOC: GIR 20:08 | PROVIDERS: ATTEND Nurse Practitioner Family | DX: Z20.822 Contact with and (suspected) exposure to COVID-19 (principal) | CPT/HCPCS: 87635 ==

== ENCOUNTER → 2020-06-29 | Outpatient (CLI) | payer OTHER ==
[~2020-06-29] MED LIST changes: -FOLI0.8T PO; +FOLI0.8T4 PO
== END ==
LOC: GIR 16:28
PROVIDERS: ATTEND Family Medicine
DX: Z01.89 Encounter for other specified special examinations (principal)
CPT/HCPCS: 84132

== ENCOUNTER → 2020-06-30 | Outpatient (CLI) | payer OTHER, MEDICARE | LOC: GIR 16:49 | PROVIDERS: ATTEND Family Medicine | DX: Z01.89 Encounter for other specified special examinations (principal) | CPT/HCPCS: 84132 ==